=== PATIENT | male | born 1955 | race Hispanic/Latino ===

== ENCOUNTER 2017-04-11 13:24 | Inpatient (IN) | payer OTHER ==
[2017-04-11 13:24] VITALS: BMI 38.2
--- NOTE | 2017-04-11 13:55 | ED PDOC ---
Arrival/HPI - General Chief Complaint: Trauma Time Seen by Provider: 04/11/17 13:33 Historian: Patient - History of Present Illness Narrative History of Present Illness (Text): 04/11/17 13:45 Geovanny Heredia is a 61 year old male, whose past medical history includes CHF, COPD, diabetes, and chronic lower back pain, presents to the emergency department complaining of pain on the right side area of the buttocks after a mechanical fall. Patient reports yesterday night we was walking to lock his apartment door when he suddenly slipped and fell landing on his buttocks. Patient notes having a wallet in the back pocket and describes the fall feeling like a punch. Patient states he could not walk correctly and ended up falling asleep in the couch until this morning his family member saw him and decided to come to the emergency department. Patient denies any head trauma or loss of consciousness. Patient denies any shortness of breath, chest pain, headache, dysuria, nausea, vomiting, or other complaints. PMD: Dr. Stoll Time/Duration: Other (last night ) Symptom Onset: Sudden Symptom Course: Unchanged Activities at Onset: Light Context: Home, Slipped Past Medical History - Provider Review Nursing Documentation Reviewed: Yes - Infectious Disease Hx of Infectious Diseases: None - Cardiac Hx Cardiac Disorders: Yes Hx Hypertension: Yes - Pulmonary Hx Chronic Obstructive Pulmonary Disease (COPD): Yes - Neurological Hx Neurological Disorder: No - HEENT Hx HEENT Disorder: No (WEARS RX GLASSES) - Renal Hx Renal Disorder: No - Endocrine/Metabolic Hx Diabetes Mellitus Type 2: Yes - Hematological/Oncological Hx Blood Disorders: No - Integumentary Hx Dermatological Disorder: Yes (ANASARCA-GROSS EDEMA FROM FEET TO LOWER ABDOMINAL AREA.CELLULITIS BLE) - Musculoskeletal/Rheumatological Hx Musculoskeletal Disorders: Yes Hx Falls: Yes - Gastrointestinal Hx Gastrointestinal Disorders: No - Genitourinary/Gynecological Hx Genitourinary Disorders: No - Psychiatric Hx Psychophysiologic Disorder: No Hx Substance Use: No - Surgical History Hx Orthopedic Surgery: Yes (BILATERAL KNEE SURGERY) Other/Comment: 8 STENTS - Anesthesia Hx Anesthesia: Yes Hx Anesthesia Reactions: No Hx Malignant Hyperthermia: No - Suicidal Assessment Feels Threatened In Home Enviroment: No Family/Social History - Physician Review Nursing Documentation Reviewed: Yes Family/Social History: Unknown Family HX Smoking Status: Heavy Smoker > 10 Cigarettes Daily Hx Alcohol Use: Yes Frequency of alcohol use: Socially Hx Substance Use: No Hx Substance Use Treatment: No Allergies/Home Meds Allergies/Adverse Reactions: Allergies No Known Allergies Allergy (Verified 04/11/17 13:27) Home Medications: Home Meds Medication Instructions Recorded Confirmed Morphine Sulfate [Morphine Sulfate 30 mg PO BID 04/11/17 04/11/17 ER] Review of Systems - Review of Systems Constitutional: absent: Fevers Respiratory: absent: SOB Cardiovascular: absent: Chest Pain Gastrointestinal: absent: Abdominal Pain Genitourinary Male: absent: Dysuria Musculoskeletal: Back Pain (chronic lower back), Other (right sided buttock pain ) Neurological: absent: Headache Physical Exam Vital Signs Reviewed: Yes Vital Signs Temp Pulse Resp BP Pulse Ox 04/11/17 16:45 98 H 18 129/69 96 04/11/17 15:13 101 H 16 124/66 95 04/11/17 13:42 99.4 F 110 H 16 110/61 95 Temperature: Afebrile Blood Pressure: Normal Pulse: Tachycardic Respiratory Rate: Normal Appearance: Positive for: Well-Appearing, Non-Toxic, Comfortable Pain Distress: None Mental Status: Positive for: Alert and Oriented X 3 - Systems Exam Head: Present: Atraumatic, Normocephalic Pupils: Present: PERRL Extroacular Muscles: Present: EOMI Conjunctiva: Present: Normal Mouth: Present: Moist Mucous Membranes Neck: Present: Normal Range of Motion Respiratory/Chest: Present: Clear to Auscultation, Good Air Exchange. No: Respiratory Distress, Accessory Muscle Use Cardiovascular: Present: Regular Rate and Rhythm, Normal S1, S2. No: Murmurs Abdomen: Present: Normal Bowel Sounds. No: Tenderness, Distention, Peritoneal Signs Back: Present: Other (right sided lumbar tenderness L4-L5) Upper Extremity: Present: Normal Inspection. No: Cyanosis, Edema Lower Extremity: Present: Normal Inspection, NORMAL PULSES, Neurovascularly Intact, Capillary Refill < 2 s, Other (right hip tenderness and pain worsened with movement. ). No: Edema Neurological: Present: GCS=15, CN II-XII Intact, Speech Normal, Motor Func Grossly Intact, Normal Sensory Function Skin: Present: Warm, Dry, Normal Color. No: Rashes Psychiatric: Present: Alert, Oriented x 3, Normal Insight, Normal Concentration Medical Decision Making ED Course and Treatment: 04/11/17 Impression: 61 year old male with right hip tenderness and lumbar right sided tenderness (L4 -L5) after mechanical fall last night. Differential Diagnosis included but are not limited to: Lumbar Fracture vs Hip Fracture Plan: -- CT Lumbar spine -- CT pelivs without PO or IV contrast -- Chest X-ray -- Labs -- Reassess and disposition Progress Notes: 04/11/2017 15:[address] IMPRESSION: No acute findings. No evidence of compression fracture or disc herniation. Dictator : Papi Fernandes MD 04/11/2017 16:[address] W/O Contrast IMPRESSION: There is a displaced subcapital hip fracture on the right side. There are no pelvic fractures. Dictator : Papi Fernandes MD 04/11/17 16:36 EKG: NSR at 96 bpm with 1st degree AV block, RBBB, Q waves in inferior leads, no change from previous EKGs. Case discussed with Dr. Stoll who states that Dr. Valladares is still covering for him. He requests Dr. Collier for Orthopedics. Paged Dr. Valladares and pending call back. 04/11/17 16:[address] Valladares who will admit the patient. 04/11/17 17:[address] Jo who's covering for Blaine. Case discussed with Dr. Collier, Orthopedics who will come and evaluate patient within a half hour. He recommended getting cardiology clearance. Patient has been evaluated by Dr. Salcido recently so will order a consult. - Lab Interpretations Lab Results: 04/11/17 14:10 04/11/17 14:10 Lab Results 04/11/17 14:10: Sodium 138, Potassium 4.9, Chloride 92 L, Carbon Dioxide 32, Anion Gap 19, BUN 27 H, Creatinine 1.1, Est GFR ( Amer) > 60, Est GFR ( Non-Af Amer) > 60, Random Glucose 269 H, Calcium 9.3 04/11/17 14:10: PT 11.2, INR 1.04, APTT 29.3 04/11/17 14:10: WBC 10.8 D, RBC 4.52, Hgb 14.2, Hct 42.5, MCV 94.0, MCH 31.4, MCHC 33.4, RDW 13.6, Plt Count 183, MPV 11.5 H, Gran % 84.6 H, Lymph % (Auto) 8.9 L, [place] % (Auto) 5.1, Eos % (Auto) 1.1 L, Baso % (Auto) 0.3, Gran # 9.17 H, Lymph # 1.0 L, [place] # 0.6, Eos # 0.1, Baso # 0.03 I have reviewed the lab results: Yes - RAD Interpretation Radiology Orders: 04/11/17 14:00 LUMBAR SPINE W/O CONTRAST [CT] Stat PELVIS W/O PO OR IV CONTRAST [CT] Stat 04/11/17 16:24 CXR [CHEST PORTABLE] [RAD] Stat - Medication Orders Current Medication Orders: Discontinued Medications Oxycodone HCl (Oxycodone Immediate Release Tab) 30 mg PO STAT STA Stop: 04/11/17 17:04 Last Admin: 04/11/17 17:11 Dose: 30 mg - Scribe Statement The provider has reviewed the documentation as recorded by the Scribe 04/11/2017 [facility] Provider Scribe Attestation: All medical record entries made by the Scribe were at my direction and personally dictated by me. I have reviewed the chart and agree that the record accurately reflects my personal performance of the history, physical exam, medical decision making, and the department course for this patient. I have also personally directed, reviewed, and agree with the discharge instructions and disposition. Disposition/Present on Arrival - Present on Arrival Any Indicators Present on Arrival: No History of DVT/PE: No History of Uncontrolled Diabetes: No Urinary Catheter: No History of Decub. Ulcer: No History Surgical Site Infection Following: None - Disposition Have Diagnosis and Disposition been Completed?: Yes Diagnosis: Hip fracture Disposition: HOSPITALIZED Disposition Time: 16:40 Patient Plan: Admission Patient Problems: Current Active Problems Problem Status Onset Hip fracture Acute Condition: FAIR
[2017-04-11 14:21] LABS: BASO # 0.03 K/mm3 (0.0-2.0); BASO % 0.3 % (0.0-3.0); EOS # 0.1 (0.0-0.7); EOS % 1.1 % (1.5-5.0); GRAN # 9.17 (1.4-6.5); GRAN % 84.6 % (50.0-68.0); HEMATOCRIT 42.5 % (42.0-52.0); LYMPH % 8.9 % (22.0-35.0); MEAN CORPUSCULAR HEMOGLOBIN 31.4 pg (25.0-35.0); MEAN CORPUSCULAR HGB CONC 33.4 g/dl (31.0-37.0); MEAN PLATELET VOLUME 11.5 fl (7.0-11.0); MONO # 0.6 (0.1-0.6); MONO % 5.1 % (1.0-6.0); RED CELL DISTRIBUTION WIDTH 13.6 % (11.5-14.5); WHITE BLOOD COUNT 10.8 10^3/ul (4.5-11.0)
[2017-04-11 14:31] LABS: BLOOD UREA NITROGEN 27 mg/dL (7-21); CALCIUM 9.3 mg/dL (8.4-10.5); CARBON DIOXIDE 32 mmol/L (21-33); CHLORIDE 92 mmol/L (98-107); GFR AFRICAN-AMERICAN > 60; GLUCOSE,RANDOM 269 mg/dL (70-110); POTASSIUM 4.9 mmol/L (3.6-5.0); SODIUM 138 mmol/L (132-148)
[2017-04-11 14:34] LABS: INR 1.04 (0.93-1.08); PARTIAL THROMBOPLASTIN TIME 29.3 Seconds (23.7-30.8)
--- NOTE | 2017-04-11 16:00 | CT ---
PROCEDURE: CT Lumbar Spine without contrast HISTORY: fall r/o fx COMPARISON: None. TECHNIQUE: Axial computed tomography images were obtained of the lumbar spine without the use of intravenous contrast. Coronal and sagittal reformatted images were created and reviewed. Radiation dose: Total exam DLP = 1413 mGy-cm. This CT exam was performed using one or more of the following dose reduction techniques: Automated exposure control, adjustment of the mA and/or kV according to patient size, and/or use of iterative reconstruction technique. FINDINGS: VERTEBRAE: Unremarkable. No fracture. Normal alignment. DISCS/SPINAL CANAL/NEURAL FORAMINA: L1-2: Unremarkable. L2-3: Unremarkable. L3-4: Unremarkable. L4-5: Unremarkable. L5-S1: Disc degeneration at L5-S1 with a vacuum disc. No significant loss of disc height. PARASPINAL SOFT TISSUES: Unremarkable. OTHER FINDINGS: Disc degeneration is also seen in the lower thoracic spine IMPRESSION: No acute findings. No evidence of compression fracture or disc herniation
--- NOTE | 2017-04-11 16:03 | CT ---
PROCEDURE: CT Pelvis without contrast HISTORY: fall with right hip pain r/o fx COMPARISON: None. TECHNIQUE: Contiguous axial images of the pelvis . No intravenous or oral contrast given. Coronal and sagittal reformats generated. Radiation dose: Total exam DLP = 822 mGy-cm. This CT exam was performed using one or more of the following dose reduction techniques: Automated exposure control, adjustment of the mA and/or kV according to patient size, and/or use of iterative reconstruction technique. FINDINGS: BLADDER: Unremarkable. No mass. REPRODUCTIVE ORGANS: Unremarkable. VISUALIZED BOWEL: Unremarkable. PERITONEUM: Unremarkable, as visualized. No free fluid. No free air. LYMPH NODES: Unremarkable. No enlarged lymph nodes. BONES: There is a displaced subcapital hip fracture on the right side. There are no pelvic fractures The finding is best visualized on image 62 series 2 and coronal image 74 VASCULATURE: Unremarkable. OTHER FINDINGS: None. IMPRESSION: There is a displaced subcapital hip fracture on the right side. There are no pelvic fractures
[2017-04-11] MEDS ORDERED: oxyCODONE 30 mg Immediate Release Tab PO STA (17:03)
--- NOTE | 2017-04-11 17:41 | RAD ---
HISTORY: preop COMPARISON: Chest x-ray performed 12/23/15 TECHNIQUE: Chest, one view. FINDINGS: Examination limited by habitus. LUNGS: No focal consolidation. Please note that chest x-ray has limited sensitivity for the detection of pulmonary masses. PLEURA: No significant pleural effusion identified. No definite pneumothorax . CARDIOVASCULAR: Mild cardiomegaly. OSSEOUS STRUCTURES: Degenerative changes. VISUALIZED UPPER ABDOMEN: Unremarkable. OTHER FINDINGS: None. IMPRESSION: Mild cardiomegaly.
[2017-04-11] MEDS ORDERED: Albuterol 0.083% Inhal Sol (2.5 mg/3 mL) UD INH PRN (17:46)
[2017-04-11] MEDS ORDERED: HYDROmorphone 1 mg/ml ISec SC PRN (18:36)
[2017-04-11] MEDS: HYDROmorphone 2 mg/ml ISec IVP PRN (19:00)
[2017-04-11 19:28] LABS: BASO # 0.03 K/mm3 (0.0-2.0); BASO % 0.3 % (0.0-3.0); EOS # 0.2 (0.0-0.7); EOS % 2.1 % (1.5-5.0); GRAN # 7.88 (1.4-6.5); GRAN % 80.2 % (50.0-68.0); HEMATOCRIT 41.6 % (42.0-52.0); LYMPH # 1.1 (1.2-3.4); LYMPH % 11.4 % (22.0-35.0); MEAN CELL VOLUME 93.9 fl (80.0-105.0); MEAN CORPUSCULAR HEMOGLOBIN 30.7 pg (25.0-35.0); MEAN CORPUSCULAR HGB CONC 32.7 g/dl (31.0-37.0); MEAN PLATELET VOLUME 11.3 fl (7.0-11.0); MONO # 0.6 (0.1-0.6); RED CELL DISTRIBUTION WIDTH 13.6 % (11.5-14.5); WHITE BLOOD COUNT 9.8 10^3/ul (4.5-11.0)
--- NOTE | 2017-04-11 22:26 | CARD ---
APPROVED REPORT EKG Measurement Heart [id number] <Conclusion> Sinus rhythm with 1st degree AV block Right bundle branch block Lateral infarct, age undetermined Inferior infarct, age undetermined Abnormal ECG
[2017-04-12] MEDS ORDERED: Pneumococcal 23-Valent Vaccine IM ONE (00:22)
[2017-04-12] MEDS: Levalbuterol 0.63 MG/3 ML Inhal Soln UD IH SCH ×3 (07:15→20:38)
[2017-04-12 07:18] LABS: PH,URINE 5.5 (4.7-8.0); URINE BILIRUBIN NEGATIVE (NEGATIVE); URINE BLOOD TRACE-LYSED (NEGATIVE); URINE GLUCOSE (UA) 500 mg/dL (NEGATIVE); URINE KETONE NEGATIVE (NEGATIVE); URINE LEUKOCYTE ESTERASE NEGATIVE Leu/uL (NEGATIVE); URINE PROTEIN NEGATIVE mg/dL (<30 mg/dL); URINE UROBILINOGEN 0.2 E.U./dL (<1 E.U./dL)
[2017-04-12 07:23] LABS: URINE APPEARANCE CLEAR (CLEAR); URINE COLOR YELLOW (YELLOW)
[2017-04-12 07:42] LABS: URINE RBC NEGATIVE /hpf (0-2); URINE WBC NEGATIVE /hpf (0-6)
[2017-04-12] MEDS: HYDROmorphone 2 mg/ml ISec IVP PRN ×2 (07:58→12:04)
[2017-04-12 08:16] LABS: ALB/GLOB RATIO 1.4 (1.1-1.8); ALKALINE PHOSPHATASE 68 U/L (38-126); ALT/SGPT 22 U/L (7-56); AST/SGOT 45 U/L (17-59); BILIRUBIN,TOTAL 0.8 mg/dL (0.2-1.3); BLOOD UREA NITROGEN 19 mg/dL (7-21); CALCIUM 8.8 mg/dL (8.4-10.5); CARBON DIOXIDE 34 mmol/L (21-33); CHLORIDE 95 mmol/L (98-107); GFR AFRICAN-AMERICAN > 60; GLUCOSE,RANDOM 199 mg/dL (70-110); POTASSIUM 4.2 mmol/L (3.6-5.0); SODIUM 137 mmol/L (132-148); TOTAL PROTEIN 6.4 g/dL (5.8-8.3)
--- NOTE | 2017-04-12 08:26 | CON ---
DATE: 04/11/2017 The patient is being admitted to the ER. HISTORY OF PRESENT ILLNESS: The patient is a 61-year-old male who tripped and fell at home who comes in for a he fractured as seen on er ct scan . He does smoke 1 pack a day with similar packets. He has coronary artery disease, sees Dr. garcia being covered by Dr. Valladares. he will get put in for cardiac evaluation. replacementof the hip fracture is the only procedure to do to enable him to get out of bed.and for him to mobilize himself __and to get rajat walking with cane, restriction to no low chairs and squatting. He was told that there could be risks of blood lose and infection. . DIAGNOSES: displaced sub capital fracture_ right hip, right total hip replacement. Papi Dobson DO MTDHi
[2017-04-12 08:43] LABS: ARTERIAL BLOOD GAS HCO3 36.5 mmol/L (21-28); ARTERIAL BLOOD GAS O2 CAPACITY 17.6 mL/dl (16-24); ARTERIAL BLOOD GAS O2 CONTENT 17.1 ML/dl (15-23); ARTERIAL BLOOD GAS PH 7.43 (7.35-7.45); ARTERIAL BLOOD HGB O2 SAT 91.5 % (95.0-98.0); CARBOXYHEMOGLOBIN 4.8 % (0.5-1.5); HHB 2.6 % (0-5); METHEMOGLOBIN 1.2 % (0.0-3.0)
[2017-04-12] MEDS: Potassium Chloride 20 mEq ER Tab PO SCH (09:15)
--- NOTE | 2017-04-12 12:21 | CON ---
DATE: 04/12/2017 INDICATIONS: Preoperative right hip replacement. HISTORY OF PRESENT ILLNESS: This is a 61-year-old man known to me from prior [facility] admissions, admitted yesterday after a mechanical fall at home. He slipped on a wet surface and landed on his buttocks. He had pain. He came to the emergency room. Evaluation revealed a right hip fracture. Right total hip replacement is planned by Dr. Dobson for later today. There was no dizziness or syncope. He denies chest pain, shortness of breath, orthopnea, PND, palpitation, edema, fever, chills, cough, sputum production, hemoptysis, abdominal pain, nausea, vomiting, diarrhea, constipation and melena. PAST MEDICAL HISTORY: Notable for coronary artery disease, he has undergone remote coronary artery stents and has mild to moderate LV dysfunction. He has diabetes, prior syncopal episode probably due to hypoglycemia. He is an active smoker with severe COPD, chronic pain, peripheral vascular disease with peripheral vascular interventions. He has chronic obesity and peripheral neuropathy. MEDICATIONS AT THE TIME OF ADMISSION: Include aspirin, potassium chloride, Klonopin, Lasix, Lipitor, morphine sulfate, Plavix, Zoloft and metformin. ALLERGIES: THERE WERE NO KNOWN MEDICATION ALLERGIES. FAMILY HISTORY: Noncontributory. SOCIAL HISTORY: He lives at home. He continues to smoke about a pack of cigarette/cigars daily. He does not drink alcohol significantly. REVIEW OF SYSTEMS: A 10-point review of systems otherwise unremarkable except as noted above. PHYSICAL EXAMINATION: GENERAL: He is a well-developed male, sitting in bed, in no acute distress on 5R. VITAL SIGNS: Unremarkable. Pulse 91, temperature 99.4, blood pressure 139/75 and O2 sat 95% on nasal cannula and room air. HEENT: Reveals no neck vein distention, thyromegaly, or carotid bruits. Mucous membrane moist. Conjunctivae are pink. NECK: Supple. LUNGS: Lung fernandez clear throughout. HEART: Reveals normal 1st and 2nd heart sounds. ABDOMEN: Soft. Bowel sounds are present. No mass, organomegaly, tenderness, rebound, or guarding. No CVA tenderness. No palpable abdominal aortic aneurysm. EXTREMITIES: Reveals no edema. NEUROLOGICAL: Awake, alert, and oriented. PSYCHIATRIC: Normal as to mood and affect. SKIN: Warm and dry. No rashes or cellulitis. LABORATORY AND IMAGING: A lumbar spine CT reveal no evidence of compression fracture or disk herniation. A pelvis CT reveals a displaced subcapital hip fracture on the right. No pelvic fracture. A chest x-ray reveals mild cardiomegaly. EKG demonstrates sinus rhythm, first-degree heart block, right bundle branch block, inferior DE and lateral DE. No change from prior EKG. The ST-T wave changes also unchanged from prior EKG. White count normal, platelet count normal, hemoglobin 13.6 and hematocrit 41.6. PT, PTT and INR unremarkable. Electrolytes, BUN, creatinine and blood sugar unremarkable. Blood sugar is 269 and 199. LFTs unremarkable. Urinalysis is noted. IMPRESSION: Geovanny Heredia is a 61-year-old man status post mechanical fall with right hip fracture who was planning to undergo an elective right total hip replacement by Dr. Dobson later day. He has known coronary artery disease, continued smoking, chronic obstructive pulmonary disease, peripheral vascular disease, peripheral vascular intervention, prior coronary interventions, [id number] left ventricular dysfunction, diabetes. So, he is at least moderate increased risk for surgical complications and he should be considered a moderate to high cardiac risk. PLAN: I have discussed the case with Dr. Aquino. Metformin is on hold. He is being covered with insulin. Plavix is being held. He got a dose of Lovenox. We will continue Lipitor, Lasix, Potassium, aspirin. He is getting pain medication. He is n.p.o. for possible surgery later today. I will follow along with you and make additional recommendations based on his clinical course. I have reviewed his prior medical records, cardiac catheterization report and echocardiogram report from December of 2015. Randal Salcido MD JUSTINA
--- NOTE | 2017-04-12 14:36 | CON ---
ORTHOPEDIC CONSULTATION DATE: 04/11/2017 HISTORY OF PRESENT ILLNESS: A 61-year-old male who came into the hospital 04/11/2017 with a displaced fracture subcapital of his right hip. I explained to him that he will need stabilization of the right hip fracture, and since the fracture is displaced, he needs his bipolar hip prosthesis when he is medically cleared and when he can be cleared we can perform the surgery as early as today which is 04/12/2017 or we have to delay if he needs more medical testing, otherwise we can do the surgery today about 3:00 which is 04/12/2017 for bipolar hip prosthesis. I explained to him the risks and benefits and the need for blood transfusion if that is appropriate, so I will follow him and be available to do his surgery when he is medically optimized for surgery. Papi Dobson DO
--- NOTE | 2017-04-12 14:52 | CON ---
DATE: 04/12/2017 REASON FOR CONSULTATION: Chronic obstructive pulmonary disease. REFERRING PHYSICIAN: Papi Dobson DO HISTORY OF PRESENT ILLNESS: The patient is a 61-year-old male with past medical history significant for chronic obstructive pulmonary disease, positive extensive smoking history-still smokes, diabetes mellitus, chronic lower back pain, who presented to the emergency room yesterday with increasing right leg/buttock pain. Apparently, the patient slipped and fell in his apartment on Sunday. He then waited a day to see if the pain would get any better. When the pain did not get any better, he went to the emergency room for additional evaluation. In the emergency room, the patient was noted to have a right hip fracture. He was then admitted for additional evaluation. The patient denies shortness of breath at rest or dyspnea on exertion. He does state to an occasional cough with no significant sputum production. There is no history of chest pain, coughing up of blood, or chest pain-made worse with deep respirations. There is no history of temperatures, chills, or infectious exposure. There is no history of night sweats, weight loss, or appetite change prior to the above events. No history of calf pains. No history of syncope or diaphoresis. No history of recent travel. REVIEW OF SYSTEMS: The patient denies snoring or daytime somnolence. There is no history of nausea, vomiting, or diarrhea. No acute urinary symptoms. No new neurologic complaints. Rest of the review of systems is negative. ALLERGIES: NO KNOWN ALLERGIES. SOCIAL HISTORY: Positive for extensive tobacco usage-still smokes. No alcohol. FAMILY HISTORY: No inheritable diseases. HOME MEDICATIONS: Include aspirin, Lasix, Plavix, Klonopin, Lipitor, Glucophage, Zoloft, and Proventil inhaler. PHYSICAL EXAMINATION GENERAL: The patient appears comfortable at rest. He is not short of breath. VITAL SIGNS: Temperature is 99.4, pulse 91, respirations 16, blood pressure 139/75. oxygen saturation on nasal cannula is 95%. HEENT: Normocephalic, atraumatic. NECK: No JVD. CARDIOVASCULAR: Positive S1, S2. No S3 gallop. LUNGS: Clear bilaterally. EXTREMITIES: There is no clubbing, cyanosis, or edema noted. Calves are nontender to palpation. The right lower extremity is extremely painful with any movement. GASTROINTESTINAL: Abdomen is soft, nontender, nondistended. Bowel sounds are positive. SKIN: No acute rash. NEUROLOGIC: Limited at the present time. PERTINENT LABORATORY DATA: Chest x-ray was done yesterday and reviewed. There is mild cardiomegaly present. There are no acute pulmonary findings. Pelvic CAT scan was also done. The pelvic CAT scan reveals a displaced subcapital hip fracture on the right side. CBC: White count 9.8, hemoglobin 13.6, hematocrit 41.6, platelets of 166. Metabolic profile: Chloride 92, BUN 27, glucose 269. Rest of the metabolic profiles are within normal limits. IMPRESSION: 1. Right hip fracture. 2. Chronic obstructive pulmonary disease. 3. Mild anemia. 4. Diabetes mellitus. PLAN: The patient presents to [facility] after falling at home. Apparently, he slipped and fell in his apartment, landing on his right leg/buttock. As above, in the emergency room, the patient was diagnosed with a right hip fracture. He was thus admitted for additional evaluation. I did question the patient at length in regard to his pulmonary symptoms. Other than an occasional cough, he reports no other pulmonary symptoms. I did review the chest x-ray as above. It shows no acute disease. The patient does use a Proventil inhaler at home. Thus, I will start the patient on scheduled Xopenex treatments perioperatively. In addition, because of his significant smoking history, I will also obtain a preoperative arterial blood gas. Cardiology evaluation has also been called. Additional pulmonary intervention will be based on the above results, as well as the clinical status of the patient. The patient is tentatively scheduled for surgery later today (discussed with nurse). I will be happy to follow this patient closely with you. Thank you very much for this pulmonary consultation. Italo Gonzalez MD JUSTINA
[2017-04-12] MEDS ORDERED: Etomidate 20 mg/10ml Inj IV ONE (15:20)
[2017-04-12] MEDS ORDERED: Midazolam 2 MG/2 ML VIAL ONE (15:21)
[2017-04-12] MEDS ORDERED: Succinylcholine 200 mg/10 ml Inj IV ONE (15:24)
[2017-04-12] MEDS ORDERED: Rocuronium 10 mg/ml (5 ml) ONE (15:25)
[2017-04-12] MEDS ORDERED: ePHEDrine 50 mg/ml Inj ONE (15:27)
[2017-04-12] MEDS ORDERED: Phenylephrine 10 mg/ml Inj ONE (15:29)
[2017-04-12] MEDS ORDERED: Bupivacaine 0.5% Inj(30mL) ONE (15:34)
[2017-04-12] MEDS ORDERED: Desflurane Inhalation Anesthetic Liq (240 ml) ONE (15:57)
[2017-04-12] MEDS ORDERED: Glycopyrrolate 0.2 mg/ml (2ml vial) ONE (17:35)
[2017-04-12] MEDS ORDERED: Neostigmine Methylsulfate 3mg/3ml Syringe IV ONE (17:35)
--- NOTE | 2017-04-12 18:09 | HP ---
CHIEF COMPLAINT AND HISTORY OF PRESENT ILLNESS: The patient is a 61-year-old male who is coming into the hospital because of a fall. The patient states that he was walking and when he slipped and landed on his behind on the right side, he says that he had his wallet that was in place and felt that he landed on his wallet. The patient started having pain and came into the emergency room for further evaluation. He has a past medical history of COPD, diabetes type 2, chronic back pain for which he is on narcotics. He was found to have a hip fracture and was admitted to the hospital for further evaluation. REVIEW OF SYSTEMS: He has no complaints of any headaches, no nausea. He says that he remembered falling. He did not have syncopal episode. He has no fevers or chills. No abdominal pain. No dysuria or frequency, no nocturia, no weakness in the arms or the legs prior to the fall. He does say that he is not able to move his legs and he has significant pain, it was 10/10 initially when this happened. The pain medication that he received in the ER did help relieve the pain symptoms. All other review of systems are within normal limits except that was mentioned. ALLERGIES: NO KNOWN DRUG ALLERGIES. HOME MEDICATIONS: He is on metformin, potassium, morphine, Plavix, aspirin, Klonopin, Lasix, Lipitor, and sertraline. SOCIAL HISTORY: He is a smoker. He does not drink. Denies drug use. 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 FAMILY HISTORY: Noncontributory. PAST SURGICAL HISTORY: Bilateral knee surgery. PHYSICAL EXAMINATION: VITAL SIGNS: Temperature is 99.2, pulse 104, blood pressure is 133/57, respirations 20, O2 saturation 99%. Height is 5 feet 4 inches, weight is 223 pounds, and BMI is 38 is normal. GENERAL: The patient lying in bed, uncomfortable, and in no acute distress. HEENT: Atraumatic and normocephalic. Anicteric sclerae. Moist mucosa. [place] conjunctivae. No oral lesions. NECK: No JVD, anterior and posterior adenopathy, thyromegaly, or bruits. CARDIOVASCULAR: S1 and S2 regular. No murmur, rubs, or gallop. LUNGS: Clear to auscultation bilaterally. No wheezes, rales, or rhonchi. ABDOMEN: Bowel sounds are positive. Soft, nontender and nondistended. No hepatosplenomegaly. No rebound and no guarding EXTREMITIES: No cyanosis, clubbing, or edema. NEUROLOGIC: No facial asymmetry. Tongue is midline. No uvula deviation. Power is 5/5 upper extremity and lower extremity. Sensation intact in upper extremity and lower extremity. PSYCHIATRIC: She is awake, alert and oriented x3. No anxiety or depression. She has normal affect. GENITOURINARY: No CVA tenderness. VASCULAR: 2+ pulses in the carotid pulses and pedal pulses. SKIN: No erythema or nodules. SPINE: Shows normal curvature. EXTREMITIES: No cyanosis and clubbing, no edema. In the right leg he has decreased range of motion because of pain. Not able to lift his leg. LABORATORY DATA: White count of 10.8, hemoglobin 14.2, platelet count is 183. He has a chemistry that shows sodium 138, potassium is 4.9, creatinine is 1.1, and albumin is 3.7. Urine shows blood that is trace, nitrates are negative, bilirubin is negative. EKG shows sinus rhythm, first degree AV block with a heart rate of 96. No ST-T changes. His chest x-ray done shows no cardiomegaly. His lumbar CT done shows no acute findings. There is disc degeneration at L5-S1. Pelvic CAT scan done shows a displaced subcapital hip fracture on the right side. ASSESSMENT: 1. Right hip fracture. 2. Chronic back pain secondary to degenerative disk disease. 3. Chronic obstructive pulmonary disease. 4. Peripheral neuropathy. 5. Coronary artery disease. 6. Dyslipidemia. PLAN: The patient is going to be admitted to the hospital. The patient is on his Dilaudid for pain. He is going to continue with aspirin. The patient is on Lipitor for dyslipidemia. He is on Zoloft for his anxiety and depression. The patient is n.p.o. because of going for hip surgery today. He is going to be followed with Dr. Salcido for preop clearance, and also Dr. Gonzalez. The patient was already seen by Orthopedic with Dr. Dobson. We will continue to follow him closely. Agustín Valladares MD [facility] # [id number]
[2017-04-12] MEDS ORDERED: HYDROmorphone 0.5 mg/0.5 ml ISec ONE ×2 (18:10→20:44)
[2017-04-12] MEDS ORDERED: Lactated Ringer's 1,000 ML IV SCH (18:16)
[2017-04-12] MEDS ORDERED: HYDROmorphone 0.5 mg/0.5 ml ISec IVP PRN (18:16)
[2017-04-12] MEDS ORDERED: Enoxaparin 40 mg Syringe SC ONE (18:34)
[2017-04-12] MEDS ORDERED: HYDROmorphone 0.5 mg/0.5 ml ISec IVP ONE (19:31)
[2017-04-12] MEDS ORDERED: Albuterol-Ipratrop 3 mg / 0.5 (3 ml) UD IH PRN (20:45)
[2017-04-12] MEDS ORDERED: HYDROmorphone 0.5 mg/0.5 ml ISec IVP STA (20:45)
--- NOTE | 2017-04-12 20:58 | CP.PCM.CON ---
<Jojo Hinson - Last Filed: 04/13/17 06:08> History of Present Illness - History of Present Illness History of Present Illness: Critical Care Consult Note for Dr. Vo 61 year old male PMHx CAD, CHF, COPD, DM2, PVD, chronic low back pain presented to ER s/p mechanical fall on 04/11. In the ED, patient was found to have a right displaced subcapital hip fracture. Orthopedics was consulted and patient was taken to OR for bipolar hip prosthesis. Postop, patient was tachycardic with low O2 sat. ABG showed pH 7.28 with evidence of hypercapnic respiratory failure with CO2 of 87 likely secondary to COPD. Patient was placed on BiPAP and transferred to ICU. PMD: Dr. Stoll PMHx: CAD, CHF, COPD, DM2, PVD, chronic low back pain Meds: please see chart ALL: NKDA PSurgHx: b/l knee surgery FamHx: denies SocHx: current tobacco use ~1ppd Review of Systems - Constitutional Constitutional: As Per HPI. absent: Chills, Fever - EENT Eyes: As Per HPI. absent: Blurred Vision Ears: As Per HPI. absent: Dizziness Nose/Mouth/Throat: As Per HPI, Dry Mouth - Cardiovascular Cardiovascular: As Per HPI, Dyspnea. absent: Chest Pain, Edema - Respiratory Respiratory: As Per HPI, Dyspnea. absent: Cough - Gastrointestinal Gastrointestinal: As Per HPI. absent: Abdominal Pain, Nausea, Vomiting - Genitourinary Genitourinary: As Per HPI. absent: Dysuria - Musculoskeletal Musculoskeletal: As Per HPI, Other (denied postop pain) - Neurological Neurological: As Per HPI. absent: Dizziness, Headaches - Psychiatric Psychiatric: As Per HPI, Anxiety Past Patient History - Infectious Disease Hx of Infectious Diseases: None - Past Social History Smoking Status: Current Some Days Smoker - CARDIAC Hx Pacemaker: No - PULMONARY Hx Respiratory Disorders: Yes (SMOKES 1 PPD) Hx Chronic Obstructive Pulmonary Disease (COPD): Yes - NEUROLOGICAL Hx Paralysis: No - HEENT Hx HEENT Problems: No (WEARS RX GLASSES) - RENAL Hx Chronic Kidney Disease: No - ENDOCRINE/METABOLIC Hx Endocrine Disorders: Yes Hx Diabetes Mellitus Type 2: Yes - HEMATOLOGICAL/ONCOLOGICAL Hx Blood Transfusions: No Hx Blood Transfusion Reaction: No - INTEGUMENTARY Hx Dermatological Problems: Yes (ANASARCA-GROSS EDEMA FROM FEET TO LOWER ABDOMINAL AREA.CELLULITIS BLE) - MUSCULOSKELETAL/RHEUMATOLOGICAL Hx Musculoskeletal Disorders: Yes (BILATERAL KNEE SX) - GASTROINTESTINAL Hx Gastrointestinal Disorders: No - GENITOURINARY/GYNECOLOGICAL Hx Genitourinary Disorders: No - PSYCHIATRIC Hx Emotional Abuse: No Hx Physical Abuse: No Hx Substance Use: No - SURGICAL HISTORY Hx Surgeries: Yes - ANESTHESIA Hx Anesthesia Reactions: No Hx Malignant Hyperthermia: No Meds Allergies/Adverse Reactions: Allergies Allergy/AdvReac Type Severity Reaction Status Date / Time No Known Allergies Allergy Verified 04/11/17 19:47 - Medications Medications: Current Medications Albuterol/Ipratropium (Duoneb 3 Mg/0.5 Mg (3 Ml) Ud) 3 ml IH Q2H PRN PRN Reason: Shortness of Breath Aspirin (Ecotrin) 81 mg PO BID [facility] Last Admin: 04/12/17 09:23 Dose: Not Given Atorvastatin Calcium (Lipitor) 10 mg PO HS [facility] Last Admin: 04/11/17 22:35 Dose: 10 mg Clonazepam (Klonopin) 0.5 mg PO HS [facility] PRN Reason: Protocol Last Admin: 04/11/17 22:35 Dose: 0.5 mg Enoxaparin Sodium (Lovenox) 30 mg SC Q12H IDRIS PRN Reason: Protocol Furosemide (Lasix) 40 mg PO BID [facility] Last Admin: 04/12/17 09:14 Dose: 40 mg Hydromorphone HCl (Dilaudid) 2 mg IVP Q4H PRN PRN Reason: Pain, moderate (4-7) Last Admin: 04/12/17 12:04 Dose: 2 mg Cefazolin Sodium 2 gm/ Sodium (Chloride) 100 mls @ 200 mls/hr IVPB ONCE ONE Stop: 04/13/17 00:14 Insulin Human Regular (Humulin R Med) 0 units SC ACHS [facility] PRN Reason: Protocol Levalbuterol HCl (Xopenex) 0.63 mg IH TIDRESP [facility] Last Admin: 04/12/17 20:38 Dose: Not Given Nystatin/Triamcinolone Acetonide (Nystatin/Triamcinolone Cream) 1 ea TOP BID [facility] Potassium Chloride (K-Dur 20 Meq Er Tab) 20 meq PO DAILY [facility] Last Admin: 04/12/17 09:15 Dose: 20 meq Sertraline HCl (Zoloft) 50 mg PO DAILY IDRIS Physical Exam - Constitutional Appears: Non-toxic, No Acute Distress, Chronically Ill, Other (obese) - Head Exam Head Exam: ATRAUMATIC, NORMAL INSPECTION, NORMOCEPHALIC - Eye Exam Eye Exam: EOMI, Normal appearance, PERRL. absent: Conjunctival injection, Scleral icterus - ENT Exam ENT Exam: Mucous Membranes Dry Additional comments: BiPAP in place - Neck Exam Neck exam: Positive for: Lymphadenopathy - Respiratory Exam Additional comments: coarse breath sounds b/l - Cardiovascular Exam Cardiovascular Exam: Tachycardia, REGULAR RHYTHM. absent: Systolic Murmur - GI/Abdominal Exam GI & Abdominal Exam: Normal Bowel Sounds, Soft. absent: Firm, Rigid, Tenderness - Extremities Exam Extremities exam: Positive for: pedal pulses present Additional comments: LE sensation grossly intact b/l SCDs in place - Neurological Exam Neurological exam: Alert, Oriented x3 - Psychiatric Exam Psychiatric exam: Anxious - Skin Skin Exam: Dry, Intact, Normal Color, Warm Results - Vital Signs Recent Vital Signs: Last Vital Signs Temp 99.2 F 04/12/17 19:49 Pulse 122 H 04/12/17 19:49 Resp 12 04/12/17 19:49 BP 159/69 H 04/12/17 19:49 Pulse Ox 94 L 04/12/17 19:49 - Labs Result Diagrams: 04/12/17 21:43 04/12/17 21:43 Labs: Laboratory Results - last 24 hr 04/11/17 04/11/17 04/12/17 16:45 21:24 06:30 pCO2 pO2 HCO3 ABG pH ABG Total CO2 ABG O2 Saturation ABG O2 Content ABG Base Excess ABG Hemoglobin ABG Carboxyhemoglobin POC ABG HHb (Measured) ABG Methemoglobin ABG O2 Capacity Hgb O2 Saturation FiO2 Sodium Potassium Chloride Carbon Dioxide Anion Gap BUN Creatinine Est GFR ( Amer) Est GFR (Non-Af Amer) POC Glucose (mg/dL) 244 H Random Glucose Calcium Total Bilirubin AST ALT Alkaline Phosphatase Total Protein Albumin Globulin Albumin/Globulin Ratio Urine Color Yellow Urine Appearance Clear Urine pH 5.5 Ur Specific [place] 1.020 Urine Protein Negative Urine Glucose (UA) 500 H Urine Ketones Negative Urine Blood Trace-lysed H Urine Nitrate Negative Urine Bilirubin Negative Urine Urobilinogen 0.2 Ur Leukocyte Esterase Negative Urine RBC Negative Urine WBC Negative Blood Type A POSITIVE Antibody Screen Negative Crossmatch See Detail BBK History Checked Patient has bt 04/12/17 04/12/17 04/12/17 07:23 07:45 08:35 pCO2 55 H pO2 69.0 L HCO3 36.5 H ABG pH 7.43 ABG Total CO2 38.2 H ABG O2 Saturation 97.2 ABG O2 Content 17.1 ABG Base Excess 10.2 H ABG Hemoglobin 13.3 ABG Carboxyhemoglobin 4.8 H POC ABG HHb (Measured) 2.6 ABG Methemoglobin 1.2 ABG O2 Capacity 17.6 Hgb O2 Saturation 91.5 L FiO2 28.0 Sodium 137 Potassium 4.2 Chloride 95 L Carbon Dioxide 34 H Anion Gap 12 BUN 19 Creatinine 0.9 Est GFR ( Amer) > 60 Est GFR (Non-Af Amer) > 60 POC Glucose (mg/dL) 188 H Random Glucose 199 H Calcium 8.8 Total Bilirubin 0.8 AST 45 ALT 22 Alkaline Phosphatase 68 Total Protein 6.4 Albumin 3.7 Globulin 2.7 Albumin/Globulin Ratio 1.4 Urine Color Urine Appearance Urine pH Ur Specific [place] Urine Protein Urine Glucose (UA) Urine Ketones Urine Blood Urine Nitrate Urine Bilirubin Urine Urobilinogen Ur Leukocyte Esterase Urine RBC Urine WBC Blood Type Antibody Screen Crossmatch BBK History Checked 04/12/17 11:27 pCO2 pO2 HCO3 ABG pH ABG Total CO2 ABG O2 Saturation ABG O2 Content ABG Base Excess ABG Hemoglobin ABG Carboxyhemoglobin POC ABG HHb (Measured) ABG Methemoglobin ABG O2 Capacity Hgb O2 Saturation FiO2 Sodium Potassium Chloride Carbon Dioxide Anion Gap BUN Creatinine Est GFR ( Amer) Est GFR (Non-Af Amer) POC Glucose (mg/dL) 193 H Random Glucose Calcium Total Bilirubin AST ALT Alkaline Phosphatase Total Protein Albumin Globulin Albumin/Globulin Ratio Urine Color Urine Appearance Urine pH Ur Specific [place] Urine Protein Urine Glucose (UA) Urine Ketones Urine Blood Urine Nitrate Urine Bilirubin Urine Urobilinogen Ur Leukocyte Esterase Urine RBC Urine WBC Blood Type Antibody Screen Crossmatch BBK History Checked Assessment & Plan - Assessment and Plan (Free Text) Assessment: 61 year old male PMHx CAD, CHF, COPD, DM2, PVD, chronic low back pain presented to ER s/p mechanical fall on 04/11 found to have R hip fracture. ICU consulted for tachycardia and low O2 post op bipolar hip prosthesis Plan: Neuro - no acute issues Cardio - patient is tachycardic - monitor closely - ASA 81mg po - Lipitor 10mg po hs - Lasix 40mg po bid - Hydralazine 10mg ivp q4 prn - Cardio Dr. Salcido Respiratory - hypercapnic respiratory failure likely secondary to COPD - monitor closely on BiPAP - f/u ABG - CTA to ro PE: dilated main pulm artery suggesting pulm HTN, no aneurysm, dissection or pulm embolus; cardiomegaly and atherosclerotic disease minimal scarring at the lung bases - Solumedrol 40mg ivp q12 - Levalbuterol 0.63inh tid - Duoneb 3ml inh q2 prn SOB - Pulm Dr. Gonzalez GI - no acute issues Endo - RISS - Accucheck ID - Zithromax 500mg ivpb Day 1 - Ofirmev for temp prn Heme/Onc - no acute issues MSK - POD#1 bipolar hip prosthesis - Pelvis CT 04/11: displaced subcapital hip fracture on R side - Lumbar spine CT 04/11: no acute findings - Dilaudid 2mg ivp q4 prn pain mod - Ortho Dr. Dobson Skin - Triamcinolone cream 1 ea top bid Psych - no acute issues - continue home medications - Zoloft 50mg po qd - Clonazepam 0.5mg po qhs GI ppx: Pepcid 20mg po bid VTE ppx: Lovenox 30mg sc q12 Diet: HHD Fluids: NS @ 100cc/hr PT/OT ordered Discussed with Dr. Gilda Hinson PGY2 <Chiki Vo Q - Last Filed: 04/13/17 06:42> Meds - Medications Medications: Current Medications Albuterol/Ipratropium (Duoneb 3 Mg/0.5 Mg (3 Ml) Ud) 3 ml IH Q2H PRN PRN Reason: Shortness of Breath Albuterol/Ipratropium (Duoneb 3 Mg/0.5 Mg (3 Ml) Ud) 3 ml IH [id number] IDRIS Albuterol/Ipratropium (Duoneb 3 Mg/0.5 Mg (3 Ml) Ud) 3 ml IH Q2H PRN PRN Reason: Shortness of Breath Aspirin (Ecotrin) 81 mg PO BID [facility] Last Admin: 04/12/17 19:00 Dose: Not Given Atorvastatin Calcium (Lipitor) 10 mg PO HS IDRIS Last Admin: 04/12/17 22:00 Dose: Not Given Budesonide (Pulmicort Respules) 0.5 mg IH [id number] IDRIS Clonazepam (Klonopin) 0.5 mg PO HS IDRIS PRN Reason: Protocol Last Admin: 04/12/17 22:00 Dose: Not Given Enoxaparin Sodium (Lovenox) 30 mg SC Q12H IDRIS PRN Reason: Protocol Famotidine (Pepcid) 20 mg PO 1000,2200 IDRIS Furosemide (Lasix) 40 mg PO BID [facility] Last Admin: 04/12/17 21:30 Dose: Not Given Hydralazine HCl (Apresoline) 10 mg IVP Q4 PRN PRN Reason: Systolic Blood Pressure Hydromorphone HCl (Dilaudid) 2 mg IVP Q4H PRN PRN Reason: Pain, moderate (4-7) Last Admin: 04/12/17 12:04 Dose: 2 mg Acetaminophen (Ofirmev) 1,000 mg in 100 mls @ 400 mls/hr IVPB Q6H PRN PRN Reason: Temperature Stop: 04/14/17 23:51 Last Admin: 04/13/17 00:08 Dose: 400 mls/hr Sodium Chloride (Sodium Chloride 0.9%) 1,000 mls @ 100 mls/hr IV .Q10H [facility] Last Admin: 04/13/17 01:03 Dose: 100 mls/hr Azithromycin (Zithromax 500mg In Ns) 500 mg in 250 mls @ 167 mls/hr IVPB 0600 IDRIS PRN Reason: Protocol Last Admin: 04/13/17 05:21 Dose: 167 mls/hr Insulin Human Regular (Humulin R Med) 0 units SC ACHS [facility] PRN Reason: Protocol Last Admin: 04/12/17 21:30 Dose: Not Given Methylprednisolone (Solu-Medrol) 40 mg IVP Q12 [facility] Last Admin: 04/12/17 22:31 Dose: 40 mg Nystatin/Triamcinolone Acetonide (Nystatin/Triamcinolone Cream) 1 ea TOP BID [facility] Last Admin: 04/12/17 21:30 Dose: 1 applic Potassium Chloride (K-Dur 20 Meq Er Tab) 20 meq PO DAILY IDRIS Last Admin: 04/12/17 09:15 Dose: 20 meq Sertraline HCl (Zoloft) 50 mg PO DAILY [facility] Results - Vital Signs Recent Vital Signs: Last Vital Signs Temp 99.7 F H 04/13/17 05:20 Pulse 115 H 04/13/17 05:20 Resp 13 04/13/17 05:00 BP 119/59 L 04/13/17 05:16 Pulse Ox 97 04/13/17 05:20 - Labs Result Diagrams: 04/12/17 21:43 04/12/17 21:43 Labs: Laboratory Results - last 24 hr 04/11/17 04/12/17 04/12/17 16:45 06:30 07:23 WBC RBC Hgb Hct MCV MCH MCHC RDW Plt Count MPV Gran % Lymph % (Auto) [place] % (Auto) Eos % (Auto) Baso % (Auto) Gran # Lymph # Edgar # Eos # Baso # pCO2 pO2 HCO3 ABG pH ABG Total CO2 ABG O2 Saturation ABG O2 Content ABG Base Excess ABG Hemoglobin ABG Carboxyhemoglobin POC ABG HHb (Measured) ABG Methemoglobin ABG O2 Capacity Hgb O2 Saturation FiO2 Sodium Potassium Chloride Carbon Dioxide Anion Gap BUN Creatinine Est GFR ( Amer) Est GFR (Non-Af Amer) POC Glucose (mg/dL) 188 H Random Glucose Calcium Total Bilirubin AST ALT Alkaline Phosphatase Total Protein Albumin Globulin Albumin/Globulin Ratio Urine Color Yellow Urine Appearance Clear Urine pH 5.5 Ur Specific [place] 1.020 Urine Protein Negative Urine Glucose (UA) 500 H Urine Ketones Negative Urine Blood Trace-lysed H Urine Nitrate Negative Urine Bilirubin Negative Urine Urobilinogen 0.2 Ur Leukocyte Esterase Negative Urine RBC Negative Urine WBC Negative Blood Type A POSITIVE Antibody Screen Negative Crossmatch See Detail BBK History Checked Patient has bt 04/12/17 04/12/17 04/12/17 07:45 08:35 11:27 WBC RBC Hgb Hct MCV MCH MCHC RDW Plt Count MPV Gran % Lymph % (Auto) [place] % (Auto) Eos % (Auto) Baso % (Auto) Gran # Lymph # Edgar # Eos # Baso # pCO2 55 H pO2 69.0 L HCO3 36.5 H ABG pH 7.43 ABG Total CO2 38.2 H ABG O2 Saturation 97.2 ABG O2 Content 17.1 ABG Base Excess 10.2 H ABG Hemoglobin 13.3 ABG Carboxyhemoglobin 4.8 H POC ABG HHb (Measured) 2.6 ABG Methemoglobin 1.2 ABG O2 Capacity 17.6 Hgb O2 Saturation 91.5 L FiO2 28.0 Sodium 137 Potassium 4.2 Chloride 95 L Carbon Dioxide 34 H Anion Gap 12 BUN 19 Creatinine 0.9 Est GFR ( Amer) > 60 Est GFR (Non-Af Amer) > 60 POC Glucose (mg/dL) 193 H Random Glucose 199 H Calcium 8.8 Total Bilirubin 0.8 AST 45 ALT 22 Alkaline Phosphatase 68 Total Protein 6.4 Albumin 3.7 Globulin 2.7 Albumin/Globulin Ratio 1.4 Urine Color Urine Appearance Urine pH Ur Specific [place] Urine Protein Urine Glucose (UA) Urine Ketones Urine Blood Urine Nitrate Urine Bilirubin Urine Urobilinogen Ur Leukocyte Esterase Urine RBC Urine WBC Blood Type Antibody Screen Crossmatch BBK History Checked 04/12/17 04/12/17 04/12/17 21:13 21:20 21:43 WBC 15.9 H D RBC 3.43 L Hgb 10.5 L D Hct 32.3 L MCV 94.2 MCH 30.6 MCHC 32.5 RDW 13.5 Plt Count 160 MPV 10.9 Gran % 83.9 H Lymph % (Auto) 7.4 L Edgar % (Auto) 7.1 H Eos % (Auto) 1.5 Baso % (Auto) 0.1 Gran # 13.37 H Lymph # 1.2 Edgar # 1.1 H Eos # 0.2 Baso # 0.02 pCO2 87 H* pO2 78.0 L HCO3 40.9 H* ABG pH 7.28 L ABG Total CO2 43.6 H ABG O2 Saturation 96.0 ABG O2 Content 13.9 L ABG Base Excess 11.4 H ABG Hemoglobin 10.6 L ABG Carboxyhemoglobin 2.5 H POC ABG HHb (Measured) 3.9 ABG Methemoglobin 1.1 ABG O2 Capacity 14.5 L Hgb O2 Saturation 92.4 L FiO2 40.0 Sodium Potassium Chloride Carbon Dioxide Anion Gap BUN Creatinine Est GFR ( Amer) Est GFR (Non-Af Amer) POC Glucose (mg/dL) 248 H Random Glucose Calcium Total Bilirubin AST ALT Alkaline Phosphatase Total Protein Albumin Globulin Albumin/Globulin Ratio Urine Color Urine Appearance Urine pH Ur Specific [place] Urine Protein Urine Glucose (UA) Urine Ketones Urine Blood Urine Nitrate Urine Bilirubin Urine Urobilinogen Ur Leukocyte Esterase Urine RBC Urine WBC Blood Type Antibody Screen Crossmatch BBK History Checked 04/12/17 04/13/17 21:43 00:44 WBC RBC Hgb Hct MCV MCH MCHC RDW Plt Count MPV Gran % Lymph % (Auto) [place] % (Auto) Eos % (Auto) Baso % (Auto) Gran # Lymph # Edgar # Eos # Baso # pCO2 69 H pO2 108.0 H HCO3 34.7 H ABG pH 7.31 L ABG Total CO2 36.8 H ABG O2 Saturation 99.1 H ABG O2 Content 13.5 L ABG Base Excess 6.8 H ABG Hemoglobin 10.0 L ABG Carboxyhemoglobin 2.7 H POC ABG HHb (Measured) 0.9 ABG Methemoglobin 1.5 ABG O2 Capacity 13.6 L Hgb O2 Saturation 94.9 L FiO2 40.0 Sodium 135 Potassium 4.3 Chloride 94 L Carbon Dioxide 36 H Anion Gap 9 L BUN 16 Creatinine 0.8 Est GFR ( Amer) > 60 Est GFR (Non-Af Amer) > 60 POC Glucose (mg/dL) Random Glucose 224 H Calcium 7.9 L Total Bilirubin AST ALT Alkaline Phosphatase Total Protein Albumin Globulin Albumin/Globulin Ratio Urine Color Urine Appearance Urine pH Ur Specific [place] Urine Protein Urine Glucose (UA) Urine Ketones Urine Blood Urine Nitrate Urine Bilirubin Urine Urobilinogen Ur Leukocyte Esterase Urine RBC Urine WBC Blood Type Antibody Screen Crossmatch BBK History Checked Attending/Attestation - Attestation Notes (Text): 04/13/17 06:38 I agree with the note and exam above by the resident with the addition/ exception of the followin61 y/o male with a PMHx COPD, CAD, CHFw/preserved EF underwent surgery for a bipolar hip prosthesis. Post op the patient was noted to be tachycardic and became hypoxic in the PACU requiring increased oxygen requirements. Found to have hypercapnic respiratory failure likely secondary to COPD +/- atelectasis after surgery. He was placed on Bipap (16/02 with fi02 40%) with an improvement in his ventilation and monitored in the ICU overnight. IV Solumedrol Duoneb prn Azithromycin 500mg IV daily held lasix yesterday due to tachycardia CTangio negative for PE labs and images available to myself reviewed on this visit total time of care: 40 minutes
[2017-04-12 21:24] LABS: ARTERIAL BLOOD GAS O2 CAPACITY 14.5 mL/dl (16-24); ARTERIAL BLOOD GAS O2 CONTENT 13.9 ML/dl (15-23); ARTERIAL BLOOD GAS PH 7.28 (7.35-7.45); ARTERIAL BLOOD HGB O2 SAT 92.4 % (95.0-98.0); CARBOXYHEMOGLOBIN 2.5 % (0.5-1.5); HHB 3.9 % (0-5); METHEMOGLOBIN 1.1 % (0.0-3.0)
[2017-04-12 21:28] LABS: ARTERIAL BLOOD GAS HCO3 40.9 mmol/L (21-28)
[2017-04-12] MEDS: Insulin Reg-MEDIUM-Coverage SC SCH (21:30)
[2017-04-12] MEDS: Nystatin-Triamcinolone Cream(30 gm) TOP SCH (21:30)
[2017-04-12 21:49] LABS: BASO # 0.02 K/mm3 (0.0-2.0); BASO % 0.1 % (0.0-3.0); EOS # 0.2 (0.0-0.7); EOS % 1.5 % (1.5-5.0); GRAN # 13.37 (1.4-6.5); GRAN % 83.9 % (50.0-68.0); HEMATOCRIT 32.3 % (42.0-52.0); LYMPH # 1.2 (1.2-3.4); LYMPH % 7.4 % (22.0-35.0); MEAN CELL VOLUME 94.2 fl (80.0-105.0); MEAN CORPUSCULAR HEMOGLOBIN 30.6 pg (25.0-35.0); MEAN CORPUSCULAR HGB CONC 32.5 g/dl (31.0-37.0); MEAN PLATELET VOLUME 10.9 fl (7.0-11.0); MONO # 1.1 (0.1-0.6); MONO % 7.1 % (1.0-6.0); RED CELL DISTRIBUTION WIDTH 13.5 % (11.5-14.5); WHITE BLOOD COUNT 15.9 10^3/ul (4.5-11.0)
[2017-04-12 21:56] LABS: BLOOD UREA NITROGEN 16 mg/dL (7-21); CALCIUM 7.9 mg/dL (8.4-10.5); CARBON DIOXIDE 36 mmol/L (21-33); GFR AFRICAN-AMERICAN > 60; GLUCOSE,RANDOM 224 mg/dL (70-110); POTASSIUM 4.3 mmol/L (3.6-5.0); SODIUM 135 mmol/L (132-148)
[2017-04-12 22:06] LABS: CHLORIDE 94 mmol/L (98-107)
[2017-04-12] MEDS ORDERED: Iodixanol 320 MG/ML 100 ML BOTTLE IV ONE (22:20)
[2017-04-12] MEDS: MethylPREDNISolone 40 mg Vial IVP SCH (22:31)
[2017-04-12] MEDS ORDERED: ceFAZolin 2 GM in Sodium Chloride 0.9% 100 ML IVPB ONE (23:45)
[2017-04-13] MEDS ORDERED: Dextrose 5%/0.9% NS 1,000 ML IV SCH
--- NOTE | 2017-04-13 00:43 | CT ---
EXAM: CT Angiography Chest With Intravenous Contrast EXAM DATE/TIME: 04/12/2017 9:32 PM CLINICAL HISTORY: 61 years old, male; Signs and symptoms; Tachypnea; Prior surgery; Surgery type: 8 stents; Additional info: Hypoxic/tachycardic - rule out pe TECHNIQUE: Axial computed tomographic angiography images of the chest with intravenous contrast using pulmonary embolism protocol. All CT scans at this facility use one or more dose reduction techniques, viz.: automated exposure control; ma/kV adjustment per patient size (including targeted exams where dose is matched to indication; i.e. head); or iterative reconstruction technique. MIP reconstructed images were created and reviewed. Coronal and sagittal reformatted images were created and reviewed. CONTRAST: 97 mL of OMNI 350 administered intravenously. COMPARISON: DX - CHEST PORTABLE 04/12/2017 9:05:04 PM FINDINGS: Artifacts: Motion artifact degrades image quality. Heart, aorta and Pulmonary arteries: The heart is mildly enlarged. There are coronary calcifications. Aorta is normal in caliber. There is perfusion of the 3 arch vessels.There are vascular calcifications. Main pulmonary artery is dilated, 4 cm in diameter. The main left and right pulmonary arteries are dilated. There is pruning at the ayan.There are no pulmonary emboli. Lungs and pleural spaces: Trachea and main bronchi are patent. There is no lobar or segmental consolidation. There is atelectasis and scarring greatest at the left base. There are no effusions. Mediastinum: The esophagus is unremarkable. There are mildly prominent mediastinal and right hilar nodes. Thyroid: There is an incompletely imaged 4 x 2.5 cm right thyroid nodule. Visualized portion of the left lobe is unremarkable. Bones/joints: There are degenerative changes in the osseus structures. Soft tissues: There is a 3.8 x 5.4 cm cyst in the medial left chest wall. Upper abdomen: There are no acute abnormalities in the visualized portion of the abdomen. Pancreas is atrophic IMPRESSION: Dilated main pulmonary artery suggest pulmonary hypertension, no aneurysm, dissection or pulmonary embolus; cardiomegaly and atherosclerotic disease minimal scarring at the lung bases Additional findings as described above.
[2017-04-13 00:50] LABS: ARTERIAL BLOOD GAS HCO3 34.7 mmol/L (21-28); ARTERIAL BLOOD GAS O2 CAPACITY 13.6 mL/dl (16-24); ARTERIAL BLOOD GAS O2 CONTENT 13.5 ML/dl (15-23); ARTERIAL BLOOD GAS PH 7.31 (7.35-7.45); ARTERIAL BLOOD HGB O2 SAT 94.9 % (95.0-98.0); CARBOXYHEMOGLOBIN 2.7 % (0.5-1.5); HHB 0.9 % (0-5); METHEMOGLOBIN 1.5 % (0.0-3.0)
[2017-04-13] MEDS: Sodium Chloride 0.9% 1,000 ML IV SCH ×2 (01:03→14:43)
[2017-04-13] MEDS ORDERED: Azithromycin 500MG/NS 250ml 500 MG/250 ML BAG IVPB SCH (02:12)
[2017-04-13] MEDS: Azithromycin 500MG/NS 250ml 500 MG/250 ML BAG IVPB SCH (05:21)
[2017-04-13 06:34] LABS: BASO # 0.01 K/mm3 (0.0-2.0); BASO % 0.1 % (0.0-3.0); EOS % 0.2 % (1.5-5.0); GRAN # 9.54 (1.4-6.5); GRAN % 94.4 % (50.0-68.0); HEMATOCRIT 30.4 % (42.0-52.0); LYMPH # 0.3 (1.2-3.4); LYMPH % 2.9 % (22.0-35.0); MEAN CELL VOLUME 94.1 fl (80.0-105.0); MEAN CORPUSCULAR HEMOGLOBIN 29.7 pg (25.0-35.0); MEAN CORPUSCULAR HGB CONC 31.6 g/dl (31.0-37.0); MEAN PLATELET VOLUME 11.8 fl (7.0-11.0); MONO # 0.2 (0.1-0.6); MONO % 2.4 % (1.0-6.0); PLATELET COUNT 153 10^3/uL (120.0-450.0); RED CELL DISTRIBUTION WIDTH 13.5 % (11.5-14.5); WHITE BLOOD COUNT 10.1 10^3/ul (4.5-11.0)
[2017-04-13] MEDS ORDERED: Albuterol-Ipratrop 3 mg / 0.5 (3 ml) UD IH PRN (06:35)
[2017-04-13 06:55] LABS: ALB/GLOB RATIO 1.3 (1.1-1.8); ALKALINE PHOSPHATASE 60 U/L (38-126); ALT/SGPT 33 U/L (7-56); AST/SGOT 44 U/L (17-59); BILIRUBIN,TOTAL 0.9 mg/dL (0.2-1.3); BLOOD UREA NITROGEN 16 mg/dL (7-21); CALCIUM 7.9 mg/dL (8.4-10.5); CARBON DIOXIDE 33 mmol/L (21-33); CHLORIDE 97 mmol/L (98-107); GFR AFRICAN-AMERICAN > 60; GLUCOSE,RANDOM 248 mg/dL (70-110); MAGNESIUM 1.3 mg/dL (1.7-2.2); POTASSIUM 4.7 mmol/L (3.6-5.0); SODIUM 137 mmol/L (132-148); TOTAL PROTEIN 5.5 g/dL (5.8-8.3)
[2017-04-13] MEDS ORDERED: Magnesium Sulfate 2 GM in Sodium Chloride 0.9% 100 ML IVPB ONE (07:29)
--- NOTE | 2017-04-13 07:31 | OP ---
PROCEDURE DATE: 04/12/2017 PREOPERATIVE DIAGNOSIS: Displaced subcapital fracture, right hip. POSTOPERATIVE DIAGNOSIS: Displaced subcapital fracture, right hip. PROCEDURE: Right hip bipolar prosthesis from [employer], utilizing a femoral stem of 12 mm x 140 mm porous coated, a standard neck with a bipolar acetabulum of 28 mm x 47 mm outside diameter. ORE PUNCHER SURGEON: A low voltage technician and an social media intern. TYPE OF ANESTHESIA: General anesthesia, endotracheal tube. DESCRIPTION OF PROCEDURE: The patient was taken to the OR. The right hip was prepped and draped in sterile fashion on the operative table in the right lateral decubitus position, right hip up. The patient was prepped and draped in sterile fashion. Antibiotics were given. I did a posterolateral incision on the right hip going at the greater trochanter 3 inches distal and 3 inches proximal. The deepened through subcutaneous tissue down to the fascia. He was extremely obese. Now we opened up the fascia via the incision, identified the external rotators and released them from the greater trochanter, and opened up the capsule and removed the femoral head with a corkscrew device and a skid. We cleaned out the acetabulum and we debrided and then we paid attention to the proximal femur to do the reaming and rasping to allow us to fit in the trial prosthesis which was 12 mm x 140 mm. Reduction proved to be stable with a standard neck after trailing of the different sizes and we had to make sure we anteverted the femoral component. Then we thoroughly irrigated out the wound after we put in the permanent prosthesis and closed the wound in layers with #1 Vicryl for the capsule through the greater trochanter, 0 Vicryl for the fascia, interrupted for the subcutaneous with multiple layer closure with 0 and 2-0 Vicryl, and the skin with a combination of 2-0 nylon and stainless steel chelsey. All the bleeding was controlled with electrocautery and the patient taken to recovery room in good condition in an abduction pillow. Papi Dobson DO
[2017-04-13] MEDS: Albuterol-Ipratrop 3 mg / 0.5 (3 ml) UD IH SCH ×3 (07:37→19:58)
[2017-04-13] MEDS: Budesonide 0.5 mg/2 ml Inhal Susp UD IH SCH ×2 (07:37→19:58)
--- NOTE | 2017-04-13 07:43 | PN ---
DATE: 04/13/2017(620am-710am) SUBJECTIVE: The patient is currently in the ICU and on BiPAP. He is not short of breath at rest. He is awake and alert. PHYSICAL EXAMINATION: VITAL SIGNS: Temperature is 99.7, pulse on the monitor is 102, respiratory rate 16, blood pressure 119/59. Oxygen saturation on BiPAP is 97%. HEENT: Normocephalic and atraumatic. NECK: No JVD. CARDIOVASCULAR: Positive S1 and S2. No S3. LUNGS: Decreased breath sounds at the bases. Minimal rhonchi. Minimal wheezing. EXTREMITIES: The patient is status post surgery on his right hip. There is no clubbing, cyanosis, or edema noted in his legs. Calves are nontender to palpation. GASTROINTESTINAL: Abdomen is soft, nontender, and nondistended. Bowel sounds are positive. SKIN: No acute rash. NEUROLOGIC: Limited at the present time. PERTINENT LABORATORY DATA: CAT scan of the chest was done as an angiogram protocol late last night. There is no pulmonary embolism noted. There is a mildly dilated main pulmonary artery suggestive of possible pulmonary hypertension. There is minimal scarring at the left lung base. There is no acute consolidation. Arterial blood gas was also done very early this morning on BiPAP 14/7 with 40% oxygen. Results are; pH 7.31, pCO2 of 69, pO2 of 108. There was an arterial blood gas done earlier last night. Results were; pH 7.28, pCO2 of 87, pO2 of 78. CBC: White count 10.1, hemoglobin 9.6, hematocrit 30.4, platelets of 153. IMPRESSION: 1. Postoperative respiratory failure. 2. Status post repair of right hip fracture. 3. Chronic obstructive pulmonary disease-probably advanced. 4. Mild bronchospasm. 5. Anemia. 6. Diabetes mellitus. PLAN: The patient is currently in the ICU. He is currently on BiPAP. He is awake and alert and not short of breath this morning. I did discuss the case with the night nurse at length. Apparently, postoperatively, the patient was noted to be lethargic with oxygen desaturation. An arterial blood gas was then done-- which showed a severe respiratory acidosis. The patient was then placed on BiPAP. I did note both of the arterial blood gases above. The last arterial blood gas is clearly improved-- with a decrease in the respiratory acidosis, as well as a decrease in the alveolar-arterial gradient. I will check another arterial blood gas this morning. Hopefully, we can transition to nasal cannula-at least during the day. On physical exam, there is mild bronchospasm noted. The patient has been started on low-dose intravenous steroids. I will change the nebulizer treatments to DuoNeb, and also add inhaled Pulmicort this morning. I would continue with the postoperative/orthopedic evaluation. I would also continue with the cardiac evaluation. Input by Dr. Salcido is noted. Clinical status of the patient is guarded, but certainly improved from last night. I will discuss the above with the entire ICU team in the next few moments. I will also discuss the above with the attending physician. Italo Gonzalez MD MTDHi
[2017-04-13 08:07] LABS: ARTERIAL BLOOD GAS HCO3 27.7 mmol/L (21-28); ARTERIAL BLOOD GAS O2 CAPACITY 12.1 mL/dl (16-24); ARTERIAL BLOOD GAS PH 7.37 (7.35-7.45); ARTERIAL BLOOD HGB O2 SAT 96.1 % (95.0-98.0); CARBOXYHEMOGLOBIN 2.3 % (0.5-1.5); HHB 0.7 % (0-5)
[2017-04-13 08:07] LABS: ANISOCYTOSIS SLIGHT; HYPOCHROMIA SLIGHT; NEUTROPHIL 93 % (50.0-70.0); PLATELET ESTIMATE NORMAL (NORMAL)
[2017-04-13 08:08] LABS: TOXIC GRANULATION 1+
--- NOTE | 2017-04-13 08:15 | RAD ---
PROCEDURE: Radiographs of the pelvis. HISTORY: s/p total hip replacement COMPARISON: April 11, 2017. CT pelvis FINDINGS: BONES: Satisfactory postoperative status following right BRANDY. OTHER FINDINGS: None. IMPRESSION: Status post right BRANDY/satisfactory postoperative status.
[2017-04-13] MEDS: Insulin Reg-MEDIUM-Coverage SC SCH ×4 (08:23→21:36)
--- NOTE | 2017-04-13 08:23 | RAD ---
HISTORY: Hypoxia. COMPARISON: April 13, 2017. CT pulmonary angiogram. FINDINGS: LUNGS: No active pulmonary disease. PLEURA: No significant pleural effusion identified, no pneumothorax apparent. CARDIOVASCULAR: No radiographic findings to suggest acute or significant cardiovascular disease. OSSEOUS STRUCTURES: No significant abnormalities. VISUALIZED UPPER ABDOMEN: Normal. OTHER FINDINGS: None. IMPRESSION: No active disease.
--- NOTE | 2017-04-13 08:48 | PN ---
DATE: 04/13/2017 SUBJECTIVE: The patient has no complaints of any chest pain. No shortness of breath. PHYSICAL EXAMINATION: VITAL SIGNS: Temperature is 99.7, pulse of 115, blood pressure 119/59, respirations 13. GENERAL: The patient is lying in bed, flat, comfortable. HEENT: No oral lesion. Anicteric sclerae. Moist mucosa. NECK: No JVD, adenopathy, or thyromegaly. CARDIOVASCULAR: S1 and S2, regular. No murmurs, rubs, or gallops. LUNGS: Clear to auscultation bilaterally. No wheeze, rales, or rhonchi. ABDOMEN: Bowel sounds are positive, soft, nontender and nondistended. EXTREMITIES: No cyanosis, clubbing or edema. LABORATORY DATA: Creatinine is 0.8. CT of the chest done shows dilated main pulmonary suggesting pulmonary hypertension. No aneurysm dissection or embolism seen. ASSESSMENT: 1. Right hip fracture with right hip bipolar prosthesis placement on postop day #1. 2. Chronic obstructive pulmonary disease. 3. Peripheral neuropathy. 4. Coronary artery disease. 5. Dyslipidemia. PLAN: The patient is currently comfortable. His pain is controlled. He is on Dilaudid for pain. The patient is on nebulizer treatment. He is receiving aspirin daily. His Plavix is on hold. He is on Lipitor for dyslipidemia. He is on Lovenox for DVT prophylaxis. Overall, the patient is doing well. He was placed in the ICU because of oxygenation level decreasing. He was tachycardiac. He has improved. He is being followed by cardiology and pulmonary. Agustín Valladares MD
[2017-04-13] MEDS: HYDROmorphone 2 mg/ml ISec IVP PRN ×2 (08:58→12:20)
--- NOTE | 2017-04-13 09:10 | CP.PCM.PN ---
Subjective - Date & Time of Evaluation Date of Evaluation: 04/13/17 Time of Evaluation: 07:00 - Subjective Subjective: Stable in ICU on CPAP mask. Events of yesterday noted. case D/W Dr. Gonzalez. respiratory failure post rt. hip surgery. No CP. Comfortable with BiPap mask. V/S noted. Sinus Tacycardia PE: Lungs: rhonchi Cor.: S1S2 Abd.: soft Ext.: no edema Neuro.: alert Labs and ABGs noted ECG 04/12/17: S. T., RBBB, Old IMI, STTW changes CT Chest noted: No PE, etc. CXR: NAD Objective - Vital Signs/Intake and Output Vital Signs (last 24 hours): Temp Pulse Resp BP Pulse Ox 99.7 F H 115 H 13 119/59 L 97 04/13/17 05:20 04/13/17 05:20 04/13/17 05:00 04/13/17 05:16 04/13/17 05:20 Intake and Output: 04/13/17 04/13/17 06:59 18:59 Intake Total 1400 Output Total 600 Balance 800 - Medications Medications: Current Medications Albuterol/Ipratropium (Duoneb 3 Mg/0.5 Mg (3 Ml) Ud) 3 ml IH Q2H PRN PRN Reason: Shortness of Breath Albuterol/Ipratropium (Duoneb 3 Mg/0.5 Mg (3 Ml) Ud) 3 ml IH [id number] REPLACED BY [facility] Last Admin: 04/13/17 07:37 Dose: 3 ml Albuterol/Ipratropium (Duoneb 3 Mg/0.5 Mg (3 Ml) Ud) 3 ml IH Q2H PRN PRN Reason: Shortness of Breath Aspirin (Ecotrin) 81 mg PO BID REPLACED BY [facility] Last Admin: 04/12/17 19:00 Dose: Not Given Atorvastatin Calcium (Lipitor) 10 mg PO HS REPLACED BY [facility] Last Admin: 04/12/17 22:00 Dose: Not Given Budesonide (Pulmicort Respules) 0.5 mg IH [id number] REPLACED BY [facility] Last Admin: 04/13/17 07:37 Dose: 0.5 mg Clonazepam (Klonopin) 0.5 mg PO [facility] PRN Reason: Protocol Last Admin: 04/12/17 22:00 Dose: Not Given Enoxaparin Sodium (Lovenox) 30 mg SC Q12H IDRIS PRN Reason: Protocol Famotidine (Pepcid) 20 mg PO 1000,2200 IDRIS Furosemide (Lasix) 40 mg PO BID REPLACED BY [facility] Last Admin: 04/12/17 21:30 Dose: Not Given Hydralazine HCl (Apresoline) 10 mg IVP Q4 PRN PRN Reason: Systolic Blood Pressure Hydromorphone HCl (Dilaudid) 2 mg IVP Q4H PRN PRN Reason: Pain, moderate (4-7) Last Admin: 04/12/17 12:04 Dose: 2 mg Acetaminophen (Ofirmev) 1,000 mg in 100 mls @ 400 mls/hr IVPB Q6H PRN PRN Reason: Temperature Stop: 04/14/17 23:51 Last Admin: 04/13/17 00:08 Dose: 400 mls/hr Sodium Chloride (Sodium Chloride 0.9%) 1,000 mls @ 100 mls/hr IV .Q10H REPLACED BY [facility] Last Admin: 04/13/17 01:03 Dose: 100 mls/hr Azithromycin (Zithromax 500mg In Ns) 500 mg in 250 mls @ 167 mls/hr IVPB 0600 IDRIS PRN Reason: Protocol Last Admin: 04/13/17 05:21 Dose: 167 mls/hr Insulin Human Regular (Humulin R Med) 0 units SC ACHS IDRIS PRN Reason: Protocol Last Admin: 04/13/17 08:23 Dose: 3 units Methylprednisolone (Solu-Medrol) 40 mg IVP Q12 REPLACED BY [facility] Last Admin: 04/12/17 22:31 Dose: 40 mg Nystatin/Triamcinolone Acetonide (Nystatin/Triamcinolone Cream) 1 ea TOP BID REPLACED BY [facility] Last Admin: 04/12/17 21:30 Dose: 1 applic Potassium Chloride (K-Dur 20 Meq Er Tab) 20 meq PO DAILY REPLACED BY [facility] Last Admin: 04/12/17 09:15 Dose: 20 meq Sertraline HCl (Zoloft) 50 mg PO DAILY REPLACED BY [facility] - Labs Labs: 04/13/17 06:10 04/13/17 06:10 PT 11.2 Seconds (9.9-11.8) 04/11/17 14:10 INR 1.04 (0.93-1.08) 04/11/17 14:10 APTT 29.3 Seconds (23.7-30.8) 04/11/17 14:10 Assessment and Plan - Assessment and Plan (Free Text) Assessment: Mech. Fall with right fx, s/p THR Respiratory Failure post op. Severe COPD/Smoker CAD/Remote LA and PCI's Diabetes Syncope/hypoglycemia episode PAD/PVI's Chronic Pain Obesity Peripheral neuropathy Plan: ICU As per Intensivists and Pulmonary Check ECG and trop today. Resume ASA and Plavix when cleared surgically Monitor: labs, I/O, sats., etc. Will Follow
[2017-04-13] MEDS: MethylPREDNISolone 40 mg Vial IVP SCH ×2 (10:05→21:38)
[2017-04-13] MEDS: Potassium Chloride 20 mEq ER Tab PO SCH (10:06)
[2017-04-13] MEDS: Nystatin-Triamcinolone Cream(30 gm) TOP SCH ×2 (10:07→18:53)
[2017-04-13] MEDS: Enoxaparin 30 mg Syringe SC SCH ×2 (10:10→21:37)
--- NOTE | 2017-04-13 11:14 | CP.CCUPN ---
<JACQUELINE TAYLOR - Last Filed: 04/13/17 11:11> CCU Subjective - Physician Review Subjective (Free Text): 04/13/17 11:11 Patient seen and assessed at bedside. Patient reports no acute events overnight after he was transferred into the ICU and started on BiPAP. He endorses pain in his lower back that he reports as chronic and minimal pain in R hip from surgery. Patient denies headache, changes in vision, fever, dysphagia, chest pain, palpitations, shortness of breath, cough, hemoptysis, abdominal pain, N/V , diarrhea, or constipation. CCU Objective - Vital Signs / Intake & Output Vital Signs (Last 4 hours): Vital Signs BP 04/13/17 10:06 114/52 L Intake and Output (Last 8hrs): Intake & Output 04/12/17 04/13/17 04/13/17 22:59 06:59 14:59 Intake Total 640 1400 Output Total 1120 600 Balance -480 800 Intake: IV 1050 Right Forearm 1050 Oral 640 350 Output: Urine 220 600 2-way Urethral 600 Stool 900 - Physical Exam Head: Positive for: Atraumatic, Normocephalic Pupils: Positive for: PERRL Extroacular Muscles: Positive for: EOMI Conjunctiva: Positive for: Normal Mouth: Positive for: Moist Mucous Membranes Pharnyx: Positive for: Normal Nose (External): Positive for: Atraumatic Neck: Positive for: Normal Range of Motion Respiratory/Chest: Positive for: Good Air Exchange, Wheezes (Bilateral upper lobes). Negative for: Clear to Auscultation, Respiratory Distress, Accessory Muscle Use Cardiovascular: Positive for: Normal S1, S2, Peripheal Pulses Present, Tachycardic. Negative for: Regular Rate and Rhythm, Murmurs Abdomen: Positive for: Normal Bowel Sounds. Negative for: Tenderness, Distention, Peritoneal Signs Back: Positive for: Other (right sided lumbar tenderness L4-L5) Upper Extremity: Positive for: Normal Inspection. Negative for: Cyanosis, Edema Lower Extremity: Positive for: Normal Inspection, NORMAL PULSES, Neurovascularly Intact, Capillary Refill < 2 s, Other (right hip tenderness and pain worsened with movement, post op wound dressing clean dry and intact). Negative for: Edema Neurological: Positive for: GCS=15, CN II-XII Intact, Speech Normal, Motor Func Grossly Intact, Normal Sensory Function Skin: Positive for: Warm, Dry, Normal Color. Negative for: Rashes Psychiatric: Positive for: Alert, Oriented x 3, Normal Insight, Normal Concentration - Medications Active Medications: Active Medications Generic Name Dose Route Start Last Admin Trade Name Freq PRN Reason Stop Dose Admin Albuterol/Ipratropium 3 ml 04/12/17 20:45 Duoneb 3 Mg/0.5 Mg (3 Ml) Ud IH Q2H PRN Shortness of Breath Albuterol/Ipratropium 3 ml 04/13/17 08:00 04/13/17 07:37 Duoneb 3 Mg/0.5 Mg (3 Ml) Ud IH 3 ml [id number] IDRIS Administration Albuterol/Ipratropium 3 ml 04/13/17 06:35 Duoneb 3 Mg/0.5 Mg (3 Ml) Ud IH Q2H PRN Shortness of Breath Aspirin 81 mg 04/12/17 10:00 04/13/17 10:06 Ecotrin PO 81 mg BID IDRIS Administration Atorvastatin Calcium 10 mg 04/11/17 22:00 04/12/17 22:00 Lipitor PO Not Given HS IDRIS Budesonide 0.5 mg 04/13/17 08:00 04/13/17 07:37 Pulmicort Respules IH 0.5 mg [id number] IDRIS Administration Clonazepam 0.5 mg 04/11/17 22:00 04/12/17 22:00 Klonopin PO Not Given HS IDRIS Protocol Enoxaparin Sodium 30 mg 04/13/17 10:00 04/13/17 10:10 Lovenox SC 30 mg Q12H IDRIS Administration Protocol Famotidine 20 mg 04/13/17 10:00 04/13/17 10:06 Pepcid PO 20 mg 1000,2200 IDRIS Administration Furosemide 40 mg 04/12/17 10:00 04/13/17 10:06 Lasix PO 40 mg BID IDRIS Administration Hydralazine HCl 10 mg 04/12/17 20:58 Apresoline IVP Q4 PRN Systolic Blood Pressure Hydromorphone HCl 2 mg 04/11/17 18:38 04/13/17 08:58 Dilaudid IVP 2 mg Q4H PRN Administration Pain, moderate (4-7) Acetaminophen 1,000 mg in 100 mls @ 400 mls/hr 04/12/17 23:50 04/13/17 00:08 Ofirmev IVPB 04/14/17 23:51 400 mls/hr Q6H PRN Administration Temperature Sodium Chloride 1,000 mls @ 100 mls/hr 04/13/17 00:45 04/13/17 01:03 Sodium Chloride 0.9% IV 100 mls/hr .Q10H IDRIS Administration Azithromycin 500 mg in 250 mls @ 167 mls/hr 04/13/17 05:16 04/13/17 05:21 Zithromax 500mg In Ns IVPB 167 mls/hr 0600 IDRIS Administration Protocol Insulin Human Regular 0 units 04/12/17 11:30 04/13/17 08:23 Humulin R Med SC 3 units ACHS IDRIS Administration Protocol Methylprednisolone 40 mg 04/12/17 22:00 04/13/17 10:05 Solu-Medrol IVP 40 mg Q12 IDRIS Administration Nystatin/Triamcinolone Acetonide 1 ea 04/12/17 18:00 04/13/17 10:07 Nystatin/Triamcinolone Cream TOP 1 applic BID IDRIS Administration Potassium Chloride 20 meq 04/12/17 10:00 04/13/17 10:06 K-Dur 20 Meq Er Tab PO 20 meq DAILY IDRIS Administration Sertraline HCl 50 mg 04/12/17 10:00 04/13/17 10:06 Zoloft PO 50 mg DAILY IDRIS Administration - Patient Studies Lab Studies: Lab Studies 04/13/17 04/13/17 04/13/17 Range/Units 08:00 06:10 06:10 WBC (4.5-11.0) 10^3/ul RBC (3.5-6.1) 10^6/uL Hgb (14.0-18.0) g/dL Hct (42.0-52.0) % MCV (80.0-105.0) fl MCH (25.0-35.0) pg MCHC (31.0-37.0) g/dl RDW (11.5-14.5) % Plt Count (120.0-450.0) 10^3/uL MPV (7.0-11.0) fl Gran % (50.0-68.0) % Lymph % (Auto) (22.0-35.0) % [place] % (Auto) (1.0-6.0) % Eos % (Auto) (1.5-5.0) % Baso % (Auto) (0.0-3.0) % Gran # (1.4-6.5) Lymph # (1.2-3.4) [place] # (0.1-0.6) Eos # (0.0-0.7) Baso # (0.0-2.0) K/mm3 Neutrophils % (Manual) (50.0-70.0) % Lymphocytes % (Manual) (22.0-35.0) % Monocytes % (Manual) (1.0-6.0) % Toxic Granulation Platelet Evaluation (NORMAL) Hypochromasia Anisocytosis (manual) pCO2 48 H (35-45) mm/Hg pO2 121.0 H (80-100) mm/Hg HCO3 27.7 (21-28) mmol/L ABG pH 7.37 (7.35-7.45) ABG Total CO2 29.2 H (22-28) mmol.L ABG O2 Saturation 99.3 H (95-98) % ABG O2 Content 12.0 L (15-23) ML/dl ABG Base Excess 2.0 (-2.0-3.0) mmol/L ABG Hemoglobin 8.7 L (11.7-17.4) g/dL ABG Carboxyhemoglobin 2.3 H (0.5-1.5) % POC ABG HHb (Measured) 0.7 (0-5) % ABG Methemoglobin 1.0 (0.0-3.0) % ABG O2 Capacity 12.1 L (16-24) mL/dl Hgb O2 Saturation 96.1 (95.0-98.0) % FiO2 40.0 % Sodium 137 (132-148) mmol/L Potassium 4.7 (3.6-5.0) mmol/L Chloride 97 L (98-107) mmol/L Carbon Dioxide 33 (21-33) mmol/L Anion Gap 12 (10-20) BUN 16 (7-21) mg/dL Creatinine 0.8 (0.5-1.4) mg/dL Est GFR ( Amer) > 60 Est GFR (Non-Af Amer) > 60 POC Glucose (mg/dL) (65-110) mg/dL Random Glucose 248 H (70-110) mg/dL Calcium 7.9 L (8.4-10.5) mg/dL Phosphorus 3.0 (2.5-4.5) mg/dL Magnesium 1.3 L (1.7-2.2) mg/dL Total Bilirubin 0.9 (0.2-1.3) mg/dL AST 44 (17-59) U/L ALT 33 (7-56) U/L Alkaline Phosphatase 60 (38-126) U/L Troponin I 0.58 H* D ng/mL Total Protein 5.5 L (5.8-8.3) g/dL Albumin 3.1 (3.0-4.8) g/dL Globulin 2.4 gm/dL Albumin/Globulin Ratio 1.3 (1.1-1.8) Blood Type Antibody Screen Crossmatch BBK History Checked 04/13/17 04/13/17 04/12/17 Range/Units 06:10 00:44 21:43 WBC 10.1 D (4.5-11.0) 10^3/ul RBC 3.23 L (3.5-6.1) 10^6/uL Hgb 9.6 L (14.0-18.0) g/dL Hct 30.4 L (42.0-52.0) % MCV 94.1 (80.0-105.0) fl MCH 29.7 (25.0-35.0) pg MCHC 31.6 (31.0-37.0) g/dl RDW 13.5 (11.5-14.5) % Plt Count 153 (120.0-450.0) 10^3/uL MPV 11.8 H (7.0-11.0) fl Gran % 94.4 H (50.0-68.0) % Lymph % (Auto) 2.9 L (22.0-35.0) % [place] % (Auto) 2.4 (1.0-6.0) % Eos % (Auto) 0.2 L (1.5-5.0) % Baso % (Auto) 0.1 (0.0-3.0) % Gran # 9.54 H (1.4-6.5) Lymph # 0.3 L (1.2-3.4) [place] # 0.2 (0.1-0.6) Eos # 0.0 (0.0-0.7) Baso # 0.01 (0.0-2.0) K/mm3 Neutrophils % (Manual) 93 H (50.0-70.0) % Lymphocytes % (Manual) 4 L (22.0-35.0) % Monocytes % (Manual) 3 (1.0-6.0) % Toxic Granulation 1+ Platelet Evaluation Normal (NORMAL) Hypochromasia Slight Anisocytosis (manual) Slight pCO2 69 H (35-45) mm/Hg pO2 108.0 H (80-100) mm/Hg HCO3 34.7 H (21-28) mmol/L ABG pH 7.31 L (7.35-7.45) ABG Total CO2 36.8 H (22-28) mmol.L ABG O2 Saturation 99.1 H (95-98) % ABG O2 Content 13.5 L (15-23) ML/dl ABG Base Excess 6.8 H (-2.0-3.0) mmol/L ABG Hemoglobin 10.0 L (11.7-17.4) g/dL ABG Carboxyhemoglobin 2.7 H (0.5-1.5) % POC ABG HHb (Measured) 0.9 (0-5) % ABG Methemoglobin 1.5 (0.0-3.0) % ABG O2 Capacity 13.6 L (16-24) mL/dl Hgb O2 Saturation 94.9 L (95.0-98.0) % FiO2 40.0 % Sodium 135 (132-148) mmol/L Potassium 4.3 (3.6-5.0) mmol/L Chloride 94 L (98-107) mmol/L Carbon Dioxide 36 H (21-33) mmol/L Anion Gap 9 L (10-20) BUN 16 (7-21) mg/dL Creatinine 0.8 (0.5-1.4) mg/dL Est GFR ( Amer) > 60 Est GFR (Non-Af Amer) > 60 POC Glucose (mg/dL) (65-110) mg/dL Random Glucose 224 H (70-110) mg/dL Calcium 7.9 L (8.4-10.5) mg/dL Phosphorus (2.5-4.5) mg/dL Magnesium (1.7-2.2) mg/dL Total Bilirubin (0.2-1.3) mg/dL AST (17-59) U/L ALT (7-56) U/L Alkaline Phosphatase (38-126) U/L Troponin I ng/mL Total Protein (5.8-8.3) g/dL Albumin (3.0-4.8) g/dL Globulin gm/dL Albumin/Globulin Ratio (1.1-1.8) Blood Type Antibody Screen Crossmatch BBK History Checked 04/12/17 04/12/17 04/12/17 Range/Units 21:43 21:20 21:13 WBC 15.9 H D (4.5-11.0) 10^3/ul RBC 3.43 L (3.5-6.1) 10^6/uL Hgb 10.5 L D (14.0-18.0) g/dL Hct 32.3 L (42.0-52.0) % MCV 94.2 (80.0-105.0) fl MCH 30.6 (25.0-35.0) pg MCHC 32.5 (31.0-37.0) g/dl RDW 13.5 (11.5-14.5) % Plt Count 160 (120.0-450.0) 10^3/uL MPV 10.9 (7.0-11.0) fl Gran % 83.9 H (50.0-68.0) % Lymph % (Auto) 7.4 L (22.0-35.0) % [place] % (Auto) 7.1 H (1.0-6.0) % Eos % (Auto) 1.5 (1.5-5.0) % Baso % (Auto) 0.1 (0.0-3.0) % Gran # 13.37 H (1.4-6.5) Lymph # 1.2 (1.2-3.4) [place] # 1.1 H (0.1-0.6) Eos # 0.2 (0.0-0.7) Baso # 0.02 (0.0-2.0) K/mm3 Neutrophils % (Manual) (50.0-70.0) % Lymphocytes % (Manual) (22.0-35.0) % Monocytes % (Manual) (1.0-6.0) % Toxic Granulation Platelet Evaluation (NORMAL) Hypochromasia Anisocytosis (manual) pCO2 87 H* (35-45) mm/Hg pO2 78.0 L (80-100) mm/Hg HCO3 40.9 H* (21-28) mmol/L ABG pH 7.28 L (7.35-7.45) ABG Total CO2 43.6 H (22-28) mmol.L ABG O2 Saturation 96.0 (95-98) % ABG O2 Content 13.9 L (15-23) ML/dl ABG Base Excess 11.4 H (-2.0-3.0) mmol/L ABG Hemoglobin 10.6 L (11.7-17.4) g/dL ABG Carboxyhemoglobin 2.5 H (0.5-1.5) % POC ABG HHb (Measured) 3.9 (0-5) % ABG Methemoglobin 1.1 (0.0-3.0) % ABG O2 Capacity 14.5 L (16-24) mL/dl Hgb O2 Saturation 92.4 L (95.0-98.0) % FiO2 40.0 % Sodium (132-148) mmol/L Potassium (3.6-5.0) mmol/L Chloride (98-107) mmol/L Carbon Dioxide (21-33) mmol/L Anion Gap (10-20) BUN (7-21) mg/dL Creatinine (0.5-1.4) mg/dL Est GFR ( Amer) Est GFR (Non-Af Amer) POC Glucose (mg/dL) 248 H (65-110) mg/dL Random Glucose (70-110) mg/dL Calcium (8.4-10.5) mg/dL Phosphorus (2.5-4.5) mg/dL Magnesium (1.7-2.2) mg/dL Total Bilirubin (0.2-1.3) mg/dL AST (17-59) U/L ALT (7-56) U/L Alkaline Phosphatase (38-126) U/L Troponin I ng/mL Total Protein (5.8-8.3) g/dL Albumin (3.0-4.8) g/dL Globulin gm/dL Albumin/Globulin Ratio (1.1-1.8) Blood Type Antibody Screen Crossmatch BBK History Checked 04/12/17 04/12/17 04/11/17 Range/Units 11:27 07:23 16:45 WBC (4.5-11.0) 10^3/ul RBC (3.5-6.1) 10^6/uL Hgb (14.0-18.0) g/dL Hct (42.0-52.0) % MCV (80.0-105.0) fl MCH (25.0-35.0) pg MCHC (31.0-37.0) g/dl RDW (11.5-14.5) % Plt Count (120.0-450.0) 10^3/uL MPV (7.0-11.0) fl Gran % (50.0-68.0) % Lymph % (Auto) (22.0-35.0) % [place] % (Auto) (1.0-6.0) % Eos % (Auto) (1.5-5.0) % Baso % (Auto) (0.0-3.0) % Gran # (1.4-6.5) Lymph # (1.2-3.4) [place] # (0.1-0.6) Eos # (0.0-0.7) Baso # (0.0-2.0) K/mm3 Neutrophils % (Manual) (50.0-70.0) % Lymphocytes % (Manual) (22.0-35.0) % Monocytes % (Manual) (1.0-6.0) % Toxic Granulation Platelet Evaluation (NORMAL) Hypochromasia Anisocytosis (manual) pCO2 (35-45) mm/Hg pO2 (80-100) mm/Hg HCO3 (21-28) mmol/L ABG pH (7.35-7.45) ABG Total CO2 (22-28) mmol.L ABG O2 Saturation (95-98) % ABG O2 Content (15-23) ML/dl ABG Base Excess (-2.0-3.0) mmol/L ABG Hemoglobin (11.7-17.4) g/dL ABG Carboxyhemoglobin (0.5-1.5) % POC ABG HHb (Measured) (0-5) % ABG Methemoglobin (0.0-3.0) % ABG O2 Capacity (16-24) mL/dl Hgb O2 Saturation (95.0-98.0) % FiO2 % Sodium (132-148) mmol/L Potassium (3.6-5.0) mmol/L Chloride (98-107) mmol/L Carbon Dioxide (21-33) mmol/L Anion Gap (10-20) BUN (7-21) mg/dL Creatinine (0.5-1.4) mg/dL Est GFR ( Amer) Est GFR (Non-Af Amer) POC Glucose (mg/dL) 193 H 188 H (65-110) mg/dL Random Glucose (70-110) mg/dL Calcium (8.4-10.5) mg/dL Phosphorus (2.5-4.5) mg/dL Magnesium (1.7-2.2) mg/dL Total Bilirubin (0.2-1.3) mg/dL AST (17-59) U/L ALT (7-56) U/L Alkaline Phosphatase (38-126) U/L Troponin I ng/mL Total Protein (5.8-8.3) g/dL Albumin (3.0-4.8) g/dL Globulin gm/dL Albumin/Globulin Ratio (1.1-1.8) Blood Type A POSITIVE Antibody Screen Negative Crossmatch See Detail BBK History Checked Patient has bt Laboratory Results - last 24 hr 04/11/17 04/12/17 04/12/17 16:45 07:23 11:27 WBC RBC Hgb Hct MCV MCH MCHC RDW Plt Count MPV Gran % Lymph % (Auto) [place] % (Auto) Eos % (Auto) Baso % (Auto) Gran # Lymph # [place] # Eos # Baso # Neutrophils % (Manual) Lymphocytes % (Manual) Monocytes % (Manual) Toxic Granulation Platelet Evaluation Hypochromasia Anisocytosis (manual) pCO2 pO2 HCO3 ABG pH ABG Total CO2 ABG O2 Saturation ABG O2 Content ABG Base Excess ABG Hemoglobin ABG Carboxyhemoglobin POC ABG HHb (Measured) ABG Methemoglobin ABG O2 Capacity Hgb O2 Saturation FiO2 Sodium Potassium Chloride Carbon Dioxide Anion Gap BUN Creatinine Est GFR ( Amer) Est GFR (Non-Af Amer) POC Glucose (mg/dL) 188 H 193 H Random Glucose Calcium Phosphorus Magnesium Total Bilirubin AST ALT Alkaline Phosphatase Troponin I Total Protein Albumin Globulin Albumin/Globulin Ratio Blood Type A POSITIVE Antibody Screen Negative Crossmatch See Detail BBK History Checked Patient has bt 04/12/17 04/12/17 04/12/17 21:13 21:20 21:43 WBC 15.9 H D RBC 3.43 L Hgb 10.5 L D Hct 32.3 L MCV 94.2 MCH 30.6 MCHC 32.5 RDW 13.5 Plt Count 160 MPV 10.9 Gran % 83.9 H Lymph % (Auto) 7.4 L [place] % (Auto) 7.1 H Eos % (Auto) 1.5 Baso % (Auto) 0.1 Gran # 13.37 H Lymph # 1.2 [place] # 1.1 H Eos # 0.2 Baso # 0.02 Neutrophils % (Manual) Lymphocytes % (Manual) Monocytes % (Manual) Toxic Granulation Platelet Evaluation Hypochromasia Anisocytosis (manual) pCO2 87 H* pO2 78.0 L HCO3 40.9 H* ABG pH 7.28 L ABG Total CO2 43.6 H ABG O2 Saturation 96.0 ABG O2 Content 13.9 L ABG Base Excess 11.4 H ABG Hemoglobin 10.6 L ABG Carboxyhemoglobin 2.5 H POC ABG HHb (Measured) 3.9 ABG Methemoglobin 1.1 ABG O2 Capacity 14.5 L Hgb O2 Saturation 92.4 L FiO2 40.0 Sodium Potassium Chloride Carbon Dioxide Anion Gap BUN Creatinine Est GFR ( Amer) Est GFR (Non-Af Amer) POC Glucose (mg/dL) 248 H Random Glucose Calcium Phosphorus Magnesium Total Bilirubin AST ALT Alkaline Phosphatase Troponin I Total Protein Albumin Globulin Albumin/Globulin Ratio Blood Type Antibody Screen Crossmatch BBK History Checked 04/12/17 04/13/17 04/13/17 21:43 00:44 06:10 WBC 10.1 D RBC 3.23 L Hgb 9.6 L Hct 30.4 L MCV 94.1 MCH 29.7 MCHC 31.6 RDW 13.5 Plt Count 153 MPV 11.8 H Gran % 94.4 H Lymph % (Auto) 2.9 L [place] % (Auto) 2.4 Eos % (Auto) 0.2 L Baso % (Auto) 0.1 Gran # 9.54 H Lymph # 0.3 L [place] # 0.2 Eos # 0.0 Baso # 0.01 Neutrophils % (Manual) 93 H Lymphocytes % (Manual) 4 L Monocytes % (Manual) 3 Toxic Granulation 1+ Platelet Evaluation Normal Hypochromasia Slight Anisocytosis (manual) Slight pCO2 69 H pO2 108.0 H HCO3 34.7 H ABG pH 7.31 L ABG Total CO2 36.8 H ABG O2 Saturation 99.1 H ABG O2 Content 13.5 L ABG Base Excess 6.8 H ABG Hemoglobin 10.0 L ABG Carboxyhemoglobin 2.7 H POC ABG HHb (Measured) 0.9 ABG Methemoglobin 1.5 ABG O2 Capacity 13.6 L Hgb O2 Saturation 94.9 L FiO2 40.0 Sodium 135 Potassium 4.3 Chloride 94 L Carbon Dioxide 36 H Anion Gap 9 L BUN 16 Creatinine 0.8 Est GFR ( Amer) > 60 Est GFR (Non-Af Amer) > 60 POC Glucose (mg/dL) Random Glucose 224 H Calcium 7.9 L Phosphorus Magnesium Total Bilirubin AST ALT Alkaline Phosphatase Troponin I Total Protein Albumin Globulin Albumin/Globulin Ratio Blood Type Antibody Screen Crossmatch BBK History Checked 04/13/17 04/13/17 04/13/17 06:10 06:10 08:00 WBC RBC Hgb Hct MCV MCH MCHC RDW Plt Count MPV Gran % Lymph % (Auto) [place] % (Auto) Eos % (Auto) Baso % (Auto) Gran # Lymph # [place] # Eos # Baso # Neutrophils % (Manual) Lymphocytes % (Manual) Monocytes % (Manual) Toxic Granulation Platelet Evaluation Hypochromasia Anisocytosis (manual) pCO2 48 H pO2 121.0 H HCO3 27.7 ABG pH 7.37 ABG Total CO2 29.2 H ABG O2 Saturation 99.3 H ABG O2 Content 12.0 L ABG Base Excess 2.0 ABG Hemoglobin 8.7 L ABG Carboxyhemoglobin 2.3 H POC ABG HHb (Measured) 0.7 ABG Methemoglobin 1.0 ABG O2 Capacity 12.1 L Hgb O2 Saturation 96.1 FiO2 40.0 Sodium 137 Potassium 4.7 Chloride 97 L Carbon Dioxide 33 Anion Gap 12 BUN 16 Creatinine 0.8 Est GFR ( Amer) > 60 Est GFR (Non-Af Amer) > 60 POC Glucose (mg/dL) Random Glucose 248 H Calcium 7.9 L Phosphorus 3.0 Magnesium 1.3 L Total Bilirubin 0.9 AST 44 ALT 33 Alkaline Phosphatase 60 Troponin I 0.58 H* D Total Protein 5.5 L Albumin 3.1 Globulin 2.4 Albumin/Globulin Ratio 1.3 Blood Type Antibody Screen Crossmatch BBK History Checked EKG/Cardiology Studies: Cardiology / EKG Studies 04/12/17 20:47 EKG [ELECTROCARDIOGRAM] Stat Comment: Reason For Exam: tachycardia 04/13/17 09:10 ELECTROCARDIOGRAM Routine Comment: Reason For Exam: Resp failure post op Fingerstick Blood Sugar Results: 248 Review of Systems - Review of Systems Review of Systems: Please refer to [facility] Critical Care Progress Note - Ventilator Checklist Head of Bed 30 Degrees: Yes PUD Prophalyxis: Yes DVT Prophylaxis: Yes - Nutrition Nutrition: Nutrition Category Date Time Status Heart Healthy Diet [DIET] Diets 04/12/17 Dinner Ordered Assessment/Plan - Assessment and Plan (Free Text) Assessment: 61 year old male with a past medical history of CAD, CHF, COPD, DM2, PVD, chronic low back pain who presented to ER s/p mechanical fall on 04/11, found to have R hip subcapital fracture and then underwent total arthroplasty of R hip. ICU consulted for hypercapneic respiratory failure likely secondary to COPD. Plan: Neuro: -RLE neurovascularly intact Cardio: -EKG on 04/13 showed sinus tachycardia with PAC's, RBBB, inferior infarct of undetermined age and a nonspecific T-wave abnormality that could represent lateral ischemia -Troponin mildly elevated at 0.58 -Continue ASA 81mg po, Lipitor 10mg po hs, Lasix 40mg po bid and Hydralazine 10mg ivp q4 prn -Cardio consulted, all recommendations appreciated Pulm: BiPAP settings: IPAP-14 EPAP-7 FiO2-50 Rate-16 -Chest X-ray done on 04/13 showed no active disease -CTA done on 04/12 showed dilated main pulm artery suggesting pulm HTN, no aneurysm, dissection or pulm embolus; cardiomegaly and atherosclerotic disease minimal scarring at the lung bases -Most recent ABG showing resolution of hypercapneic respiratory failure with a CO2 of 48, O2 of 121 and pH of 7.37 -Continue Solumedrol 40mg ivp q12, Levalbuterol 0.63inh tid, Budesonide 0.5mg IH [id number] and Duoneb 3ml inh q2 prn for SOB -Continue Zithromax 250 IVPB daily -Continue to use BiPAP except when eating or during activity -Pulm consulted, all recommendations appreciated GI -Continue Pepcid 20mg Q12 -Heart Healthy Carbohydrate Consistent diet Renal: -BUN/Creatinine stable at 16/0.8 Endo: -Regular ISS-Medium -Fingerstick BS checks ACHS ID: -Continue Ofirmev 1000mg IVPB Q6H PRN for temperature >100.4 Heme/Onc: -CBC stable with no anemia, leukocytosis or thrombocytopenia -Continue to monitor with serial CBC's MSK: -POD #2 bipolar R hip prosthesis -Pelvis CT 04/11: displaced subcapital hip fracture on R side -Lumbar spine CT 04/11: no acute findings -Dilaudid 2mg ivp q4 prn for moderate pain -Ortho consulted, all recommendations appreciated -PT/OT evaluation and treatment pending Psych: -continue home Zoloft 50mg po qd and Clonazepam 0.5mg po qhs GI Prophylaxis: Pepcid DVT Prophylaxis: Lovenox 30mg SC Q12H IVF: NS at 100cc/hr Disposition: Patient to be transferred to telemetry for further monitoring. Patient seen and case discussed with attending, Dr. Steele. - Date & Time Date: 04/13/17 Time: 11:14 <Huber Steele - Last Filed: 04/13/17 14:36> CCU Objective - Vital Signs / Intake & Output Vital Signs (Last 4 hours): Vital Signs Temp Pulse Resp BP Pulse Ox 04/13/17 12:14 78.8 F L 04/13/17 12:12 95.5 F L 107 H 83 L 04/13/17 12:10 95.7 F L 110 H 13 70 L 04/13/17 12:08 95.0 F L 105 H 95 04/13/17 12:07 93.7 F L 106 H 15 04/13/17 12:06 94.1 F L 104 H 15 04/13/17 12:05 93.7 F L 98 H 24 107/73 67 L 04/13/17 12:04 93.4 F L 99 H 14 04/13/17 12:03 93.4 F L 106 H 74 L 04/13/17 12:02 94.5 F L 105 H 14 04/13/17 12:00 95.0 F L 106 H 24 95 04/13/17 11:59 95.9 F L 106 H 17 04/13/17 11:58 97.2 F L 106 H 25 H 04/13/17 11:57 97.0 F L 105 H 13 04/13/17 11:56 96.8 F L 103 H 17 04/13/17 11:55 96.6 F L 106 H 13 04/13/17 11:54 95.9 F L 106 H 21 04/13/17 11:50 95.9 F L 106 H 12 62 L 04/13/17 11:40 95.0 F L 104 H 19 88 L 04/13/17 11:30 94.1 F L 108 H 15 100 04/13/17 11:23 96.3 F L 110 H 24 04/13/17 11:22 97.3 F L 112 H 16 04/13/17 11:21 97.9 F 113 H 15 04/13/17 11:20 97.3 F L 116 H 17 04/13/17 11:10 99.1 F 111 H 16 100 04/13/17 11:05 99.1 F 111 H 16 133/59 L 100 04/13/17 11:00 98.8 F 112 H 15 100 04/13/17 10:54 98.6 F 112 H 16 04/13/17 10:53 98.6 F 110 H 15 04/13/17 10:52 98.6 F 111 H 10 L 04/13/17 10:51 98.6 F 110 H 18 04/13/17 10:50 98.4 F 111 H 13 04/13/17 10:49 98.4 F 114 H 16 Intake and Output (Last 8hrs): Intake & Output 04/12/17 04/13/17 04/13/17 22:59 06:59 14:59 Intake Total 640 1400 Output Total 1120 600 400 Balance -480 800 -400 Intake: IV 1050 Right Forearm 1050 Oral 640 350 Output: Urine 220 600 400 2-way Urethral 600 Urine, Voided 400 Stool 900 - Medications Active Medications: Active Medications Generic Name Dose Route Start Last Admin Trade Name Freq PRN Reason Stop Dose Admin Albuterol/Ipratropium 3 ml 04/12/17 20:45 Duoneb 3 Mg/0.5 Mg (3 Ml) Ud IH Q2H PRN Shortness of Breath Albuterol/Ipratropium 3 ml 04/13/17 08:00 04/13/17 13:21 Duoneb 3 Mg/0.5 Mg (3 Ml) Ud IH 3 ml [id number] IDRIS Administration Albuterol/Ipratropium 3 ml 04/13/17 06:35 Duoneb 3 Mg/0.5 Mg (3 Ml) Ud IH Q2H PRN Shortness of Breath Aspirin 81 mg 04/12/17 10:00 04/13/17 10:06 Ecotrin PO 81 mg BID IDRIS Administration Atorvastatin Calcium 10 mg 04/11/17 22:00 04/12/17 22:00 Lipitor PO Not Given HS IDRIS Budesonide 0.5 mg 04/13/17 08:00 04/13/17 07:37 Pulmicort Respules IH 0.5 mg [id number] IDRIS Administration Clonazepam 0.5 mg 04/11/17 22:00 04/12/17 22:00 Klonopin PO Not Given HS IDRIS Protocol Enoxaparin Sodium 30 mg 04/13/17 10:00 04/13/17 10:10 Lovenox SC 30 mg Q12H IDRIS Administration Protocol Famotidine 20 mg 04/13/17 10:00 04/13/17 10:06 Pepcid PO 20 mg 1000,2200 IDRIS Administration Furosemide 40 mg 04/12/17 10:00 04/13/17 10:06 Lasix PO 40 mg BID IDRIS Administration Hydralazine HCl 10 mg 04/12/17 20:58 Apresoline IVP Q4 PRN Systolic Blood Pressure Hydromorphone HCl 2 mg 04/11/17 18:38 04/13/17 12:20 Dilaudid IVP 2 mg Q4H PRN Administration Pain, moderate (4-7) Acetaminophen 1,000 mg in 100 mls @ 400 mls/hr 04/12/17 23:50 04/13/17 00:08 Ofirmev IVPB 04/14/17 23:51 400 mls/hr Q6H PRN Administration Temperature Sodium Chloride 1,000 mls @ 100 mls/hr 04/13/17 00:45 04/13/17 01:03 Sodium Chloride 0.9% IV 100 mls/hr .Q10H IDRIS Administration Azithromycin 500 mg in 250 mls @ 167 mls/hr 04/13/17 05:16 04/13/17 05:21 Zithromax 500mg In Ns IVPB 167 mls/hr 0600 IDRIS Administration Protocol Insulin Human Regular 0 units 04/12/17 11:30 04/13/17 12:19 Humulin R Med SC 7 units ACHS IDRIS Administration Protocol Methylprednisolone 40 mg 04/12/17 22:00 04/13/17 10:05 Solu-Medrol IVP 40 mg Q12 IDRIS Administration Nystatin/Triamcinolone Acetonide 1 ea 04/12/17 18:00 04/13/17 10:07 Nystatin/Triamcinolone Cream TOP 1 applic BID IDRIS Administration Oxycodone HCl 30 mg 04/13/17 14:14 Oxycodone Immediate Release Tab PO Q6H PRN Pain, severe (8-10) Potassium Chloride 20 meq 04/12/17 10:00 04/13/17 10:06 K-Dur 20 Meq Er Tab PO 20 meq DAILY IDRIS Administration Sertraline HCl 50 mg 04/12/17 10:00 04/13/17 10:06 Zoloft PO 50 mg DAILY IDRIS Administration - Patient Studies Lab Studies: Lab Studies 04/13/17 04/13/17 04/13/17 Range/Units 08:00 06:10 06:10 WBC (4.5-11.0) 10^3/ul RBC (3.5-6.1) 10^6/uL Hgb (14.0-18.0) g/dL Hct (42.0-52.0) % MCV (80.0-105.0) fl MCH (25.0-35.0) pg MCHC (31.0-37.0) g/dl RDW (11.5-14.5) % Plt Count (120.0-450.0) 10^3/uL MPV (7.0-11.0) fl Gran % (50.0-68.0) % Lymph % (Auto) (22.0-35.0) % [place] % (Auto) (1.0-6.0) % Eos % (Auto) (1.5-5.0) % Baso % (Auto) (0.0-3.0) % Gran # (1.4-6.5) Lymph # (1.2-3.4) [place] # (0.1-0.6) Eos # (0.0-0.7) Baso # (0.0-2.0) K/mm3 Neutrophils % (Manual) (50.0-70.0) % Lymphocytes % (Manual) (22.0-35.0) % Monocytes % (Manual) (1.0-6.0) % Toxic Granulation Platelet Evaluation (NORMAL) Hypochromasia Anisocytosis (manual) pCO2 48 H (35-45) mm/Hg pO2 121.0 H (80-100) mm/Hg HCO3 27.7 (21-28) mmol/L ABG pH 7.37 (7.35-7.45) ABG Total CO2 29.2 H (22-28) mmol.L ABG O2 Saturation 99.3 H (95-98) % ABG O2 Content 12.0 L (15-23) ML/dl ABG Base Excess 2.0 (-2.0-3.0) mmol/L ABG Hemoglobin 8.7 L (11.7-17.4) g/dL ABG Carboxyhemoglobin 2.3 H (0.5-1.5) % POC ABG HHb (Measured) 0.7 (0-5) % ABG Methemoglobin 1.0 (0.0-3.0) % ABG O2 Capacity 12.1 L (16-24) mL/dl Hgb O2 Saturation 96.1 (95.0-98.0) % FiO2 40.0 % Sodium 137 (132-148) mmol/L Potassium 4.7 (3.6-5.0) mmol/L Chloride 97 L (98-107) mmol/L Carbon Dioxide 33 (21-33) mmol/L Anion Gap 12 (10-20) BUN 16 (7-21) mg/dL Creatinine 0.8 (0.5-1.4) mg/dL Est GFR ( Amer) > 60 Est GFR (Non-Af Amer) > 60 POC Glucose (mg/dL) (65-110) mg/dL Random Glucose 248 H (70-110) mg/dL Calcium 7.9 L (8.4-10.5) mg/dL Phosphorus 3.0 (2.5-4.5) mg/dL Magnesium 1.3 L (1.7-2.2) mg/dL Total Bilirubin 0.9 (0.2-1.3) mg/dL AST 44 (17-59) U/L ALT 33 (7-56) U/L Alkaline Phosphatase 60 (38-126) U/L Troponin I 0.58 H* D ng/mL Total Protein 5.5 L (5.8-8.3) g/dL Albumin 3.1 (3.0-4.8) g/dL Globulin 2.4 gm/dL Albumin/Globulin Ratio 1.3 (1.1-1.8) Blood Type Antibody Screen Crossmatch BBK History Checked 04/13/17 04/13/17 04/12/17 Range/Units 06:10 00:44 21:43 WBC 10.1 D (4.5-11.0) 10^3/ul RBC 3.23 L (3.5-6.1) 10^6/uL Hgb 9.6 L (14.0-18.0) g/dL Hct 30.4 L (42.0-52.0) % MCV 94.1 (80.0-105.0) fl MCH 29.7 (25.0-35.0) pg MCHC 31.6 (31.0-37.0) g/dl RDW 13.5 (11.5-14.5) % Plt Count 153 (120.0-450.0) 10^3/uL MPV 11.8 H (7.0-11.0) fl Gran % 94.4 H (50.0-68.0) % Lymph % (Auto) 2.9 L (22.0-35.0) % [place] % (Auto) 2.4 (1.0-6.0) % Eos % (Auto) 0.2 L (1.5-5.0) % Baso % (Auto) 0.1 (0.0-3.0) % Gran # 9.54 H (1.4-6.5) Lymph # 0.3 L (1.2-3.4) [place] # 0.2 (0.1-0.6) Eos # 0.0 (0.0-0.7) Baso # 0.01 (0.0-2.0) K/mm3 Neutrophils % (Manual) 93 H (50.0-70.0) % Lymphocytes % (Manual) 4 L (22.0-35.0) % Monocytes % (Manual) 3 (1.0-6.0) % Toxic Granulation 1+ Platelet Evaluation Normal (NORMAL) Hypochromasia Slight Anisocytosis (manual) Slight pCO2 69 H (35-45) mm/Hg pO2 108.0 H (80-100) mm/Hg HCO3 34.7 H (21-28) mmol/L ABG pH 7.31 L (7.35-7.45) ABG Total CO2 36.8 H (22-28) mmol.L ABG O2 Saturation 99.1 H (95-98) % ABG O2 Content 13.5 L (15-23) ML/dl ABG Base Excess 6.8 H (-2.0-3.0) mmol/L ABG Hemoglobin 10.0 L (11.7-17.4) g/dL ABG Carboxyhemoglobin 2.7 H (0.5-1.5) % POC ABG HHb (Measured) 0.9 (0-5) % ABG Methemoglobin 1.5 (0.0-3.0) % ABG O2 Capacity 13.6 L (16-24) mL/dl Hgb O2 Saturation 94.9 L (95.0-98.0) % FiO2 40.0 % Sodium 135 (132-148) mmol/L Potassium 4.3 (3.6-5.0) mmol/L Chloride 94 L (98-107) mmol/L Carbon Dioxide 36 H (21-33) mmol/L Anion Gap 9 L (10-20) BUN 16 (7-21) mg/dL Creatinine 0.8 (0.5-1.4) mg/dL Est GFR ( Amer) > 60 Est GFR (Non-Af Amer) > 60 POC Glucose (mg/dL) (65-110) mg/dL Random Glucose 224 H (70-110) mg/dL Calcium 7.9 L (8.4-10.5) mg/dL Phosphorus (2.5-4.5) mg/dL Magnesium (1.7-2.2) mg/dL Total Bilirubin (0.2-1.3) mg/dL AST (17-59) U/L ALT (7-56) U/L Alkaline Phosphatase (38-126) U/L Troponin I ng/mL Total Protein (5.8-8.3) g/dL Albumin (3.0-4.8) g/dL Globulin gm/dL Albumin/Globulin Ratio (1.1-1.8) Blood Type Antibody Screen Crossmatch BBK History Checked 04/12/17 04/12/17 04/12/17 Range/Units 21:43 21:20 21:13 WBC 15.9 H D (4.5-11.0) 10^3/ul RBC 3.43 L (3.5-6.1) 10^6/uL Hgb 10.5 L D (14.0-18.0) g/dL Hct 32.3 L (42.0-52.0) % MCV 94.2 (80.0-105.0) fl MCH 30.6 (25.0-35.0) pg MCHC 32.5 (31.0-37.0) g/dl RDW 13.5 (11.5-14.5) % Plt Count 160 (120.0-450.0) 10^3/uL MPV 10.9 (7.0-11.0) fl Gran % 83.9 H (50.0-68.0) % Lymph % (Auto) 7.4 L (22.0-35.0) % [place] % (Auto) 7.1 H (1.0-6.0) % Eos % (Auto) 1.5 (1.5-5.0) % Baso % (Auto) 0.1 (0.0-3.0) % Gran # 13.37 H (1.4-6.5) Lymph # 1.2 (1.2-3.4) [place] # 1.1 H (0.1-0.6) Eos # 0.2 (0.0-0.7) Baso # 0.02 (0.0-2.0) K/mm3 Neutrophils % (Manual) (50.0-70.0) % Lymphocytes % (Manual) (22.0-35.0) % Monocytes % (Manual) (1.0-6.0) % Toxic Granulation Platelet Evaluation (NORMAL) Hypochromasia Anisocytosis (manual) pCO2 87 H* (35-45) mm/Hg pO2 78.0 L (80-100) mm/Hg HCO3 40.9 H* (21-28) mmol/L ABG pH 7.28 L (7.35-7.45) ABG Total CO2 43.6 H (22-28) mmol.L ABG O2 Saturation 96.0 (95-98) % ABG O2 Content 13.9 L (15-23) ML/dl ABG Base Excess 11.4 H (-2.0-3.0) mmol/L ABG Hemoglobin 10.6 L (11.7-17.4) g/dL ABG Carboxyhemoglobin 2.5 H (0.5-1.5) % POC ABG HHb (Measured) 3.9 (0-5) % ABG Methemoglobin 1.1 (0.0-3.0) % ABG O2 Capacity 14.5 L (16-24) mL/dl Hgb O2 Saturation 92.4 L (95.0-98.0) % FiO2 40.0 % Sodium (132-148) mmol/L Potassium (3.6-5.0) mmol/L Chloride (98-107) mmol/L Carbon Dioxide (21-33) mmol/L Anion Gap (10-20) BUN (7-21) mg/dL Creatinine (0.5-1.4) mg/dL Est GFR ( Amer) Est GFR (Non-Af Amer) POC Glucose (mg/dL) 248 H (65-110) mg/dL Random Glucose (70-110) mg/dL Calcium (8.4-10.5) mg/dL Phosphorus (2.5-4.5) mg/dL Magnesium (1.7-2.2) mg/dL Total Bilirubin (0.2-1.3) mg/dL AST (17-59) U/L ALT (7-56) U/L Alkaline Phosphatase (38-126) U/L Troponin I ng/mL Total Protein (5.8-8.3) g/dL Albumin (3.0-4.8) g/dL Globulin gm/dL Albumin/Globulin Ratio (1.1-1.8) Blood Type Antibody Screen Crossmatch BBK History Checked 04/11/17 Range/Units 16:45 WBC (4.5-11.0) 10^3/ul RBC (3.5-6.1) 10^6/uL Hgb (14.0-18.0) g/dL Hct (42.0-52.0) % MCV (80.0-105.0) fl MCH (25.0-35.0) pg MCHC (31.0-37.0) g/dl RDW (11.5-14.5) % Plt Count (120.0-450.0) 10^3/uL MPV (7.0-11.0) fl Gran % (50.0-68.0) % Lymph % (Auto) (22.0-35.0) % [place] % (Auto) (1.0-6.0) % Eos % (Auto) (1.5-5.0) % Baso % (Auto) (0.0-3.0) % Gran # (1.4-6.5) Lymph # (1.2-3.4) [place] # (0.1-0.6) Eos # (0.0-0.7) Baso # (0.0-2.0) K/mm3 Neutrophils % (Manual) (50.0-70.0) % Lymphocytes % (Manual) (22.0-35.0) % Monocytes % (Manual) (1.0-6.0) % Toxic Granulation Platelet Evaluation (NORMAL) Hypochromasia Anisocytosis (manual) pCO2 (35-45) mm/Hg pO2 (80-100) mm/Hg HCO3 (21-28) mmol/L ABG pH (7.35-7.45) ABG Total CO2 (22-28) mmol.L ABG O2 Saturation (95-98) % ABG O2 Content (15-23) ML/dl ABG Base Excess (-2.0-3.0) mmol/L ABG Hemoglobin (11.7-17.4) g/dL ABG Carboxyhemoglobin (0.5-1.5) % POC ABG HHb (Measured) (0-5) % ABG Methemoglobin (0.0-3.0) % ABG O2 Capacity (16-24) mL/dl Hgb O2 Saturation (95.0-98.0) % FiO2 % Sodium (132-148) mmol/L Potassium (3.6-5.0) mmol/L Chloride (98-107) mmol/L Carbon Dioxide (21-33) mmol/L Anion Gap (10-20) BUN (7-21) mg/dL Creatinine (0.5-1.4) mg/dL Est GFR ( Amer) Est GFR (Non-Af Amer) POC Glucose (mg/dL) (65-110) mg/dL Random Glucose (70-110) mg/dL Calcium (8.4-10.5) mg/dL Phosphorus (2.5-4.5) mg/dL Magnesium (1.7-2.2) mg/dL Total Bilirubin (0.2-1.3) mg/dL AST (17-59) U/L ALT (7-56) U/L Alkaline Phosphatase (38-126) U/L Troponin I ng/mL Total Protein (5.8-8.3) g/dL Albumin (3.0-4.8) g/dL Globulin gm/dL Albumin/Globulin Ratio (1.1-1.8) Blood Type A POSITIVE Antibody Screen Negative Crossmatch See Detail BBK History Checked Patient has bt Laboratory Results - last 24 hr 04/11/17 04/12/17 04/12/17 16:45 21:13 21:20 WBC RBC Hgb Hct MCV MCH MCHC RDW Plt Count MPV Gran % Lymph % (Auto) [place] % (Auto) Eos % (Auto) Baso % (Auto) Gran # Lymph # [place] # Eos # Baso # Neutrophils % (Manual) Lymphocytes % (Manual) Monocytes % (Manual) Toxic Granulation Platelet Evaluation Hypochromasia Anisocytosis (manual) pCO2 87 H* pO2 78.0 L HCO3 40.9 H* ABG pH 7.28 L ABG Total CO2 43.6 H ABG O2 Saturation 96.0 ABG O2 Content 13.9 L ABG Base Excess 11.4 H ABG Hemoglobin 10.6 L ABG Carboxyhemoglobin 2.5 H POC ABG HHb (Measured) 3.9 ABG Methemoglobin 1.1 ABG O2 Capacity 14.5 L Hgb O2 Saturation 92.4 L FiO2 40.0 Sodium Potassium Chloride Carbon Dioxide Anion Gap BUN Creatinine Est GFR ( Amer) Est GFR (Non-Af Amer) POC Glucose (mg/dL) 248 H Random Glucose Calcium Phosphorus Magnesium Total Bilirubin AST ALT Alkaline Phosphatase Troponin I Total Protein Albumin Globulin Albumin/Globulin Ratio Blood Type A POSITIVE Antibody Screen Negative Crossmatch See Detail BBK History Checked Patient has bt 04/12/17 04/12/17 04/13/17 21:43 21:43 00:44 WBC 15.9 H D RBC 3.43 L Hgb 10.5 L D Hct 32.3 L MCV 94.2 MCH 30.6 MCHC 32.5 RDW 13.5 Plt Count 160 MPV 10.9 Gran % 83.9 H Lymph % (Auto) 7.4 L [place] % (Auto) 7.1 H Eos % (Auto) 1.5 Baso % (Auto) 0.1 Gran # 13.37 H Lymph # 1.2 [place] # 1.1 H Eos # 0.2 Baso # 0.02 Neutrophils % (Manual) Lymphocytes % (Manual) Monocytes % (Manual) Toxic Granulation Platelet Evaluation Hypochromasia Anisocytosis (manual) pCO2 69 H pO2 108.0 H HCO3 34.7 H ABG pH 7.31 L ABG Total CO2 36.8 H ABG O2 Saturation 99.1 H ABG O2 Content 13.5 L ABG Base Excess 6.8 H ABG Hemoglobin 10.0 L ABG Carboxyhemoglobin 2.7 H POC ABG HHb (Measured) 0.9 ABG Methemoglobin 1.5 ABG O2 Capacity 13.6 L Hgb O2 Saturation 94.9 L FiO2 40.0 Sodium 135 Potassium 4.3 Chloride 94 L Carbon Dioxide 36 H Anion Gap 9 L BUN 16 Creatinine 0.8 Est GFR ( Amer) > 60 Est GFR (Non-Af Amer) > 60 POC Glucose (mg/dL) Random Glucose 224 H Calcium 7.9 L Phosphorus Magnesium Total Bilirubin AST ALT Alkaline Phosphatase Troponin I Total Protein Albumin Globulin Albumin/Globulin Ratio Blood Type Antibody Screen Crossmatch BBK History Checked 04/13/17 04/13/17 04/13/17 06:10 06:10 06:10 WBC 10.1 D RBC 3.23 L Hgb 9.6 L Hct 30.4 L MCV 94.1 MCH 29.7 MCHC 31.6 RDW 13.5 Plt Count 153 MPV 11.8 H Gran % 94.4 H Lymph % (Auto) 2.9 L [place] % (Auto) 2.4 Eos % (Auto) 0.2 L Baso % (Auto) 0.1 Gran # 9.54 H Lymph # 0.3 L [place] # 0.2 Eos # 0.0 Baso # 0.01 Neutrophils % (Manual) 93 H Lymphocytes % (Manual) 4 L Monocytes % (Manual) 3 Toxic Granulation 1+ Platelet Evaluation Normal Hypochromasia Slight Anisocytosis (manual) Slight pCO2 pO2 HCO3 ABG pH ABG Total CO2 ABG O2 Saturation ABG O2 Content ABG Base Excess ABG Hemoglobin ABG Carboxyhemoglobin POC ABG HHb (Measured) ABG Methemoglobin ABG O2 Capacity Hgb O2 Saturation FiO2 Sodium 137 Potassium 4.7 Chloride 97 L Carbon Dioxide 33 Anion Gap 12 BUN 16 Creatinine 0.8 Est GFR ( Amer) > 60 Est GFR (Non-Af Amer) > 60 POC Glucose (mg/dL) Random Glucose 248 H Calcium 7.9 L Phosphorus 3.0 Magnesium 1.3 L Total Bilirubin 0.9 AST 44 ALT 33 Alkaline Phosphatase 60 Troponin I 0.58 H* D Total Protein 5.5 L Albumin 3.1 Globulin 2.4 Albumin/Globulin Ratio 1.3 Blood Type Antibody Screen Crossmatch BBK History Checked 04/13/17 08:00 WBC RBC Hgb Hct MCV MCH MCHC RDW Plt Count MPV Gran % Lymph % (Auto) [place] % (Auto) Eos % (Auto) Baso % (Auto) Gran # Lymph # [place] # Eos # Baso # Neutrophils % (Manual) Lymphocytes % (Manual) Monocytes % (Manual) Toxic Granulation Platelet Evaluation Hypochromasia Anisocytosis (manual) pCO2 48 H pO2 121.0 H HCO3 27.7 ABG pH 7.37 ABG Total CO2 29.2 H ABG O2 Saturation 99.3 H ABG O2 Content 12.0 L ABG Base Excess 2.0 ABG Hemoglobin 8.7 L ABG Carboxyhemoglobin 2.3 H POC ABG HHb (Measured) 0.7 ABG Methemoglobin 1.0 ABG O2 Capacity 12.1 L Hgb O2 Saturation 96.1 FiO2 40.0 Sodium Potassium Chloride Carbon Dioxide Anion Gap BUN Creatinine Est GFR ( Amer) Est GFR (Non-Af Amer) POC Glucose (mg/dL) Random Glucose Calcium Phosphorus Magnesium Total Bilirubin AST ALT Alkaline Phosphatase Troponin I Total Protein Albumin Globulin Albumin/Globulin Ratio Blood Type Antibody Screen Crossmatch BBK History Checked EKG/Cardiology Studies: Cardiology / EKG Studies 04/12/17 20:47 EKG [ELECTROCARDIOGRAM] Stat Comment: Reason For Exam: tachycardia 04/13/17 09:10 ELECTROCARDIOGRAM Routine Comment: Reason For Exam: Resp failure post op Critical Care Progress Note - Nutrition Nutrition: Nutrition Category Date Time Status Heart Healthy Diet [DIET] Diets 04/12/17 Dinner Ordered Attending/Attestation - Attestation I have personally seen and examined this patient.: Yes I have fully participated in the care of the patient.: Yes I have reviewed all pertinent clinical information: Yes Notes (Text): 04/13/17 14:34 61 yo male with COPD, s/p ORIF, complicated by hypercapnic respiratory failure/ COPd exacerbation. Dramatically and quickly improved on BPAP, bornchodilators and systemic steroids. D/w PMD Dr. Kerr-->agree with transfer to [facility] time 40 min
[2017-04-13] MEDS: oxyCODONE 30 mg Immediate Release Tab PO PRN ×2 (14:44→20:35)
[2017-04-13 20:17] LABS: HEMATOCRIT 25.7 % (42.0-52.0); MEAN CELL VOLUME 93.1 fl (80.0-105.0); MEAN CORPUSCULAR HEMOGLOBIN 30.8 pg (25.0-35.0); MEAN CORPUSCULAR HGB CONC 33.1 g/dl (31.0-37.0); MEAN PLATELET VOLUME 12.2 fl (7.0-11.0); RED CELL DISTRIBUTION WIDTH 13.5 % (11.5-14.5); WHITE BLOOD COUNT 8.9 10^3/ul (4.5-11.0)
[2017-04-13 20:19] LABS: ALB/GLOB RATIO 1.3 (1.1-1.8); ALKALINE PHOSPHATASE 52 U/L (38-126); ALT/SGPT 36 U/L (7-56); AST/SGOT 43 U/L (17-59); BILIRUBIN,TOTAL 0.7 mg/dL (0.2-1.3); BLOOD UREA NITROGEN 17 mg/dL (7-21); CALCIUM 7.7 mg/dL (8.4-10.5); CARBON DIOXIDE 30 mmol/L (21-33); CHLORIDE 95 mmol/L (98-107); GFR AFRICAN-AMERICAN > 60; POTASSIUM 4.8 mmol/L (3.6-5.0); SODIUM 133 mmol/L (132-148); TOTAL PROTEIN 5.6 g/dL (5.8-8.3)
[2017-04-13 20:33] LABS: GLUCOSE,RANDOM 324 mg/dL (70-110)
--- NOTE | 2017-04-13 20:51 | CARD ---
APPROVED REPORT EKG Measurement Heart [id number] [id number] <Conclusion> Sinus tachycardia with premature atrial complexes Right bundle branch block Inferior infarct, age undetermined T wave abnormality, consider lateral ischemia Abnormal ECG
--- NOTE | 2017-04-13 20:59 | CARD ---
APPROVED REPORT EKG Measurement Heart [id number] <Conclusion> Wide QRS tachycardia with occasional premature ventricular complexes and fusion complexes Right bundle branch block Lateral infarct, age undetermined Inferior infarct, age undetermined Abnormal ECG
[2017-04-14] MEDS: Albuterol-Ipratrop 3 mg / 0.5 (3 ml) UD IH SCH ×4 (01:45→19:38)
[2017-04-14] MEDS: Azithromycin 500MG/NS 250ml 500 MG/250 ML BAG IVPB SCH (05:10)
[2017-04-14] MEDS: Sodium Chloride 0.9% 1,000 ML IV SCH (05:15)
[2017-04-14] MEDS: Budesonide 0.5 mg/2 ml Inhal Susp UD IH SCH ×2 (07:24→19:38)
[2017-04-14] MEDS: oxyCODONE 30 mg Immediate Release Tab PO PRN ×2 (08:20→17:28)
[2017-04-14] MEDS: Insulin Reg-MEDIUM-Coverage SC SCH ×6 (08:44→21:42)
[2017-04-14] MEDS: HYDROmorphone 2 mg/ml ISec IVP PRN ×2 (09:25→12:39)
[2017-04-14 09:30] LABS: GRAN # 8.93 (1.4-6.5); GRAN % 90.9 % (50.0-68.0); HEMATOCRIT 24.1 % (42.0-52.0); LYMPH # 0.3 (1.2-3.4); LYMPH % 3.2 % (22.0-35.0); MEAN CELL VOLUME 92.7 fl (80.0-105.0); MEAN CORPUSCULAR HGB CONC 32.4 g/dl (31.0-37.0); MONO # 0.6 (0.1-0.6); MONO % 5.9 % (1.0-6.0); RED CELL DISTRIBUTION WIDTH 13.5 % (11.5-14.5); WHITE BLOOD COUNT 9.8 10^3/ul (4.5-11.0)
[2017-04-14] MEDS: MethylPREDNISolone 40 mg Vial IVP SCH ×2 (09:32→21:40)
[2017-04-14] MEDS: Potassium Chloride 20 mEq ER Tab PO SCH (09:36)
[2017-04-14] MEDS: Enoxaparin 30 mg Syringe SC SCH ×2 (10:25→21:41)
--- NOTE | 2017-04-14 10:30 | PN ---
PULMONARY PROGRESS NOTE DATE: 04/14/2017 SUBJECTIVE: The patient was seen and examined at bedside. He is out of intensive care unit. He states his breathing has improved a lot. He does not complaint of shortness of breath nor does he have cough. He is currently receiving inhalation treatment with budesonide and DuoNeb. He is also on Solu-Medrol 40 mg every 12 hours. He is receiving antibiotics with azithromycin. PHYSICAL EXAMINATION: VITAL SIGNS: His temperature is 98.6, pulse 102, respirations 20, pulse oximetry is 97% on room air, and blood pressure is 160/65. HEAD, EARS, NOSE, AND THROAT: This was in normal limits. NECK: Supple with no jugular vein distention. CHEST: Symmetrical. CARDIOVASCULAR: S1 and S2. No S3 regular. GASTROINTESTINAL: Soft and nontender. No organomegaly. PULMONARY: Diminished breath sounds at both bases. Few rhonchi and no wheezing. EXTREMITIES: No pedal edema. SKIN: Clear with no cyanosis and no skin rashes. NEUROLOGIC: No focal deficits. LABORATORY DATA: Today laboratory data was reviewed. Blood sugar is 288. There is no other laboratory data. ASSESSMENT: 1. Postoperative respiratory failure. 2. Status post repair of right hip fracture. 3. Chronic obstructive pulmonary disease exacerbated. 4. Bronchospasm resolved. PLAN: The patient is out of intensive care unit. His respiratory status has greatly improved. Part of reason for respiratory failure was effects of anesthesia sedation as well as pain medications. The patient states she is still in pain and asking for pain medications, which should be greatly limited. From a pulmonary standpoint, the steroids intravenously can be tapered. Inhalant steroids and bronchodilators. We will continue if status have markedly improved. Cristino Zimmerman MD
[2017-04-14] MEDS: Nystatin-Triamcinolone Cream(30 gm) TOP SCH ×2 (11:47→18:04)
--- NOTE | 2017-04-14 12:24 | RAD ---
HISTORY: follow up COMPARISON: 04/12/2017 FINDINGS: LUNGS: No active pulmonary disease. PLEURA: No significant pleural effusion identified, no pneumothorax apparent. CARDIOVASCULAR: Mild cardiomegaly OSSEOUS STRUCTURES: No significant abnormalities. VISUALIZED UPPER ABDOMEN: Normal. OTHER FINDINGS: None. IMPRESSION: No active disease.
--- NOTE | 2017-04-14 13:11 | PN ---
DATE: 04/14/2017 SUBJECTIVE: The patient is seen lying in bed on 5R. He is uncomfortable secondary to postoperative hip pain. He feels that his current analgesic regimen is not adequate. He denies any chest pains. CURRENT MEDICATIONS: Include Dilaudid 2 mg q. 2 hours p.r.n., Duoneb inhaler, Ecotrin 81 mg b.i.d., insulin coverage, potassium 20 mEq daily, Lasix 40 mg b.i.d., Lipitor 10 mg daily, subcutaneous Lovenox, oxycodone p.r.n., Pepcid, Pulmicort inhaler, Solu-Medrol 40 mg q. 12 hours, Zithromax, and Zoloft. OBJECTIVE: GENERAL: He is a middle-aged male, who appears somewhat uncomfortable secondary to pain. VITAL SIGNS: His blood pressure is 160/65 with a pulse of 100, respirations are 14. He is currently afebrile. HEENT: No JVD. CHEST: A few scattered rhonchi. HEART: PMI in normal position. No pathologic murmur or gallops are noted. ABDOMEN: Soft and nontender. Normoactive bowel sounds. EXTREMITIES: Pneumatic compression devices are in place. No edema noted. DIAGNOSTIC DATA: White count is 9.8, hemoglobin and hematocrit 7.8 and 24.1 with a platelet count of 148,000. Troponin was 0.2. IMPRESSION: 1. Status post hip fracture with surgical repair, now with postoperative pain. 2. Recent respiratory insufficiency requiring a BiPAP support, clinically improved. 3. Known coronary artery disease, status post rule out myocardial infarction, multivessel percutaneous coronary intervention, currently with borderline troponin with no chest pain. 4. History of hypertension and diabetes. 5. Severe chronic obstructive pulmonary disease and tobacco abuse. 6. Severe postoperative anemia. RECOMMENDATIONS: His current medications should continue. Aspirin can be changed to once daily dosing. A followup troponin will be ordered, but this may simply be elevated due to stress with recent illness. Stool guaiacs should be checked. Repeat electrocardiogram will be planned for the morning. Standard DVT and GI prophylaxis should continue. Consideration may need to be given to transfusion of packed cells. We will continue to follow and make further recommendations as appropriate. Marcus Cadet MD [facility] # [id number]
[2017-04-14] MEDS: HYDROmorphone 2 mg/ml ISec IVP SCH ×3 (14:54→21:39)
--- NOTE | 2017-04-14 15:27 | PN ---
DATE: 04/14/2017 HISTORY OF PRESENT ILLNESS: The patient is a 61-year-old male admitted with right hip fracture. He underwent placement of right hip prosthesis 2 days ago. He is complaining of lower abdominal pain. He has history of morbid obesity, COPD and coronary artery disease. No shortness or breath. No chest pain. REVIEW OF SYSTEMS: As per HPI. Rest of the 12-point review of systems reviewed and negative. ALLERGIES: NO KNOWN DRUG ALLERGIES. MEDICATIONS: DuoNeb p.r.n., aspirin 81 mg daily, Lipitor 10 mg daily, Zithromax q. 6 hours, Pulmicort q. 12 hours, Klonopin 0.5 mg at bedtime, Lovenox 30 mg subcutaneous q. 12, Pepcid 20 mg b.i.d., Lasix 40 mg b.i.d., hydralazine 10 mg q. 4 hours p.r.n., Dilaudid 2 mg IV q. 4 hour p.r.n., Solu-Medrol 40 mg IV q. 12, oxycodone 30 mg q. 6 hours p.r.n., K-Dur 20 mEq p.o. daily, Zoloft 50 mg daily, IV fluids 600 mL an hour. PERSONAL HISTORY: He is a smoker. Does not drink. No history of drug abuse. PAST MEDICAL HISTORY: Coronary artery disease, peripheral neuropathy, CHF, COPD and morbid obesity. PAST SURGICAL HISTORY: Bilateral knee surgery. FAMILY HISTORY: Noncontributory. PHYSICAL EXAMINATION: GENERAL: Lying comfortably in bed, in no acute distress. VITAL SIGNS: Temperature 98.7, heart rate 100 per minute, blood pressure 130/70 and oxygen saturation 98% on room air. HEENT: Normal. CHEST: Air entry present equal bilateral. No added sounds. CARDIOVASCULAR: S1 and S2 normal. No murmur, rub or gallop. ABDOMEN: Soft and nontender. No hepatosplenomegaly. EXTREMITIES: No edema. NEUROLOGIC: Alert and oriented x3. No focal sensory or motor deficits. SKIN: No erythema. No petechia. EXTREMITIES: No cyanosis. No clubbing. LABORATORY DATA: White count 9.8, hemoglobin 7.8, hematocrit 24.1 and platelet count 148. Sodium 133, potassium 4.8, creatinine 0.7, glucose 324, AST 43 and ALT 36. ASSESSMENT: 1. Status post right hip surgery. 2. Pain in lower abdomen and pelvic. 3. Chronic obstructive pulmonary disease. 4. Coronary artery disease. 5. Severe anemia. 6. Thrombocytopenia. PLAN: He is currently on Dilaudid q. 4, I will increase the frequency 2 mg q. 3 hour p.r.n. We will continue senna, Colace. Continue Zoloft 50 mg daily, IV fluid 800 mL an hour. He is also on steroid 40 mg q. 12 hour, we will continue that. Continue hydralazine p.r.n., Lasix 40 mg p.o. b.i.d., Klonopin 0.5 mg p.o. at bedtime. He is currently on Zithromax, we will continue that. Aspirin 81 mg daily. Continue bronchodilators. DVT prophylaxis with Lovenox 30 mg subcutaneous q. 12. Anabel Jo MD MTDD
[2017-04-15] MEDS: HYDROmorphone 2 mg/ml ISec IVP SCH ×8 (00:19→23:26)
[2017-04-15] MEDS: Albuterol-Ipratrop 3 mg / 0.5 (3 ml) UD IH SCH ×4 (02:04→19:28)
[2017-04-15] MEDS: Budesonide 0.5 mg/2 ml Inhal Susp UD IH SCH ×2 (07:14→19:30)
[2017-04-15 07:21] LABS: HEMATOCRIT 24.1 % (42.0-52.0); MEAN CELL VOLUME 92.7 fl (80.0-105.0); MEAN CORPUSCULAR HEMOGLOBIN 30.8 pg (25.0-35.0); MEAN CORPUSCULAR HGB CONC 33.2 g/dl (31.0-37.0); MEAN PLATELET VOLUME 11.1 fl (7.0-11.0); RED CELL DISTRIBUTION WIDTH 13.6 % (11.5-14.5); WHITE BLOOD COUNT 9.9 10^3/ul (4.5-11.0)
[2017-04-15] MEDS: Azithromycin 500MG/NS 250ml 500 MG/250 ML BAG IVPB SCH (07:38)
[2017-04-15] MEDS: Insulin Reg-MEDIUM-Coverage SC SCH ×4 (08:35→21:38)
--- NOTE | 2017-04-15 08:41 | PN ---
DATE: 04/15/2017 SUBJECTIVE: The patient is seen sitting in a chair on telemetry. He feels more comfortable. His hip pain is better controlled. He continues to have some back and leg pain, however. He reported he was transferred to telemetry for complaints of chest pain; however, he denies having had any chest pain. He is puzzled as to why this occurred. Again, he denies any chest pain. CURRENT MEDICATIONS: Include hydralazine p.r.n., Dilaudid, DuoNeb inhaler, Ecotrin, insulin coverage, Lasix 40 mg b.i.d, potassium 20 mEq daily, Klonopin at bedtime, Lipitor 10 mg daily, Lovenox, Pepcid, Pulmicort inhaler, Solu-Medrol 40 mg q. 12 hours, Zoloft, and Zithromax. PHYSICAL EXAMINATION GENERAL: He is an overweight middle-aged man. VITAL SIGNS: His blood pressure is 156/80 with a pulse of 90 to 100 in sinus rhythm, respirations are 16. He is afebrile. HEENT: No JVD. CHEST: Few scattered rhonchi. HEART: PMI in normal position. Heart sounds are somewhat distant. No pathologic murmur or gallops are noted. ABDOMEN: Soft, obese, and nontender. Normoactive bowel sounds. EXTREMITIES: No edema. DIAGNOSTIC DATA: Morning blood work pending. Troponins withdrawn yesterday measured 0.2, 0.18, and 0.17 respectively. Electrocardiogram reveals sinus tachycardia with right bundle-branch block and secondary ST-T changes. Last hemoglobin was 7.8. IMPRESSION: 1. Status post hip fracture with successful surgical repair, currently improving. 2. Borderline troponin elevation, findings not consistent with myocardial infarction, likely due to stress with illness and demand ischemia. 3. Recent respiratory insufficiency requiring temporary BiPAP support, now improved. 4. Known coronary artery disease, status post remote myocardial infarction and multivessel percutaneous coronary intervention, stable. 4. History of hypertension and diabetes. 5. Severe chronic obstructive pulmonary disease. 6. History of tobacco abuse. 7. Severe anemia. RECOMMENDATIONS: His current medications should continue. He is not currently on a beta-osmani and is unclear why this should be resumed unless a contraindication exists. Repeat CBC is pending. Consideration may need to be given to a transfusion if his hemoglobin falls further. Standard postoperative care should continue. We will continue to follow along as needed. Marcus Cadet MD
[2017-04-15] MEDS: MethylPREDNISolone 40 mg Vial IVP SCH ×2 (10:58→21:26)
[2017-04-15] MEDS: Potassium Chloride 20 mEq ER Tab PO SCH (10:59)
[2017-04-15] MEDS: oxyCODONE 30 mg Immediate Release Tab PO PRN ×2 (10:59→20:29)
--- NOTE | 2017-04-15 11:02 | PN ---
PULMONARY PROGRESS NOTE DATE: 04/15/2017 SUBJECTIVE: The patient was seen and examined at bedside. He states his breathing is markedly improved. He is not complaining of shortness of breath. The only complaint is that he is in pain. PHYSICAL EXAMINATION: GENERAL: He is awake, alert in no acute distress. VITAL SIGNS: Temperature is 98.3, pulse 98, respirations 18, and pulse oximetry is 96% on room air. HEAD, EARS, NOSE, AND THROAT: Within normal limits. LUNGS: Diminished breath sounds at both lungs bases. GASTROINTESTINAL: Soft and nontender. No organomegaly. EXTREMITIES: No edema status post surgery hip. SKIN: Clear with no cyanosis and no skin rashes. NEUROLOGIC: No focal deficits. LABORATORY DATA: His currently troponin mildly positive. WBC is 9.9 and hemoglobin of 8.0. ASSESSMENT: 1. Postoperative respiratory failure. 2. Status post repair of right hip fracture. 3. Chronic obstructive pulmonary disease. PLAN: The patient continues to improve. His pulmonary status is back to normal. When feasible, he showed undergo pulmonary functions testing since underlying at least moderate chronic obstructive pulmonary disease exist and then bronchodilator therapy should be designed for him. We will follow closely. Cristino Zimmerman MD
--- NOTE | 2017-04-15 11:11 | PN ---
DATE: 04/15/2017 SUBJECTIVE: He is sitting in a chair, no acute distress. Pain is better controlled with the current medications. He is still complaining of leg pain, back pain. Troponins declined today. He was evaluated by Dr. Berg. No fever, no cough with expectoration. REVIEW OF SYSTEMS: As per HPI. Rest of the 12-point review of systems reviewed and negative. PHYSICAL EXAMINATION: GENERAL: Comfortable in bed, no acute distress. VITAL SIGNS: Temperature 98.3, heart rate is 99 per minute, respiratory rate 18 per minutes, blood pressure 150/70. HEENT: Pallor positive. NECK: No lymphadenopathy. CHEST: Occasional rhonchi. Air entry present bilateral equal. HEART: S1 and S2 normal. No murmur and no gallop. ABDOMEN: Soft, nontender, obese. EXTREMITIES: No edema. SPINE: Nontender. [employer]: Alert, oriented x3. No focal sensory or motor deficits. LABORATORY DATA: White count 9, hemoglobin 8, hematocrit 24, platelet count 170, glucose 264, troponin 0.17. MEDICATIONS: Tylenol 650 q. 6 hours p.r.n., DuoNeb p.r.n., aspirin 81 mg daily, Lipitor 10 mg daily, Zithromax 500 mg daily, Pulmicort inhalation, Klonopin 0.5 mg p.o. at bedtime, Lovenox 30 mg subcutaneous q. 12, famotidine 20 mg p.o. b.i.d., Lasix 40 mg p.o. b.i.d., hydralazine 10 mg IV q.4 hours p.r.n., Dilaudid 2 mg IV q.3 hours, insulin sliding scale, Solu-Medrol 40 mg q. 12 hours, Lopressor 20 mg daily, Oxycodone 30 mg q.6 hours p.r.n., K-Dur 20 mEq daily, Zoloft 50 mg daily, and IV fluids 800 mL an hour. ASSESSMENT AND PLAN: 1. Right hip fracture status post surgical repair. 2. Non-ST elevation myocardial infarction. Troponins are declining. Evaluated by Cardiology. We will continue cardiac meds, beta blockers. 3. Blood pressure controlled with hydralazine. He is on metoprolol 25 mg daily. Continue that. 4. Pain control with Percocet and Dilaudid. Dose of Dilaudid was increased to every 3 hours yesterday. Pain is better controlled with that. We will continue that. 5. Oral intake is good. I will discontinue the IV fluids. 6. Continue bronchodilators. He is on Zithromax. We will continue that. Continue Zoloft 50 mg daily. 7. Continue DVT prophylaxis. 8. Cultures negative. No MRSA detected from nasal roxanne. 9. Encourage ambulation. Anabel Jo MD
[2017-04-15] MEDS: Enoxaparin 30 mg Syringe SC SCH ×2 (11:56→21:23)
[2017-04-15] MEDS: Nystatin-Triamcinolone Cream(30 gm) TOP SCH ×2 (11:56→20:03)
[2017-04-15] MEDS ORDERED: Morphine 4 mg/ml ISec IVP ONE (12:20)
--- NOTE | 2017-04-15 16:20 | CP.PCM.PN ---
Subjective - Date & Time of Evaluation Date of Evaluation: 04/15/17 Time of Evaluation: 16:16 - Subjective Subjective: PGY-2 on behalf of house doc for Dr. Jo S: At around 3:30pm, Fred Billings reported pt has a brief moment of AMS. Pt asked RN how to get to [facility] and was not able to tell where he is. I interviewed pt with daughter, Kamille. Pt is AAOx3, able to operate cell phone and stand on walker. Pt SaO2 90 on RA, refused O2. Daughter states that pt smokes 1-2ppd. Last pain med oxycodone IR was admininstered at 11am. Tele monitor showed NSR 80s, unchanged in AM. He has a chronic RBBB on EKG. Pt is POD #2 s/p R ORIF with bipolar prosthesis due to hip fracture. He has demand ischemia induced NSTEMI which is stable according to web content producer. ROS: Denies CA, CP, SOB, N/V/D/C, dysuria (+) pain on incision site. PMH: CAD, CHF, COPD, DM2, PVD, chronic low back pain. Objective - Vital Signs/Intake and Output Vital Signs (last 24 hours): Temp Pulse Resp BP Pulse Ox 98.3 F 90 20 149/84 96 04/15/17 12:00 04/15/17 14:00 04/15/17 12:00 04/15/17 12:00 04/15/17 06:00 Intake and Output: 04/15/17 04/15/17 06:59 18:59 Intake Total 480 Output Total 675 Balance -195 - Medications Medications: Current Medications Acetaminophen (Tylenol 325mg Tab) 975 mg PO Q6H PRN PRN Reason: Temperature Albuterol/Ipratropium (Duoneb 3 Mg/0.5 Mg (3 Ml) Ud) 3 ml IH Q2H PRN PRN Reason: Shortness of Breath Albuterol/Ipratropium (Duoneb 3 Mg/0.5 Mg (3 Ml) Ud) 3 ml IH [id number] [facility] Last Admin: 04/15/17 13:18 Dose: 3 ml Albuterol/Ipratropium (Duoneb 3 Mg/0.5 Mg (3 Ml) Ud) 3 ml IH Q2H PRN PRN Reason: Shortness of Breath Aspirin (Ecotrin) 81 mg PO DAILY [facility] Last Admin: 04/15/17 10:59 Dose: 81 mg Atorvastatin Calcium (Lipitor) 10 mg PO HS [facility] Last Admin: 04/14/17 21:41 Dose: 10 mg Budesonide (Pulmicort Respules) 0.5 mg IH [id number] [facility] Last Admin: 04/15/17 07:14 Dose: 0.5 mg Clonazepam (Klonopin) 0.5 mg PO HS [facility] PRN Reason: Protocol Last Admin: 04/14/17 21:41 Dose: 0.5 mg Enoxaparin Sodium (Lovenox) 30 mg SC Q12H [facility] PRN Reason: Protocol Last Admin: 04/15/17 11:56 Dose: 30 mg Famotidine (Pepcid) 20 mg PO 1000,2200 [facility] Last Admin: 04/15/17 10:59 Dose: 20 mg Furosemide (Lasix) 40 mg PO BID [facility] Last Admin: 04/15/17 10:59 Dose: 40 mg Hydralazine HCl (Apresoline) 10 mg IVP Q4 PRN PRN Reason: Systolic Blood Pressure Hydromorphone HCl (Dilaudid) 2 mg IVP Q3 [facility] Last Admin: 04/15/17 15:17 Dose: Not Given Azithromycin (Zithromax 500mg In Ns) 500 mg in 250 mls @ 167 mls/hr IVPB 0600 [facility] PRN Reason: Protocol Last Admin: 04/15/17 07:38 Dose: 167 mls/hr Insulin Human Regular (Humulin R Med) 0 units SC ACHS [facility] PRN Reason: Protocol Last Admin: 04/15/17 12:01 Dose: 5 units Methylprednisolone (Solu-Medrol) 40 mg IVP Q12 [facility] Last Admin: 04/15/17 10:58 Dose: 40 mg Metoprolol Tartrate (Lopressor) 25 mg PO BRKDIN [facility] Last Admin: 04/15/17 08:34 Dose: 25 mg Nystatin/Triamcinolone Acetonide (Nystatin/Triamcinolone Cream) 1 ea TOP BID [facility] Last Admin: 04/15/17 11:56 Dose: 2 applic Oxycodone HCl (Oxycodone Immediate Release Tab) 30 mg PO Q6H PRN PRN Reason: Pain, severe (8-10) Last Admin: 04/15/17 10:59 Dose: 30 mg Potassium Chloride (K-Dur 20 Meq Er Tab) 20 meq PO DAILY [facility] Last Admin: 04/15/17 10:59 Dose: 20 meq Sertraline HCl (Zoloft) 50 mg PO DAILY [facility] Last Admin: 04/15/17 11:00 Dose: 50 mg - Labs Labs: 04/15/17 07:10 04/13/17 19:55 PT 11.2 Seconds (9.9-11.8) 04/11/17 14:10 INR 1.04 (0.93-1.08) 04/11/17 14:10 APTT 29.3 Seconds (23.7-30.8) 04/11/17 14:10 - Constitutional Appears: Well, No Acute Distress, Other (pale) - Head Exam Head Exam: ATRAUMATIC, NORMAL INSPECTION, NORMOCEPHALIC - Eye Exam Eye Exam: EOMI, Normal appearance, PERRL. absent: Scleral icterus Pupil Exam: NORMAL ACCOMODATION - ENT Exam ENT Exam: Mucous Membranes Moist - Neck Exam Additional comments: supple - Respiratory Exam Respiratory Exam: Decreased Breath Sounds (bibasilar), Clear to Ausculation Bilateral. absent: Rales, Rhonchi, Wheezes - Cardiovascular Exam Cardiovascular Exam: REGULAR RHYTHM, +S1, +S2 - GI/Abdominal Exam GI & Abdominal Exam: Soft. absent: Distended, Guarding, Rigid, Tenderness Additional comments: No suprapubic tenderness - Extremities Exam Extremities Exam: Normal Capillary Refill, Pedal Edema. absent: Calf Tenderness - Back Exam Back Exam: absent: CVA tenderness (L), CVA tenderness (R), paraspinal tenderness - Neurological Exam Neurological Exam: Alert, Awake, CN II-XII Intact, Oriented x3. absent: Motor Sensory Deficit Neuro motor strength exam: Left Upper Extremity: 5, Right Upper Extremity: 5, Left Lower Extremity: 5, Right Lower Extremity: 5 - Psychiatric Exam Psychiatric exam: Normal Affect, Normal Mood - Skin Skin Exam: Dry, Warm Assessment and Plan - Assessment and Plan (Free Text) Plan: A: Delirium Possible nicotine withdrawal Possible hypoxia, in the setting of COPD and anemia s/p surgery (Hb stable for the past 2 days) r/o infectious cause Doubt stroke, TIA, new CA - no focal neural deficit, no CA symptpms, tele unchanged Not likely from narcotics P: Neuro check q4h CBC, BMP, U/A, Urine culture, blood culture to r/o infectious cause Cardiac enzyme to r/o cardiac etiology Hold CT head pending clinical course Pt refuses O2 with POx 90 on RA. Goal is 92 given chronic smoker with COPD. Pt knows and understand the purpose of maintaining POx > 92 and refused O2 Add nicotine patch placed call to Dr. Jo at 4:42pm. Left contact with answering service Will s/r/d/w Dr. Jo
--- NOTE | 2017-04-15 18:06 | CARD ---
APPROVED REPORT EKG Measurement Heart [id number] <Conclusion> Sinus tachycardia Right bundle branch block Inferior infarct, age undetermined Anterolateral infarct, age undetermined Abnormal ECG
[2017-04-15 18:11] LABS: GRAN # 11.22 (1.4-6.5); GRAN % 91.4 % (50.0-68.0); HEMATOCRIT 26.7 % (42.0-52.0); LYMPH # 0.5 (1.2-3.4); LYMPH % 4.1 % (22.0-35.0); MEAN CELL VOLUME 93.4 fl (80.0-105.0); MEAN CORPUSCULAR HEMOGLOBIN 30.4 pg (25.0-35.0); MEAN CORPUSCULAR HGB CONC 32.6 g/dl (31.0-37.0); MEAN PLATELET VOLUME 11.1 fl (7.0-11.0); MONO # 0.6 (0.1-0.6); MONO % 4.5 % (1.0-6.0); RED CELL DISTRIBUTION WIDTH 13.9 % (11.5-14.5); WHITE BLOOD COUNT 12.3 10^3/ul (4.5-11.0)
[2017-04-15 18:19] LABS: BLOOD UREA NITROGEN 23 mg/dL (7-21); CALCIUM 8.3 mg/dL (8.4-10.5); CARBON DIOXIDE 30 mmol/L (21-33); CHLORIDE 94 mmol/L (98-107); GFR AFRICAN-AMERICAN > 60; GLUCOSE,RANDOM 281 mg/dL (70-110); POTASSIUM 5.3 mmol/L (3.6-5.0); SODIUM 132 mmol/L (132-148)
[2017-04-16] MEDS: Albuterol-Ipratrop 3 mg / 0.5 (3 ml) UD IH SCH ×4 (01:24→19:50)
[2017-04-16] MEDS: HYDROmorphone 2 mg/ml ISec IVP SCH ×2 (03:03→06:03)
[2017-04-16] MEDS: Azithromycin 500MG/NS 250ml 500 MG/250 ML BAG IVPB SCH (05:00)
[2017-04-16] MEDS: oxyCODONE 30 mg Immediate Release Tab PO PRN (06:07)
[2017-04-16 06:58] LABS: HEMATOCRIT 26.1 % (42.0-52.0); MEAN CELL VOLUME 92.2 fl (80.0-105.0); MEAN CORPUSCULAR HEMOGLOBIN 29.7 pg (25.0-35.0); MEAN CORPUSCULAR HGB CONC 32.2 g/dl (31.0-37.0); MEAN PLATELET VOLUME 11.5 fl (7.0-11.0); RED CELL DISTRIBUTION WIDTH 13.8 % (11.5-14.5); WHITE BLOOD COUNT 10.1 10^3/ul (4.5-11.0)
--- NOTE | 2017-04-16 07:57 | PN ---
DATE: 04/16/2017 SUBJECTIVE: The patient appears comfortable this morning. He is not short of breath at rest. PHYSICAL EXAMINATION VITAL SIGNS: Temperature 98.6, pulse on the monitor is 88, respiratory rate 18, blood pressure 162/70. Oxygen saturation on room air is 95%. HEENT: Normocephalic, atraumatic. NECK: No JVD. CARDIOVASCULAR: Positive S1 and S2. No S3. LUNGS: Improved breath sounds at the bases. Minimal rhonchi. No wheezing. EXTREMITIES: The patient is status post surgery on his right hip. There is no clubbing, cyanosis, or edema in his legs. The calves are nontender to palpation. GASTROINTESTINAL: Abdomen is soft, nontender, nondistended. Bowel sounds are positive. SKIN: No acute rash. NEUROLOGIC: Limited at the present time. IMPRESSION: 1. Status post respiratory failure. 2. Status post repair of right hip fracture. 3. Chronic obstructive pulmonary disease-probably advanced. 4. Mild bronchospasm-improved. 5. Anemia. PLAN: The patient appears comfortable this morning. He is now on the telemetry unit. He is not short of breath at rest. He states he is feeing much better overall. On physical exam, his bronchospasm is certainly less. I will continue with the current nebulizer treatments, and decrease the intravenous steroids this morning. The patient remains on antibiotic therapy. There are no temperatures noted, The leukocytosis has resolved. I would also continue with the postoperative/orthopedic evaluation. Input by cardiology is also noted. Clinical status of the patient is significantly improved overall. I will discuss the above with the attending physician. Italo Gonzalez MD MTDD
[2017-04-16] MEDS: Budesonide 0.5 mg/2 ml Inhal Susp UD IH SCH ×2 (08:00→19:50)
--- NOTE | 2017-04-16 08:27 | CP.PCM.PN ---
Subjective - Date & Time of Evaluation Date of Evaluation: 04/16/17 Time of Evaluation: 07:00 - Subjective Subjective: Stable on 2R. No CP or SOB. Diffuse pains. Rt. arm pain, possible related to IV site. V/S noted. RSR PE: Lungs: rhonchi Cor.: S1S2 Abd.: soft Ext.: no edema Neuro.: alert I/O 550/200 recorded Labs 06/15 noted: K+= 5.3. H/H today= 8.4/26.1 ECG 04/15/17: S. T., RBBB, Old IMI, STTW changes. No change CT Chest noted: No PE, etc. CXR 04/15/17 : NAD Objective - Vital Signs/Intake and Output Vital Signs (last 24 hours): Temp Pulse Resp BP Pulse Ox 98.6 F 92 H 25 H 162/70 H 95 04/16/17 05:51 04/16/17 06:00 04/16/17 05:51 04/16/17 05:51 04/16/17 05:51 Intake and Output: 04/16/17 04/16/17 06:59 18:59 Intake Total 550 Output Total 200 Balance 350 - Medications Medications: Current Medications Acetaminophen (Tylenol 325mg Tab) 975 mg PO Q6H PRN PRN Reason: Temperature Albuterol/Ipratropium (Duoneb 3 Mg/0.5 Mg (3 Ml) Ud) 3 ml IH Q2H PRN PRN Reason: Shortness of Breath Albuterol/Ipratropium (Duoneb 3 Mg/0.5 Mg (3 Ml) Ud) 3 ml IH [id number] [facility] Last Admin: 04/16/17 01:24 Dose: 3 ml Albuterol/Ipratropium (Duoneb 3 Mg/0.5 Mg (3 Ml) Ud) 3 ml IH Q2H PRN PRN Reason: Shortness of Breath Aspirin (Ecotrin) 81 mg PO DAILY [facility] Last Admin: 04/15/17 10:59 Dose: 81 mg Atorvastatin Calcium (Lipitor) 10 mg PO HS [facility] Last Admin: 04/15/17 21:25 Dose: 10 mg Budesonide (Pulmicort Respules) 0.5 mg IH [id number] [facility] Last Admin: 04/15/17 19:30 Dose: Not Given Clonazepam (Klonopin) 0.5 mg PO HS [facility] PRN Reason: Protocol Last Admin: 04/15/17 21:25 Dose: 0.5 mg Clopidogrel Bisulfate (Plavix) 75 mg PO DAILY [facility] Enoxaparin Sodium (Lovenox) 30 mg SC Q12H [facility] PRN Reason: Protocol Last Admin: 04/15/17 21:23 Dose: 30 mg Famotidine (Pepcid) 20 mg PO 1000,2200 [facility] Last Admin: 04/15/17 23:03 Dose: 20 mg Furosemide (Lasix) 40 mg PO BID [facility] Last Admin: 04/15/17 17:51 Dose: Not Given Hydralazine HCl (Apresoline) 10 mg IVP Q4 PRN PRN Reason: Systolic Blood Pressure Azithromycin (Zithromax 500mg In Ns) 500 mg in 250 mls @ 167 mls/hr IVPB 0600 [facility] PRN Reason: Protocol Last Admin: 04/16/17 05:00 Dose: 167 mls/hr Insulin Human Regular (Humulin R Med) 0 units SC ACHS [facility] PRN Reason: Protocol Last Admin: 04/15/17 21:38 Dose: Not Given Methylprednisolone (Solu-Medrol) 30 mg IVP Q12 [facility] Metoprolol Tartrate (Lopressor) 25 mg PO BRKDIN [facility] Last Admin: 04/15/17 17:29 Dose: 25 mg Morphine Sulfate (Morphine Extended Release Tab) 30 mg PO Q12 [facility] Nicotine (Nicoderm Cq) 1 patch TD DAILY [facility] Last Admin: 04/15/17 17:30 Dose: 1 patch Nystatin/Triamcinolone Acetonide (Nystatin/Triamcinolone Cream) 1 ea TOP BID [facility] Last Admin: 04/15/17 20:03 Dose: 2 applic Oxycodone HCl (Oxycodone Immediate Release Tab) 30 mg PO QID [facility] Potassium Chloride (K-Dur 20 Meq Er Tab) 20 meq PO DAILY [facility] Last Admin: 04/15/17 10:59 Dose: 20 meq Sertraline HCl (Zoloft) 50 mg PO DAILY [facility] Last Admin: 04/15/17 11:00 Dose: 50 mg - Labs Labs: 04/16/17 06:30 04/15/17 17:55 PT 11.2 Seconds (9.9-11.8) 04/11/17 14:10 INR 1.04 (0.93-1.08) 04/11/17 14:10 APTT 29.3 Seconds (23.7-30.8) 04/11/17 14:10 Assessment and Plan - Assessment and Plan (Free Text) Assessment: Mech. Fall with right fx, s/p THR Respiratory Failure post op. Severe COPD/Smoker CAD/Remote IA and PCI's Diabetes Syncope/hypoglycemia episode PAD/PVI's Chronic Pain Obesity Peripheral neuropathy Plan: Continue: metoprolol, Lipitor, ASA and Plavix OOB/Rehab as inocente. Rehab eval Hold KCL PO Pulmonary tx, as per Dr. Gonzalez I spoke with Dr. Valladares this AM.
--- NOTE | 2017-04-16 08:51 | PN ---
Room: 568; Bed 1. SUBJECTIVE: He is a 61-year-old male. He underwent left hip bipolar prosthesis on 04/12/2017 for displaced subcapital fracture. He looks well today. His hemoglobin is 9.6 . He was up out of bed. Wound is dry. Abduction pillows on. He was explained protocol for a hip prosthesis of sitting in a higher chair, not a low chair, and no lifting and bending and not to cross his legs. I will follow him in [facility] when he goes to a rehab facility in [facility]. We will change the dressings at the rehab facility. Papi Dobson DO
[2017-04-16] MEDS: Insulin Reg-MEDIUM-Coverage SC SCH ×4 (09:35→22:11)
[2017-04-16] MEDS: Enoxaparin 30 mg Syringe SC SCH ×2 (09:35→22:12)
[2017-04-16] MEDS: oxyCODONE 30 mg Immediate Release Tab PO SCH ×4 (09:37→22:13)
[2017-04-16] MEDS: Morphine 30 mg SR Tab PO SCH ×2 (09:38→22:12)
[2017-04-16] MEDS: MethylPREDNISolone 40 mg Vial IVP SCH ×2 (09:40→22:13)
[2017-04-16] MEDS: Nystatin-Triamcinolone Cream(30 gm) TOP SCH ×2 (09:51→18:08)
[2017-04-17] MEDS: Albuterol-Ipratrop 3 mg / 0.5 (3 ml) UD IH SCH ×4 (01:34→20:54)
[2017-04-17] MEDS ORDERED: Morphine 2 mg/ml ISec IVP STA (02:59)
--- NOTE | 2017-04-17 05:00 | DS ---
SUBJECTIVE: The patient is a 61-year-old male who is coming into the hospital, who was found to have right hip fracture. He went to the OR and had surgery. The patient did fairly well. His pain controlled with IV Dilaudid. The patient developed elevated troponin, was seen by cardiology. He currently feels well. He was able to work with the physical therapy few days ago, but has not been out of bed, since then he states he was able to get good night sleep. His pain is not well controlled with IV medications, he prefers the his p.o. medications for his pain. He has no headaches. No dizziness. No nausea. No vomiting. PHYSICAL EXAMINATION: VITAL SIGNS: Temperature 98.6, pulse of 92, blood pressure 162/70 and respirations 25. GENERAL: The patient is lying in bed, flat, comfortable. HEENT: No oral lesion. Anicteric sclerae. Moist mucosa. NECK: No JVD, adenopathy, or thyromegaly. CARDIOVASCULAR: S1 and S2, regular. No murmurs, rubs, or gallops. LUNGS: Clear to auscultation bilaterally. No wheeze, rales, or rhonchi. ABDOMEN: Bowel sounds are positive, soft, nontender and nondistended. EXTREMITIES: No cyanosis, clubbing or edema. LABORATORY DATA: Hemoglobin is 8.4 and white count is 10.1. ASSESSMENT: 1. Right hip fracture with prosthetic placement in right hip. 2. Chronic obstructive pulmonary disease. 3. Peripheral neuropathy. 4. Coronary artery disease. 5. Dyslipidemia. 6. Chronic pain. 7. Delirium, improved. 8. Anemia secondary to blood loss. PLAN: The patient is currently on Dilaudid for pain, I think this is causing some of his confusion along with pain postop. The patient is on nebulizer treatments. He is on Lasix twice a day, Lipitor for dyslipidemia and Lovenox for DVT prophylaxis. He is on nicotine patch. The patient is on Pepcid. The patient is on Zoloft. We will place him back on his oxycodone 30 mg four times a day and morphine 30 mg twice a day. He is on beta-blockers, this will be continued. He is on aspirin, this will be continued as well. The patient had been on Plavix, will continue his Plavix. He does have a history of coronary artery disease, had been on Plavix as an outpatient, this will be continued. Condition stable. Activities increased as tolerated. The patient awaiting discharged to rehab facility. Agustín Valladares MD
[2017-04-17] MEDS: Azithromycin 500MG/NS 250ml 500 MG/250 ML BAG IVPB SCH (05:47)
[2017-04-17 06:50] LABS: HEMATOCRIT 27.2 % (42.0-52.0); MEAN CELL VOLUME 91.9 fl (80.0-105.0); MEAN CORPUSCULAR HEMOGLOBIN 29.7 pg (25.0-35.0); MEAN CORPUSCULAR HGB CONC 32.4 g/dl (31.0-37.0); MEAN PLATELET VOLUME 10.9 fl (7.0-11.0); RED CELL DISTRIBUTION WIDTH 14.1 % (11.5-14.5); WHITE BLOOD COUNT 9.1 10^3/ul (4.5-11.0)
[2017-04-17 07:14] LABS: BLOOD UREA NITROGEN 19 mg/dL (7-21); CALCIUM 7.9 mg/dL (8.4-10.5); CARBON DIOXIDE 33 mmol/L (21-33); CHLORIDE 95 mmol/L (98-107); GFR AFRICAN-AMERICAN > 60; GLUCOSE,RANDOM 211 mg/dL (70-110); POTASSIUM 4.9 mmol/L (3.6-5.0); SODIUM 134 mmol/L (132-148)
[2017-04-17] MEDS: Budesonide 0.5 mg/2 ml Inhal Susp UD IH SCH ×2 (07:32→20:54)
--- NOTE | 2017-04-17 07:51 | CP.PCM.PN ---
Subjective - Date & Time of Evaluation Date of Evaluation: 04/17/17 Time of Evaluation: 07:00 - Subjective Subjective: Stable on 5R. No CP or SOB. He feels OK. V/S noted. RSR PE: Lungs: rhonchi Cor.: S1S2 Abd.: soft Ext.: no edema Neuro.: alert I/O 840/1200 recorded Labs noted: H/H today= 8.8/27.2 ECG 04/15/17: S. T., RBBB, Old IMI, STTW changes. No change CT Chest noted: No PE, etc. CXR 04/15/17 : NAD BC x2 NG at 24 hrs. Objective - Vital Signs/Intake and Output Vital Signs (last 24 hours): Temp Pulse Resp BP Pulse Ox 98.1 F 81 22 144/78 95 04/17/17 07:30 04/17/17 07:30 04/17/17 07:30 04/17/17 07:30 04/17/17 07:30 Intake and Output: 04/17/17 04/17/17 06:59 18:59 Intake Total 840 Output Total 1400 Balance -560 - Medications Medications: Current Medications Acetaminophen (Tylenol 325mg Tab) 975 mg PO Q6H PRN PRN Reason: Temperature Albuterol/Ipratropium (Duoneb 3 Mg/0.5 Mg (3 Ml) Ud) 3 ml IH Q2H PRN PRN Reason: Shortness of Breath Albuterol/Ipratropium (Duoneb 3 Mg/0.5 Mg (3 Ml) Ud) 3 ml IH [id number] [facility] Last Admin: 04/17/17 07:32 Dose: Not Given Albuterol/Ipratropium (Duoneb 3 Mg/0.5 Mg (3 Ml) Ud) 3 ml IH Q2H PRN PRN Reason: Shortness of Breath Aspirin (Ecotrin) 81 mg PO DAILY [facility] Last Admin: 04/16/17 09:39 Dose: 81 mg Atorvastatin Calcium (Lipitor) 10 mg PO [facility] Last Admin: 04/16/17 22:12 Dose: 10 mg Budesonide (Pulmicort Respules) 0.5 mg IH [id number] [facility] Last Admin: 04/17/17 07:32 Dose: Not Given Clonazepam (Klonopin) 0.5 mg PO [facility] PRN Reason: Protocol Last Admin: 04/16/17 22:12 Dose: 0.5 mg Clopidogrel Bisulfate (Plavix) 75 mg PO DAILY [facility] Last Admin: 04/16/17 09:38 Dose: 75 mg Enoxaparin Sodium (Lovenox) 30 mg SC Q12H [facility] PRN Reason: Protocol Last Admin: 04/16/17 22:12 Dose: 30 mg Famotidine (Pepcid) 20 mg PO 1000,2200 [facility] Last Admin: 04/16/17 22:13 Dose: 20 mg Furosemide (Lasix) 40 mg PO BID [facility] Last Admin: 04/16/17 18:05 Dose: 40 mg Hydralazine HCl (Apresoline) 10 mg IVP Q4 PRN PRN Reason: Systolic Blood Pressure Azithromycin (Zithromax 500mg In Ns) 500 mg in 250 mls @ 167 mls/hr IVPB 0600 [facility] PRN Reason: Protocol Last Admin: 04/17/17 05:47 Dose: 167 mls/hr Insulin Human Regular (Humulin R Med) 0 units SC ACHS [facility] PRN Reason: Protocol Last Admin: 04/16/17 22:11 Dose: Not Given Methylprednisolone (Solu-Medrol) 20 mg IVP Q12 [facility] Metoprolol Tartrate (Lopressor) 25 mg PO BRKDIN [facility] Last Admin: 04/16/17 18:06 Dose: 25 mg Morphine Sulfate (Morphine Extended Release Tab) 30 mg PO Q12 [facility] Last Admin: 04/16/17 22:12 Dose: 30 mg Nicotine (Nicoderm Cq) 1 patch TD DAILY [facility] Last Admin: 04/16/17 09:35 Dose: 1 patch Nystatin/Triamcinolone Acetonide (Nystatin/Triamcinolone Cream) 1 ea TOP BID [facility] Last Admin: 04/16/17 18:08 Dose: 1 applic Oxycodone HCl (Oxycodone Immediate Release Tab) 30 mg PO QID [facility] Last Admin: 04/16/17 22:13 Dose: 30 mg Potassium Chloride (K-Dur 20 Meq Er Tab) 20 meq PO DAILY [facility] Last Admin: 04/15/17 10:59 Dose: 20 meq Sertraline HCl (Zoloft) 50 mg PO DAILY [facility] Last Admin: 04/16/17 09:38 Dose: 50 mg - Labs Labs: 04/17/17 06:00 04/17/17 06:43 PT 11.2 Seconds (9.9-11.8) 04/11/17 14:10 INR 1.04 (0.93-1.08) 04/11/17 14:10 APTT 29.3 Seconds (23.7-30.8) 04/11/17 14:10 Assessment and Plan - Assessment and Plan (Free Text) Assessment: Mech. Fall with right fx, s/p THR Respiratory Failure post op. Severe COPD/Smoker CAD/Remote IN and PCI's Diabetes Syncope/hypoglycemia episode PAD/PVI's Chronic Pain Obesity Peripheral neuropathy Anemia Plan: Continue: metoprolol, Lipitor, ASA and Plavix OOB/Rehab as inocente. Rehab eval Hold KCL PO for now. Resume upon D/C. Monitor K+ at rehab. Pulmonary tx, as per Dr. Gonzalez As per Dr. Valladares
[2017-04-17] MEDS: Insulin Reg-MEDIUM-Coverage SC SCH ×4 (08:30→21:29)
--- NOTE | 2017-04-17 08:44 | PN ---
DATE: 04/17/2017 SUBJECTIVE: The patient appears comfortable this morning. He is not short of breath at rest. PHYSICAL EXAMINATION VITAL SIGNS: Temperature is 97.9, pulse 80, respirations 18/20, blood pressure 153/73. oxygen saturation on room air is 95%. HEENT: Normocephalic, atraumatic. NECK: No JVD. CARDIOVASCULAR: Positive S1 and S2. No S3. LUNGS: Minimal/less rhonchi. No wheezing. EXTREMITIES: The patient is status post right hip surgery. No clubbing, cyanosis, or edema in the legs. The calves are nontender to palpation. GASTROINTESTINAL: Abdomen is soft, nontender, nondistended. Bowel sounds are positive. SKIN: No acute rash. NEUROLOGIC: Limited at the present time. IMPRESSION: 1. Status post respiratory failure. 2. Status post repair of right hip fracture. 3. Chronic obstructive pulmonary disease-probably advanced. 4. Mild bronchospasm-resolving. 5. Anemia. PLAN: The patient appears comfortable this morning. He is not short of breath at rest. He does state that he is feeling much better overall. On physical exam, his bronchospasm continues to resolve. In addition, the oxygen saturation on room air is now 95% to 96%. I will continue with the current nebulizer treatments and decrease the intravenous steroids this morning. Input by Dr. Salcido (Cardiology) is also noted. Clinical status of the patient is significantly improved overall. I would continue the physical therapy and orthopedic input. I will discuss the above with Dr. Valladares. Italo Gonzalez MD JUSTINA
[2017-04-17] MEDS: MethylPREDNISolone 40 mg Vial IVP SCH ×2 (10:28→21:32)
[2017-04-17] MEDS: Morphine 30 mg SR Tab PO SCH ×2 (10:29→21:31)
[2017-04-17] MEDS: oxyCODONE 30 mg Immediate Release Tab PO SCH ×4 (10:30→21:32)
[2017-04-17] MEDS: Enoxaparin 30 mg Syringe SC SCH ×2 (10:31→21:31)
[2017-04-17] MEDS: Nystatin-Triamcinolone Cream(30 gm) TOP SCH ×2 (10:31→17:07)
--- NOTE | 2017-04-17 17:13 | PN ---
DATE: A 61-year-old male with right hip fracture who underwent open reduction and internal fixation on 04/13/2017 having a bipolar hip prosthesis on the right side. He is doing well. His hemoglobin is 8.8, 20 hematocrit and he is stable cardiac dickson and medically stable. He has no need for blood transfusion as he is improving the count, it used to be 8.4, now is 8.8. He is going to subacute rehabilitation soon, maybe even today to [facility] [place] and he will get therapy there and they could take the sutures out next week to remove the sutures from his right hip proximally on 04/27/2017 and if there is any reason that he does not do well, they could give me a call at [phone] to see how he is progressing with therapy and to take the sutures out by next week, end of the week. Otherwise, he is doing well and has much less pain. Papi Dobson DO [facility]
--- NOTE | 2017-04-17 21:41 | PN ---
DATE: 04/17/2017 SUBJECTIVE: The patient has no complaints of any chest pain or shortness of breath. He says that he is not getting his medications as he was taking them as an outpatient. I spoke to the nursing staff and confirmed to get the patient list of medications as an outpatient. I presented the patient's medication myself, went over with the pharmacist as well as the nurse. PHYSICAL EXAMINATION: VITAL SIGNS: Temperature is 98.1, pulse is 76, blood pressure is 134/59 and respirations 26. GENERAL: The patient is lying in bed, flat, comfortable. HEENT: No oral lesion. Anicteric sclerae. Moist mucosa. NECK: No JVD, adenopathy, or thyromegaly. CARDIOVASCULAR: S1 and S2, regular. No murmurs, rubs, or gallops. LUNGS: Clear to auscultation bilaterally. No wheeze, rales, or rhonchi. ABDOMEN: Bowel sounds are positive, soft, nontender and nondistended. EXTREMITIES: No cyanosis, clubbing or edema. LABORATORY DATA: Creatinine is 0.8. Hemoglobin is 8.8. ASSESSMENT: 1. Right hip fracture, status post prosthetic placement of right hip. 2. Chronic obstructive pulmonary disease. 3. Peripheral neuropathy. 4. Coronary artery disease. 5. Dyslipidemia.. 6. Chronic pain. 7. Delirium, improved. 8. Anemia secondary to blood loss. PLAN: The patient is currently comfortable. He is receiving nebulizer treatments and albuterol. He is on potassium replacement. The patient is on Lasix twice a day. He is on Lovenox for DVT prophylaxis. He is on oxycodone and morphine. He is on BiPAP machine at home. He is waiting for discharge to facility for his subacute rehab. Agustín Valladares MD
[2017-04-17 23:03] VITALS: RESP 20
[2017-04-18] MEDS: Azithromycin 500MG/NS 250ml 500 MG/250 ML BAG IVPB SCH (05:35)
[2017-04-18] MEDS: Budesonide 0.5 mg/2 ml Inhal Susp UD IH SCH (07:13)
[2017-04-18] MEDS: Albuterol-Ipratrop 3 mg / 0.5 (3 ml) UD IH SCH ×2 (07:13→13:20)
[2017-04-18] MEDS: Insulin Reg-MEDIUM-Coverage SC SCH ×3 (08:09→17:31)
--- NOTE | 2017-04-18 09:29 | PN ---
DATE: PULMONARY NOTE SUBJECTIVE: The patient appears comfortable at rest. He is not short of breath. PHYSICAL EXAMINATION: VITAL SIGNS: Temperature is 97.9, pulse is 76, respirations 18, and blood pressure 134/59. Oxygen saturation on room air is 96%. HEENT: Normocephalic and atraumatic. No JVD. CARDIOVASCULAR: Positive S1 and S2. No S3. LUNGS: Clear bilaterally this morning. EXTREMITIES: The patient is status post right hip surgery. There is no clubbing, cyanosis, or edema noted in the legs. The calves are nontender to palpation. GASTROINTESTINAL: Abdomen is soft, nontender, and nondistended. Bowel sounds are positive. SKIN: No acute rash. NEUROLOGIC: Limited at the present time. IMPRESSION: 1. Status post respiratory failure. 2. Status post repair of right hip fracture. 3. Chronic obstructive pulmonary disease -- probably advanced. 4. Mild bronchospasm -- resolving. 5. Anemia. PLAN: The patient appears very comfortable this morning. He is not short of breath at rest. He does state to feeling much better overall. On physical exam, his lungs are now clear. Oxygen saturation on room air is 96%. I will continue with the current nebulizer treatments and inhaled steroids for now. I will also change to oral steroids this morning. The patient is currently on intravenous Solu-Medrol. I would continue with the Cardiology and Orthopedic evaluations. Inputs are noted. Clinical status of the patient is significantly improved. I will discuss the above with the attending physician. Italo Gonzalez MD MTDD
[2017-04-18] MEDS: Morphine 30 mg SR Tab PO SCH (10:07)
[2017-04-18] MEDS: oxyCODONE 30 mg Immediate Release Tab PO SCH ×3 (10:07→17:31)
[2017-04-18] MEDS: Nystatin-Triamcinolone Cream(30 gm) TOP SCH ×2 (10:08→17:32)
[2017-04-18] MEDS: Enoxaparin 30 mg Syringe SC SCH (10:11)
--- NOTE | 2017-04-18 10:12 | PN ---
DATE: 04/18/2017 SUBJECTIVE: The patient has no complaints of any chest pain or shortness of breath. No headache. No dizziness. He initially stated that he has not received any of his pain medication yesterday after I brought in the patient's nurse. She confirm that he did receive his medication yesterday and she even gave him medications herself in the evening. He is able to stand and ambulate on his own to some degree according to the patient's nurse. PHYSICAL EXAMINATION: VITAL SIGNS: Temperature is 97.6, pulse is 76, blood pressure is 150/70, and respirations 20. GENERAL: The patient is lying in bed, flat, and comfortable. HEENT: No oral lesion. Anicteric sclerae. Moist mucosa. NECK: No JVD, adenopathy, or thyromegaly. CARDIOVASCULAR: S1 and S2, regular. No murmurs, rubs, or gallops. LUNGS: Clear to auscultation bilaterally. No wheeze, rales, or rhonchi. ABDOMEN: Bowel sounds are positive, soft, nontender and nondistended. EXTREMITIES: No cyanosis, clubbing or edema. ASSESSMENT: 1. Right hip fracture, status post prosthetic placement of right hip. 2. Chronic obstructive pulmonary disease. 3. Peripheral neuropathy. 4. Coronary artery disease. 5. Dyslipidemia. 6. Chronic pain. 7. Delirium, improved. 8. Anemia secondary to blood loss. PLAN: The patient is currently comfortable. Please see the discharge summary that was initially done on 04/16/2017. The patient was seen by Dr. Dobson and I did speak to him, he is currently stable enough to be discharge. The patient is on aspirin. He is continuing his Lipitor for dyslipidemia and he is on pressors for his coronary artery disease. He is on Lovenox for his DVT prophylaxis. The patient is on nicotine for smoking. The patient is on oxycodone and morphine. The patient is going to continue his Lasix. We will discontinue his antibiotics. Diet; 2 g sodium-cholesterol and condition is stable. Agustín Valladares MD
[2017-04-18 17:32] VITALS: BP 136/70; PULSE 68
[2017-04-18 18:34] VITALS: TEMP 98.7; O2SAT 92
--- NOTE | 2017-04-18 20:02 | PN ---
DATE: 04/18/2017 SUBJECTIVE: The patient was seen sitting in chair on 5R. He is currently comfortable. He states he has had no chest pain. Denies any exertional dyspnea. He is awaiting transfer to rehabilitation facility. CURRENT MEDICATIONS: Include DuoNeb inhaler, aspirin, insulin coverage, Lasix 40 mg b.i.d., Lipitor 10 mg daily, metoprolol 25 mg b.i.d., Lovenox, morphine p.r.n., Nicoderm patch, Pepcid, Plavix 75 mg daily, prednisone 30 mg daily, Pulmicort inhaler and Zithromax as well as Zoloft. OBJECTIVE: GENERAL: He is a obese middle aged man. VITAL SIGNS: His blood pressure is 132/50 with a pulse of 74, respirations are 14. He is afebrile. HEENT: No JVD. CHEST: Few scattered rhonchi. HEART: PMI in normal position. Systolic murmur is heard in the left sternal border. ABDOMEN: Soft, obese, and nontender. Normoactive bowel sounds. EXTREMITIES: Chronic cellulitic changes with trace edema. DIAGNOSTIC DATA: Blood work is pending from this morning. IMPRESSION: 1. Status post recent right hip fracture and surgical repair. 2. Postoperative respiratory failure. 3. Chronic obstructive pulmonary disease. 4. Coronary artery disease, status post prior percutaneous coronary intervention and infarcts. 5. History of diabetes, obesity. RECOMMENDATIONS: Current cardiac medications should continue for now. Increased exercise efforts are advised. Continue smoking abstinence was advised as well. From a cardiac standpoint, he is stable for discharge to the rehabilitation center. Outpatient followup will be arranged. Marcus Cadet MD
== END 2017-04-18 18:52 | DRG 558 ==
LOC: ED 13:24 → ERH 16:42 → 5RSO 17:59 → CCU 04-12 21:38 → 5RNO 04-13 12:28 → 2RNO 04-14 11:24 → 5RNO 04-16 16:23
PROVIDERS: ADMIT Internal Medicine; ATTEND Internal Medicine Nephrology
PROC: 5A09457 Assistance with Respiratory Ventilation, 24-96 Consecutive Hours, Continuous Positive Airway Pressure (ICD-10-PCS; 2017-04-12)
PROC: 3E0F7GC Introduction of Other Therapeutic Substance into Respiratory Tract, Via Natural or Artificial Opening (ICD-10-PCS; 2017-04-12)
PROC: 0SRR0JZ Replacement of Right Hip Joint, Femoral Surface with Synthetic Substitute, Open Approach (ICD-10-PCS; principal; 2017-04-12 14:00)
DX: S72.011A Unspecified intracapsular fracture of right femur, initial encounter for closed fracture (principal); J95.821 Acute postprocedural respiratory failure; I50.22 Chronic systolic (congestive) heart failure; I11.0 Hypertensive heart disease with heart failure; E11.42 Type 2 diabetes mellitus with diabetic polyneuropathy; E11.51 Type 2 diabetes mellitus with diabetic peripheral angiopathy without gangrene; J44.1 Chronic obstructive pulmonary disease with (acute) exacerbation; D69.6 Thrombocytopenia, unspecified; D50.0 Iron deficiency anemia secondary to blood loss (chronic); I25.10 Atherosclerotic heart disease of native coronary artery without angina pectoris; E78.5 Hyperlipidemia, unspecified; I45.10 Unspecified right bundle-branch block; J98.01 Acute bronchospasm; E66.9 Obesity, unspecified; Z68.38 Body mass index [BMI] 38.0-38.9, adult; G89.29 Other chronic pain; M54.5 Low back pain; F17.210 Nicotine dependence, cigarettes, uncomplicated; W01.0XXA Fall on same level from slipping, tripping and stumbling without subsequent striking against object, initial encounter; Y92.039 Unspecified place in apartment as the place of occurrence of the external cause; Y93.01 Activity, walking, marching and hiking; I25.2 Old myocardial infarction; Z95.5 Presence of coronary angioplasty implant and graft

== ENCOUNTER 2017-12-17 13:41 | Inpatient (IN) | payer OTHER ==
[2017-12-17 14:00] VITALS: BMI 25.8
[2017-12-17] MEDS ORDERED: Sodium Chloride 0.9% 1,000 ML IV SCH ×2 (14:15→21:00)
[2017-12-17] MEDS ORDERED: Iohexol 350 MG/100 ML VIAL ONE (14:20)
--- NOTE | 2017-12-17 14:21 | ED PDOC ---
Arrival/HPI - General Chief Complaint: Syncope Time Seen by Provider: 12/17/17 14:06 Historian: Patient - History of Present Illness Time/Duration: Prior to Arrival Symptom Onset: Sudden Symptom Course: Unchanged Severity Level: Mild Associated Symptoms (Text): 12/17/17 14:[address] Stoll's office at approximately 1330. The staff got him up onto a scale for his weight when he collapsed and was noticed to have new right upper and right lower extremity weakness. No difficulty with speech. No trauma. 911 was called and he was brought to the emergency department. Upon my evaluation a code stroke was called immediately. I spoke with , the neurologist and she is currently unavailable. The telaneurology is currently down. She will face time with the patient. Past Medical History - Infectious Disease Hx of Infectious Diseases: None - Cardiac Hx Cardiac Disorders: Yes Hx Congestive Heart Failure: Yes - Pulmonary Hx Chronic Obstructive Pulmonary Disease (COPD): Yes - Neurological Hx Paralysis: No - HEENT Hx HEENT Disorder: No (WEARS RX GLASSES) - Renal Hx Renal Disorder: No - Endocrine/Metabolic Hx Diabetes Mellitus Type 2: Yes - Hematological/Oncological Hx Blood Transfusions: No Hx Blood Transfusion Reaction: No - Integumentary Hx Dermatological Disorder: Yes (ANASARCA-GROSS EDEMA FROM FEET TO LOWER ABDOMINAL AREA.CELLULITIS BLE) - Musculoskeletal/Rheumatological Hx Musculoskeletal Disorders: Yes (BILATERAL KNEE SX) - Gastrointestinal Hx Gastrointestinal Disorders: No - Genitourinary/Gynecological Hx Genitourinary Disorders: No - Psychiatric Hx Emotional Abuse: No Hx Physical Abuse: No Hx Substance Use: No - Surgical History Hx Orthopedic Surgery: Yes (BILATERAL KNEE SURGERY) Other/Comment: 8 STENTS-DENIES - Anesthesia Hx Anesthesia Reactions: No Hx Malignant Hyperthermia: No - Suicidal Assessment Feels Threatened In Home Enviroment: No Family/Social History - Physician Review Nursing Documentation Reviewed: Yes Family/Social History: Unknown Family HX Smoking Status: Current Some Days Smoker Hx Alcohol Use: Yes (OCCASIONALLY) Hx Substance Use: No Hx Substance Use Treatment: No Allergies/Home Meds Allergies/Adverse Reactions: Allergies No Known Allergies Allergy (Verified 12/17/17 14:42) Home Medications: Home Meds Medication Instructions Recorded Confirmed Morphine Sulfate [Morphine Sulfate 30 mg PO BID 04/11/17 12/17/17 ER] Review of Systems - Physician Review All systems were reviewed & negative as marked: Yes - Review of Systems Constitutional: absent: Fatigue Respiratory: absent: SOB Cardiovascular: absent: Chest Pain Gastrointestinal: absent: Abdominal Pain, Nausea, Vomiting Neurological: Focal Weakness, Gait Changes. absent: Headache, Dizziness, Speech Changes, Facial Droop, Disequilibrium, Seizure Physical Exam Vital Signs Temp Pulse Resp BP Pulse Ox 12/17/17 18:45 78 18 151/88 H 99 12/17/17 18:15 98.4 F 82 98 H 158/75 H 98 12/17/17 17:20 98.2 F 72 17 151/69 H 98 12/17/17 14:59 77 18 151/86 H 100 12/17/17 13:59 98.4 F 67 18 143/84 97 Temperature: Afebrile Blood Pressure: Normal Pulse: Regular Respiratory Rate: Normal Appearance: Positive for: Well-Appearing, Non-Toxic, Comfortable Pain Distress: None Mental Status: Positive for: Alert and Oriented X 3 Finger Stick Blood Glucose: 193 - Systems Exam Head: Present: Atraumatic, Normocephalic Pupils: Present: PERRL Extroacular Muscles: Present: EOMI Conjunctiva: Present: Normal Mouth: Present: Moist Mucous Membranes Pharnyx: No: ERYTHEMA, EXUDATE, TONSILS ENLARGED Neck: Present: Normal Range of Motion Respiratory/Chest: Present: Clear to Auscultation, Good Air Exchange. No: Respiratory Distress, Accessory Muscle Use Cardiovascular: Present: Regular Rate and Rhythm, Normal S1, S2. No: Murmurs Abdomen: No: Tenderness, Distention, Peritoneal Signs Upper Extremity: Present: Normal Inspection, Normal ROM, NORMAL PULSES. No: Cyanosis, Edema, Deformity Lower Extremity: Present: Normal Inspection. No: Edema Neurological: Present: GCS=15, CN II-XII Intact, Speech Normal, Normal Sensory Function, Normal Cerebellar Funct, Gait Normal (Gait not examined). No: Motor Func Grossly Intact (Right upper extremity pronator drift, right lower extremity movement against gravity) Skin: Present: Warm, Dry, Normal Color. No: Rashes Psychiatric: Present: Alert, Oriented x 3, Normal Insight, Normal Concentration Medical Decision Making ED Course and Treatment: 12/17/17 14:24 EKG shows normal sinus rhythm rate approximately 70 with a primary AV block and a right bundle branch block with Q waves inferiorly and no old available for comparison. 12/17/17 14:39 Radiologist called and reports the CT scan of the head is normal. 12/17/17 14:41 Patient's symptoms have actually improved since he returned from CAT scan. His right upper extremity pronator drift is unchanged, but his right lower extremity weakness has improved. 12/17/17 14:46 has facetimed with the patient and agrees that the patient is not a TPA candidate at this time. 12/17/17 15:01 Dr. Stoll is here and would like the patient admitted to the ICU. I spoke with the ceramic products sales engineer who will evaluate the patient in the emergency department and make final disposition. Report Date : 12/17/2017 15:02:27 Dictator : aPpi Fernandes MD PROCEDURE: CT Angiography of the neck with contrast IMPRESSION: Severe tortuosity of the internal carotids 4 cm from the bifurcation. There is a moderate degree of stenosis on the right side with an associated calcified plaque. There is only mild stenosis on the left side. PROCEDURE: CT Angiography of the Brain. 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 12/17/17 15:22 Chest 1 view shows no infiltrate effusion or cardiomegaly. 12/17/17 15:25 Dr. Ro evaluated the patient in the emergency Department and declines ICU admission. 12/17/17 15:43 reviewed the CTA and believes that the patient would be better served by interventional neurology. I called Dr. Melara, who will speak with the interventional last and have him review the CTA to make final disposition. I am waiting for her call back. Report Date: 12/17/17 19:13 EXAM: MR Head Without Intravenous Contrast Dictated and Authenticated by: Roger Jefferson MD IMPRESSION: 1. Left frontal parafalcine restricted diffusion suggestive of acute ischemia. 2. Involutional changes. Periventricular abnormal T2 signal suggestive of chronic ischemic changes. 12/17/17 19:52 MRI as read by the radiologist shows acute CVA. MRA head motion artifact and was unable to be accurately read. Discussed with who reports patient will be admitted to the ICU here and not transferred. Report Date: 12/17/17 21:00 EXAM: MR Angiography Head Without Intravenous Contrast Dictated and Authenticated by: Roger Jefferson MD IMPRESSION: No acute findings. 12/17/17 21:19 MRI shows acute stroke. MRA shows no acute findings. Patient will not be transferred and will be admitted to ICU here. - Lab Interpretations Lab Results: 12/17/17 14:45 12/17/17 14:45 Lab Results 12/17/17 16:30: Blood Type A POSITIVE, Antibody Screen Negative, BBK History Checked Patient has bt 12/17/17 14:45: Hemoglobin A1c 8.3 H 12/17/17 14:45: Sodium 140, Potassium 4.3, Chloride 101, Carbon Dioxide 30, Anion Gap 13, BUN 13, Creatinine 0.8, Est GFR ( Amer) > 60, Est GFR (Non- Af Amer) > 60, Random Glucose 158 H, Calcium 8.9, Total Bilirubin 0.3, AST 14 L D, ALT 22, Alkaline Phosphatase 68, Troponin I 0.04 D, Total Protein 6.2, Albumin 3.7, Globulin 2.6, Albumin/Globulin Ratio 1.4, Triglycerides 118, Cholesterol 163, LDL Cholesterol Direct 96, HDL Cholesterol 45 12/17/17 14:45: PT 10.9, INR 0.96, APTT 29.9 12/17/17 14:45: WBC 5.8 D, RBC 4.83, Hgb 14.6 D, Hct 43.2, MCV 89.4, MCH 30.2 , MCHC 33.8, RDW 13.1, Plt Count 226, MPV 10.9, Gran % 70.8 H, Lymph % (Auto) 19.2 L, [place] % (Auto) 7.5 H, Eos % (Auto) 2.2, Baso % (Auto) 0.3, Gran # 4.13, Lymph # (Auto) 1.1 L, [place] # (Auto) 0.4, Eos # (Auto) 0.1, Baso # (Auto) 0.02 12/17/17 13:51: POC Glucose (mg/dL) 193 H - RAD Interpretation Radiology Orders: 12/17/17 14:11 CTA HEAD/NECK CODE STROKE [CT] Stat HEAD W/O (CODE STROKE) [CT] Stat CHEST PORTABLE [RAD] Stat 12/17/17 15:47 MRI CODE STROKE/CODE BAT SONYA [MRI] Urgent - Medication Orders Current Medication Orders: Albuterol/Ipratropium (Duoneb 3 Mg/0.5 Mg (3 Ml) Ud) 3 ml IH Q6H PRN PRN Reason: Shortness of Breath Aspirin (Ecotrin) 325 mg PO DAILY [facility] Atorvastatin Calcium (Lipitor) 10 mg PO DAILY [facility] Clonazepam (Klonopin) 0.5 mg PO HS [facility] PRN Reason: Protocol Clopidogrel Bisulfate (Plavix) 75 mg PO DAILY [facility] Furosemide (Lasix) 40 mg PO BID [facility] Sodium Chloride (Sodium Chloride 0.9%) 1,000 mls @ 100 mls/hr IV .Q10H [facility] Last Admin: 12/17/17 14:58 Dose: 100 mls/hr eMAR Start Stop Document 12/17/17 14:58 IT (Rec: 12/17/17 14:58 IT [id number]) Intravenous Solution Start Date 12/17/17 Start Time 14:58 End Date 18 Sodium Chloride (Sodium Chloride 0.9%) 1,000 mls @ 60 mls/hr IV .[id number] [facility] Insulin Human Lispro (Humalog Low) 0 units SC Q6H [facility] PRN Reason: Protocol Pantoprazole Sodium (Protonix Inj) 40 mg IVP DAILY [facility] Sertraline HCl (Zoloft) 50 mg PO DAILY [facility] Discontinued Medications Aspirin (Aspirin Chewable) 324 mg PO ONCE ONE Stop: 12/17/17 14:42 Last Admin: 12/17/17 14:58 Dose: 324 mg Aspirin (Aspirin Chewable) 81 mg PO DAILY [facility] NIHSS Scale ([place]) Time Performed: 14:22 - How Severe is the Stoke Baseline Level of Consciousness: 0=Alert LOC to Questions: 0=Both comments correct LOC to commands: 0=Obeys both correctly Best Gaze: 0=Normal Visual: 0=No visual loss Facial: 0=Normal Motor Arm - Left: 0=No drift Motor Arm - Right: 1=Drift noted before 10 sec Motor Leg - Left: 0=No drift Motor Leg - Right: 3=No effort against gravity (falls immediately) Limb Ataxia: 0=Absent Sensory: 0=Normal Best Language: 0=No aphasia Dysarthia: 0=Normal articulation Extinction & Inattention (Neglect): 0=Normal, no object Score: 4 Risk Level: Minor Stroke Risk Disposition/Present on Arrival - Present on Arrival Any Indicators Present on Arrival: No History of DVT/PE: No History of Uncontrolled Diabetes: No Urinary Catheter: No History of Decub. Ulcer: No History Surgical Site Infection Following: None - Disposition Have Diagnosis and Disposition been Completed?: Yes Diagnosis: Cerebrovascular accident Disposition: HOSPITALIZED Disposition Time: 15:26 Patient Plan: Admission, ICU Patient Problems: Current Active Problems Problem Status Onset Cerebrovascular accident Acute Condition: SERIOUS
--- NOTE | 2017-12-17 14:38 | CT ---
PROCEDURE: CT HEAD WITHOUT CONTRAST. HISTORY: Code Stroke COMPARISON: 12/17/2015 TECHNIQUE: Axial computed tomography images were obtained through the head/brain without intravenous contrast. Radiation dose: Total exam DLP = 965 mGy-cm. This CT exam was performed using one or more of the following dose reduction techniques: Automated exposure control, adjustment of the mA and/or kV according to patient size, and/or use of iterative reconstruction technique. FINDINGS: HEMORRHAGE: No intracranial hemorrhage. BRAIN: No mass effect or edema. There is a chronic lacunar infarct in the left basal ganglia. There are no acute intracranial findings VENTRICLES: Unremarkable. No hydrocephalus. CALVARIUM: Unremarkable. PARANASAL SINUSES: Unremarkable as visualized. No significant inflammatory changes. MASTOID AIR CELLS: Unremarkable as visualized. No inflammatory changes. OTHER FINDINGS: Dr. Landers was called with results at 2:30 p.m. IMPRESSION: No acute intracranial findings
--- NOTE | 2017-12-17 14:47 | CP.PCM.CON ---
History of Present Illness - History of Present Illness History of Present Illness: 62 yr old male, who came in as a code stroke to [facility], time of onset is 1:30 with acute right leg and arm weakness. I was called by and am in agreement with him, and as a result of video stroke evaluation, that he was not a TPA candidate at 2:44 pm. At this time, the patient has 4-/5 weakness of his right leg, and 4+/5 weakness of his left leg, with mild sensory loss. Mr Heredia was in Dr. Stoll's office at approximately 1330, when the staff got him up onto a scale for his weight when he collapsed and was noticed to have new right upper and right lower extremity weakness. There was also some dysarthria, which seems to have resolved at this point, and there are no word finding difficulties. He denies headache, diplopia, nausea, vomiting, or palpitations. CT head: No strokes, no hemorrhages. CTA: shows right carotid stenosis, and basilar artery stenosis. on exam: aaox3. CN 2-12 normal. VFF. Speech fluent. Can name and repeat. No facial asymmetry. motor: right upper and lower limb: 4-/5 upper and 4+/5 lower. Gait not tested. no sensory findings. +2 dtr ul and ll bl. Toes downgoing. No clonus. Past Patient History - Infectious Disease Hx of Infectious Diseases: None - Past Social History Smoking Status: Current Some Days Smoker - CARDIAC Hx Cardiac Disorders: Yes Hx Congestive Heart Failure: Yes - PULMONARY Hx Chronic Obstructive Pulmonary Disease (COPD): Yes - NEUROLOGICAL Hx Paralysis: No - HEENT Hx HEENT Problems: No (WEARS RX GLASSES) - RENAL Hx Chronic Kidney Disease: No - ENDOCRINE/METABOLIC Hx Diabetes Mellitus Type 2: Yes - HEMATOLOGICAL/ONCOLOGICAL Hx Blood Transfusions: No Hx Blood Transfusion Reaction: No - INTEGUMENTARY Hx Dermatological Problems: Yes (ANASARCA-GROSS EDEMA FROM FEET TO LOWER ABDOMINAL AREA.CELLULITIS BLE) - MUSCULOSKELETAL/RHEUMATOLOGICAL Hx Musculoskeletal Disorders: Yes (BILATERAL KNEE SX) - GASTROINTESTINAL Hx Gastrointestinal Disorders: No - GENITOURINARY/GYNECOLOGICAL Hx Genitourinary Disorders: No - PSYCHIATRIC Hx Emotional Abuse: No Hx Physical Abuse: No Hx Substance Use: No - SURGICAL HISTORY Hx Orthopedic Surgery: Yes (BILATERAL KNEE SURGERY) Other/Comment: 8 STENTS-DENIES - ANESTHESIA Hx Anesthesia Reactions: No Hx Malignant Hyperthermia: No Meds Allergies/Adverse Reactions: Allergies Allergy/AdvReac Type Severity Reaction Status Date / Time No Known Allergies Allergy Verified 12/17/17 14:42 - Medications Medications: Current Medications Aspirin (Aspirin Chewable) 324 mg PO ONCE ONE Stop: 12/17/17 14:42 Sodium Chloride (Sodium Chloride 0.9%) 1,000 mls @ 100 mls/hr IV .Q10H [facility] Results - Vital Signs Recent Vital Signs: Last Vital Signs Temp 98.4 F 12/17/17 13:59 Pulse 67 12/17/17 13:59 Resp 18 12/17/17 13:59 BP 143/84 12/17/17 13:59 Pulse Ox 97 12/17/17 13:59 - Labs Result Diagrams: 12/17/17 14:45 12/17/17 14:45 Assessment & Plan - Assessment and Plan (Free Text) Assessment: 62 yr old male with what appears to be ischemic, left internal capsule stroke , with basilar and carotid artery stenosis. He is not a tpa candidate but we will pursue stroke workup and start aspirin, as well as obtain neurointerventional consult. PLan: 1. Admit to telemetry 2. IV fluids normal saline 100ccs per hour 3. aspirin 325 mg po daily. 4. pt/ot 5. Echo bubble study 6. DVT prophylaxis with venodynes. 7. antiphospholipid ab, factor v leiden, prothrombin gene mutation, protein c and s, homocysteine Joyce xie
[2017-12-17 14:52] LABS: BASO # 0.02 K/mm3 (0.0-2.0); BASO % 0.3 % (0.0-3.0); EOS # 0.1 (0.0-0.7); EOS % 2.2 % (1.5-5.0); GRAN # 4.13 (1.4-6.5); GRAN % 70.8 % (50.0-68.0); HEMOGLOBIN 14.6 g/dL (14.0-18.0); LYMPH # 1.1 (1.2-3.4); LYMPH % 19.2 % (22.0-35.0); MEAN CELL VOLUME 89.4 fl (80.0-105.0); MEAN CORPUSCULAR HEMOGLOBIN 30.2 pg (25.0-35.0); MEAN CORPUSCULAR HGB CONC 33.8 g/dl (31.0-37.0); MEAN PLATELET VOLUME 10.9 fl (7.0-11.0); MONO # 0.4 (0.1-0.6); MONO % 7.5 % (1.0-6.0); RBC 4.83 10^6/uL (3.5-6.1); RED CELL DISTRIBUTION WIDTH 13.1 % (11.5-14.5); WHITE BLOOD COUNT 5.8 10^3/ul (4.5-11.0)
[2017-12-17 15:02] LABS: INR 0.96 (0.93-1.08); PARTIAL THROMBOPLASTIN TIME 29.9 Seconds (25.1-36.5); PROTHROMBIN TIME 10.9 SECONDS (9.4-12.5)
[2017-12-17 15:03] LABS: ALB/GLOB RATIO 1.4 (1.1-1.8); ALBUMIN 3.7 g/dL (3.0-4.8); ALT/SGPT 22 U/L (7-56); AST/SGOT 14 U/L (17-59); BLOOD UREA NITROGEN 13 mg/dL (7-21); CALCIUM 8.9 mg/dL (8.4-10.5); GFR AFRICAN-AMERICAN > 60; GFR NON-AFRICAN AMERICAN > 60; HDL CHOLESTEROL 45 mg/dL (29-60)
--- NOTE | 2017-12-17 15:04 | CT ---
PROCEDURE: CT Angiography of the neck with contrast HISTORY: code COMPARISON: None available. TECHNIQUE: Contiguous axial images of the neck were obtained from the level of the skull-base to the superior mediastinum in the arteriographic phase of enhancement. Coronal and sagittal reformats or also generated. IV contrast dose: 100 cc of Omni 350 Radiation Dose - DLP: 619 mGy-cm This CT exam was performed using one or more of the following dose reduction techniques: Automated exposure control, adjustment of the mA and/or kV according to patient size, and/or use of iterative reconstruction technique. FINDINGS: RIGHT CAROTID ARTERIES: There is calcified plaque at the bifurcation. There is no significant stenosis. There is also a calcified plaque associated with an area of severe tortuosity in the internal carotid 4 cm from the origin. This is associated with a moderate stenosis probably greater than 70 percent. LEFT CAROTID ARTERIES: Calcified plaque at the bifurcation with no significant stenosis. There is severe tortuosity in the distal ICA with a small calcified plaque. There is only mild stenosis VERTEBRAL ARTERIES: Right Vertebral Artery: Normal. Left Vertebral Artery: Normal. OTHER FINDINGS: Enlargement of the right lobe of the thyroid consistent goiter. This measures 33 x 47 mm IMPRESSION: Severe tortuosity of the internal carotids 4 cm from the bifurcation. There is a moderate degree of stenosis on the right side with an associated calcified plaque. There is only mild stenosis on the left side. CT Angiography of the Brain. HISTORY: code COMPARISON: None available. TECHNIQUE: CT angiography of the intracranial arteries was performed. Coronal and sagittal maximum intensity projection reformated images were generated. This CT exam was performed using one or more of the following dose reduction techniques: Automated exposure control, adjustment of the mA and/or kV according to patient size, and/or use of iterative reconstruction technique. FINDINGS: INTERNAL CEREBRAL ARTERIES: Unremarkable. The skull base, petrous, cavernous and supraclinoid segments are bilaterally widely patent. ANTERIOR CEREBRAL ARTERIES: Unremarkable. A1 and A2 segments are widely patent. Smaller distal branches unremarkable, as visualized. MIDDLE CEREBRAL ARTERIES: Unremarkable. M1 and M2 segments are widely patent. Perisylvian branches grossly symmetric. POSTERIOR CIRCULATION: Basilar Artery: There is a focal high-grade stenosis in the proximal basilar artery finding best seen on image 71 series 606 Distal Vertebral Arteries: Unremarkable. Posterior Cerebral Arteries: Unremarkable. Posterior Inferior Cerebellar Arteries: Unremarkable. ANEURYSM/ VASCULAR MALFORMATIONS: None. OTHER FINDINGS: None. 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
[2017-12-17 15:14] LABS: LDL CHOLESTEROL 96 mg/dL (0-129)
--- NOTE | 2017-12-17 15:21 | RAD ---
HISTORY: Code Stroke COMPARISON: No prior. FINDINGS: LUNGS: No active pulmonary disease. PLEURA: No significant pleural effusion identified, no pneumothorax apparent. CARDIOVASCULAR: Mild cardiomegaly OSSEOUS STRUCTURES: No significant abnormalities. VISUALIZED UPPER ABDOMEN: Normal. OTHER FINDINGS: None. IMPRESSION: No active disease.
[2017-12-17 15:23] LABS: TROPONIN I 0.04 ng/mL
--- NOTE | 2017-12-17 15:39 | CP.PCM.CON ---
<Huseyin Wright - Last Filed: 12/17/17 15:43> History of Present Illness - History of Present Illness History of Present Illness: Huseyin Wright D.O. PGY-2, Internal Medicine Resident, Critical Care Consultation Note CC: right sided weakness/fall 2 hours ago 62 year old male with a PMH of sCHF, DM, HTN, COPD, chronic pain syndrome, and peripheral neuropathy who presents directly from his PMD's office Dr. Stoll after having a witnessed fall with right sided neurological deficits at about 130pm. ICU consultation was requested. Dr. Stoll present and corroborates story. Patient came in to the office and after he stepped off the scale to obtain a weight walked down the hallway a couple of steps and collapsed. Patient states that he was awake for the whole thing and that his legs felt "weak." Patient denies any LOC, head trauma, bladder or bowel incontinence or any other associated symptoms or any other associated aura. Patient at this time feels much better but states he doesn't want to try standing yet. Otherwise no other symptoms. Since his return from having the CTA of head and neck, patient's symptoms are reported as having resolved. PMD: Dr. Stoll PMH: as above PSH: denies, review of chart shows BL knee surgery SH: smoker, no alcohol or illicits Meds: reviewed Review of Systems - Review of Systems All systems: reviewed and no additional remarkable complaints except (as per HPI ) Past Patient History - Infectious Disease Hx of Infectious Diseases: None - Past Social History Smoking Status: Current Some Days Smoker - CARDIAC Hx Cardiac Disorders: Yes Hx Congestive Heart Failure: Yes - PULMONARY Hx Chronic Obstructive Pulmonary Disease (COPD): Yes - NEUROLOGICAL Hx Paralysis: No - HEENT Hx HEENT Problems: No (WEARS RX GLASSES) - RENAL Hx Chronic Kidney Disease: No - ENDOCRINE/METABOLIC Hx Diabetes Mellitus Type 2: Yes - HEMATOLOGICAL/ONCOLOGICAL Hx Blood Transfusions: No Hx Blood Transfusion Reaction: No - INTEGUMENTARY Hx Dermatological Problems: Yes (ANASARCA-GROSS EDEMA FROM FEET TO LOWER ABDOMINAL AREA.CELLULITIS BLE) - MUSCULOSKELETAL/RHEUMATOLOGICAL Hx Musculoskeletal Disorders: Yes (BILATERAL KNEE SX) - GASTROINTESTINAL Hx Gastrointestinal Disorders: No - GENITOURINARY/GYNECOLOGICAL Hx Genitourinary Disorders: No - PSYCHIATRIC Hx Emotional Abuse: No Hx Physical Abuse: No Hx Substance Use: No - SURGICAL HISTORY Hx Orthopedic Surgery: Yes (BILATERAL KNEE SURGERY) Other/Comment: 8 STENTS-DENIES - ANESTHESIA Hx Anesthesia Reactions: No Hx Malignant Hyperthermia: No Meds Allergies/Adverse Reactions: Allergies Allergy/AdvReac Type Severity Reaction Status Date / Time No Known Allergies Allergy Verified 12/17/17 14:42 - Medications Medications: Current Medications Sodium Chloride (Sodium Chloride 0.9%) 1,000 mls @ 100 mls/hr IV .Q10H IDRIS Last Admin: 12/17/17 14:58 Dose: 100 mls/hr Physical Exam - Constitutional Appears: Well, Non-toxic, No Acute Distress - Head Exam Head Exam: ATRAUMATIC, NORMOCEPHALIC - Eye Exam Eye Exam: EOMI, PERRL. absent: Scleral icterus - ENT Exam ENT Exam: Mucous Membranes Moist, Normal Oropharynx - Neck Exam Neck exam: Positive for: Normal Inspection. Negative for: Lymphadenopathy - Respiratory Exam Respiratory Exam: Clear to Auscultation Bilateral. absent: Rales, Rhonchi, Wheezes - Cardiovascular Exam Cardiovascular Exam: RRR, +S1, +S2. absent: Gallop, Rubs - GI/Abdominal Exam GI & Abdominal Exam: Normal Bowel Sounds, Soft. absent: Distended, Tenderness - Extremities Exam Extremities exam: Negative for: pedal edema, tenderness - Neurological Exam Neurological exam: Alert, CN II-XII Intact, Oriented x3 Additional comments: AAOx4, GCS 15, muscle strength 5/5 BL Net Software Developer/BI/TRI/DELT/HF/KF/PF/DF, sensory levels intact throughout, no pronator drift, no dysarthria, no dysmetria, no Cee's, no clonus, no nystagmus, no gaze palsy, follows simple and complex commands - Psychiatric Exam Psychiatric exam: Normal Affect, Normal Mood - Skin Skin Exam: Dry, Intact, Warm Results - Vital Signs Recent Vital Signs: Last Vital Signs Temp 98.4 F 12/17/17 13:59 Pulse 77 12/17/17 14:59 Resp 18 12/17/17 14:59 BP 151/86 H 12/17/17 14:59 Pulse Ox 100 12/17/17 14:59 - Labs Result Diagrams: 12/17/17 14:45 12/17/17 14:45 Labs: Laboratory Results - last 24 hr 12/17/17 12/17/17 12/17/17 14:45 14:45 14:45 WBC 5.8 D RBC 4.83 Hgb 14.6 D Hct 43.2 MCV 89.4 MCH 30.2 MCHC 33.8 RDW 13.1 Plt Count 226 MPV 10.9 Gran % 70.8 H Lymph % (Auto) 19.2 L [place] % (Auto) 7.5 H Eos % (Auto) 2.2 Baso % (Auto) 0.3 Gran # 4.13 Lymph # (Auto) 1.1 L [place] # (Auto) 0.4 Eos # (Auto) 0.1 Baso # (Auto) 0.02 PT 10.9 INR 0.96 APTT 29.9 Sodium 140 Potassium 4.3 Chloride 101 Carbon Dioxide 30 Anion Gap 13 BUN 13 Creatinine 0.8 Est GFR ( Amer) > 60 Est GFR (Non-Af Amer) > 60 Random Glucose 158 H Calcium 8.9 Total Bilirubin 0.3 AST 14 L D ALT 22 Alkaline Phosphatase 68 Troponin I 0.04 D Total Protein 6.2 Albumin 3.7 Globulin 2.6 Albumin/Globulin Ratio 1.4 Triglycerides 118 Cholesterol 163 LDL Cholesterol Direct 96 HDL Cholesterol 45 Assessment & Plan - Assessment and Plan (Free Text) Assessment: 62 year old male presenting after witnessed fall with right sided neurological deficits at about 130pm. ICU consultation was requested. Plan: S/p witnessed fall Transient right upper and lower extremity weakness Moderate R carotid stenosis per CTA neck Mild L carotid stenosis per CTA neck Focal high grade stenosis of proximal bisalar artery per CTA head Hx COPD Hx sCHF, last EF 40-45% Hx chronic pain syndrome Hx DM Hx HTN All imaging and laboratory findings and imaging and radiology reads reviewed by me At this time, given that patient is completely asymptomatic with negative CT of the head, patient is not candidate for ICU Suggest that patient be evaluated by neurology for possible TIA Patient may benefit from repeat echocardiogram as last on record is 12/07/15 Would recommend that patient do be monitored in telemetry floor Management per PMD Thank you for the pleasure of participating in the care of this patient. Please re-consult as necessary. Patient was seen and examined and case was discussed at length with attending physician, ER physician, and PMD. - Date & Time Date: 12/17/17 Time: 15:10 <Dominick Cobian - Last Filed: 12/17/17 16:28> Meds - Medications Medications: Current Medications Sodium Chloride (Sodium Chloride 0.9%) 1,000 mls @ 100 mls/hr IV .Q10H IDRIS Last Admin: 12/17/17 14:58 Dose: 100 mls/hr Results - Vital Signs Recent Vital Signs: Last Vital Signs Temp 98.4 F 12/17/17 13:59 Pulse 77 12/17/17 14:59 Resp 18 12/17/17 14:59 BP 151/86 H 12/17/17 14:59 Pulse Ox 100 12/17/17 14:59 - Labs Result Diagrams: 12/17/17 14:45 12/17/17 14:45 Attending/Attestation - Attestation I have personally seen and examined this patient.: Yes I have fully participated in the care of the patient.: Yes I have reviewed all pertinent clinical information: Yes Notes (Text): 12/17/17 16:06 The patient was seen and examined at the bedside. Patient care was discussed with resident Medical records, lab studies and imaging were reviewed and management issues were discussed and formulated. Agree with above treatment plan as outlined in 's note. No neurological deficits noted at the time of exam. Continue treatment as per neurology team recommendations At this time patient will not benefit from ICU level of care. Please reconsult if necessary or if condition changes
--- NOTE | 2017-12-17 16:48 | CARD ---
APPROVED REPORT EKG Measurement Heart [id number] <Conclusion> Sinus rhythm with 1st degree AV block Right bundle branch block Lateral infarct, age undetermined Inferior infarct, age undetermined Abnormal ECG
[2017-12-17] MEDS ORDERED: Insulin Lispro (humaLOG) LOW Coverage SC SCH (20:00)
--- NOTE | 2017-12-17 20:43 | CP.PCM.CON ---
<Jojo Hinson - Last Filed: 12/17/17 20:50> History of Present Illness - History of Present Illness History of Present Illness: ICU Consult note for Dr. Post 62yo male PMHx sCHF, DM, HTN, COPD, chronic pain syndrome, and peripheral neuropathy presented this AM from PMD Dr. Dior's office s/p witnessed fall. Patient reports he went to his PMD's office and as he stepped off the scale to obtain a weight and walked down the hallway a couple of steps he felt his right left give out and collapsed. Patient denied any LOC, syncope, dizziness, bowel/ bladder incontinence, biting of the tongue, or hitting his head at the time of the event. His only complaint was that his right leg felt weak. Upon coming to the ED, code stroke was called and patient was rushed for head CT which was negative for stroke or hemorrhage and CTA showed right carotid stenosis and basilar artery stenosis. Neurology Dr. Melara was on board and deemed that the patient was not a candidate for tPA at the time. When I saw the patient he was sitting up in bed comfortably in the ED in [facility]. He reported his weakness had improved and he felt better than when he came in. He complained of some abdominal pain 7/10 non radiating in the middle of his abdomen that he associated with not having eaten all day. Otherwise patient denied acute complaints of fever, chills, headache, dizziness, chest pain, palpitations, SOB, cough, nausea, vomiting, bowel/bladder complaints, pain/ swelling in his legs b/l. PMD: Dr. Stoll PMHx: sCHF, DM, HTN, COPD, chronic pain syndrome, and peripheral neuropathy PSurgHx: denies, review of chart shows BL knee surgery SocHx: smokes 1ppd for 20 years- denies Etoh/drug FamHx: denies CVA, [place], cancer in family Meds: reviewed ALL: NKDA Review of Systems - Review of Systems All systems: reviewed and no additional remarkable complaints except Review of Systems: as per HPI - Constitutional Constitutional: As Per HPI. absent: Chills, Fever - EENT Eyes: As Per HPI. absent: Blurred Vision Ears: As Per HPI. absent: Dizziness Nose/Mouth/Throat: As Per HPI. absent: Sore Throat - Cardiovascular Cardiovascular: As Per HPI. absent: Chest Pain, Dyspnea - Respiratory Respiratory: As Per HPI. absent: Cough, Dyspnea, Chest Congestion - Gastrointestinal Gastrointestinal: As Per HPI, Abdominal Pain. absent: Constipation, Diarrhea, Nausea, Vomiting - Genitourinary Genitourinary: As Per HPI. absent: Dysuria, Hematuria - Musculoskeletal Musculoskeletal: As Per HPI. absent: Numbness, Tingling - Integumentary Integumentary: As Per HPI. absent: Dry Skin - Neurological Neurological: As Per HPI, Abnormal Gait, Disequilibrium, Focal Weakness (RLE - resolved), Weakness. absent: Dizziness, Headaches, Tingling - Endocrine Endocrine: As Per HPI. absent: Polydipsia, Polyphagia, Polyuria - Hematologic/Lymphatic Hematologic: As Per HPI. absent: Easy Bleeding, Easy Bruising, Lymphadenopathy Past Patient History - Infectious Disease Hx of Infectious Diseases: None - Past Social History Smoking Status: Current Some Days Smoker - CARDIAC Hx Cardiac Disorders: Yes Hx Congestive Heart Failure: Yes - PULMONARY Hx Chronic Obstructive Pulmonary Disease (COPD): Yes - NEUROLOGICAL Hx Paralysis: No - HEENT Hx HEENT Problems: No (WEARS RX GLASSES) - RENAL Hx Chronic Kidney Disease: No - ENDOCRINE/METABOLIC Hx Diabetes Mellitus Type 2: Yes - HEMATOLOGICAL/ONCOLOGICAL Hx Blood Transfusions: No Hx Blood Transfusion Reaction: No - INTEGUMENTARY Hx Dermatological Problems: Yes (ANASARCA-GROSS EDEMA FROM FEET TO LOWER ABDOMINAL AREA.CELLULITIS BLE) - MUSCULOSKELETAL/RHEUMATOLOGICAL Hx Musculoskeletal Disorders: Yes (BILATERAL KNEE SX) - GASTROINTESTINAL Hx Gastrointestinal Disorders: No - GENITOURINARY/GYNECOLOGICAL Hx Genitourinary Disorders: No - PSYCHIATRIC Hx Emotional Abuse: No Hx Physical Abuse: No Hx Substance Use: No - SURGICAL HISTORY Hx Orthopedic Surgery: Yes (BILATERAL KNEE SURGERY) Other/Comment: 8 STENTS-DENIES - ANESTHESIA Hx Anesthesia Reactions: No Hx Malignant Hyperthermia: No Meds Allergies/Adverse Reactions: Allergies Allergy/AdvReac Type Severity Reaction Status Date / Time No Known Allergies Allergy Verified 12/17/17 14:42 - Medications Medications: Current Medications Aspirin (Ecotrin) 325 mg PO DAILY IDRIS Sodium Chloride (Sodium Chloride 0.9%) 1,000 mls @ 100 mls/hr IV .Q10H IDRIS Last Admin: 12/17/17 14:58 Dose: 100 mls/hr Physical Exam - Constitutional Appears: Non-toxic, No Acute Distress - Head Exam Head Exam: ATRAUMATIC, NORMAL INSPECTION, NORMOCEPHALIC - Eye Exam Eye Exam: EOMI, Normal appearance, PERRL. absent: Conjunctival injection, Scleral icterus Pupil Exam: NORMAL ACCOMODATION - ENT Exam ENT Exam: Mucous Membranes Moist - Neck Exam Neck exam: Positive for: Full Rom. Negative for: Lymphadenopathy - Respiratory Exam Respiratory Exam: Clear to Auscultation Bilateral, NORMAL BREATHING PATTERN. absent: Accessory Muscle Use, Rales, Rhonchi, Wheezes, Respiratory Distress - Cardiovascular Exam Cardiovascular Exam: REGULAR RHYTHM, RRR, +S1, +S2. absent: Systolic Murmur - GI/Abdominal Exam GI & Abdominal Exam: Normal Bowel Sounds, Soft. absent: Firm, Guarding, Rigid, Tenderness - Rectal Exam Rectal Exam: Deferred - Extremities Exam Extremities exam: Positive for: normal capillary refill, normal inspection, pedal pulses present Additional comments: discoloration b/l LE - Back Exam Back exam: NORMAL INSPECTION. absent: rash noted - Neurological Exam Neurological exam: Alert, CN II-XII Intact, Oriented x3 - Expanded Neurological Exam Expanded Neurological exam: Protecting the Airway Patient oriented to: person, place, time Speech: Fluid Speech Cranial nerves: EOM's Intact: Normal, Facial Palsey w/Forehead Movement: Normal , Facial Palsey w/o Forehead Movement: Normal, Facial Sensation: Normal, Gag Reflex: Normal, Nystagmus: Normal, Tongue Deviation: Normal Cerebellar Function: Finger to Nose: Abnormal Left Upper motor neuron: Paul Neglect: Normal, Pronator Drift: Normal, Sensory Extinction: Normal Neuro motor strength exam: Left Upper Extremity: 5, Right Upper Extremity: 5, Left Lower Extremity: 5, Right Lower Extremity: 5 Coma Scale Eye Opening: SPONTANEOUS Coma Scale Motor Response: OBEYS COMMANDS Coma Scale Verbal: Oriented Coma Scale Total: 15 - Psychiatric Exam Psychiatric exam: Normal Affect, Normal Mood - Skin Skin Exam: Dry, Intact, Normal Color, Warm Results - Vital Signs Recent Vital Signs: Last Vital Signs Temp 98.4 F 12/17/17 18:15 Pulse 78 12/17/17 18:45 Resp 18 12/17/17 18:45 BP 151/88 H 12/17/17 18:45 Pulse Ox 99 12/17/17 18:45 - Labs Result Diagrams: 12/17/17 14:45 12/17/17 14:45 Assessment & Plan - Assessment and Plan (Free Text) Assessment: 62yo male PMHx sCHF, DM, HTN, COPD, chronic pain syndrome, and peripheral neuropathy presented this AM from PMD Dr. Dior's office s/p witnessed fall. Patient admitted to MICU for further management Plan: Neuro -CT head: unremarkable -CTA head/neck: severe tortuosity of the internal carotids 4cm from bifurcation. There is a moderate degree of stenosis on the R with an associated calcified plaque. There is only mild stenosis on the L side. Focal high-grade stenosis in the proximal basilar artery -f/u MRI -f/u Echo -f/u hypercoag work up -f/u AM labs -ASA 325mg po qd -Neurocheck q1 -PT/OT/Speech/Swallow -Fall risk -Maintain normothermia -HoB above 30 -Neuro consult: Dr. Melara and Dr. Hernandez Cardio -f/u Echo -continue home meds Resp -hx of COPD -Duoneb 3ml inh q6 prn -Maintain spO2 90-92% -Smoking cessation GI -NPO -GI ppx Renal -strict Is and Os -monitor UO and electrolytes -NS @ 60 Endo -HgbA1c 8.3 -Accucheck q6 -RISS low -maintain euglycemia ID -no acute issues Discussed with Dr. Sejal Hinson PGY2 <Sejal MAYNARD,Eb - Last Filed: 12/19/17 06:33> Meds - Medications Medications: Current Medications Albuterol/Ipratropium (Duoneb 3 Mg/0.5 Mg (3 Ml) Ud) 3 ml IH Q6H PRN PRN Reason: Shortness of Breath Last Admin: 12/18/17 01:11 Dose: 3 ml Aspirin (Aspirin Chewable) 81 mg PO DAILY [facility] Last Admin: 12/18/17 09:31 Dose: 81 mg Atorvastatin Calcium (Lipitor) 10 mg PO DAILY [facility] Last Admin: 12/18/17 12:08 Dose: 10 mg Clonazepam (Klonopin) 0.5 mg PO HS [facility] PRN Reason: Protocol Last Admin: 12/18/17 22:55 Dose: 0.5 mg Clopidogrel Bisulfate (Plavix) 75 mg PO DAILY [facility] Last Admin: 12/18/17 09:33 Dose: 75 mg Furosemide (Lasix) 40 mg PO BID [facility] Last Admin: 12/18/17 17:04 Dose: 40 mg Insulin Human Lispro (Humalog Low) 0 units SC Q6H [facility] PRN Reason: Protocol Last Admin: 12/19/17 06:09 Dose: Not Given Nystatin (Mycostatin Cream) 1 ea TOP TID [facility] Last Admin: 12/18/17 23:02 Dose: 1 applic Oxycodone HCl (Oxycodone Immediate Release Tab) 30 mg PO QID PRN PRN Reason: Pain, severe (8-10) Last Admin: 12/18/17 17:07 Dose: 30 mg Pantoprazole Sodium (Protonix Ec Tab) 40 mg PO ACB [facility] Sertraline HCl (Zoloft) 50 mg PO DAILY [facility] Last Admin: 12/18/17 09:32 Dose: 50 mg Results - Vital Signs Recent Vital Signs: Last Vital Signs Temp 97.8 F 12/19/17 04:00 Pulse 44 L 12/19/17 02:00 Resp 12 12/18/17 23:50 BP 163/64 H 12/18/17 23:00 Pulse Ox 94 L 12/18/17 23:50 - Labs Result Diagrams: 12/18/17 05:15 12/18/17 05:15 Labs: Laboratory Results - last 24 hr 12/18/17 12/18/17 12/18/17 11:48 19:55 21:14 POC Glucose (mg/dL) 187 H 201 H 222 H 12/19/17 06:04 POC Glucose (mg/dL) 106 Attending/Attestation - Attestation I have personally seen and examined this patient.: Yes I have fully participated in the care of the patient.: Yes I have reviewed all pertinent clinical information: Yes Notes (Text): -I agree with the above ICU consult note completed by the resident physician. -Critical Care Time Spent: 30-45 minutes
[2017-12-17] MEDS ORDERED: Albuterol-Ipratrop 3 mg / 0.5 (3 ml) UD IH PRN (21:01)
[2017-12-17] MEDS: oxyCODONE 30 mg Immediate Release Tab PO PRN (23:52)
[2017-12-18] MEDS ORDERED: Sodium Chloride 0.9% 1,000 ML IV SCH (02:45)
[2017-12-18] MEDS ORDERED: Dextrose 5%/0.45% NS 1,000 ML IV SCH (02:45)
[2017-12-18 05:35] LABS: BASO # 0.03 K/mm3 (0.0-2.0); BASO % 0.5 % (0.0-3.0); EOS # 0.1 (0.0-0.7); EOS % 1.6 % (1.5-5.0); GRAN # 3.74 (1.4-6.5); GRAN % 65.1 % (50.0-68.0); HEMOGLOBIN 14.4 g/dL (14.0-18.0); LYMPH # 1.4 (1.2-3.4); LYMPH % 24.4 % (22.0-35.0); MEAN CELL VOLUME 88.8 fl (80.0-105.0); MEAN CORPUSCULAR HEMOGLOBIN 30.3 pg (25.0-35.0); MEAN CORPUSCULAR HGB CONC 34.1 g/dl (31.0-37.0); MEAN PLATELET VOLUME 10.8 fl (7.0-11.0); MONO # 0.5 (0.1-0.6); MONO % 8.4 % (1.0-6.0); RBC 4.75 10^6/uL (3.5-6.1); RED CELL DISTRIBUTION WIDTH 13.1 % (11.5-14.5); WHITE BLOOD COUNT 5.7 10^3/ul (4.5-11.0)
[2017-12-18] MEDS: Insulin Lispro (humaLOG) LOW Coverage SC SCH ×3 (05:36→19:00)
[2017-12-18 05:53] LABS: LDL CHOLESTEROL 102 mg/dL (0-129)
[2017-12-18 05:55] LABS: ALB/GLOB RATIO 1.3 (1.1-1.8); ALBUMIN 3.7 g/dL (3.0-4.8); ALT/SGPT 21 U/L (7-56); AST/SGOT 25 U/L (17-59); BLOOD UREA NITROGEN 14 mg/dL (7-21); CALCIUM 8.4 mg/dL (8.4-10.5); GFR AFRICAN-AMERICAN > 60; GFR NON-AFRICAN AMERICAN > 60; HDL CHOLESTEROL 41 mg/dL (29-60)
[2017-12-18] MEDS: oxyCODONE 30 mg Immediate Release Tab PO PRN ×2 (08:14→17:07)
[2017-12-18] MEDS ORDERED: Aspirin 325 mg EC Tablets PO SCH (10:00)
--- NOTE | 2017-12-18 10:01 | CP.CCUPN ---
<Catracho Luong - Last Filed: 12/18/17 09:54> CCU Subjective - Physician Review Subjective (Free Text): ICU Progress Note Pt seen and examined at bedside. No acute overnight events. Pt states that symptoms have resolved and no longer has any right sided deficits. Pt denies CP , SOB, n/v/d, abdominal pain, fever, chills, CA, or dizziness. CCU Objective - Vital Signs / Intake & Output Vital Signs (Last 4 hours): Vital Signs BP 12/18/17 09:31 150/87 Intake and Output (Last 8hrs): Intake & Output 12/17/17 12/18/17 12/18/17 22:59 06:59 14:59 Intake Total 780 Output Total 800 Balance -20 Weight 85.23 kg Intake: IV 480 Right Hand 480 Oral 300 Output: Urine 800 Urine, Voided 800 Other: # Voids Urine, Voided 4 - Physical Exam Head: Positive for: Atraumatic, Normocephalic Pupils: Positive for: PERRL Extroacular Muscles: Positive for: EOMI Conjunctiva: Positive for: Normal Mouth: Positive for: Moist Mucous Membranes Pharnyx: Negative for: ERYTHEMA, EXUDATE, TONSILS ENLARGED Neck: Positive for: Normal Range of Motion Respiratory/Chest: Positive for: Clear to Auscultation, Good Air Exchange. Negative for: Respiratory Distress, Accessory Muscle Use, Wheezes, Rales, Rhonchi Cardiovascular: Positive for: Regular Rate and Rhythm, Normal S1, S2. Negative for: Murmurs Abdomen: Negative for: Tenderness, Distention, Peritoneal Signs Upper Extremity: Positive for: Normal Inspection, Normal ROM, NORMAL PULSES. Negative for: Cyanosis, Edema, Deformity Lower Extremity: Positive for: Normal Inspection. Negative for: Edema Neurological: Positive for: GCS=15, CN II-XII Intact, Speech Normal, Motor Func Grossly Intact, Normal Sensory Function, Normal Cerebellar Funct Skin: Positive for: Warm, Dry, Normal Color. Negative for: Rashes Psychiatric: Positive for: Alert, Oriented x 3, Normal Insight, Normal Concentration - Medications Active Medications: Active Medications Generic Name Dose Route Start Last Admin Trade Name Freq PRN Reason Stop Dose Admin Albuterol/Ipratropium 3 ml 12/17/17 21:01 12/18/17 01:11 Duoneb 3 Mg/0.5 Mg (3 Ml) Ud IH 3 ml Q6H PRN Administration Shortness of Breath Aspirin 81 mg 12/18/17 10:00 12/18/17 09:31 Aspirin Chewable PO 81 mg DAILY IDRIS Administration Atorvastatin Calcium 10 mg 12/18/17 10:00 Lipitor PO DAILY IDRIS Clonazepam 0.5 mg 12/17/17 22:00 12/17/17 23:08 Klonopin PO 0.5 mg HS IDRIS Administration Protocol Clopidogrel Bisulfate 75 mg 12/18/17 10:00 12/18/17 09:33 Plavix PO 75 mg DAILY IDRIS Administration Furosemide 40 mg 12/18/17 10:00 12/18/17 09:31 Lasix PO 40 mg BID IDRIS Administration Sodium Chloride 1,000 mls @ 60 mls/hr 12/18/17 02:45 12/18/17 02:45 Sodium Chloride 0.9% IV 60 mls/hr .[id number] IDRIS Administration Insulin Human Lispro 0 units 12/18/17 06:00 12/18/17 05:36 Humalog Low SC Not Given Q6H [facility] Protocol Oxycodone HCl 30 mg 12/17/17 23:43 12/18/17 08:14 Oxycodone Immediate Release Tab PO 30 mg QID PRN Administration Pain, severe (8-10) Pantoprazole Sodium 40 mg 12/18/17 10:00 Protonix Inj IVP DAILY [facility] Sertraline HCl 50 mg 12/18/17 10:00 12/18/17 09:32 Zoloft PO 50 mg DAILY I[facility]IS Administration - Patient Studies Lab Studies: Lab Studies 12/18/17 12/18/17 12/18/17 Range/Units 05:33 05:15 05:15 WBC 5.7 (4.5-11.0) 10^3/ul RBC 4.75 (3.5-6.1) 10^6/uL Hgb 14.4 (14.0-18.0) g/dL Hct 42.2 (42.0-52.0) % MCV 88.8 (80.0-105.0) fl MCH 30.3 (25.0-35.0) pg MCHC 34.1 (31.0-37.0) g/dl RDW 13.1 (11.5-14.5) % Plt Count 243 (120.0-450.0) 10^3/uL MPV 10.8 (7.0-11.0) fl Gran % 65.1 (50.0-68.0) % Lymph % (Auto) 24.4 (22.0-35.0) % Eddy % (Auto) 8.4 H (1.0-6.0) % Eos % (Auto) 1.6 (1.5-5.0) % Baso % (Auto) 0.5 (0.0-3.0) % Gran # 3.74 (1.4-6.5) Lymph # (Auto) 1.4 (1.2-3.4) Eddy # (Auto) 0.5 (0.1-0.6) Eos # (Auto) 0.1 (0.0-0.7) Baso # (Auto) 0.03 (0.0-2.0) K/mm3 Sodium 141 (132-148) mmol/L Potassium 4.4 (3.6-5.0) mmol/L Chloride 103 (98-107) mmol/L Carbon Dioxide 28 (21-33) mmol/L Anion Gap 14 (10-20) BUN 14 (7-21) mg/dL Creatinine 0.7 L (0.8-1.5) mg/dl Est GFR ( Amer) > 60 Est GFR (Non-Af Amer) > 60 POC Glucose (mg/dL) 132 H (65-110) mg/dL Random Glucose 152 H (70-110) mg/dL Calcium 8.4 (8.4-10.5) mg/dL Phosphorus 3.9 (2.5-4.5) mg/dL Magnesium 1.9 (1.7-2.2) mg/dL Total Bilirubin 0.6 (0.2-1.3) mg/dL AST 25 (17-59) U/L ALT 21 (7-56) U/L Alkaline Phosphatase 58 (38-126) U/L Total Protein 6.6 (5.8-8.3) g/dL Albumin 3.7 (3.0-4.8) g/dL Globulin 2.9 gm/dL Albumin/Globulin Ratio 1.3 (1.1-1.8) Triglycerides 113 (35-160) mg/dL Cholesterol 158 (130-200) mg/dL LDL Cholesterol Direct 102 (0-129) mg/dL HDL Cholesterol 41 (29-60) mg/dL 12/17/17 Range/Units 22:24 WBC (4.5-11.0) 10^3/ul RBC (3.5-6.1) 10^6/uL Hgb (14.0-18.0) g/dL Hct (42.0-52.0) % MCV (80.0-105.0) fl MCH (25.0-35.0) pg MCHC (31.0-37.0) g/dl RDW (11.5-14.5) % Plt Count (120.0-450.0) 10^3/uL MPV (7.0-11.0) fl Gran % (50.0-68.0) % Lymph % (Auto) (22.0-35.0) % Eddy % (Auto) (1.0-6.0) % Eos % (Auto) (1.5-5.0) % Baso % (Auto) (0.0-3.0) % Gran # (1.4-6.5) Lymph # (Auto) (1.2-3.4) Eddy # (Auto) (0.1-0.6) Eos # (Auto) (0.0-0.7) Baso # (Auto) (0.0-2.0) K/mm3 Sodium (132-148) mmol/L Potassium (3.6-5.0) mmol/L Chloride (98-107) mmol/L Carbon Dioxide (21-33) mmol/L Anion Gap (10-20) BUN (7-21) mg/dL Creatinine (0.8-1.5) mg/dl Est GFR ( Amer) Est GFR (Non-Af Amer) POC Glucose (mg/dL) 178 H (65-110) mg/dL Random Glucose (70-110) mg/dL Calcium (8.4-10.5) mg/dL Phosphorus (2.5-4.5) mg/dL Magnesium (1.7-2.2) mg/dL Total Bilirubin (0.2-1.3) mg/dL AST (17-59) U/L ALT (7-56) U/L Alkaline Phosphatase (38-126) U/L Total Protein (5.8-8.3) g/dL Albumin (3.0-4.8) g/dL Globulin gm/dL Albumin/Globulin Ratio (1.1-1.8) Triglycerides (35-160) mg/dL Cholesterol (130-200) mg/dL LDL Cholesterol Direct (0-129) mg/dL HDL Cholesterol (29-60) mg/dL Laboratory Results - last 24 hr 12/17/17 12/18/17 12/18/17 22:24 05:15 05:15 WBC 5.7 RBC 4.75 Hgb 14.4 Hct 42.2 MCV 88.8 MCH 30.3 MCHC 34.1 RDW 13.1 Plt Count 243 MPV 10.8 Gran % 65.1 Lymph % (Auto) 24.4 Eddy % (Auto) 8.4 H Eos % (Auto) 1.6 Baso % (Auto) 0.5 Gran # 3.74 Lymph # (Auto) 1.4 Eddy # (Auto) 0.5 Eos # (Auto) 0.1 Baso # (Auto) 0.03 Sodium 141 Potassium 4.4 Chloride 103 Carbon Dioxide 28 Anion Gap 14 BUN 14 Creatinine 0.7 L Est GFR ( Amer) > 60 Est GFR (Non-Af Amer) > 60 POC Glucose (mg/dL) 178 H Random Glucose 152 H Calcium 8.4 Phosphorus 3.9 Magnesium 1.9 Total Bilirubin 0.6 AST 25 ALT 21 Alkaline Phosphatase 58 Total Protein 6.6 Albumin 3.7 Globulin 2.9 Albumin/Globulin Ratio 1.3 Triglycerides 113 Cholesterol 158 LDL Cholesterol Direct 102 HDL Cholesterol 41 12/18/17 05:33 WBC RBC Hgb Hct MCV MCH MCHC RDW Plt Count MPV Gran % Lymph % (Auto) Eddy % (Auto) Eos % (Auto) Baso % (Auto) Gran # Lymph # (Auto) Eddy # (Auto) Eos # (Auto) Baso # (Auto) Sodium Potassium Chloride Carbon Dioxide Anion Gap BUN Creatinine Est GFR ( Amer) Est GFR (Non-Af Amer) POC Glucose (mg/dL) 132 H Random Glucose Calcium Phosphorus Magnesium Total Bilirubin AST ALT Alkaline Phosphatase Total Protein Albumin Globulin Albumin/Globulin Ratio Triglycerides Cholesterol LDL Cholesterol Direct HDL Cholesterol Fingerstick Blood Sugar Results: 130 Critical Care Progress Note - Nutrition Nutrition: Nutrition Category Date Time Status Heart Healthy Diet [DIET] Diets 12/18/17 Breakfast Ordered Assessment/Plan - Assessment and Plan (Free Text) Assessment: 62 yo male PMHx sCHF, DM, HTN, COPD, chronic pain syndrome, and peripheral neuropathy presented to [facility] due to right sided deficits. Code stroke was called and patient was assessed by neurology, which deemed patient was not a candidate for tPA. Patient was admitted to ICU for close monitoring for TIA vs. CVA. Patient medically stable overnight and had resolution of symptoms. Patient will be transferred to telemetry. Plan: Neuro: - CT head: unremarkable - CTA head/neck: severe tortuosity of the internal carotids 4cm from bifurcation. There is a moderate degree of stenosis on the R with an associated calcified plaque. There is only mild stenosis on the L side. Focal high-grade stenosis in the proximal basilar artery - Cont ASA, Lipitor, Plavix - Neurocheck - PT/OT/Speech/Swallow - Fall risk - Maintain normothermia - HoB above 30 - Neuro consult: Dr. Melara and Dr. Hernandez Cardio: - f/u Echo - continue home meds - Maintain MAP > 65 Resp: - hx of COPD - Duoneb 3ml inh q6 prn - Maintain spO2 90-92% - Smoking cessation GI: - NPO - GI ppx Renal: - strict Is and Os - monitor UO and electrolytes - NS @ 60 Endo: - HgbA1c 8.3 - Accucheck q6 - RISS low - maintain euglycemia ID: - no acute issues Pt seen and discussed in detail with Dr. Sanders. Solomon Luong, PGY1 <Shaq Sanders - Last Filed: 12/18/17 11:57> CCU Objective - Vital Signs / Intake & Output Vital Signs (Last 4 hours): Vital Signs BP 12/18/17 09:31 150/87 Intake and Output (Last 8hrs): Intake & Output 12/17/17 12/18/17 12/18/17 22:59 06:59 14:59 Intake Total 780 Output Total 800 Balance -20 Weight 187 lb 14.4 oz Intake: IV 480 Right Hand 480 Oral 300 Output: Urine 800 Urine, Voided 800 Other: # Voids Urine, Voided 4 - Medications Active Medications: Active Medications Generic Name Dose Route Start Last Admin Trade Name Freq PRN Reason Stop Dose Admin Albuterol/Ipratropium 3 ml 12/17/17 21:01 12/18/17 01:11 Duoneb 3 Mg/0.5 Mg (3 Ml) Ud IH 3 ml Q6H PRN Administration Shortness of Breath Aspirin 81 mg 12/18/17 10:00 12/18/17 09:31 Aspirin Chewable PO 81 mg DAILY IDRIS Administration Atorvastatin Calcium 10 mg 12/18/17 10:00 Lipitor PO DAILY IDRIS Clonazepam 0.5 mg 12/17/17 22:00 12/17/17 23:08 Klonopin PO 0.5 mg HS IDRIS Administration Protocol Clopidogrel Bisulfate 75 mg 12/18/17 10:00 12/18/17 09:33 Plavix PO 75 mg DAILY IDRIS Administration Furosemide 40 mg 12/18/17 10:00 12/18/17 09:31 Lasix PO 40 mg BID IDRIS Administration Sodium Chloride 1,000 mls @ 60 mls/hr 12/18/17 02:45 12/18/17 02:45 Sodium Chloride 0.9% IV 60 mls/hr .[id number] [facility] Administration Insulin Human Lispro 0 units 12/18/17 06:00 12/18/17 05:36 Humalog Low SC Not Given Q6H [facility] Protocol Oxycodone HCl 30 mg 12/17/17 23:43 12/18/17 08:14 Oxycodone Immediate Release Tab PO 30 mg QID PRN Administration Pain, severe (8-10) Pantoprazole Sodium 40 mg 12/19/17 07:30 Protonix Ec Tab PO ACB IDRIS Sertraline HCl 50 mg 12/18/17 10:00 12/18/17 09:32 Zoloft PO 50 mg DAILY IDRIS Administration - Patient Studies Lab Studies: Lab Studies 12/18/17 12/18/17 12/18/17 Range/Units 05:33 05:15 05:15 WBC 5.7 (4.5-11.0) 10^3/ul RBC 4.75 (3.5-6.1) 10^6/uL Hgb 14.4 (14.0-18.0) g/dL Hct 42.2 (42.0-52.0) % MCV 88.8 (80.0-105.0) fl MCH 30.3 (25.0-35.0) pg MCHC 34.1 (31.0-37.0) g/dl RDW 13.1 (11.5-14.5) % Plt Count 243 (120.0-450.0) 10^3/uL MPV 10.8 (7.0-11.0) fl Gran % 65.1 (50.0-68.0) % Lymph % (Auto) 24.4 (22.0-35.0) % Eddy % (Auto) 8.4 H (1.0-6.0) % Eos % (Auto) 1.6 (1.5-5.0) % Baso % (Auto) 0.5 (0.0-3.0) % Gran # 3.74 (1.4-6.5) Lymph # (Auto) 1.4 (1.2-3.4) Eddy # (Auto) 0.5 (0.1-0.6) Eos # (Auto) 0.1 (0.0-0.7) Baso # (Auto) 0.03 (0.0-2.0) K/mm3 Sodium 141 (132-148) mmol/L Potassium 4.4 (3.6-5.0) mmol/L Chloride 103 (98-107) mmol/L Carbon Dioxide 28 (21-33) mmol/L Anion Gap 14 (10-20) BUN 14 (7-21) mg/dL Creatinine 0.7 L (0.8-1.5) mg/dl Est GFR ( Amer) > 60 Est GFR (Non-Af Amer) > 60 POC Glucose (mg/dL) 132 H (65-110) mg/dL Random Glucose 152 H (70-110) mg/dL Calcium 8.4 (8.4-10.5) mg/dL Phosphorus 3.9 (2.5-4.5) mg/dL Magnesium 1.9 (1.7-2.2) mg/dL Total Bilirubin 0.6 (0.2-1.3) mg/dL AST 25 (17-59) U/L ALT 21 (7-56) U/L Alkaline Phosphatase 58 (38-126) U/L Total Protein 6.6 (5.8-8.3) g/dL Albumin 3.7 (3.0-4.8) g/dL Globulin 2.9 gm/dL Albumin/Globulin Ratio 1.3 (1.1-1.8) Triglycerides 113 (35-160) mg/dL Cholesterol 158 (130-200) mg/dL LDL Cholesterol Direct 102 (0-129) mg/dL HDL Cholesterol 41 (29-60) mg/dL 12/17/17 Range/Units 22:24 WBC (4.5-11.0) 10^3/ul RBC (3.5-6.1) 10^6/uL Hgb (14.0-18.0) g/dL Hct (42.0-52.0) % MCV (80.0-105.0) fl MCH (25.0-35.0) pg MCHC (31.0-37.0) g/dl RDW (11.5-14.5) % Plt Count (120.0-450.0) 10^3/uL MPV (7.0-11.0) fl Gran % (50.0-68.0) % Lymph % (Auto) (22.0-35.0) % Eddy % (Auto) (1.0-6.0) % Eos % (Auto) (1.5-5.0) % Baso % (Auto) (0.0-3.0) % Gran # (1.4-6.5) Lymph # (Auto) (1.2-3.4) Eddy # (Auto) (0.1-0.6) Eos # (Auto) (0.0-0.7) Baso # (Auto) (0.0-2.0) K/mm3 Sodium (132-148) mmol/L Potassium (3.6-5.0) mmol/L Chloride (98-107) mmol/L Carbon Dioxide (21-33) mmol/L Anion Gap (10-20) BUN (7-21) mg/dL Creatinine (0.8-1.5) mg/dl Est GFR ( Amer) Est GFR (Non-Af Amer) POC Glucose (mg/dL) 178 H (65-110) mg/dL Random Glucose (70-110) mg/dL Calcium (8.4-10.5) mg/dL Phosphorus (2.5-4.5) mg/dL Magnesium (1.7-2.2) mg/dL Total Bilirubin (0.2-1.3) mg/dL AST (17-59) U/L ALT (7-56) U/L Alkaline Phosphatase (38-126) U/L Total Protein (5.8-8.3) g/dL Albumin (3.0-4.8) g/dL Globulin gm/dL Albumin/Globulin Ratio (1.1-1.8) Triglycerides (35-160) mg/dL Cholesterol (130-200) mg/dL LDL Cholesterol Direct (0-129) mg/dL HDL Cholesterol (29-60) mg/dL Laboratory Results - last 24 hr 12/17/17 12/18/17 12/18/17 22:24 05:15 05:15 WBC 5.7 RBC 4.75 Hgb 14.4 Hct 42.2 MCV 88.8 MCH 30.3 MCHC 34.1 RDW 13.1 Plt Count 243 MPV 10.8 Gran % 65.1 Lymph % (Auto) 24.4 Eddy % (Auto) 8.4 H Eos % (Auto) 1.6 Baso % (Auto) 0.5 Gran # 3.74 Lymph # (Auto) 1.4 Eddy # (Auto) 0.5 Eos # (Auto) 0.1 Baso # (Auto) 0.03 Sodium 141 Potassium 4.4 Chloride 103 Carbon Dioxide 28 Anion Gap 14 BUN 14 Creatinine 0.7 L Est GFR ( Amer) > 60 Est GFR (Non-Af Amer) > 60 POC Glucose (mg/dL) 178 H Random Glucose 152 H Calcium 8.4 Phosphorus 3.9 Magnesium 1.9 Total Bilirubin 0.6 AST 25 ALT 21 Alkaline Phosphatase 58 Total Protein 6.6 Albumin 3.7 Globulin 2.9 Albumin/Globulin Ratio 1.3 Triglycerides 113 Cholesterol 158 LDL Cholesterol Direct 102 HDL Cholesterol 41 12/18/17 05:33 WBC RBC Hgb Hct MCV MCH MCHC RDW Plt Count MPV Gran % Lymph % (Auto) Eddy % (Auto) Eos % (Auto) Baso % (Auto) Gran # Lymph # (Auto) Eddy # (Auto) Eos # (Auto) Baso # (Auto) Sodium Potassium Chloride Carbon Dioxide Anion Gap BUN Creatinine Est GFR ( Amer) Est GFR (Non-Af Amer) POC Glucose (mg/dL) 132 H Random Glucose Calcium Phosphorus Magnesium Total Bilirubin AST ALT Alkaline Phosphatase Total Protein Albumin Globulin Albumin/Globulin Ratio Triglycerides Cholesterol LDL Cholesterol Direct HDL Cholesterol Critical Care Progress Note - Nutrition Nutrition: Nutrition Category Date Time Status Heart Healthy Diet [DIET] Diets 12/18/17 Breakfast Ordered Assessment/Plan - Assessment and Plan (Free Text) Plan: Patient seen and examined on rounds with resident, agree with note with following additions/exceptions: Patient is 62 yo male PMHx sCHF, DM, HTN, COPD, chronic pain syndrome, and peripheral neuropathy presented to [facility] due to right sided deficits, initial CT head negative, MRI brain with L DAFNE distribution acute infarct. Currently afebrile, HD stable, comfortable in NAD, non focal motor neurological exam Acute CVA COPD HTN DM neuropathy Recommend: - supp o2 as needed - duonebs PRN - permissive HTN - ASA, Plavix - follow up neurology - ECHO with bubble - I/Os - sliding scale - check lipipd panel, HgbA1C, TSH - DVT ppx - monitor in CCU
--- NOTE | 2017-12-18 10:53 | MRI ---
PROCEDURE: MRI BRAIN WITHOUT CONTRAST HISTORY: stroke COMPARISON: None. TECHNIQUE: Multiplanar, multisequence MR images of the brain were obtained without intravenous contrast enhancement. FINDINGS: HEMORRHAGE: None DWI: Abnormal signal in the left frontal lobe along the midline compatible with an acute left anterior cerebral artery distribution infarct. BRAIN PARENCHYMA: No mass effect or edema. Mild periventricular white matter signal abnormality. VENTRICLES: Unremarkable. No hydrocephalus. CRANIUM: Unremarkable. ORBITS: Grossly unremarkable. PARANASAL SINUSES/MASTOIDS: Clear VASCULAR SYSTEM: Skull base flow voids intact. OTHER FINDINGS: Corresponding MR angiographic images demonstrate occlusion of the left anterior cerebral artery. IMPRESSION: Abnormal restricted diffusion signal in the left frontal lobe along the midline compatible with an acute left anterior cerebral artery distribution infarct.
--- NOTE | 2017-12-18 14:55 | CARD ---
APPROVED REPORT EXAM: Two-dimensional and M-mode echocardiogram with Doppler and color Doppler. INDICATION STROKE..BUBBLE STUDY 2D DIMENSIONS Left Atrium (2D)5.2 (1.6-4.0cm)IVSd1.7 (0.7-1.1cm) LVDd4.5 (3.9-5.9cm)PWd1.7 (0.7-1.1cm) LVDs3.6 (2.5-4.0cm)FS (%) 19.6 % LVEF (%)40.4 (>50%) M-Mode DIMENSIONS Aortic Root3.00 (2.2-3.7cm)Aortic Cusp Exc.1.30 (1.5-2.0cm) Aortic Valve AoV Peak Syhriqod800.0cm/sAoV VTI27.8cmAO Peak GR.9mmHg LVOT Peak Npnsijis57.7cm/sLVOT VTI12.60cmAO Mean GR.4mmHg Mitral Valve MV E Agdekmxq460.0cm/sMV A Fhtsbefl593.0cm/sMV [id number] E/A ratio0.8MVA (PHT)2.14cm2 TDI E/Lateral E'0.0E/Medial E'0.0 Pulmonary Valve PV Peak Qxrcijqf96.6cm/sPV Peak Grad.2mmHg Tricuspid Valve TR Peak Ivwclfmd445qb/sRAP [id number] Peak Gr.10mmHg [id number] LEFT VENTRICLE The left ventricle is normal size. There is mild concentric left ventricular hypertrophy. The systolic function is moderately impaired. Apical hypokinesis Transmitral Doppler flow pattern is Grade I-abnormal relaxation pattern. The left ventricular apex is not well visualized. RIGHT VENTRICLE The right ventricle is normal size. There is normal right ventricular wall thickness. The right ventricular systolic function is normal. ATRIA The left atrium is mildly dilated. The right atrium size is normal. The interatrial septum is intact with no evidence for an atrial septal defect. AORTIC VALVE The aortic valve is moderately thickened. There is mild aortic regurgitation. MITRAL VALVE The mitral valve is moderately thickened. Mitral regurgitation is mild. TRICUSPID VALVE There is mild tricuspid regurgitation. PULMONIC VALVE There is mild pulmonic valvular regurgitation. GREAT VESSELS The aortic root is normal in size. <Conclusion> The left ventricle is normal size. There is mild concentric left ventricular hypertrophy. The systolic function is moderately impaired. Apical hypokinesis Transmitral Doppler flow pattern is Grade I-abnormal relaxation pattern. There is mild aortic regurgitation. The interatrial septum is intact with no evidence for an atrial septal defect. Mitral regurgitation is mild.
--- NOTE | 2017-12-18 15:35 | CP.PCM.PN ---
Subjective - Date & Time of Evaluation Date of Evaluation: 12/18/17 Time of Evaluation: 15:30 - Subjective Subjective: Patient has completely resolved symptoms today. no aphasia, no weakness, no dysarthria. MRI Brain shows new left das radiata stroke, streak like in formation. stroke workup: Echo completed and shows LVH, but otherwise normal CTA: basilar artery stenosis, and neurointerventional called but no intervention at this time MRA: not completed due to motion Lipid profile: normal. On exam: Normal neurological examination. Objective - Vital Signs/Intake and Output Vital Signs (last 24 hours): Temp Pulse Resp BP Pulse Ox 98.7 F 81 17 171/62 H 94 L 12/18/17 04:00 12/18/17 12:30 12/18/17 12:30 12/18/17 12:00 12/18/17 12:30 Intake and Output: 12/18/17 12/18/17 06:59 18:59 Intake Total 780 Output Total 800 Balance -20 - Medications Medications: Current Medications Albuterol/Ipratropium (Duoneb 3 Mg/0.5 Mg (3 Ml) Ud) 3 ml IH Q6H PRN PRN Reason: Shortness of Breath Last Admin: 12/18/17 01:11 Dose: 3 ml Aspirin (Aspirin Chewable) 81 mg PO DAILY [facility] Last Admin: 12/18/17 09:31 Dose: 81 mg Atorvastatin Calcium (Lipitor) 10 mg PO DAILY [facility] Last Admin: 12/18/17 12:08 Dose: 10 mg Clonazepam (Klonopin) 0.5 mg PO HS [facility] PRN Reason: Protocol Last Admin: 12/17/17 23:08 Dose: 0.5 mg Clopidogrel Bisulfate (Plavix) 75 mg PO DAILY [facility] Last Admin: 12/18/17 09:33 Dose: 75 mg Furosemide (Lasix) 40 mg PO BID [facility] Last Admin: 12/18/17 09:31 Dose: 40 mg Insulin Human Lispro (Humalog Low) 0 units SC Q6H [facility] PRN Reason: Protocol Last Admin: 12/18/17 12:08 Dose: 1 units Oxycodone HCl (Oxycodone Immediate Release Tab) 30 mg PO QID PRN PRN Reason: Pain, severe (8-10) Last Admin: 12/18/17 08:14 Dose: 30 mg Pantoprazole Sodium (Protonix Ec Tab) 40 mg PO ACB IDRIS Sertraline HCl (Zoloft) 50 mg PO DAILY I[facility]IS Last Admin: 12/18/17 09:32 Dose: 50 mg - Labs Labs: 12/18/17 05:15 12/18/17 05:15 PT 10.9 SECONDS (9.4-12.5) 12/17/17 14:45 INR 0.96 (0.93-1.08) 12/17/17 14:45 APTT 29.9 Seconds (25.1-36.5) 12/17/17 14:45 Assessment and Plan - Assessment and Plan (Free Text) Assessment: Patient with new ischemic left das radiata stroke with thus far normal stroke workup. However, CTA was suspicious for dissection as per so we will reorder MRA brain and continue aspirin. COntinue pemissive htn until tomorrow. Plan for outpatient rehab. THank you DR. Melara
[2017-12-18] MEDS ORDERED: Gadodiamide 287 MG/ML VIAL (15ML) IV ONE (18:01)
--- NOTE | 2017-12-18 19:18 | HP ---
HISTORY OF PRESENT ILLNESS: This is a 62-year-old male, who presented to the office for routine visit upon stepping of the scale, he developed weakness in the right leg and fell to the floor. There was no loss of consciousness, no loss of bowel or bladder function, there was no chest pain, shortness of breath or palpitations. The patient was alert and oriented x3. He was brought to [facility] through EMS with [facility] for further evaluation. In [facility], he was seen by the emergency room physician, who noted that there was weakness on the right side. A Neurological evaluation was requested with neuro intervention obtained from [facility]. The patient has a social history of a smoker. He is a social drinker and he is on chronic pain medication. He reported he has having blood pressure of 137/60, his temperature was 98.4, his pulse was 67, his oxygen saturation was reported 97% on room air with a respiratory rate of 18. HIS ALLERGY HISTORY IS NONE. His home medications consist of immediate-release oxycodone, morphine extended release, metformin, Lasix, Plavix, Klonopin, Lipitor, Ecotrin, Zoloft and potassium chloride. He states that for breakfast he had, an ice cream and sandwich. He also states that he has been sleeping well in the past few nights. PAST MEDICAL HISTORY: Peripheral neuropathy, neurovascular disease, coronary artery disease with stent removal, noninsulin-dependent diabetes, chronic pain syndrome, depression. PHYSICAL EXAMINATION: GENERAL: He is alert and oriented x3. NECK: Supple. LUNGS: Showed diminished breath sounds at the bases. HEART: Within S1 and S2. ABDOMEN: Soft with positive bowel sounds. NEUROLOGICAL: He stated that he was feeling much better. He was moving his right upper arm and right lower extremities. He had a 4+/5 strength in the upper and lower extremities. His toes were downgoing. Discussion was held with the Emergency Room staff and Emergency Room physician and initiation of discussion with the neuro interventional team, Dr. Melara. A CAT scan of the head was reported as showing an old lacunar infarct. His chest x-ray was reported showing no active disease. 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 Consultations were requested with the ethylbenzene converter operator from the ICU. LABORATORY DATA: Showed WBC of 5.8, RBC of 4.83, hemoglobin 14.6, hematocrit 43.2, platelet count 226. His PT was 10.9 with INR 0.96, PTT was 29.9. Chemistry showed a sodium of 140, potassium 4.3, chloride 101, BUN of 13, creatinine of 0.8, his random blood sugar was 158, his calcium is 8.9, his albumin is 2.6, cholesterol 163, triglycerides 118, HDL is 45. Troponin was 0.04. The further management through the Emergency Room was through the emergency room staff and attending as well as with the neuro interventional team. Subsequently, the patient had an MRI. Verbal communication was that there was a left infarct evidence on the MRI. The patient was subsequently admitted to the Intensive Care Unit for further medical management. Consults will be requested with Neurology along with the stroke team. Followup labs have been requested. Further management, treatment plan, pending document of the result of undergoing studies and input from the individual consultants. Sandy Stoll MD
--- NOTE | 2017-12-18 21:09 | MRI ---
EXAM: MR Angiography Head With Intravenous Contrast EXAM DATE/TIME: 12/18/2017 3:35 PM CLINICAL HISTORY: The patient age is 62 years old and is male; Signs and symptoms; Other: Stroke Facility exam id and description: Mri mra headc mra head with contrast TECHNIQUE: Magnetic resonance angiography images of the head with intravenous contrast. CONTRAST: 15 mL of Omniscan administered intravenously. COMPARISON: CTA HEAD/NECK CODE STROKE 2017-12-17 14:27 FINDINGS: Right internal carotid artery: See below. Right anterior cerebral artery: No occlusion or significant stenosis. No aneurysm. Right middle cerebral artery: There is stenosis of M2 branch of the right middle cerebral artery. No aneurysm. Right posterior cerebral artery: No occlusion or significant stenosis. No aneurysm. Right vertebral artery: A dominant right vertebral artery is identified. No occlusion or significant stenosis. Left internal carotid artery: Stenoses are identified of the bilateral internal carotid arteries. There is approximately 50% stenosis of the clinoid segment of the left internal carotid artery. Less than 50% stenoses are identified of the right internal carotid artery. No aneurysm. Left anterior cerebral artery: Mild stenoses are visualized of the A1 segment of the left anterior cerebral artery. No aneurysm. Left middle cerebral artery: No occlusion or significant stenosis. No aneurysm. Left posterior cerebral artery: There is persistence of a origin of the left posterior cerebral artery. No occlusion or significant stenosis. No aneurysm. Left vertebral artery: There is a mild decrease in signal intensity in the distal left vertebral artery, suggestive of decreased flow. Basilar artery: There is approximately 50% stenosis of the proximal basilar artery. No aneurysm. There is increased tortuosity of the vertebrobasilar system. IMPRESSION: 1. There is approximately 50% stenosis of the proximal basilar artery. 2. Stenoses are identified of the bilateral internal carotid arteries. There is approximately 50% stenosis of the clinoid segment of the left internal carotid artery. Less than 50% stenoses are identified of the right internal carotid artery. 3. There is stenosis of M2 branch of the right middle cerebral artery. 4. Mild stenoses are visualized of the A1 segment of the left anterior cerebral artery. 5. There is a mild decrease in signal intensity in the distal left vertebral artery, suggestive of decreased flow. 6. Incidental/non-acute findings are described above.
[2017-12-18] MEDS: Nystatin 100,000 Units/gm Cream(15 gm) TOP SCH (23:02)
[2017-12-19] MEDS: Insulin Lispro (humaLOG) LOW Coverage SC SCH ×6 (03:50→21:24)
[2017-12-19 06:31] LABS: BASO # 0.02 K/mm3 (0.0-2.0); BASO % 0.3 % (0.0-3.0); EOS # 0.3 (0.0-0.7); EOS % 3.5 % (1.5-5.0); GRAN # 5.06 (1.4-6.5); GRAN % 70.8 % (50.0-68.0); LYMPH # 1.2 (1.2-3.4); LYMPH % 17.4 % (22.0-35.0); MEAN CELL VOLUME 88.7 fl (80.0-105.0); MEAN CORPUSCULAR HEMOGLOBIN 29.8 pg (25.0-35.0); MEAN CORPUSCULAR HGB CONC 33.6 g/dl (31.0-37.0); MEAN PLATELET VOLUME 10.9 fl (7.0-11.0); MONO # 0.6 (0.1-0.6); RBC 4.7 10^6/uL (3.5-6.1)
[2017-12-19 06:57] LABS: WHITE BLOOD COUNT 7.1 10^3/ul (4.5-11.0)
[2017-12-19 07:19] LABS: ALB/GLOB RATIO 1.4 (1.1-1.8); ALBUMIN 3.7 g/dL (3.0-4.8); ALT/SGPT 21 U/L (7-56); AST/SGOT 25 U/L (17-59); BLOOD UREA NITROGEN 12 mg/dL (7-21); CALCIUM 8.7 mg/dL (8.4-10.5); GFR AFRICAN-AMERICAN > 60; GFR NON-AFRICAN AMERICAN > 60
--- NOTE | 2017-12-19 08:01 | CP.PCM.PN ---
Subjective - Date & Time of Evaluation Date of Evaluation: 12/19/17 Time of Evaluation: 08:15 - Subjective Subjective: PGY2 Neuro Progress note for Dr. Melara Patient seen and examined sitting up in his chair. Nursing reported no acute events overnight. Patient denied any right sided weakness and any acute complaints of fever, chills, headache, lightheadedness, dizziness, chest pain, palpitations, SOB, cough, abd pain, nausea, vomiting, bowel/bladder complaints, pain/swelling in his legs b/l. Objective - Vital Signs/Intake and Output Vital Signs (last 24 hours): Temp Pulse Resp BP Pulse Ox 97.8 F 44 L 12 163/64 H 94 L 12/19/17 04:00 12/19/17 02:00 12/18/17 23:50 12/18/17 23:00 12/18/17 23:50 Intake and Output: 12/19/17 12/19/17 06:59 18:59 Intake Total 1100 Output Total 1650 Balance -550 - Medications Medications: Current Medications Albuterol/Ipratropium (Duoneb 3 Mg/0.5 Mg (3 Ml) Ud) 3 ml IH Q6H PRN PRN Reason: Shortness of Breath Last Admin: 12/18/17 01:11 Dose: 3 ml Aspirin (Aspirin Chewable) 81 mg PO DAILY [facility] Last Admin: 12/18/17 09:31 Dose: 81 mg Atorvastatin Calcium (Lipitor) 10 mg PO DAILY [facility] Last Admin: 12/18/17 12:08 Dose: 10 mg Clonazepam (Klonopin) 0.5 mg PO HS [facility] PRN Reason: Protocol Last Admin: 12/18/17 22:55 Dose: 0.5 mg Clopidogrel Bisulfate (Plavix) 75 mg PO DAILY [facility] Last Admin: 12/18/17 09:33 Dose: 75 mg Furosemide (Lasix) 40 mg PO BID [facility] Last Admin: 12/18/17 17:04 Dose: 40 mg Insulin Human Lispro (Humalog Low) 0 units SC Q6H [facility] PRN Reason: Protocol Last Admin: 12/19/17 06:09 Dose: Not Given Nystatin (Mycostatin Cream) 1 ea TOP TID [facility] Last Admin: 12/18/17 23:02 Dose: 1 applic Oxycodone HCl (Oxycodone Immediate Release Tab) 30 mg PO QID PRN PRN Reason: Pain, severe (8-10) Last Admin: 12/18/17 17:07 Dose: 30 mg Pantoprazole Sodium (Protonix Ec Tab) 40 mg PO ACB [facility] Sertraline HCl (Zoloft) 50 mg PO DAILY [facility] Last Admin: 12/18/17 09:32 Dose: 50 mg - Labs Labs: 12/19/17 05:45 12/19/17 05:45 PT 10.9 SECONDS (9.4-12.5) 12/17/17 14:45 INR 0.96 (0.93-1.08) 12/17/17 14:45 APTT 29.9 Seconds (25.1-36.5) 12/17/17 14:45 - Constitutional Appears: Non-toxic, No Acute Distress - Head Exam Head Exam: ATRAUMATIC, NORMAL INSPECTION, NORMOCEPHALIC - Eye Exam Eye Exam: EOMI, Normal appearance, PERRL. absent: Conjunctival injection, Scleral icterus Pupil Exam: NORMAL ACCOMODATION - ENT Exam ENT Exam: Mucous Membranes Moist - Neck Exam Neck Exam: Full ROM - Respiratory Exam Respiratory Exam: NORMAL BREATHING PATTERN. absent: Accessory Muscle Use, Respiratory Distress - Cardiovascular Exam Cardiovascular Exam: +S1, +S2 - GI/Abdominal Exam GI & Abdominal Exam: Soft. absent: Tenderness - Rectal Exam Rectal Exam: Deferred - Extremities Exam Extremities Exam: Normal Inspection. absent: Pedal Edema, Tenderness - Neurological Exam Neurological Exam: Alert, Awake, CN II-XII Intact, Oriented x3 Neuro motor strength exam: Left Upper Extremity: 5, Right Upper Extremity: 4, Left Lower Extremity: 5, Right Lower Extremity: 4 - Psychiatric Exam Psychiatric exam: Normal Affect, Normal Mood - Skin Skin Exam: Dry, Intact, Normal Color, Warm Assessment and Plan - Assessment and Plan (Free Text) Assessment: 62yo male PMHx sCHF, DM, HTN, COPD, chronic pain syndrome, and peripheral neuropathy presented this AM from PMD Dr. Dior's office s/p witnessed fall. Patient admitted to MICU for further management and now transferred to [facility] Plan: -MRA brain: approx 50% stenosis of the prox basilar A. Stenoses are identified of the b/l ICA. There is approx 50% stenosis of the clinoid segment of the L ICA. Less than 50% stenoses are identifed on R ICA. Stenosis of M2 branch of the R MCA. Mild stenoses are visualized of the A1 segment of the left anterior cerebral A. Mild decrease in signal intensity in the distal left vertebral A suggestive of decreased flow. -CT head on admission: unremarkable -CTA head/neck: severe tortuosity of the internal carotids 4cm from bifurcation. There is a moderate degree of stenosis on the R with an associated calcified plaque. There is only mild stenosis on the L side. 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 mitral regurg is mild. -lipid profile wnl -f/u hypercoag workup -PT/OT -HHD -Fall risk -ASA and Plavix and Lipitor -Maintain normothermia and normotensive -HoB above 30 -Continue management as per primary Discussed with Dr. Kelton Hinson PGY2
--- NOTE | 2017-12-19 08:49 | CP.CCUPN ---
<Catracho Luong - Last Filed: 12/19/17 09:13> CCU Subjective - Physician Review Subjective (Free Text): ICU Progress Note Pt seen and examined at bedside. No acute overnight events. Pt denies any deficits that were present on admission. Pt denies CP, SOB, n/v/d, abdominal pain, fever, chills, CA, or dizziness. CCU Objective - Vital Signs / Intake & Output Intake and Output (Last 8hrs): Intake & Output 12/18/17 12/19/17 12/19/17 22:59 06:59 14:59 Intake Total 600 500 Output Total 750 900 Balance -150 -400 Intake: Oral 600 500 Output: Urine 750 900 Urine, Voided 750 900 Stool 0 - Physical Exam Head: Positive for: Atraumatic, Normocephalic Pupils: Positive for: PERRL Extroacular Muscles: Positive for: EOMI Conjunctiva: Positive for: Normal Mouth: Positive for: Moist Mucous Membranes Pharnyx: Negative for: ERYTHEMA, EXUDATE, TONSILS ENLARGED Neck: Positive for: Normal Range of Motion Respiratory/Chest: Positive for: Clear to Auscultation, Good Air Exchange. Negative for: Respiratory Distress, Accessory Muscle Use, Wheezes, Rales, Rhonchi Cardiovascular: Positive for: Regular Rate and Rhythm, Normal S1, S2. Negative for: Murmurs Abdomen: Negative for: Tenderness, Distention, Peritoneal Signs Upper Extremity: Positive for: Normal Inspection, Normal ROM, NORMAL PULSES. Negative for: Cyanosis, Edema, Deformity Lower Extremity: Positive for: Normal Inspection. Negative for: Edema Neurological: Positive for: GCS=15, CN II-XII Intact, Speech Normal, Motor Func Grossly Intact, Normal Sensory Function, Normal Cerebellar Funct Skin: Positive for: Warm, Dry, Normal Color. Negative for: Rashes Psychiatric: Positive for: Alert, Oriented x 3, Normal Insight, Normal Concentration - Medications Active Medications: Active Medications Generic Name Dose Route Start Last Admin Trade Name Freq PRN Reason Stop Dose Admin Albuterol/Ipratropium 3 ml 12/17/17 21:01 12/18/17 01:11 Duoneb 3 Mg/0.5 Mg (3 Ml) Ud IH 3 ml Q6H PRN Administration Shortness of Breath Aspirin 81 mg 12/18/17 10:00 12/18/17 09:31 Aspirin Chewable PO 81 mg DAILY IDRIS Administration Atorvastatin Calcium 10 mg 12/18/17 10:00 12/18/17 12:08 Lipitor PO 10 mg DAILY IDRIS Administration Clonazepam 0.5 mg 12/17/17 22:00 12/18/17 22:55 Klonopin PO 0.5 mg HS IDRIS Administration Protocol Clopidogrel Bisulfate 75 mg 12/18/17 10:00 12/18/17 09:33 Plavix PO 75 mg DAILY IDRIS Administration Furosemide 40 mg 12/18/17 10:00 12/18/17 17:04 Lasix PO 40 mg BID IDRIS Administration Insulin Human Lispro 0 units 12/19/17 11:30 Humalog Low SC ACHS IDRIS Protocol Nystatin 1 ea 12/18/17 23:00 12/18/17 23:02 Mycostatin Cream TOP 1 applic TID IDRIS Administration Oxycodone HCl 30 mg 12/17/17 23:43 12/18/17 17:07 Oxycodone Immediate Release Tab PO 30 mg QID PRN Administration Pain, severe (8-10) Pantoprazole Sodium 40 mg 12/19/17 07:30 Protonix Ec Tab PO ACB IDRIS Sertraline HCl 50 mg 12/18/17 10:00 12/18/17 09:32 Zoloft PO 50 mg DAILY IDRIS Administration - Patient Studies Lab Studies: Lab Studies 12/19/17 12/19/17 12/19/17 Range/Units 07:28 06:04 05:45 WBC (4.5-11.0) 10^3/ul RBC (3.5-6.1) 10^6/uL Hgb (14.0-18.0) g/dL Hct (42.0-52.0) % MCV (80.0-105.0) fl MCH (25.0-35.0) pg MCHC (31.0-37.0) g/dl RDW (11.5-14.5) % Plt Count (120.0-450.0) 10^3/uL MPV (7.0-11.0) fl Gran % (50.0-68.0) % Lymph % (Auto) (22.0-35.0) % [place] % (Auto) (1.0-6.0) % Eos % (Auto) (1.5-5.0) % Baso % (Auto) (0.0-3.0) % Gran # (1.4-6.5) Lymph # (Auto) (1.2-3.4) [place] # (Auto) (0.1-0.6) Eos # (Auto) (0.0-0.7) Baso # (Auto) (0.0-2.0) K/mm3 Sodium 141 (132-148) mmol/L Potassium 3.9 (3.6-5.0) mmol/L Chloride 100 (98-107) mmol/L Carbon Dioxide 30 (21-33) mmol/L Anion Gap 15 (10-20) BUN 12 (7-21) mg/dL Creatinine 0.8 (0.8-1.5) mg/dl Est GFR ( Amer) > 60 Est GFR (Non-Af Amer) > 60 POC Glucose (mg/dL) 129 H 106 (65-110) mg/dL Random Glucose 119 H (70-110) mg/dL Calcium 8.7 (8.4-10.5) mg/dL Phosphorus 4.1 (2.5-4.5) mg/dL Magnesium 1.8 (1.7-2.2) mg/dL Total Bilirubin 0.7 (0.2-1.3) mg/dL AST 25 (17-59) U/L ALT 21 (7-56) U/L Alkaline Phosphatase 71 (38-126) U/L Total Protein 6.4 (5.8-8.3) g/dL Albumin 3.7 (3.0-4.8) g/dL Globulin 2.7 gm/dL Albumin/Globulin Ratio 1.4 (1.1-1.8) 12/19/17 12/18/17 12/18/17 Range/Units 05:45 21:14 19:55 WBC 7.1 D (4.5-11.0) 10^3/ul RBC 4.70 (3.5-6.1) 10^6/uL Hgb 14.0 (14.0-18.0) g/dL Hct 41.7 L (42.0-52.0) % MCV 88.7 (80.0-105.0) fl MCH 29.8 (25.0-35.0) pg MCHC 33.6 (31.0-37.0) g/dl RDW 13.0 (11.5-14.5) % Plt Count 239 (120.0-450.0) 10^3/uL MPV 10.9 (7.0-11.0) fl Gran % 70.8 H (50.0-68.0) % Lymph % (Auto) 17.4 L (22.0-35.0) % [place] % (Auto) 8.0 H (1.0-6.0) % Eos % (Auto) 3.5 (1.5-5.0) % Baso % (Auto) 0.3 (0.0-3.0) % Gran # 5.06 (1.4-6.5) Lymph # (Auto) 1.2 (1.2-3.4) [place] # (Auto) 0.6 (0.1-0.6) Eos # (Auto) 0.3 (0.0-0.7) Baso # (Auto) 0.02 (0.0-2.0) K/mm3 Sodium (132-148) mmol/L Potassium (3.6-5.0) mmol/L Chloride (98-107) mmol/L Carbon Dioxide (21-33) mmol/L Anion Gap (10-20) BUN (7-21) mg/dL Creatinine (0.8-1.5) mg/dl Est GFR ( Amer) Est GFR (Non-Af Amer) POC Glucose (mg/dL) 222 H 201 H (65-110) mg/dL Random Glucose (70-110) mg/dL Calcium (8.4-10.5) mg/dL Phosphorus (2.5-4.5) mg/dL Magnesium (1.7-2.2) mg/dL Total Bilirubin (0.2-1.3) mg/dL AST (17-59) U/L ALT (7-56) U/L Alkaline Phosphatase (38-126) U/L Total Protein (5.8-8.3) g/dL Albumin (3.0-4.8) g/dL Globulin gm/dL Albumin/Globulin Ratio (1.1-1.8) 05/15/18 Range/Units 11:48 WBC (4.5-11.0) 10^3/ul RBC (3.5-6.1) 10^6/uL Hgb (14.0-18.0) g/dL Hct (42.0-52.0) % MCV (80.0-105.0) fl MCH (25.0-35.0) pg MCHC (31.0-37.0) g/dl RDW (11.5-14.5) % Plt Count (120.0-450.0) 10^3/uL MPV (7.0-11.0) fl Gran % (50.0-68.0) % Lymph % (Auto) (22.0-35.0) % [place] % (Auto) (1.0-6.0) % Eos % (Auto) (1.5-5.0) % Baso % (Auto) (0.0-3.0) % Gran # (1.4-6.5) Lymph # (Auto) (1.2-3.4) [place] # (Auto) (0.1-0.6) Eos # (Auto) (0.0-0.7) Baso # (Auto) (0.0-2.0) K/mm3 Sodium (132-148) mmol/L Potassium (3.6-5.0) mmol/L Chloride (98-107) mmol/L Carbon Dioxide (21-33) mmol/L Anion Gap (10-20) BUN (7-21) mg/dL Creatinine (0.8-1.5) mg/dl Est GFR ( Amer) Est GFR (Non-Af Amer) POC Glucose (mg/dL) 187 H (65-110) mg/dL Random Glucose (70-110) mg/dL Calcium (8.4-10.5) mg/dL Phosphorus (2.5-4.5) mg/dL Magnesium (1.7-2.2) mg/dL Total Bilirubin (0.2-1.3) mg/dL AST (17-59) U/L ALT (7-56) U/L Alkaline Phosphatase (38-126) U/L Total Protein (5.8-8.3) g/dL Albumin (3.0-4.8) g/dL Globulin gm/dL Albumin/Globulin Ratio (1.1-1.8) Laboratory Results - last 24 hr 12/18/17 12/18/17 12/18/17 11:48 19:55 21:14 WBC RBC Hgb Hct MCV MCH MCHC RDW Plt Count MPV Gran % Lymph % (Auto) [place] % (Auto) Eos % (Auto) Baso % (Auto) Gran # Lymph # (Auto) [place] # (Auto) Eos # (Auto) Baso # (Auto) Sodium Potassium Chloride Carbon Dioxide Anion Gap BUN Creatinine Est GFR ( Amer) Est GFR (Non-Af Amer) POC Glucose (mg/dL) 187 H 201 H 222 H Random Glucose Calcium Phosphorus Magnesium Total Bilirubin AST ALT Alkaline Phosphatase Total Protein Albumin Globulin Albumin/Globulin Ratio 12/19/17 12/19/17 12/19/17 05:45 05:45 06:04 WBC 7.1 D RBC 4.70 Hgb 14.0 Hct 41.7 L MCV 88.7 MCH 29.8 MCHC 33.6 RDW 13.0 Plt Count 239 MPV 10.9 Gran % 70.8 H Lymph % (Auto) 17.4 L [place] % (Auto) 8.0 H Eos % (Auto) 3.5 Baso % (Auto) 0.3 Gran # 5.06 Lymph # (Auto) 1.2 [place] # (Auto) 0.6 Eos # (Auto) 0.3 Baso # (Auto) 0.02 Sodium 141 Potassium 3.9 Chloride 100 Carbon Dioxide 30 Anion Gap 15 BUN 12 Creatinine 0.8 Est GFR ( Amer) > 60 Est GFR (Non-Af Amer) > 60 POC Glucose (mg/dL) 106 Random Glucose 119 H Calcium 8.7 Phosphorus 4.1 Magnesium 1.8 Total Bilirubin 0.7 AST 25 ALT 21 Alkaline Phosphatase 71 Total Protein 6.4 Albumin 3.7 Globulin 2.7 Albumin/Globulin Ratio 1.4 12/19/17 07:28 WBC RBC Hgb Hct MCV MCH MCHC RDW Plt Count MPV Gran % Lymph % (Auto) [place] % (Auto) Eos % (Auto) Baso % (Auto) Gran # Lymph # (Auto) [place] # (Auto) Eos # (Auto) Baso # (Auto) Sodium Potassium Chloride Carbon Dioxide Anion Gap BUN Creatinine Est GFR ( Amer) Est GFR (Non-Af Amer) POC Glucose (mg/dL) 129 H Random Glucose Calcium Phosphorus Magnesium Total Bilirubin AST ALT Alkaline Phosphatase Total Protein Albumin Globulin Albumin/Globulin Ratio Fingerstick Blood Sugar Results: 187 Critical Care Progress Note - Nutrition Nutrition: Nutrition Category Date Time Status Heart Healthy Diet [DIET] Diets 12/18/17 Breakfast Ordered Assessment/Plan - Assessment and Plan (Free Text) Assessment: 62 yo male PMHx sCHF, DM, HTN, COPD, chronic pain syndrome, and peripheral neuropathy presented [place] [facility] to right sided deficits. Code stroke was called and patient was assessed by neurology, which deemed patient was not a candidate for tPA. Patient was admitted to ICU for close monitoring for TIA vs. CVA. Patient stable and continues to be asymptomatic. Plan: Neuro: - CT head: unremarkable - CTA head/neck: severe tortuosity of the internal carotids 4cm from bifurcation. There is a moderate degree of stenosis on the R with an associated calcified plaque. There is only mild stenosis on the L side. Focal high-grade stenosis in the proximal basilar artery - MRA head: 50% stenosis of the proximal basilar artery, 50% stenosis of the left ICA, < 50% stenosis of the right ICA, stenosis of M2 branch of the right ICA - Cont ASA, Lipitor, Plavix - Neurochecks - PT/OT/Speech/Swallow - Fall risk - Maintain normothermia - HoB above 30 - Neuro consult: Dr. Melara and Dr. Hernandez Cardio: - Echo: LVEF 40%, no PFO - continue home meds - Maintain MAP > 65 Resp: - hx of COPD - Duoneb 3ml inh q6 prn - Maintain spO2 90-92% - Smoking cessation GI: - Heart healthy diet - GI ppx Renal: - strict Is and Os - monitor UO and electrolytes - Maintain euvolemia Endo: - HgbA1c 8.3 - Accucheck q6 - RISS low - F/u TSH - maintain euglycemia ID: - Nystatin topical Pt seen and discussed in detail with Dr. Sanders. Solomon Luong, PGY1 <hSaq Sanders - Last Filed: 12/19/17 10:21> CCU Objective - Vital Signs / Intake & Output Intake and Output (Last 8hrs): Intake & Output 12/18/17 12/19/17 12/19/17 22:59 06:59 14:59 Intake Total 600 500 Output Total 750 900 Balance -150 -400 Intake: Oral 600 500 Output: Urine 750 900 Urine, Voided 750 900 Stool 0 - Medications Active Medications: Active Medications Generic Name Dose Route Start Last Admin Trade Name Paula PRN Reason Stop Dose Admin Albuterol/Ipratropium 3 ml 12/17/17 21:01 12/18/17 01:11 Duoneb 3 Mg/0.5 Mg (3 Ml) Ud IH 3 ml Q6H PRN Administration Shortness of Breath Aspirin 81 mg 12/18/17 10:00 12/18/17 09:31 Aspirin Chewable PO 81 mg DAILY IDRIS Administration Atorvastatin Calcium 10 mg 12/18/17 10:00 12/18/17 12:08 Lipitor PO 10 mg DAILY IDRIS Administration Clonazepam 0.5 mg 12/17/17 22:00 12/18/17 22:55 Klonopin PO 0.5 mg HS IDRIS Administration Protocol Clopidogrel Bisulfate 75 mg 12/18/17 10:00 12/18/17 09:33 Plavix PO 75 mg DAILY IDRIS Administration Furosemide 40 mg 12/18/17 10:00 12/18/17 17:04 Lasix PO 40 mg BID IDRIS Administration Insulin Human Lispro 0 units 12/19/17 11:30 Humalog Low SC ACHS [facility] Protocol Metoprolol Tartrate 25 mg 12/19/17 17:00 Lopressor PO BRKDIN IDRIS Nystatin 1 ea 12/18/17 23:00 12/18/17 23:02 Mycostatin Cream TOP 1 applic TID IDRIS Administration Oxycodone HCl 30 mg 12/17/17 23:43 12/18/17 17:07 Oxycodone Immediate Release Tab PO 30 mg QID PRN Administration Pain, severe (8-10) Pantoprazole Sodium 40 mg 12/19/17 07:30 Protonix Ec Tab PO ACB IDRIS Sertraline HCl 50 mg 12/18/17 10:00 12/18/17 09:32 Zoloft PO 50 mg DAILY IDRIS Administration - Patient Studies Lab Studies: Lab Studies 12/19/17 12/19/17 12/19/17 Range/Units 07:28 06:40 06:04 WBC (4.5-11.0) 10^3/ul RBC (3.5-6.1) 10^6/uL Hgb (14.0-18.0) g/dL Hct (42.0-52.0) % MCV (80.0-105.0) fl MCH (25.0-35.0) pg MCHC (31.0-37.0) g/dl RDW (11.5-14.5) % Plt Count (120.0-450.0) 10^3/uL MPV (7.0-11.0) fl Gran % (50.0-68.0) % Lymph % (Auto) (22.0-35.0) % [place] % (Auto) (1.0-6.0) % Eos % (Auto) (1.5-5.0) % Baso % (Auto) (0.0-3.0) % Gran # (1.4-6.5) Lymph # (Auto) (1.2-3.4) [place] # (Auto) (0.1-0.6) Eos # (Auto) (0.0-0.7) Baso # (Auto) (0.0-2.0) K/mm3 Sodium (132-148) mmol/L Potassium (3.6-5.0) mmol/L Chloride (98-107) mmol/L Carbon Dioxide (21-33) mmol/L Anion Gap (10-20) BUN (7-21) mg/dL Creatinine (0.8-1.5) mg/dl Est GFR ( Amer) Est GFR (Non-Af Amer) POC Glucose (mg/dL) 129 H 106 (65-110) mg/dL Random Glucose (70-110) mg/dL Calcium (8.4-10.5) mg/dL Phosphorus (2.5-4.5) mg/dL Magnesium (1.7-2.2) mg/dL Total Bilirubin (0.2-1.3) mg/dL AST (17-59) U/L ALT (7-56) U/L Alkaline Phosphatase (38-126) U/L Total Protein (5.8-8.3) g/dL Albumin (3.0-4.8) g/dL Globulin gm/dL Albumin/Globulin Ratio (1.1-1.8) Homocysteine ( <11.4) umol/L TSH 3rd Generation 2.36 (0.46-4.68) mIU/mL 12/19/17 12/19/17 12/18/17 Range/Units 05:45 05:45 21:14 WBC 7.1 D (4.5-11.0) 10^3/ul RBC 4.70 (3.5-6.1) 10^6/uL Hgb 14.0 (14.0-18.0) g/dL Hct 41.7 L (42.0-52.0) % MCV 88.7 (80.0-105.0) fl MCH 29.8 (25.0-35.0) pg MCHC 33.6 (31.0-37.0) g/dl RDW 13.0 (11.5-14.5) % Plt Count 239 (120.0-450.0) 10^3/uL MPV 10.9 (7.0-11.0) fl Gran % 70.8 H (50.0-68.0) % Lymph % (Auto) 17.4 L (22.0-35.0) % [place] % (Auto) 8.0 H (1.0-6.0) % Eos % (Auto) 3.5 (1.5-5.0) % Baso % (Auto) 0.3 (0.0-3.0) % Gran # 5.06 (1.4-6.5) Lymph # (Auto) 1.2 (1.2-3.4) [place] # (Auto) 0.6 (0.1-0.6) Eos # (Auto) 0.3 (0.0-0.7) Baso # (Auto) 0.02 (0.0-2.0) K/mm3 Sodium 141 (132-148) mmol/L Potassium 3.9 (3.6-5.0) mmol/L Chloride 100 (98-107) mmol/L Carbon Dioxide 30 (21-33) mmol/L Anion Gap 15 (10-20) BUN 12 (7-21) mg/dL Creatinine 0.8 (0.8-1.5) mg/dl Est GFR ( Amer) > 60 Est GFR (Non-Af Amer) > 60 POC Glucose (mg/dL) 222 H (65-110) mg/dL Random Glucose 119 H (70-110) mg/dL Calcium 8.7 (8.4-10.5) mg/dL Phosphorus 4.1 (2.5-4.5) mg/dL Magnesium 1.8 (1.7-2.2) mg/dL Total Bilirubin 0.7 (0.2-1.3) mg/dL AST 25 (17-59) U/L ALT 21 (7-56) U/L Alkaline Phosphatase 71 (38-126) U/L Total Protein 6.4 (5.8-8.3) g/dL Albumin 3.7 (3.0-4.8) g/dL Globulin 2.7 gm/dL Albumin/Globulin Ratio 1.4 (1.1-1.8) Homocysteine ( <11.4) umol/L TSH 3rd Generation (0.46-4.68) mIU/mL 12/18/17 12/18/17 12/18/17 Range/Units 20:05 19:55 11:48 WBC (4.5-11.0) 10^3/ul RBC (3.5-6.1) 10^6/uL Hgb (14.0-18.0) g/dL Hct (42.0-52.0) % MCV (80.0-105.0) fl MCH (25.0-35.0) pg MCHC (31.0-37.0) g/dl RDW (11.5-14.5) % Plt Count (120.0-450.0) 10^3/uL MPV (7.0-11.0) fl Gran % (50.0-68.0) % Lymph % (Auto) (22.0-35.0) % [place] % (Auto) (1.0-6.0) % Eos % (Auto) (1.5-5.0) % Baso % (Auto) (0.0-3.0) % Gran # (1.4-6.5) Lymph # (Auto) (1.2-3.4) [place] # (Auto) (0.1-0.6) Eos # (Auto) (0.0-0.7) Baso # (Auto) (0.0-2.0) K/mm3 Sodium (132-148) mmol/L Potassium (3.6-5.0) mmol/L Chloride (98-107) mmol/L Carbon Dioxide (21-33) mmol/L Anion Gap (10-20) BUN (7-21) mg/dL Creatinine (0.8-1.5) mg/dl Est GFR ( Amer) Est GFR (Non-Af Amer) POC Glucose (mg/dL) 201 H 187 H (65-110) mg/dL Random Glucose (70-110) mg/dL Calcium (8.4-10.5) mg/dL Phosphorus (2.5-4.5) mg/dL Magnesium (1.7-2.2) mg/dL Total Bilirubin (0.2-1.3) mg/dL AST (17-59) U/L ALT (7-56) U/L Alkaline Phosphatase (38-126) U/L Total Protein (5.8-8.3) g/dL Albumin (3.0-4.8) g/dL Globulin gm/dL Albumin/Globulin Ratio (1.1-1.8) Homocysteine 18.3 H ( <11.4) umol/L TSH 3rd Generation (0.46-4.68) mIU/mL Laboratory Results - last 24 hr 12/18/17 12/18/17 12/18/17 11:48 19:55 20:05 WBC RBC Hgb Hct MCV MCH MCHC RDW Plt Count MPV Gran % Lymph % (Auto) [place] % (Auto) Eos % (Auto) Baso % (Auto) Gran # Lymph # (Auto) [place] # (Auto) Eos # (Auto) Baso # (Auto) Sodium Potassium Chloride Carbon Dioxide Anion Gap BUN Creatinine Est GFR ( Amer) Est GFR (Non-Af Amer) POC Glucose (mg/dL) 187 H 201 H Random Glucose Calcium Phosphorus Magnesium Total Bilirubin AST ALT Alkaline Phosphatase Total Protein Albumin Globulin Albumin/Globulin Ratio Homocysteine 18.3 H TSH 3rd Generation 12/18/17 12/19/17 12/19/17 21:14 05:45 05:45 WBC 7.1 D RBC 4.70 Hgb 14.0 Hct 41.7 L MCV 88.7 MCH 29.8 MCHC 33.6 RDW 13.0 Plt Count 239 MPV 10.9 Gran % 70.8 H Lymph % (Auto) 17.4 L [place] % (Auto) 8.0 H Eos % (Auto) 3.5 Baso % (Auto) 0.3 Gran # 5.06 Lymph # (Auto) 1.2 [place] # (Auto) 0.6 Eos # (Auto) 0.3 Baso # (Auto) 0.02 Sodium 141 Potassium 3.9 Chloride 100 Carbon Dioxide 30 Anion Gap 15 BUN 12 Creatinine 0.8 Est GFR ( Amer) > 60 Est GFR (Non-Af Amer) > 60 POC Glucose (mg/dL) 222 H Random Glucose 119 H Calcium 8.7 Phosphorus 4.1 Magnesium 1.8 Total Bilirubin 0.7 AST 25 ALT 21 Alkaline Phosphatase 71 Total Protein 6.4 Albumin 3.7 Globulin 2.7 Albumin/Globulin Ratio 1.4 Homocysteine TSH 3rd Generation 12/19/17 12/19/17 12/19/17 06:04 06:40 07:28 WBC RBC Hgb Hct MCV MCH MCHC RDW Plt Count MPV Gran % Lymph % (Auto) [place] % (Auto) Eos % (Auto) Baso % (Auto) Gran # Lymph # (Auto) [place] # (Auto) Eos # (Auto) Baso # (Auto) Sodium Potassium Chloride Carbon Dioxide Anion Gap BUN Creatinine Est GFR ( Amer) Est GFR (Non-Af Amer) POC Glucose (mg/dL) 106 129 H Random Glucose Calcium Phosphorus Magnesium Total Bilirubin AST ALT Alkaline Phosphatase Total Protein Albumin Globulin Albumin/Globulin Ratio Homocysteine TSH 3rd Generation 2.36 Critical Care Progress Note - Nutrition Nutrition: Nutrition Category Date Time Status Heart Healthy Diet [DIET] Diets 12/18/17 Breakfast Ordered Assessment/Plan - Assessment and Plan (Free Text) Plan: Patient seen and examined on rounds with resident, agree with note with following additions/exceptions: Patient is 62 yo male PMHx sCHF, DM, HTN, COPD, chronic pain syndrome, and peripheral neuropathy presented to [facility] due to right sided deficits, initial CT head negative, MRI brain with L DAFNE distribution acute infarct. Currently afebrile, HD stable, comfortable in NAD Non focal motor neurological exam Doing well, no complaints. Acute CVA COPD HTN DM neuropathy Recommend: - supp o2 as needed - duonebs PRN - permissive HTN - ASA, Plavix - follow up neurology - ECHO with bubble - sliding scale - check lipipd panel, HgbA1C, TSH - DVT ppx - stable, transfer to telemetry
[2017-12-19] MEDS: Pantoprazole 40 mg EC Tab PO SCH (10:17)
[2017-12-19] MEDS: oxyCODONE 30 mg Immediate Release Tab PO PRN ×2 (10:24→15:02)
[2017-12-19] MEDS: Levalbuterol 1.25 MG/3 ML Inhal Soln UD IH SCH ×3 (10:52→20:33)
--- NOTE | 2017-12-19 14:57 | PN ---
DATE: 12/19/2017 SUBJECTIVE: The patient is sitting comfortably in the chair. He is in the coronary care unit. PHYSICAL EXAMINATION: GENERAL: The patient is alert and oriented x3. LUNGS: Clear. HEART: An S1, S2 rhythm. ABDOMEN: Soft with positive bowel sounds. EXTREMITIES: No evidence of edema. VITAL SIGNS: His pulse is 88, respirations are 18, his blood pressure is 138/70, his temp is 97.8. LABORATORY DATA: Shows normal electrolytes. His BUN is 12 with creatinine is 0.8. His blood sugar is 106. LFTs are normal. CBC shows a WBC of 7.1, hemoglobin 14, hematocrit of 41.7, platelet count is 239. ASSESSMENT AND PLAN: The patient is status post acute stroke. He has got a history of [id number] diabetes, peripheral neuropathy, coronary artery disease with remote stent placement and chronic obstructive pulmonary disease and hyperlipidemia. He continues at this time on aspirin, Klonopin, Lasix, Lipitor, Lopressor, Mycostatin and he is on Protonix for gastrointestinal prophylaxis, Xopenex for respiratory treatment, Zoloft for depression and he is on oxycodone for pain. Methicillin-resistant Staphylococcus aureus screen is negative. The patient is being followed by the veterinary virologist in the unit by Neurology. A consult has been requested with Cardiology and Pulmonary. He has underlying chronic obstructive pulmonary disease and coronary artery disease. We will request occupational and physical therapy. Hypercoagulable state profile has been requested. All clinical findings to date have been discussed with the patient and the staff. Sandy Stoll MD
--- NOTE | 2017-12-19 15:25 | CON ---
DATE: 12/19/2017 REASON FOR CONSULTATION: Chronic obstructive pulmonary disease. REFERRING PHYSICIAN: Sandy Stoll MD HISTORY OF PRESENT ILLNESS: The patient is a 62-year-old male, with past medical history significant for chronic obstructive pulmonary disease, positive extensive smoking history - still smokes, hypertension, diabetes mellitus, who presented to [facility] - originally on 12/17/2017 - with acute right-sided weakness. Apparently, the patient was at Dr. Stoll' office earlier. When the staff went to weigh the patient on the scale, he slumped to the floor. EMS was then called emergently and transferred the patient to the emergency room. In the emergency room, the patient was noted to have an acute cerebrovascular accident. He was thus admitted for additional evaluation. The patient is not short of breath at rest. He denies dyspnea on exertion. He does have an occasional cough with no sputum production. There is no history of chest pain, coughing up of blood, or chest pain - made worse with deep respirations. There is no history of temperatures, chills or infectious exposure. There is no history of night sweats, weight loss or appetite change prior to the above events. No history of calf pains. No history of syncope or diaphoresis. No history of recent travel. REVIEW OF SYSTEMS: No history of nausea, vomiting or diarrhea. No acute urinary symptoms. Rest of the review of systems is noncontributory. ALLERGIES: NO KNOWN ALLERGIES. SOCIAL HISTORY: Positive for extensive tobacco usage - still smokes. No alcohol. FAMILY HISTORY: No inheritable diseases. HOME MEDICATIONS: Include oxycodone, Zoloft, morphine, Glucophage, Lasix, Plavix, Klonopin, Lipitor, aspirin and Ventolin HFA. PHYSICAL EXAMINATION: GENERAL: The patient appears comfortable this morning. He is out of bed, sitting in the chair. He is not short of breath at rest. VITAL SIGNS: Temperature is 97.8, pulse is 72, respirations 18, blood pressure 163/64. Oxygen saturation on nasal cannula is 96%. HEENT: Normocephalic, atraumatic. No JVD. CARDIOVASCULAR: Positive S1, S2. No S3 gallop. LUNGS: Decreased breath sounds at the bases. Few rhonchi are appreciated. No wheezing. EXTREMITIES: No clubbing, cyanosis or edema. Calves are nontender to palpation. GI: Abdomen is soft, nontender and nondistended. Bowel sounds are positive. SKIN: No acute rash. NEUROLOGIC: As per Neurology team. PERTINENT LABORATORY DATA: Chest x-ray was done and reviewed. There is no active disease noted. Brain MRI was also done. The MRI is consistent with an acute left anterior cerebral artery infarction. CBC: White count 7.1, hemoglobin 14, hematocrit 41.7, platelets of 239,000. Complete metabolic profile: Glucose 119. Rest of the metabolic profiles within normal limits. IMPRESSION: 1. Acute cerebrovascular accident. 2. Chronic obstructive pulmonary disease. 3. Hypertension. 4. Diabetes mellitus. PLAN: I did discuss the case with the ICU residents at length. I have also discussed the case with the patient at length, and reviewed the chart at length. I have also discussed the case with Dr. Stoll at length. The patient presented to [facility] - originally on 12/17/2017 - with acute right-sided weakness. As above, the patient was at Dr. Stoll' office, when he collapsed to the floor. Emergency medical services were then called, and transported the patient emergently to [facility]. In the emergency room, the patient was found to have an acute cerebrovascular accident. He was thus admitted for additional evaluation. I did question the patient at length this morning. Other than an occasional cough, the patient offers no new or significant pulmonary symptoms. I have also reviewed the chest x-ray. It shows no acute disease. In addition, there is no significant alveolar-arterial gradient. On physical exam, there is only minimal rhonchi noted. I will change the patient to scheduled Xopenex treatments at this point in time. I would also like to obtain a pulmonary function test in the next few days, and decide on possible additional therapy. The patient does have an extensive smoking history. I will also continue with the aspiration precautions. The clinical status of the patient is significantly improved - compared to the initial presentation. Inputs by Neurology and Cardiology are noted. Again, I will try to obtain a pulmonary function tests in the next few days. I did discuss the above with Dr. Stoll. Thank you very much for this pulmonary consultation. Italo Gonzalez MD [facility] # [id number] JUSTINA
--- NOTE | 2017-12-19 20:53 | CON ---
DATE: 12/19/2017 REQUESTING PHYSICIAN: Dr. Stoll. REASON FOR CONSULTATION: Recent stroke and known coronary artery disease. HISTORY OF PRESENT ILLNESS: This is a 62-year-old man with known coronary artery disease, status post prior myocardial infarction and PCI, admitted with right-sided weakness. He apparently was seen in the office by Dr. Stoll yesterday and developed sudden weakness of his right leg and fell to the floor. He had no loss of consciousness at the time. He was brought to the emergency room for further evaluation. A CT of the head showed no acute findings. An MRI revealed a left frontal lobe defect suggestive of a left anterior cerebral artery infarct. MRA also suggested occlusion of the left anterior cerebral artery. He is seen now in the ICU. He feels significantly better. He has no residual weakness at this time. PAST MEDICAL HISTORY: Notable for diabetes and severe COPD. He also has peripheral vascular disease. He also has undergone prior interventions. He does have [id number] LV dysfunction with prior inferior infarct. He has had prior stents placed and also has undergone right hip replacement surgery. He also has peripheral neuropathy. MEDICATIONS: His current medications include aspirin, DuoNeb inhaler, insulin coverage, Klonopin, Lasix 40 mg b.i.d., Lipitor 10 mg daily, oxycodone, Plavix 75 mg daily, Protonix 40 mg daily, and Zoloft 50 mg daily. ALLERGIES: NONE. SOCIAL HISTORY: He lives at home. He continues to smoke. He denies alcohol abuse. FAMILY HISTORY: Both parents from age-related illness. REVIEW OF SYSTEMS: A 10-point review of systems is otherwise unremarkable. PHYSICAL EXAMINATION: GENERAL: He is an obese middle-aged man. VITAL SIGNS: His blood pressure was 162/64 with a pulse of 46 and sinus, respirations are 16. He is afebrile. HEENT: Normocephalic, atraumatic. NECK: No JVD noted. CHEST: Bilateral scattered rhonchi heard. HEART: PMI displaced laterally. No pathological murmur or gallops noted. ABDOMEN: Soft, obese, nontender, normoactive bowel sounds. EXTREMITIES: No clubbing, cyanosis, or edema. SKIN: Warm and dry. PSYCHIATRIC: Normal mood and affect. NEUROLOGIC: Alert and oriented x3. No gross motor or sensory deficit is appreciable at this time. DIAGNOSTIC DATA: Potassium is 3.9, BUN and creatinine are 12 and 0.8, white count 7.1, hemoglobin and hematocrit 14 and 41.7 with a platelet count of 239,000, glucose is 106, cholesterol 158 with triglycerides of 113, HDL of 41, LDL of 102, TSH 2.36. An echocardiogram was performed which was somewhat limited but reveals mild concentric LVH, inferoapical hypokinesis was noted, mild mitral and aortic insufficiency were present. An electrocardiogram reveals sinus rhythm with left anterior hemiblock and nonspecific ST-T abnormalities. Monitoring reveals evidence of intermittent blocked APCs with sinus rhythm and first-degree AV block. In addition, 12 beats of nonsustained ventricular tachycardia were noted yesterday. IMPRESSION: 1. Apparent cerebrovascular accident with recovery of motor function. 2. Coronary artery disease, status post prior infarct and percutaneous coronary intervention with moderate left ventricular systolic dysfunction, appears clinically stable. 3. Persistent tobacco abuse. 4. Hypertension, diabetes. 5. Obesity. RECOMMENDATIONS: His current cardiac medications should continue for now. Intensification of antihypertensive therapy as needed is advised. His echocardiogram will be reviewed. Beta-osmani therapy will be added to his regimen. We will be happy to follow along through his hospital course and make further recommendations as appropriate. Thank you for this consultation. Marcus Cadet MD
[2017-12-20 06:59] LABS: BASO # 0.03 K/mm3 (0.0-2.0); BASO % 0.4 % (0.0-3.0); EOS # 0.2 (0.0-0.7); EOS % 2.5 % (1.5-5.0); GRAN # 4.85 (1.4-6.5); GRAN % 70.7 % (50.0-68.0); HEMOGLOBIN 14.9 g/dL (14.0-18.0); LYMPH # 1.4 (1.2-3.4); LYMPH % 19.7 % (22.0-35.0); MEAN CELL VOLUME 88.8 fl (80.0-105.0); MEAN CORPUSCULAR HEMOGLOBIN 30.3 pg (25.0-35.0); MEAN CORPUSCULAR HGB CONC 34.1 g/dl (31.0-37.0); MEAN PLATELET VOLUME 11.1 fl (7.0-11.0); MONO # 0.5 (0.1-0.6); MONO % 6.7 % (1.0-6.0); RBC 4.92 10^6/uL (3.5-6.1); WHITE BLOOD COUNT 6.9 10^3/ul (4.5-11.0)
[2017-12-20 07:12] LABS: ALB/GLOB RATIO 1.3 (1.1-1.8); ALT/SGPT 22 U/L (7-56); AST/SGOT 20 U/L (17-59); BLOOD UREA NITROGEN 14 mg/dL (7-21); GFR AFRICAN-AMERICAN > 60; GFR NON-AFRICAN AMERICAN > 60
[2017-12-20] MEDS: Insulin Lispro (humaLOG) LOW Coverage SC SCH ×4 (07:30→22:02)
[2017-12-20] MEDS: Levalbuterol 1.25 MG/3 ML Inhal Soln UD IH SCH ×3 (07:33→19:39)
[2017-12-20] MEDS: Pantoprazole 40 mg EC Tab PO SCH (07:49)
[2017-12-20] MEDS: oxyCODONE 30 mg Immediate Release Tab PO PRN ×3 (07:49→18:02)
--- NOTE | 2017-12-20 08:13 | CP.PCM.PN ---
Subjective - Date & Time of Evaluation Date of Evaluation: 12/20/17 Time of Evaluation: 07:00 - Subjective Subjective: Stable in CCU. He feels better. No CP or SOB. No leg weakness. V/S noted. RSR PE: Lungs: clear Cor.: S1S2 Abd.: soft Ext.: no edema Neuro.: alert I/O= 1040/2780 Labs noted. Echo: Mod LVD, Mild AI and MR. See full report Objective - Vital Signs/Intake and Output Vital Signs (last 24 hours): Temp Pulse Resp BP Pulse Ox 98 F 62 14 138/54 L 92 L 12/20/17 06:10 12/20/17 07:49 12/20/17 06:00 12/20/17 07:49 12/20/17 06:00 Intake and Output: 12/20/17 12/20/17 06:59 18:59 Intake Total 200 Output Total 900 Balance -700 - Medications Medications: Current Medications Aspirin (Aspirin Chewable) 81 mg PO DAILY [facility] Last Admin: 12/19/17 10:15 Dose: 81 mg Atorvastatin Calcium (Lipitor) 10 mg PO DAILY [facility] Last Admin: 12/19/17 10:24 Dose: 10 mg Clonazepam (Klonopin) 0.5 mg PO HS [facility] PRN Reason: Protocol Last Admin: 12/19/17 21:24 Dose: 0.5 mg Clopidogrel Bisulfate (Plavix) 75 mg PO DAILY [facility] Last Admin: 12/19/17 10:16 Dose: 75 mg Furosemide (Lasix) 40 mg PO BID [facility] Last Admin: 12/19/17 18:41 Dose: 40 mg Insulin Human Lispro (Humalog Low) 0 units SC ACHS [facility] PRN Reason: Protocol Last Admin: 12/19/17 21:24 Dose: Not Given Levalbuterol HCl (Xopenex) 1.25 mg IH TIDRESP [facility] Last Admin: 12/20/17 07:33 Dose: 1.25 mg Metoprolol Tartrate (Lopressor) 25 mg PO BRKDIN [facility] Last Admin: 12/20/17 07:49 Dose: 25 mg Nystatin (Mycostatin Cream) 1 ea TOP TID [facility] Last Admin: 12/18/17 23:02 Dose: 1 applic Oxycodone HCl (Oxycodone Immediate Release Tab) 30 mg PO QID PRN PRN Reason: Pain, severe (8-10) Last Admin: 12/20/17 07:49 Dose: 30 mg Pantoprazole Sodium (Protonix Ec Tab) 40 mg PO ACB [facility] Last Admin: 12/20/17 07:49 Dose: 40 mg Sertraline HCl (Zoloft) 50 mg PO DAILY [facility] Last Admin: 12/19/17 10:17 Dose: 50 mg - Labs Labs: 12/20/17 06:00 12/20/17 06:00 PT 10.9 SECONDS (9.4-12.5) 12/17/17 14:45 INR 0.96 (0.93-1.08) 12/17/17 14:45 APTT 29.9 Seconds (25.1-36.5) 12/17/17 14:45 Assessment and Plan - Assessment and Plan (Free Text) Assessment: Fall with right LE weakness, resolved CVA CVD CD/LVD/remote PCI Diabetes COPD/Smoker. PAD/PVI PN Plan: Transfer from CCU OOB ad sarah Continue cardiac meds As per Neuro. D/C smoking!
--- NOTE | 2017-12-20 08:22 | PN ---
DATE: 12/20/2017 PULMONARY NOTE SUBJECTIVE The patient appears comfortable this morning. He is not short of breath at rest. PHYSICAL EXAMINATION VITAL SIGNS: Last temperature recorded in the chart is 97.8. pulse is 67, respirations 16/18, blood pressure 138/54. Oxygen saturation on nasal cannula is 95%. HEENT: Normocephalic, atraumatic. No JVD. CARDIOVASCULAR: Positive S1, S2. No S3, gallop. LUNGS: Clear bilaterally this morning. EXTREMITIES: No clubbing, cyanosis or edema. Calves are nontender to palpation. GASTROINTESTINAL: Abdomen is soft, nontender and nondistended. Bowel sounds are positive. SKIN: No acute rash. NEUROLOGIC: Exam limited at the present time/as per the neuro team. IMPRESSION 1. Acute cerebrovascular accident. 2. Chronic obstructive pulmonary disease. 3. Status post ventricular tachycardia. 4. Hypertension. 5. Diabetes mellitus. PLAN The patient appears comfortable this morning. He is not short of breath at rest. He does state to feeling much better overall. I did discuss the case with the night nurse at length. The night nurse stated that the patient had a good night. The night nurse also informed me that the patient did have a run of ventricular tachycardia yesterday (prior to the institution of nebulizer treatments). Input by Cardiology (Dr. Cadet) is noted. On physical exam, the patient's lungs are now clear. In addition, there is no significant alveolar-arterial gradient. I will continue the current nebulizer treatments for now. The patient should be transferred out of the medical ICU in the near future. I would like to obtain a pulmonary function test. Clinical status of the patient is significantly improved - compared to the initial presentation. I will discuss the above with the entire ICU team the next few moments. I will discuss the above with Dr. Stoll later this morning. Italo Gonzalez MD MTDHi
--- NOTE | 2017-12-20 08:38 | CP.PCM.PN ---
Subjective - Date & Time of Evaluation Date of Evaluation: 12/20/17 Time of Evaluation: 09:00 - Subjective Subjective: Pgy2 Neuro Progress note for Dr. Melara Patient seen and examined OOB to chair. Nursing reported no acute events overnight. Patient denied acute complaints of headache, dizziness, chest pain, palpitations, SOB, cough, abd pain, nausea, vomiting, bowel/bladder complaints, pain/swelling/weakness in all 4 extremities. Patient has been eating well and ambulating with physical therapy. He has bene transferred to [facility]. Objective - Vital Signs/Intake and Output Vital Signs (last 24 hours): Temp Pulse Resp BP Pulse Ox 98 F 62 14 138/54 L 92 L 12/20/17 06:10 12/20/17 07:49 12/20/17 06:00 12/20/17 07:49 12/20/17 06:00 Intake and Output: 12/20/17 12/20/17 06:59 18:59 Intake Total 200 Output Total 900 Balance -700 - Medications Medications: Current Medications Aspirin (Aspirin Chewable) 81 mg PO DAILY [facility] Last Admin: 12/19/17 10:15 Dose: 81 mg Atorvastatin Calcium (Lipitor) 10 mg PO DAILY [facility] Last Admin: 12/19/17 10:24 Dose: 10 mg Clonazepam (Klonopin) 0.5 mg PO HS [facility] PRN Reason: Protocol Last Admin: 12/19/17 21:24 Dose: 0.5 mg Clopidogrel Bisulfate (Plavix) 75 mg PO DAILY [facility] Last Admin: 12/19/17 10:16 Dose: 75 mg Furosemide (Lasix) 40 mg PO BID [facility] Last Admin: 12/19/17 18:41 Dose: 40 mg Insulin Human Lispro (Humalog Low) 0 units SC ACHS [facility] PRN Reason: Protocol Last Admin: 12/19/17 21:24 Dose: Not Given Levalbuterol HCl (Xopenex) 1.25 mg IH TIDRESP [facility] Last Admin: 12/20/17 07:33 Dose: 1.25 mg Metoprolol Tartrate (Lopressor) 25 mg PO BRKDIN [facility] Last Admin: 12/20/17 07:49 Dose: 25 mg Nystatin (Mycostatin Cream) 1 ea TOP TID [facility] Last Admin: 12/18/17 23:02 Dose: 1 applic Oxycodone HCl (Oxycodone Immediate Release Tab) 30 mg PO QID PRN PRN Reason: Pain, severe (8-10) Last Admin: 12/20/17 07:49 Dose: 30 mg Pantoprazole Sodium (Protonix Ec Tab) 40 mg PO ACB [facility] Last Admin: 12/20/17 07:49 Dose: 40 mg Sertraline HCl (Zoloft) 50 mg PO DAILY [facility] Last Admin: 12/19/17 10:17 Dose: 50 mg - Labs Labs: 12/20/17 06:00 12/20/17 06:00 PT 10.9 SECONDS (9.4-12.5) 12/17/17 14:45 INR 0.96 (0.93-1.08) 12/17/17 14:45 APTT 29.9 Seconds (25.1-36.5) 12/17/17 14:45 - Constitutional Appears: Non-toxic, No Acute Distress - Head Exam Head Exam: ATRAUMATIC, NORMAL INSPECTION, NORMOCEPHALIC - Eye Exam Eye Exam: EOMI, Normal appearance, PERRL. absent: Conjunctival injection, Scleral icterus Pupil Exam: NORMAL ACCOMODATION - ENT Exam ENT Exam: Mucous Membranes Moist - Neck Exam Neck Exam: Full ROM - Respiratory Exam Respiratory Exam: NORMAL BREATHING PATTERN. absent: Accessory Muscle Use, Respiratory Distress - Cardiovascular Exam Cardiovascular Exam: +S1, +S2 - GI/Abdominal Exam GI & Abdominal Exam: Soft. absent: Tenderness - Rectal Exam Rectal Exam: Deferred - Extremities Exam Extremities Exam: Normal Capillary Refill, Normal Inspection. absent: Pedal Edema - Neurological Exam Neurological Exam: Alert, Awake, CN II-XII Intact, Oriented x3 Neuro motor strength exam: Left Upper Extremity: 5, Right Upper Extremity: 5, Left Lower Extremity: 5, Right Lower Extremity: 4 - Psychiatric Exam Psychiatric exam: Normal Affect, Normal Mood - Skin Skin Exam: Dry, Intact, Normal Color, Warm Assessment and Plan - Assessment and Plan (Free Text) Assessment: 62yo male PMHx sCHF, DM, HTN, COPD, chronic pain syndrome, and peripheral neuropathy presented this AM from PMD Dr. Dior's office s/p witnessed fall. Patient admitted to MICU for further management and now transferred to [facility] Plan: -Stroke workup completed -MRA brain: approx 50% stenosis of the prox basilar A. Stenoses are identified of the b/l ICA. There is approx 50% stenosis of the clinoid segment of the L ICA. Less than 50% stenoses are identifed on R ICA. Stenosis of M2 branch of the R MCA. Mild stenoses are visualized of the A1 segment of the left anterior cerebral A. Mild decrease in signal intensity in the distal left vertebral A suggestive of decreased flow. -CT head on admission: unremarkable -CTA head/neck: severe tortuosity of the internal carotids 4cm from bifurcation. There is a moderate degree of stenosis on the R with an associated calcified plaque. There is only mild stenosis on the L side. 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 mitral regurg is mild. -lipid profile wnl -f/u hypercoag workup -HHD -Fall risk -ASA and Plavix and Lipitor -Maintain normothermia and normotension -HoB above 30 -recommend physical therapy upon discharge -Continue management as per primary Discussed with Dr. Kelton Hinson PGY2
--- NOTE | 2017-12-20 13:58 | PN ---
DATE: 12/20/2017 SUBJECTIVE: The patient has no complaints of any chest pain. No shortness of breath. No headache. He says that his right leg is better since he came into the hospital and he is able to ambulate. PHYSICAL EXAMINATION: VITAL SIGNS: Temperature is 98, pulse is 62, blood pressure 149/74, respiration 14. GENERAL: The patient is lying in bed, flat, comfortable. HEENT: No oral lesion. Anicteric sclerae. Moist mucosa. NECK: No JVD, adenopathy, or thyromegaly. CARDIOVASCULAR: S1 and S2, regular. No murmurs, rubs, or gallops. LUNGS: Clear to auscultation bilaterally. No wheeze, rales, or rhonchi. ABDOMEN: Bowel sounds are positive, soft, nontender and nondistended. EXTREMITIES: No cyanosis, clubbing or edema. LABORATORY DATA: Have been reviewed. ASSESSMENT: 1. Acute cerebrovascular accident of left frontal lobe with left anterior cerebral artery involvement. 2. Coronary artery disease. 3. Diabetes type 2. 4. Peripheral neuropathy. 5. Dyslipidemia. 6. Chronic obstructive pulmonary disease. PLAN: The patient is currently comfortable. He says he is improving. He is getting physical therapy. He has a workup that is pending for secondary causes for hypercoagulable state. The patient is on Lasix daily. He is going to continue Lipitor for dyslipidemia. He is on metoprolol for his coronary artery disease. He is on oxycodone for pain. This will be continued. He is on Protonix daily. He is going to continue with Zoloft. He is on a heart-healthy diet. Discharge planning is ongoing for possible rehab, acute versus subacute. Agustín Valladares MD
[2017-12-20] MEDS: Nystatin 100,000 Units/gm Cream(15 gm) TOP SCH (17:57)
[2017-12-21 06:51] LABS: BASO # 0.03 K/mm3 (0.0-2.0); BASO % 0.6 % (0.0-3.0); EOS # 0.2 (0.0-0.7); EOS % 4.5 % (1.5-5.0); GRAN # 2.55 (1.4-6.5); GRAN % 54.1 % (50.0-68.0); HEMOGLOBIN 14.7 g/dL (14.0-18.0); LYMPH # 1.3 (1.2-3.4); LYMPH % 27.8 % (22.0-35.0); MEAN CELL VOLUME 88.6 fl (80.0-105.0); MEAN CORPUSCULAR HEMOGLOBIN 29.9 pg (25.0-35.0); MEAN CORPUSCULAR HGB CONC 33.8 g/dl (31.0-37.0); MEAN PLATELET VOLUME 10.9 fl (7.0-11.0); MONO # 0.6 (0.1-0.6); RBC 4.91 10^6/uL (3.5-6.1); WHITE BLOOD COUNT 4.7 10^3/ul (4.5-11.0)
[2017-12-21 07:01] LABS: ALB/GLOB RATIO 1.5 (1.1-1.8); ALT/SGPT 20 U/L (7-56); AST/SGOT 21 U/L (17-59); BLOOD UREA NITROGEN 17 mg/dL (7-21); CALCIUM 8.8 mg/dL (8.4-10.5); GFR AFRICAN-AMERICAN > 60; GFR NON-AFRICAN AMERICAN > 60
[2017-12-21] MEDS: Levalbuterol 1.25 MG/3 ML Inhal Soln UD IH SCH ×3 (07:21→20:40)
--- NOTE | 2017-12-21 07:40 | PN ---
DATE: 12/21/2017 PULMONARY NOTE SUBJECTIVE: The patient appears comfortable this morning. He is not short of breath at rest. OBJECTIVE: VITAL SIGNS: Temperature is 97.5, pulse 56, respirations 16/18, blood pressure 141/50. Oxygen saturation on room air is 97%. HEENT: Normocephalic, atraumatic. No JVD. CARDIOVASCULAR: Positive S1, S2. No S3 gallop. LUNGS: Clear bilaterally this morning. EXTREMITIES: No clubbing, cyanosis or edema. Calves are nontender to palpation. GASTROINTESTINAL: Abdomen is soft, nontender and nondistended. Bowel sounds are positive. SKIN: No acute rash. NEUROLOGIC: Exam limited at the present time./as per the Neuro team. IMPRESSION: 1. Acute cerebrovascular accident. 2. Chronic obstructive pulmonary disease. 3. Status post ventricular tachycardia. 4. Coronary artery disease. 5. Hypertension. 6. Diabetes mellitus. PLAN The patient appears comfortable this morning. He is not short of breath at rest. He does state to feeling much, much better overall. I did discuss the case with the night nurse at length. The night nurse stated that the patient had a very good night. They have been no additional runs of ventricular tachycardia. On physical exam, the patient's lungs are now clear. In addition, there is no significant alveolar-arterial gradient. Oxygen saturation on room air is now 97%. I will continue with the current nebulizer treatments for now. Again, I would like to obtain a pulmonary function test - when the patient is out of ICU. Inputs by Neurology and Cardiology are also noted. The clinical status of this patient is significantly improved overall. I will discuss the above with the entire ICU team in the next few moments. I will also discuss the above with the attending physician. Italo Gonzalez MD JUSTINA
[2017-12-21] MEDS: Insulin Lispro (humaLOG) LOW Coverage SC SCH ×3 (08:00→17:43)
[2017-12-21] MEDS: oxyCODONE 30 mg Immediate Release Tab PO PRN ×3 (08:16→21:15)
--- NOTE | 2017-12-21 08:16 | CP.PCM.PN ---
Subjective - Date & Time of Evaluation Date of Evaluation: 12/21/17 Time of Evaluation: 09:30 - Subjective Subjective: PGY2 Neuro Progress note for Dr. Melara Patient seen and examined OOB to chair. No acute events overnight. Patient denied acute complaints of headache, dizziness, focal weakness, blurry vision, chest pain, palpitations, SOB, cough, abd pain, nausea, vomiting, bowel/bladder complaints, pain/swelling in his legs b/l. Objective - Vital Signs/Intake and Output Vital Signs (last 24 hours): Temp Pulse Resp BP Pulse Ox 97.5 F L 56 L 26 H 141/50 L 97 12/21/17 04:00 12/21/17 06:00 12/21/17 06:00 12/21/17 06:01 12/20/17 16:00 Intake and Output: 12/21/17 12/21/17 06:59 18:59 Intake Total 300 Output Total 1750 Balance -1450 - Medications Medications: Current Medications Aspirin (Aspirin Chewable) 81 mg PO DAILY [facility] Last Admin: 12/20/17 09:32 Dose: 81 mg Atorvastatin Calcium (Lipitor) 10 mg PO DAILY [facility] Last Admin: 12/20/17 09:32 Dose: 10 mg Clonazepam (Klonopin) 0.5 mg PO HS [facility] PRN Reason: Protocol Last Admin: 12/20/17 22:03 Dose: 0.5 mg Clopidogrel Bisulfate (Plavix) 75 mg PO DAILY [facility] Last Admin: 12/20/17 09:32 Dose: 75 mg Furosemide (Lasix) 40 mg PO BID [facility] Last Admin: 12/20/17 17:56 Dose: 40 mg Insulin Human Lispro (Humalog Low) 0 units SC ACHS [facility] PRN Reason: Protocol Last Admin: 12/20/17 22:02 Dose: Not Given Levalbuterol HCl (Xopenex) 1.25 mg IH TIDRESP [facility] Last Admin: 12/21/17 07:21 Dose: 1.25 mg Metoprolol Tartrate (Lopressor) 25 mg PO BRKDIN [facility] Last Admin: 12/20/17 17:57 Dose: 25 mg Nystatin (Mycostatin Cream) 1 ea TOP TID [facility] Last Admin: 12/20/17 17:57 Dose: Not Given Oxycodone HCl (Oxycodone Immediate Release Tab) 30 mg PO QID PRN PRN Reason: Pain, severe (8-10) Last Admin: 12/20/17 18:02 Dose: 30 mg Pantoprazole Sodium (Protonix Ec Tab) 40 mg PO ACB [facility] Last Admin: 12/20/17 07:49 Dose: 40 mg Sertraline HCl (Zoloft) 50 mg PO DAILY [facility] Last Admin: 12/20/17 09:32 Dose: 50 mg - Labs Labs: 12/21/17 05:55 12/21/17 05:55 PT 10.9 SECONDS (9.4-12.5) 12/17/17 14:45 INR 0.96 (0.93-1.08) 12/17/17 14:45 APTT 29.9 Seconds (25.1-36.5) 12/17/17 14:45 - Constitutional Appears: Non-toxic, No Acute Distress - Head Exam Head Exam: ATRAUMATIC, NORMAL INSPECTION, NORMOCEPHALIC - Eye Exam Eye Exam: EOMI, Normal appearance, PERRL. absent: Conjunctival injection, Scleral icterus - ENT Exam ENT Exam: Mucous Membranes Moist - Neck Exam Neck Exam: Full ROM - Respiratory Exam Respiratory Exam: NORMAL BREATHING PATTERN. absent: Accessory Muscle Use, Respiratory Distress - Cardiovascular Exam Cardiovascular Exam: +S1, +S2 - GI/Abdominal Exam GI & Abdominal Exam: Soft. absent: Tenderness - Rectal Exam Rectal Exam: Deferred - Neurological Exam Neurological Exam: Alert, Awake, CN II-XII Intact, Normal Gait, Oriented x3 Neuro motor strength exam: Left Upper Extremity: 5, Right Upper Extremity: 5, Left Lower Extremity: 5, Right Lower Extremity: 5 - Psychiatric Exam Psychiatric exam: Normal Affect, Normal Mood - Skin Skin Exam: Dry, Intact, Normal Color, Warm Assessment and Plan - Assessment and Plan (Free Text) Assessment: 62yo male PMHx sCHF, DM, HTN, COPD, chronic pain syndrome, and peripheral neuropathy presented this AM from PMD Dr. Dior's office s/p witnessed fall. Patient admitted to MICU for further management and now transferred to [facility] Plan: -Stroke workup completed -MRA brain: approx 50% stenosis of the prox basilar A. Stenoses are identified of the b/l ICA. There is approx 50% stenosis of the clinoid segment of the L ICA. Less than 50% stenoses are identifed on R ICA. Stenosis of M2 branch of the R MCA. Mild stenoses are visualized of the A1 segment of the left anterior cerebral A. Mild decrease in signal intensity in the distal left vertebral A suggestive of decreased flow. -CT head on admission: unremarkable -CTA head/neck: severe tortuosity of the internal carotids 4cm from bifurcation. There is a moderate degree of stenosis on the R with an associated calcified plaque. There is only mild stenosis on the L side. 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 mitral regurg is mild. -lipid profile wnl -f/u hypercoag workup -HHD -Fall risk -ASA and Plavix and Lipitor -Maintain normothermia and normotension -HoB above 30 -recommend physical therapy upon discharge -Continue management as per primary Discussed with Dr. Kelton Hinson PGY2
[2017-12-21] MEDS: Pantoprazole 40 mg EC Tab PO SCH (08:24)
--- NOTE | 2017-12-21 09:05 | CP.PCM.PN ---
Subjective - Date & Time of Evaluation Date of Evaluation: 12/21/17 Time of Evaluation: 07:00 - Subjective Subjective: Stable in CCU. He feels better. No CP or SOB. No leg weakness. + amb. in unit yesterday. V/S noted. RSR/S. Mohan PE: Lungs: clear Cor.: S1S2 Abd.: soft Ext.: no edema Neuro.: alert I/O= 1020/2600 Labs noted. Echo: Mod LVD, Mild AI and MR. See full report Objective - Vital Signs/Intake and Output Vital Signs (last 24 hours): Temp Pulse Resp BP Pulse Ox 97.5 F L 56 L 26 H 141/50 L 97 12/21/17 04:00 12/21/17 06:00 12/21/17 06:00 12/21/17 06:01 12/20/17 16:00 Intake and Output: 12/21/17 12/21/17 06:59 18:59 Intake Total 300 Output Total 1750 Balance -1450 - Medications Medications: Current Medications Aspirin (Aspirin Chewable) 81 mg PO DAILY [facility] Last Admin: 12/20/17 09:32 Dose: 81 mg Atorvastatin Calcium (Lipitor) 10 mg PO DAILY [facility] Last Admin: 12/20/17 09:32 Dose: 10 mg Clonazepam (Klonopin) 0.5 mg PO HS [facility] PRN Reason: Protocol Last Admin: 12/20/17 22:03 Dose: 0.5 mg Clopidogrel Bisulfate (Plavix) 75 mg PO DAILY [facility] Last Admin: 12/20/17 09:32 Dose: 75 mg Furosemide (Lasix) 40 mg PO BID [facility] Last Admin: 12/20/17 17:56 Dose: 40 mg Insulin Human Lispro (Humalog Low) 0 units SC ACHS [facility] PRN Reason: Protocol Last Admin: 12/20/17 22:02 Dose: Not Given Levalbuterol HCl (Xopenex) 1.25 mg IH TIDRESP [facility] Last Admin: 12/21/17 07:21 Dose: 1.25 mg Metoprolol Tartrate (Lopressor) 25 mg PO BRKDIN [facility] Last Admin: 12/20/17 17:57 Dose: 25 mg Nystatin (Mycostatin Cream) 1 ea TOP TID [facility] Last Admin: 12/20/17 17:57 Dose: Not Given Oxycodone HCl (Oxycodone Immediate Release Tab) 30 mg PO QID PRN PRN Reason: Pain, severe (8-10) Last Admin: 12/21/17 08:16 Dose: 30 mg Pantoprazole Sodium (Protonix Ec Tab) 40 mg PO ACB [facility] Last Admin: 12/21/17 08:24 Dose: 40 mg Sertraline HCl (Zoloft) 50 mg PO DAILY [facility] Last Admin: 12/20/17 09:32 Dose: 50 mg - Labs Labs: 12/21/17 05:55 12/21/17 05:55 PT 10.9 SECONDS (9.4-12.5) 12/17/17 14:45 INR 0.96 (0.93-1.08) 12/17/17 14:45 APTT 29.9 Seconds (25.1-36.5) 12/17/17 14:45 Assessment and Plan - Assessment and Plan (Free Text) Assessment: Fall with right LE weakness, resolved CVA CVD CAD/LVD/remote PCI Diabetes COPD/Smoker. PAD/PVI PN Plan: Transfer from CCU. Med/Surg bed would be OK. OOB ad sarah Continue cardiac meds As per Neuro. D/C smoking! Home soon. Out-pt cardiology F/U suggested.
[2017-12-21] MEDS: Nystatin 100,000 Units/gm Cream(15 gm) TOP SCH ×5 (10:30→17:40)
[2017-12-21 21:08] LABS: PHOSPHATIDYLSERINE AB IGG <10 U/mL (<10); PHOSPHATIDYLSERINE AB IGM <25 U/mL (<25)
[2017-12-21 21:54] LABS: CARDIOLIPIN AB (IGA) <11 APL (<=11); CARDIOLIPIN AB (IGG) <14 GPL (<=14); CARDIOLIPIN AB (IGM) <12 MPL (<=12)
--- NOTE | 2017-12-21 23:48 | PN ---
DATE: 12/21/2017 SUBJECTIVE: A 62-year-old male, status post stroke. The patient is currently on the coronary care unit awaiting a bed on the medical floor. PHYSICAL EXAMINATION VITAL SIGNS: His temperature is 98.7, his pulse is 55. LUNGS: Clear. HEART: Is in S1 and S2 rhythm. ABDOMEN: Soft with positive bowel sounds. EXTREMITIES: Show no evidence of edema. NEUROLOGIC: He is alert and oriented x3. There are no focal deficits at this time. LABORATORY DATA: WBC is 4.7, RBC 4.91, hemoglobin 14.7, 243. Chemistry: His random blood sugar is 128. His electrolytes are normal. MEDICATIONS: His current medications consist of Ecotrin, Klonopin, Lasix, Lipitor, Lopressor, nystatin, oxycodone immediate release, Plavix, Protonix, Xopenex and Zoloft. ASSESSMENT AND PLAN: The patient is status post stroke, initially he had weakness on the right side, which has resolved. Input from the individual consultants consisting of Cardiology, Pulmonary and Neurology have been appreciated and noted. The patient has been advised that he might benefit from going to rehab, but at this time, he is declining. We will continue current level of care at this time. We will follow the patient closely. Physical and occupational therapy have been requested. Sandy Stoll MD
[2017-12-22 03:28] LABS: B2 GLYCOPROTEIN I AB(IGA) <9 SAU (<=20); B2 GLYCOPROTEIN I AB(IGG) <9 SGU (<=20); B2 GLYCOPROTEIN I AB(IGM) <9 SMU (<=20); PHOSPHATIDYLSERINE AB IGA <20 U/mL (<20)
[2017-12-22] MEDS: oxyCODONE 30 mg Immediate Release Tab PO PRN ×3 (07:37→20:12)
[2017-12-22] MEDS: Insulin Lispro (humaLOG) LOW Coverage SC SCH ×5 (07:38→21:53)
[2017-12-22] MEDS: Levalbuterol 1.25 MG/3 ML Inhal Soln UD IH SCH (08:28)
[2017-12-22] MEDS: Pantoprazole 40 mg EC Tab PO SCH (09:04)
[2017-12-22] MEDS: Nystatin 100,000 Units/gm Cream(15 gm) TOP SCH ×3 (10:52→17:37)
--- NOTE | 2017-12-22 12:03 | PN ---
DATE: 12/22/2017 SUBJECTIVE: The patient has no complaints of any chest pain. No shortness of breath. No headaches. PHYSICAL EXAMINATION: VITAL SIGNS: Temperature is 97.8, pulse of 63, blood pressure 150/84, respirations 19. GENERAL: The patient is lying in bed, flat, comfortable. HEENT: No oral lesion. Anicteric sclerae. Moist mucosa. NECK: No JVD, adenopathy, or thyromegaly. CARDIOVASCULAR: S1 and S2, regular. No murmurs, rubs, or gallops. LUNGS: Clear to auscultation bilaterally. No wheeze, rales, or rhonchi. ABDOMEN: Bowel sounds are positive, soft, nontender and nondistended. EXTREMITIES: No cyanosis, clubbing or edema. LABORATORY DATA: Creatinine 0.9. ASSESSMENT: 1. Acute cerebrovascular accident of the left frontal lobe with left anterior cerebral artery involvement. 2. Coronary artery disease. 3. Diabetes type 2. 4. Peripheral neuropathy. 5. Dyslipidemia. 6. Chronic obstructive pulmonary disease. 7. Chronic back pain. PLAN: The patient is currently comfortable. He says he is able to ambulate. He is on aspirin for his stroke. He is on losartan for his hypertension. He is on Lasix daily. He is on Lipitor for dyslipidemia. The patient is going to continue with oxycodone for his pain. I will renew his pain medications. He is on Zoloft, this will be continued. He is getting physical therapy. Agustín Valladares MD
--- NOTE | 2017-12-22 13:23 | PN ---
DATE: 12/22/2017 SUBJECTIVE: The patient is seen sitting in a chair on remote telemetry. He is comfortable at the present time. He denies any chest pain or recurrent neurologic symptoms. MEDICATIONS: His current medications include aspirin, insulin coverage, Klonopin, Lasix 40 mg b.i.d., Lipitor 10 mg daily, metoprolol 25 mg b.i.d., oxycodone p.r.n., Plavix 75 mg daily, Protonix, Xopenex and Zoloft. PHYSICAL EXAMINATION GENERAL: He is an overweight middle-aged man. VITAL SIGNS: His blood pressure is 150/84, the pulse of 62 and sinus, respirations are 16. He is afebrile. HEENT: No JVD. CHEST: A few scattered rhonchi heard. HEART: PMI displaced laterally with soft systolic murmur noted at the apex. ABDOMEN: Soft, nontender, normoactive bowel sounds. EXTREMITIES: No edema. DIAGNOSTIC DATA: No blood work pending from this morning. IMPRESSION: 1. Status post recent transient ischemic attack, clinically improved. 2. Known coronary artery disease status post remote percutaneous coronary intervention. 3. Moderate left ventricular dysfunction. 4. History of diabetes and hypertension with suboptimal control of hypertension at present. 5. Active tobacco abuse. RECOMMENDATIONS: His current medications will be continued for now. Given his hypertension and LV dysfunction, angiotensin receptor osmani should be added to his regimen. Smoking abstinence was strongly encouraged. Continue risk factor control is advised as well and outpatient followup will be arranged. Marcus Cadet MD
--- NOTE | 2017-12-22 16:15 | PN ---
DATE: 12/22/2017 PULMONARY PROGRESS NOTE SUBJECTIVE: The patient is markedly improved. He denies respiratory complaints. There is no cough or expectoration. OBJECTIVE: VITAL SIGNS: Stable. Afebrile, pulse 60, respiratory rate 16, blood pressure 140/60, O2 sat 97% on room air. HEENT: Normocephalic and atraumatic. CARDIOVASCULAR: Regular rhythm. S1 and S2 without murmur, gallop, or rub. LUNGS: Clear to percussion and auscultation. Prolonged expiratory phase. ABDOMEN: Soft. Bowel sounds are normoactive without mass, guarding, rebound or organomegaly. EXTREMITIES: Reveal no clubbing, cyanosis, or edema. There is no Alexandro sign. SKIN: No rash or excoriations. NEUROLOGIC: No focal findings. IMPRESSION: 1. Status post cerebrovascular event. 2. Chronic obstructive pulmonary disease. 3. Status post ventricular tachycardia. PLAN: The patient will be discharged shortly. He will require followup neurologic evaluations and treatment. There is impression that the patient will require home inhalation therapy including bronchodilators and inhaled corticosteroids. A new pulmonary function test should be done once the patient is stabilized. The degree of airflow limitations and volume abnormalities needs to be addressed to obtain a correct inhaled bronchodilators. Strongly suggest that the patient see Dr. Gonzalez as an outpatient to make sure that further pulmonary symptoms are addressed. We will be happy to see the patient again as necessary and discuss discharge medications, please feel free to contact. We will be happy to evaluate further as necessary. Perfecto Soriano MD MTDD
[2017-12-22] MEDS: Budesonide 0.5 mg/2 ml Inhal Susp UD IH SCH (20:20)
[2017-12-22] MEDS: Arformoterol 15 mcg/2 ml Inh Sol IH SCH (20:20)
[2017-12-22] MEDS ORDERED: Fluticasone-Salmeterol 250-50mcg Diskus IH SCH (22:00)
--- NOTE | 2017-12-23 06:27 | CP.PCM.PN ---
Subjective - Date & Time of Evaluation Date of Evaluation: 12/23/17 Time of Evaluation: 06:24 - Subjective Subjective: Mr. Heredia was seen and examined at the bedside. He remains alert, oriented in all spheres. He denies any headache, lightheadedness, nausea, or vomiting. He further claims of ambulating within his room in steady gait. He is able to follow all simple commands. There was no untoward events overnight. Objective - Vital Signs/Intake and Output Vital Signs (last 24 hours): Temp Pulse Resp BP Pulse Ox 98.1 F 54 L 20 105/50 L 98 12/22/17 16:00 12/22/17 17:36 12/22/17 16:00 12/22/17 17:36 12/22/17 16:00 Intake and Output: 12/22/17 12/23/17 18:59 06:59 Intake Total 1380 Output Total 425 850 Balance 955 -850 - Medications Medications: Current Medications Arformoterol Tartrate (Brovana) 15 mcg IH [id number] [facility] Last Admin: 12/22/17 20:20 Dose: 15 mcg Aspirin (Aspirin Chewable) 81 mg PO DAILY [facility] Last Admin: 12/22/17 10:45 Dose: 81 mg Atorvastatin Calcium (Lipitor) 10 mg PO DAILY [facility] Last Admin: 12/22/17 10:45 Dose: 10 mg Budesonide (Pulmicort Respules) 0.5 mg IH [id number] [facility] Last Admin: 12/22/17 20:20 Dose: 0.5 mg Clonazepam (Klonopin) 0.5 mg PO HS [facility] PRN Reason: Protocol Last Admin: 12/22/17 21:57 Dose: 0.5 mg Clopidogrel Bisulfate (Plavix) 75 mg PO DAILY [facility] Last Admin: 12/22/17 10:44 Dose: 75 mg Furosemide (Lasix) 40 mg PO BID [facility] Last Admin: 12/22/17 17:35 Dose: Not Given Insulin Human Lispro (Humalog Low) 0 units SC [facility] PRN Reason: Protocol Last Admin: 12/22/17 21:53 Dose: Not Given Losartan Potassium (Cozaar) 50 mg PO DAILY [facility] Last Admin: 12/22/17 10:44 Dose: 50 mg Metoprolol Tartrate (Lopressor) 25 mg PO BRKDIN [facility] Last Admin: 12/22/17 17:36 Dose: Not Given Nystatin (Mycostatin Cream) 1 ea TOP TID [facility] Last Admin: 12/22/17 17:37 Dose: 1 applic Oxycodone HCl (Oxycodone Immediate Release Tab) 30 mg PO QID PRN PRN Reason: Pain, severe (8-10) Last Admin: 12/22/17 20:12 Dose: 30 mg Pantoprazole Sodium (Protonix Ec Tab) 40 mg PO ACB [facility] Last Admin: 12/22/17 09:04 Dose: 40 mg Sertraline HCl (Zoloft) 50 mg PO DAILY [facility] Last Admin: 12/22/17 10:45 Dose: 50 mg - Labs Labs: 12/21/17 05:55 12/21/17 05:55 PT 10.9 SECONDS (9.4-12.5) 12/17/17 14:45 INR 0.96 (0.93-1.08) 12/17/17 14:45 APTT 29.9 Seconds (25.1-36.5) 12/17/17 14:45 - Constitutional Appears: No Acute Distress - Head Exam Head Exam: NORMAL INSPECTION - Neurological Exam Neurological Exam: Alert, Awake, CN II-XII Intact, Oriented x3 Neuro motor strength exam: Left Upper Extremity: 5, Right Upper Extremity: 5, Left Lower Extremity: 5, Right Lower Extremity: 5 Additional comments: AOx3, follows allcommands, and sensation is intact. Assessment and Plan (1) Cerebrovascular accident Assessment & Plan: Case discussed with Dr. Melara, continue all current medical, physical, and occupational therapies. Recommend head of bed elevated at least 30 degrees, blood pressure,and glycemic control. Recommend treating the HGBA1C 0of 8.3 and a follow up with either Dr. Quinn/ Kelton at [address] [facility] [address] [facility] [id number] Status: Acute
[2017-12-23 07:46] LABS: BASO # 0.03 K/mm3 (0.0-2.0); BASO % 0.7 % (0.0-3.0); EOS # 0.2 (0.0-0.7); EOS % 4.2 % (1.5-5.0); GRAN # 2.28 (1.4-6.5); GRAN % 53.7 % (50.0-68.0); HEMOGLOBIN 13.5 g/dL (14.0-18.0); LYMPH # 1.3 (1.2-3.4); LYMPH % 30.1 % (22.0-35.0); MEAN CELL VOLUME 88.2 fl (80.0-105.0); MEAN CORPUSCULAR HEMOGLOBIN 29.9 pg (25.0-35.0); MEAN CORPUSCULAR HGB CONC 33.9 g/dl (31.0-37.0); MEAN PLATELET VOLUME 11.1 fl (7.0-11.0); MONO # 0.5 (0.1-0.6); MONO % 11.3 % (1.0-6.0); RBC 4.51 10^6/uL (3.5-6.1); RED CELL DISTRIBUTION WIDTH 12.9 % (11.5-14.5); WHITE BLOOD COUNT 4.3 10^3/ul (4.5-11.0)
[2017-12-23 08:03] LABS: ALB/GLOB RATIO 1.4 (1.1-1.8); ALBUMIN 3.7 g/dL (3.0-4.8); ALT/SGPT 24 U/L (7-56); AST/SGOT 23 U/L (17-59); BLOOD UREA NITROGEN 21 mg/dL (7-21); CALCIUM 8.8 mg/dL (8.4-10.5); GFR AFRICAN-AMERICAN > 60; GFR NON-AFRICAN AMERICAN > 60
[2017-12-23] MEDS: Arformoterol 15 mcg/2 ml Inh Sol IH SCH ×2 (08:06→19:51)
[2017-12-23] MEDS: Budesonide 0.5 mg/2 ml Inhal Susp UD IH SCH ×2 (08:06→19:35)
[2017-12-23] MEDS: Nystatin 100,000 Units/gm Cream(15 gm) TOP SCH (09:03)
[2017-12-23] MEDS: Pantoprazole 40 mg EC Tab PO SCH (09:04)
[2017-12-23] MEDS: oxyCODONE 30 mg Immediate Release Tab PO PRN ×3 (09:04→20:29)
[2017-12-23] MEDS: Insulin Lispro (humaLOG) LOW Coverage SC SCH ×4 (09:21→21:59)
--- NOTE | 2017-12-23 14:01 | PN ---
DATE: 12/23/2017 SUBJECTIVE: The patient is resting comfortably this morning, offers no specific complaints at this time. Nursing staff relates that there were no particular problems during the day or night. PHYSICAL EXAMINATION: VITAL SIGNS: His temperature is 97.5, his pulse is 50, his blood pressure is 134/70. GENERAL: He is alert and oriented x3. LUNGS: Clear. HEART: S1 and S2 rhythm. ABDOMEN: Soft with positive bowel sounds. EXTREMITIES: There is no evidence of edema. LABORATORY DATA: Shows a WBC of 4.3, RBC of 4.51, hemoglobin 13.5, hematocrit 39.8, platelet count 219. Chemistry shows normal electrolytes. The BUN is 21, the creatinine is 1. His random blood sugar is 161. His calcium is 8.8. His LFTs are normal. His albumin is 3.7. CURRENT MEDICATIONS: Consist of Ecotrin 81 mg daily, Brovana 15 mcg every 12 hours, Cozaar 50 mg daily, sliding insulin scale, Klonopin 0.5 mg at bedtime, Lasix 40 mg b.i.d., Lipitor 10 mg daily, Lopressor 25 mg twice a day, Mycostatin topically t.i.d. He is on oxycodone IR MS 30 mg four times a day p.r.n. for severe pain, Plavix 75 mg daily, Protonix 40 mg daily, budesonide 0.5 mg every 12 hours, and Zoloft 50 mg daily. ASSESSMENT: 1. Status post acute stroke. 2. Uoj-frfikjt-iuvojizkt diabetes, hemoglobin A1c is 8.3. 3. Coronary artery disease with remote stent placement. 4. Peripheral vascular disease. 5. Chronic pain syndrome. 6. Chronic obstructive pulmonary disease. 7. Depression. PLAN: 1. We will order pulmonary function tests as requested by pulmonary and review pulmonary medications. 2. Neurology note noted and appreciated. 3. The patient has been placed on an angiotensin receptor osmani by police superintendent because of hypertension and LV dysfunction. 4. He has been encouraged to discontinue his smoking. 5. He has been strongly encouraged to comply with outpatient followup. We will continue current medical care pending pulmonary function tests and adjustment of his breathing and pulmonary medications. The patient has been advised that he would best benefit from physical therapy as per the recommendations of the individual consultants. Sandy Stoll MD
[2017-12-23 18:35] VITALS: O2SAT 95
--- NOTE | 2017-12-23 19:22 | CON ---
DATE: ENDOCRINOLOGY CONSULTATION LOCATION: Room 368. HISTORY OF PRESENT ILLNESS: This is a 62-year-old male with known history of type 2 diabetes and hypertension, presenting here with sudden fall in the doctor's office and supervening right-sided weakness and has been evaluated to have a possible transient ischemic event and is currently undergoing neurological workup at this time and is being referred for diabetic evaluation and management. PAST MEDICAL HISTORY: As mentioned above, history of type 2 diabetes, currently on metformin, given as 850 mg b.i.d., history of hypertensive cardiovascular disease and dyslipidemia, history of coronary artery disease with previous coronary stent placements and also previous admissions for congestive heart failure, history of chronic obstructive lung disease unrelated to nicotine dependence, history of lumbar disc disease and diffuse osteoarthritis with chronic pain syndrome. He had also the previous knee replacement as noted. FAMILY HISTORY: Positive for hypertension and heart disease. SOCIAL HISTORY: The patient admits to smoking a pack a day for many years now, has a very supportive family otherwise. REVIEW OF SYSTEMS: Admits to generalized body weakness with easy fatigability and tiredness and suboptimal energy level. On the day of admission while he was at the doctor's office, he suddenly felt weakness in the lower extremity and had a subsequent fall, but did not lose any consciousness at that time. No chest pains or palpitations, but admits to exertional fatigue and tiredness. His oral intake has been variable with occasional dyspepsia and admits to habitual constipation. PHYSICAL EXAMINATION: VITAL SIGNS: Average built male, in no apparent distress with a blood pressure of 140/80, pulse of 70 beats per minute and regular, temperature 98, respirations 20. Height is 5 feet 6 inches, weight is 189 pounds. HEENT: Head: Normocephalic. Eyes: Anicteric with pink conjunctivae. Funduscopy is not possible at this time. Ears, nose and throat otherwise normal. NECK: Supple. Thyroid gland is normal in size. No carotid bruits or cervical adenopathy. CARDIOPULMONARY: Some adynamic precordium. S1, S2 is rapid and regular. LUNGS: Clear to auscultation. ABDOMEN: Flat, soft with positive bowel sounds. EXTREMITIES: There is +2 bipedal edema. Pulses are +2 bilaterally. LABORATORY DATA: The chemistry showed a BUN of 21, sodium 137, potassium 4.4, chloride 99, CO2 30, glucose 161 and creatinine 1. ASSESSMENT: This is a 62-year-old male with known history of type 2 diabetes and hypertension, presenting with a sudden fall with associated right-sided weakness that has resolved and improved at this time and the possibility of a transient ischemic event is being worked up at this point. He also has diabetic polyneuropathy and lower extremity edema as noted with significant coronary artery disease and peripheral arterial disease and vasculopathy. PLAN OF MANAGEMENT: We will continue the low-dose correction scale using Humalog insulin coverage as ordered and start him on a low-dose of Amaryl given as 2 mg p.o. b.i.d. before meals. With the CAT scan procedure done, we have to hold metformin therapy at this time as noted for at least 48 hours post CAT scan procedure as given. We will obtain a hemoglobin A1c to confirm his prior glycemic control and baseline thyroid function studies will be ordered. A lipid panel will also be undertaken. We will reinforce diabetic education and dietary instructions at the time of this admission. We will follow. Lara Alves MD
[2017-12-24 07:36] LABS: ALB/GLOB RATIO 1.5 (1.1-1.8); ALT/SGPT 18 U/L (7-56); AST/SGOT 20 U/L (17-59); BLOOD UREA NITROGEN 21 mg/dL (7-21); GFR AFRICAN-AMERICAN > 60; GFR NON-AFRICAN AMERICAN > 60; HDL CHOLESTEROL 51 mg/dL (29-60)
[2017-12-24 07:50] LABS: LDL CHOLESTEROL 96 mg/dL (0-129)
[2017-12-24 08:04] VITALS: PULSE 95; RESP 18; TEMP 98.2
[2017-12-24] MEDS: Budesonide 0.5 mg/2 ml Inhal Susp UD IH SCH (08:04)
[2017-12-24] MEDS: Arformoterol 15 mcg/2 ml Inh Sol IH SCH (08:04)
[2017-12-24] MEDS: Insulin Lispro (humaLOG) LOW Coverage SC SCH (08:05)
--- NOTE | 2017-12-24 08:09 | CP.PCM.PN ---
Subjective - Date & Time of Evaluation Date of Evaluation: 12/24/17 Time of Evaluation: 07:00 - Subjective Subjective: Stable on 3R. He feels better. No CP or SOB. No leg weakness. V/S noted. P = 52 PE: Lungs: clear Cor.: S1S2 Abd.: soft Ext.: no edema Neuro.: alert Labs 12/23, 12/24 noted. BSs noted Echo: Mod LVD, Mild AI and MR. See full report Objective - Vital Signs/Intake and Output Vital Signs (last 24 hours): Temp Pulse Resp BP Pulse Ox 97.9 F 52 L 20 140/58 L 95 12/23/17 16:00 12/23/17 17:36 12/23/17 16:00 12/23/17 17:48 12/23/17 16:00 Intake and Output: 12/24/17 12/24/17 06:59 18:59 Intake Total 820 Output Total 1000 Balance -180 - Medications Medications: Current Medications Arformoterol Tartrate (Brovana) 15 mcg IH [id number] [facility] Last Admin: 12/23/17 19:51 Dose: 15 mcg Aspirin (Aspirin Chewable) 81 mg PO DAILY [facility] Last Admin: 12/23/17 09:02 Dose: 81 mg Atorvastatin Calcium (Lipitor) 10 mg PO DAILY [facility] Last Admin: 12/23/17 09:03 Dose: 10 mg Budesonide (Pulmicort Respules) 0.5 mg IH [id number] [facility] Last Admin: 12/23/17 19:35 Dose: 0.5 mg Clonazepam (Klonopin) 0.5 mg PO HS [facility] PRN Reason: Protocol Last Admin: 12/23/17 21:59 Dose: 0.5 mg Clopidogrel Bisulfate (Plavix) 75 mg PO DAILY [facility] Last Admin: 12/23/17 09:03 Dose: 75 mg Furosemide (Lasix) 40 mg PO BID [facility] Last Admin: 12/23/17 17:48 Dose: 40 mg Glimepiride (Amaryl) 2 mg PO ACBD [facility] Last Admin: 12/23/17 17:48 Dose: 2 mg Insulin Human Lispro (Humalog Low) 0 units SC ACHS [facility] PRN Reason: Protocol Last Admin: 12/23/17 21:59 Dose: Not Given Losartan Potassium (Cozaar) 50 mg PO DAILY [facility] Last Admin: 12/23/17 09:02 Dose: 50 mg Metoprolol Tartrate (Lopressor) 25 mg PO BRKDIN [facility] Last Admin: 12/23/17 17:36 Dose: Not Given Nystatin (Mycostatin Cream) 1 ea TOP TID [facility] Last Admin: 12/23/17 09:03 Dose: 1 applic Oxycodone HCl (Oxycodone Immediate Release Tab) 30 mg PO QID PRN PRN Reason: Pain, severe (8-10) Last Admin: 12/23/17 20:29 Dose: 30 mg Pantoprazole Sodium (Protonix Ec Tab) 40 mg PO ACB [facility] Last Admin: 12/23/17 09:04 Dose: 40 mg Potassium Chloride (K-Dur 20 Meq Er Tab) 20 meq PO BID [facility] Sertraline HCl (Zoloft) 50 mg PO DAILY [facility] Last Admin: 12/23/17 09:04 Dose: 50 mg - Labs Labs: 12/23/17 07:30 12/24/17 06:00 PT 10.9 SECONDS (9.4-12.5) 12/17/17 14:45 INR 0.96 (0.93-1.08) 12/17/17 14:45 APTT 29.9 Seconds (25.1-36.5) 12/17/17 14:45 Assessment and Plan - Assessment and Plan (Free Text) Assessment: Fall with right LE weakness, resolved CVA CVD CD/LVD/remote PCI Diabetes COPD/Smoker. PAD/PVI PN Plan: OOB ad sarah Continue cardiac meds. Resume PO KCL. As per Neuro., Endo., Pulmonary, and Books D/C smoking! D/C home today planned. Cardiology F/U offered to patient.
[2017-12-24] MEDS: oxyCODONE 30 mg Immediate Release Tab PO PRN (08:13)
[2017-12-24] MEDS: Pantoprazole 40 mg EC Tab PO SCH (08:22)
[2017-12-24 08:23] VITALS: BP 142/75
--- NOTE | 2017-12-24 08:48 | PN ---
DATE: 12/24/2017 PULMONARY NOTE SUBJECTIVE: The patient appears comfortable this morning. He is not short of breath at rest. OBJECTIVE: VITAL SIGNS (last noted in the computer): Temperature is 97.9, pulse 52, respirations 18/20, blood pressure 140/58. Oxygen saturation on room air is 95%. HEENT: Normocephalic, atraumatic. No JVD. CARDIOVASCULAR: Positive S1, S2. No S3 gallop. LUNGS: Clear bilaterally. EXTREMITIES: No clubbing, cyanosis or edema. Calves are nontender to palpation. GI: Abdomen is soft, nontender and nondistended. Bowel sounds are positive. SKIN: No acute rash. NEUROLOGIC: Exam limited at the present time./as per the Neurology team. IMPRESSION: 1. Acute cerebrovascular accident. 2. Chronic obstructive pulmonary disease. 3. Status post ventricular tachycardia. 4. Coronary artery disease. 5. Hypertension. 6. Diabetes mellitus. PLAN: The patient appears comfortable this morning. He is not short of breath at rest. He does state to feeling much better overall. On physical exam, his lungs are clear. In addition, the oxygen saturation on room air is 95%. I will continue with the current pulmonary medications (changed over the weekend) for now. Pulmonary function testing is ordered. I will check that when feasible. I would continue with the cardiology and neurologic evaluations. Inputs are noted. Clinical status of the patient is significantly improved overall. I will discuss the above with Dr. Stoll. Italo Gonzalez MD MTDD
--- NOTE | 2017-12-24 09:06 | CP.PCM.PN ---
Subjective - Date & Time of Evaluation Date of Evaluation: 12/24/17 Time of Evaluation: 07:45 - Subjective Subjective: PGY2 Neuro Progress note for Dr. Melara Patient seen and examined OOB to chair eating his breakfast. Nursing reports no acute events overnight. Patient denied acute complaints of fever, chills, headache, dizziness, chest pain, palpitations, SOB, cough, abd pain, nausea, vomiting, bowel/bladder complaints, pain/swelling in his legs b/l, focal weakness, and numbness/tingling. He is tolerating diet, ambulating around the room, and working with PT. Patient is eager to be discharged. Objective - Vital Signs/Intake and Output Vital Signs (last 24 hours): Temp Pulse Resp BP Pulse Ox 98.2 F 95 H 18 142/75 95 12/24/17 08:04 12/24/17 08:22 12/24/17 08:04 12/24/17 08:22 12/24/17 08:04 Intake and Output: 12/24/17 12/24/17 06:59 18:59 Intake Total 820 Output Total 1000 Balance -180 - Medications Medications: Current Medications Arformoterol Tartrate (Brovana) 15 mcg IH [id number] [facility] Last Admin: 12/24/17 08:04 Dose: 15 mcg Aspirin (Aspirin Chewable) 81 mg PO DAILY [facility] Last Admin: 12/23/17 09:02 Dose: 81 mg Atorvastatin Calcium (Lipitor) 10 mg PO DAILY [facility] Last Admin: 12/23/17 09:03 Dose: 10 mg Budesonide (Pulmicort Respules) 0.5 mg IH [id number] [facility] Last Admin: 12/24/17 08:04 Dose: 0.5 mg Clonazepam (Klonopin) 0.5 mg PO HS [facility] PRN Reason: Protocol Last Admin: 12/23/17 21:59 Dose: 0.5 mg Clopidogrel Bisulfate (Plavix) 75 mg PO DAILY [facility] Last Admin: 12/23/17 09:03 Dose: 75 mg Furosemide (Lasix) 40 mg PO BID [facility] Last Admin: 12/23/17 17:48 Dose: 40 mg Glimepiride (Amaryl) 2 mg PO ACBD [facility] Last Admin: 12/23/17 17:48 Dose: 2 mg Insulin Human Lispro (Humalog Low) 0 units SC ACHS [facility] PRN Reason: Protocol Last Admin: 12/24/17 08:05 Dose: Not Given Losartan Potassium (Cozaar) 50 mg PO DAILY [facility] Last Admin: 12/23/17 09:02 Dose: 50 mg Metoprolol Tartrate (Lopressor) 25 mg PO BRKDIN [facility] Last Admin: 12/24/17 08:22 Dose: 25 mg Nystatin (Mycostatin Cream) 1 ea TOP TID [facility] Last Admin: 12/23/17 09:03 Dose: 1 applic Oxycodone HCl (Oxycodone Immediate Release Tab) 30 mg PO QID PRN PRN Reason: Pain, severe (8-10) Last Admin: 12/24/17 08:13 Dose: 30 mg Pantoprazole Sodium (Protonix Ec Tab) 40 mg PO ACB [facility] Last Admin: 12/24/17 08:22 Dose: 40 mg Potassium Chloride (K-Dur 20 Meq Er Tab) 20 meq PO BID [facility] Sertraline HCl (Zoloft) 50 mg PO DAILY [facility] Last Admin: 12/23/17 09:04 Dose: 50 mg - Labs Labs: 12/23/17 07:30 12/24/17 06:00 PT 10.9 SECONDS (9.4-12.5) 12/17/17 14:45 INR 0.96 (0.93-1.08) 12/17/17 14:45 APTT 29.9 Seconds (25.1-36.5) 12/17/17 14:45 - Constitutional Appears: Non-toxic, No Acute Distress - Head Exam Head Exam: ATRAUMATIC, NORMAL INSPECTION, NORMOCEPHALIC - Eye Exam Eye Exam: EOMI, Normal appearance, PERRL. absent: Conjunctival injection, Scleral icterus Pupil Exam: NORMAL ACCOMODATION - ENT Exam ENT Exam: Mucous Membranes Moist - Neck Exam Neck Exam: Full ROM - Respiratory Exam Respiratory Exam: NORMAL BREATHING PATTERN. absent: Accessory Muscle Use, Respiratory Distress - Cardiovascular Exam Cardiovascular Exam: +S1, +S2 - GI/Abdominal Exam GI & Abdominal Exam: Soft - Rectal Exam Rectal Exam: Deferred - Extremities Exam Extremities Exam: Normal Capillary Refill, Normal Inspection. absent: Pedal Edema, Tenderness - Neurological Exam Neurological Exam: Alert, Awake, CN II-XII Intact, Normal Gait, Oriented x3 Neuro motor strength exam: Left Upper Extremity: 5, Right Upper Extremity: 5, Left Lower Extremity: 5, Right Lower Extremity: 5 - Psychiatric Exam Psychiatric exam: Normal Affect, Normal Mood - Skin Skin Exam: Dry, Intact, Normal Color, Warm Assessment and Plan - Assessment and Plan (Free Text) Assessment: 62yo male PMHx sCHF, DM, HTN, COPD, chronic pain syndrome, and peripheral neuropathy presented this AM from PMD Dr. Dior's office s/p witnessed fall. Patient was originally admitted to [facility] then transferred to [facility]; now currently pending discharge Plan: -Stroke workup completed -MRA brain: approx 50% stenosis of the prox basilar A. Stenoses are identified of the b/l ICA. There is approx 50% stenosis of the clinoid segment of the L ICA. Less than 50% stenoses are identifed on R ICA. Stenosis of M2 branch of the R MCA. Mild stenoses are visualized of the A1 segment of the left anterior cerebral A. Mild decrease in signal intensity in the distal left vertebral A suggestive of decreased flow. -CT head on admission: unremarkable -CTA head/neck: severe tortuosity of the internal carotids 4cm from bifurcation. There is a moderate degree of stenosis on the R with an associated calcified plaque. There is only mild stenosis on the L side. 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 mitral regurg is mild. -lipid profile wnl -f/u hypercoag workup -HHD -Fall risk -ASA and Plavix and Lipitor -Maintain normothermia and normotension -HoB above 30 -recommend physical therapy upon discharge -recommend BP control and glycemic control -Continue management as per primary -Upon discharge patient to f/u with Dr. Quinn or Dr. Melara in clinic within 10 days: [address] [facility] [id number] Kelton Hinson PGY2
[2017-12-24] MEDS: Nystatin 100,000 Units/gm Cream(15 gm) TOP SCH (09:32)
[2017-12-24] MEDS ORDERED: Potassium Chloride 20 mEq ER Tab PO SCH (10:00)
--- NOTE | 2017-12-24 18:25 | PN ---
DATE: 12/24/2017 ENDOCRINOLOGY FOLLOWUP NOTE LOCATION: Room 368. SUBJECTIVE: This is a 62-year-old male with known history of type 2 diabetes, presenting here with a sudden transient ischemic event that resolved spontaneously with no residual neurologic deficit and is now being followed closely for metabolic management. His glycemic levels are fluctuating but much improved at this time and the latest glucose levels have ranged from 114-164 and 231 mg/dL. His latest chemistry showed a BUN of 21, sodium 139, potassium 3.8, chloride 96, CO2 of 32, glucose 119, and creatinine 1.1. His hemoglobin A1c was elevated at 8.4%, indicative of suboptimal metabolic control of his diabetic condition even prior to this admission. So, at this time, we will continue the Amaryl given as 2 mg b.i.d. before meals as ordered. We will also titrate and add metformin on the outpatient as indicated to optimize metabolic control. He is scheduled for possible discharge today as noted. We will follow and advise accordingly. Lara Alves MD
== END 2017-12-24 14:36 | disposition home or self-care (01) | DRG 14 ==
LOC: ED 13:41 → ERH 15:27 → OBSVTOIN 19:50 → ERH 21:49 → CCU 23:09 → 3RNO 12-21 14:05
PROVIDERS: ADMIT Internal Medicine; ATTEND Internal Medicine
DX: I63.9 Cerebral infarction, unspecified (principal); D68.59 Other primary thrombophilia; E11.42 Type 2 diabetes mellitus with diabetic polyneuropathy; E11.51 Type 2 diabetes mellitus with diabetic peripheral angiopathy without gangrene; I11.0 Hypertensive heart disease with heart failure; I50.9 Heart failure, unspecified; J44.9 Chronic obstructive pulmonary disease, unspecified; E66.9 Obesity, unspecified; E78.5 Hyperlipidemia, unspecified; F17.210 Nicotine dependence, cigarettes, uncomplicated; F32.89 Other specified depressive episodes; G89.4 Chronic pain syndrome; I25.10 Atherosclerotic heart disease of native coronary artery without angina pectoris; I25.2 Old myocardial infarction; I65.1 Occlusion and stenosis of basilar artery; I65.21 Occlusion and stenosis of right carotid artery; W18.30XA Fall on same level, unspecified, initial encounter; Z79.84 Long term (current) use of oral hypoglycemic drugs; Z86.79 Personal history of other diseases of the circulatory system; Z95.5 Presence of coronary angioplasty implant and graft; Z96.641 Presence of right artificial hip joint; Z96.659 Presence of unspecified artificial knee joint; Z68.30 Body mass index [BMI] 30.0-30.9, adult

== ENCOUNTER 2018-08-30 20:16 | Inpatient (IN) | payer OTHER ==
[2018-08-30] MEDS ORDERED: Albuterol-Ipratrop 3 mg / 0.5 (3 ml) UD ONE (20:39)
--- NOTE | 2018-08-30 20:39 | ED PDOC ---
Arrival/HPI - General Chief Complaint: Chest Pain Time Seen by Provider: 08/30/18 20:20 Historian: Patient - History of Present Illness Narrative History of Present Illness (Text): 08/30/18 20:35 63 year old male, whose past medical history includes CHF, L frontal CVA, diabetes, hypertension, COPD, chronic pain syndrome, and peripheral neuropathy, presents to the emergency department complaining of constant midsternal chest pa in that began 7-8 hours ago. Patient reports he was lying down when he began have a "pounding" like sensation to his midsternal chest. Patient denies any radiation. He denies taking any medication for relief. On route, EMT gave patient aspirin with no relief. Patient is a pack a day smoker for 40-50 years. Patient also reports a headache that began 1 hour ago, but denies any fever, chills, chest pain, nausea, vomiting, diarrhea, urinary symptoms, back pain, neck pain, dizziness, or any other complaints. PMD: Dr. Rachel Stoll Time/Duration: Other (7-8 hours ) Symptom Onset: Gradual Symptom Course: Unchanged Activities at Onset: Light Context: Home Past Medical History - Provider Review Nursing Documentation Reviewed: Yes - Infectious Disease Hx of Infectious Diseases: None - Cardiac Hx Cardiac Disorders: Yes (NIIDM) Hx Hypertension: Yes - Pulmonary Hx Chronic Obstructive Pulmonary Disease (COPD): Yes - Neurological HX Cerebrovascular Accident: Yes - HEENT Hx HEENT Disorder: No (WEARS RX GLASSES) - Renal Hx Renal Disorder: No - Endocrine/Metabolic Hx Endocrine Disorders: Yes Hx Diabetes Mellitus Type 2: Yes - Hematological/Oncological Hx Blood Disorders: No - Integumentary Hx Dermatological Disorder: Yes (ANASARCA-GROSS EDEMA FROM FEET TO LOWER ABDOMINAL AREA.CELLULITIS BLE) - Musculoskeletal/Rheumatological Hx Musculoskeletal Disorders: Yes Hx Falls: No - Gastrointestinal Hx Gastrointestinal Disorders: Yes Hx Gastroesophageal Reflux: Yes - Genitourinary/Gynecological Hx Genitourinary Disorders: Yes Hx Prostate Problems: Yes - Psychiatric Hx Psychophysiologic Disorder: No Hx Substance Use: No - Surgical History Hx Cardiac Catheterization: Yes Hx Coronary Stent: Yes Other/Comment: L rib and knee fx with sx. - Anesthesia Hx Anesthesia Reactions: No Hx Malignant Hyperthermia: No - Suicidal Assessment Feels Threatened In Home Enviroment: No Family/Social History - Physician Review Nursing Documentation Reviewed: Yes Family/Social History: No Known Family HX Smoking Status: Former Smoker Hx Alcohol Use: No Hx Substance Use: No Hx Substance Use Treatment: No Allergies/Home Meds Allergies/Adverse Reactions: Allergies No Known Allergies Allergy (Verified 01/22/18 21:48) Home Medications: Home Meds Medication Instructions Recorded Confirmed Morphine Sulfate [Morphine Sulfate 30 mg PO Q12 01/23/18 01/26/18 ER] RX: Aspirin [Adult Low Dose 81 mg PO DAILY 01/23/18 01/26/18 Aspirin EC] RX: Atorvastatin Calcium [Lipitor] 10 mg PO 1700 01/23/18 01/26/18 RX: Furosemide [Lasix] 40 mg PO DAILY 01/23/18 01/26/18 RX: Potassium Chloride [K-Dur 20 20 meq PO DAILY 01/23/18 01/26/18 mEq ER Tab] RX: oxyCODONE [oxyCODONE Immediate 30 mg PO BID PRN 01/23/18 01/26/18 Release Tab] RX: metFORMIN [glucOPHAGE] 500 mg PO BID 01/26/18 01/26/18 Review of Systems - Physician Review All systems were reviewed & negative as marked: Yes - Review of Systems Constitutional: absent: Fevers, Other (chill) Respiratory: absent: SOB Cardiovascular: Chest Pain Gastrointestinal: absent: Diarrhea, Nausea, Vomiting Genitourinary Male: absent: Dysuria, Frequency, Hematuria Musculoskeletal: absent: Back Pain, Neck Pain Neurological: Headache. absent: Dizziness Physical Exam Vital Signs Reviewed: Yes Vital Signs Temp Pulse Resp BP Pulse Ox 08/30/18 20:21 98.2 F 99 H 18 130/56 L 100 Temperature: Hypothermic Blood Pressure: Normal Pulse: Tachycardic Respiratory Rate: Normal Appearance: Positive for: Well-Appearing, Non-Toxic, Comfortable Pain Distress: None Mental Status: Positive for: Alert and Oriented X 3 - Systems Exam Head: Present: Atraumatic, Normocephalic Pupils: Present: PERRL Extroacular Muscles: Present: EOMI Conjunctiva: Present: Normal Mouth: Present: Moist Mucous Membranes Neck: Present: Normal Range of Motion Respiratory/Chest: Present: Wheezes (mildly diffuse bilaterally). No: Respiratory Distress, Accessory Muscle Use Cardiovascular: Present: Regular Rate and Rhythm, Normal S1, S2. No: Murmurs Abdomen: No: Tenderness, Distention, Peritoneal Signs Back: Present: Normal Inspection Upper Extremity: Present: Normal Inspection. No: Cyanosis, Edema Lower Extremity: Present: Normal Inspection. No: Edema Neurological: Present: GCS=15, CN II-XII Intact, Speech Normal Skin: Present: Warm, Dry, Normal Color. No: Rashes Psychiatric: Present: Alert, Oriented x 3, Normal Insight, Normal Concentration Medical Decision Making ED Course and Treatment: 08/30/18 20:35 Impression: 64 year old male presents complaining of a constant "pounding" midsternal chest pain that began 7-8 hours ago associated with a headache. Plan: -- Labs -- Duoneb -- EKG -- Chest X-ray -- Reassess and disposition Prior Visits: Notes and results from previous visits were reviewed. Progress Notes: 08/30/18 20:55 EKG shows Sinus rhythm at 93 BPM with first degree AV block, [place] 230, prolonged QTC, RBBB, no ST elevation. Interpreted by me. 08/30/18 23:00 CXR Impression: As read by me, pulmonary vascular congestion. Lasix 40mg ivp ordered as patient also has elevated BNP. 08/30/18 23:[address] Stoll who is aware and requests the forestry adviser to see patient and call him. 08/31/18 00:06 Dr. Gilmore seen and evaluate patient. He contacted Dr. Stoll who agrees upon Telemetry admission. - Lab Interpretations I have reviewed the lab results: Yes - EKG Interpretation Interpreted by ED Physician: Yes Type: 12 lead EKG - Scribe Statement The provider has reviewed the documentation as recorded by the Maru Busby Provider Scribe Attestation: All medical record entries made by the Maru were at my direction and personally dictated by me. I have reviewed the chart and agree that the record accurately reflects my personal performance of the history, physical exam, medical decision making, and the department course for this patient. I have also personally directed, reviewed, and agree with the discharge instructions and disposition. Disposition/Present on Arrival - Present on Arrival Any Indicators Present on Arrival: No History of DVT/PE: No History of Uncontrolled Diabetes: No Urinary Catheter: No History of Decub. Ulcer: No History Surgical Site Infection Following: None - Disposition Have Diagnosis and Disposition been Completed?: Yes Diagnosis: Congestive heart failure, Chest pain Disposition: HOSPITALIZED Disposition Time: 00:06 Condition: STABLE
[2018-08-30] MEDS ORDERED: Albuterol-Ipratrop 3 mg / 0.5 (3 ml) UD IH STA (20:40)
[2018-08-30 20:59] LABS: MEAN CELL VOLUME 89.1 fl (80.0-105.0); MEAN CORPUSCULAR HEMOGLOBIN 30.4 pg (25.0-35.0); MEAN CORPUSCULAR HGB CONC 34.1 g/dl (31.0-37.0); RBC 4.6 10^6/uL (3.5-6.1); RED CELL DISTRIBUTION WIDTH 13.1 % (11.5-14.5); WHITE BLOOD COUNT 4.6 10^3/uL (4.5-11.0)
[2018-08-30 21:00] LABS: BASO # 0.02 K/mm3 (0.0-2.0); BASO % 0.4 % (0.0-3.0); EOS % 0.9 % (1.5-5.0); LYMPH % 21.6 % (22.0-35.0); MEAN PLATELET VOLUME 10.6 fl (7.0-11.0); MONO # 0.4 (0.1-0.6); MONO % 9.1 % (1.0-6.0)
[2018-08-30 21:01] LABS: BLOOD UREA NITROGEN 11 mg/dL (7-21); GFR NON-AFRICAN AMERICAN > 60
[2018-08-30 21:05] LABS: INR 1.08; PARTIAL THROMBOPLASTIN TIME 32.3 Seconds (26.9-38.3)
[2018-08-30 21:13] LABS: B-TYPE NATRIURETIC PEPTIDE 6920 pg/mL (0-450); TROPONIN I 0.05 ng/mL
--- NOTE | 2018-08-30 23:35 | CP.PCM.CON ---
<Jose Coates - Last Filed: 08/31/18 01:23> History of Present Illness - History of Present Illness History of Present Illness: PGY-1 ICU Consult note for Dr. Gilmore CC: Chest pain HPI: Patient is a 63 year old male with past medical history of systolic CHF, left frontal CVA, DM-2, HTN, COPD, chronic pain syndrome, and peripheral neuropathy, presenting with constant mid-sternal chest pain that began 7-8 hours ago. Patient reports he was lying down when he began to have a "pounding" like sensation to his mid-sternal chest with 8/10 in severity. Patient denies any radiation of the pain and denies taking any medications for relief. Patient states he can walk for a few blocks without getting shortness of breath but gets winded when climbing up stairs. Patient last saw a ironing worker when he was admitted to the hospital in December 2017. He denies any recent changes in medications. Patient further denies fevers, chills, diaphoresis, shortness of breath, abdominal pain, nausea, vomiting, diarrhea, or any urinary symptoms. EMS gave patient one dose of Aspirin. 12 system ROS reviewed and negative except mentioned in HPI. PMHx: Systolic CHF (LVEF: 40% in December 2017), left frontal CVA, DM-2 (HbA1c: 7.2 in January 2018), HTN, COPD, chronic pain syndrome, and peripheral neuropathy PSurgHx: Bilateral knee surgery SocHx: current smoker, smokes 1 PPD, 50 pack years history. Denies alcohol and drug use. Family Hx: denies Meds: reviewed in OCT PMD: Dr. Stoll Review of Systems - Review of Systems All systems: reviewed and no additional remarkable complaints except Past Patient History - Infectious Disease Hx of Infectious Diseases: None - Past Social History Smoking Status: Former Smoker - CARDIAC Hx Cardiac Disorders: Yes (NIIDM) Hx Hypertension: Yes - PULMONARY Hx Chronic Obstructive Pulmonary Disease (COPD): Yes - NEUROLOGICAL HX Cerebrovascular Accident: Yes - HEENT Hx HEENT Problems: No (WEARS RX GLASSES) - RENAL Hx Chronic Kidney Disease: No - ENDOCRINE/METABOLIC Hx Endocrine Disorders: Yes Hx Diabetes Mellitus Type 2: Yes - HEMATOLOGICAL/ONCOLOGICAL Hx Blood Disorders: No - INTEGUMENTARY Hx Dermatological Problems: Yes (ANASARCA-GROSS EDEMA FROM FEET TO LOWER ABDOMINAL AREA.CELLULITIS BLE) - MUSCULOSKELETAL/RHEUMATOLOGICAL Hx Musculoskeletal Disorders: Yes Hx Falls: No - GASTROINTESTINAL Hx Gastrointestinal Disorders: Yes Hx Gastroesophageal Reflux: Yes - GENITOURINARY/GYNECOLOGICAL Hx Genitourinary Disorders: Yes Hx Prostate Problems: Yes - PSYCHIATRIC Hx Psychophysiologic Disorder: No Hx Substance Use: No - SURGICAL HISTORY Hx Cardiac Catheterization: Yes Hx Coronary Stent: Yes Other/Comment: L rib and knee fx with sx. - ANESTHESIA Hx Anesthesia Reactions: No Hx Malignant Hyperthermia: No Meds Allergies/Adverse Reactions: Allergies Allergy/AdvReac Type Severity Reaction Status Date / Time No Known Allergies Allergy Verified 01/22/18 21:48 Physical Exam - Constitutional Appears: Well, Non-toxic, No Acute Distress - Head Exam Head Exam: ATRAUMATIC, NORMAL INSPECTION - Eye Exam Eye Exam: EOMI, Normal appearance, PERRL. absent: Scleral icterus - ENT Exam ENT Exam: Mucous Membranes Moist - Neck Exam Neck exam: Positive for: Normal Inspection - Respiratory Exam Respiratory Exam: Wheezes (Mild wheezes bilaterally). absent: Accessory Muscle Use, Rales, Rhonchi, Respiratory Distress, Stridor - Cardiovascular Exam Cardiovascular Exam: RRR, +S1, +S2. absent: Gallop, Rubs, Systolic Murmur - GI/Abdominal Exam GI & Abdominal Exam: Normal Bowel Sounds, Soft. absent: Tenderness - Extremities Exam Extremities exam: Positive for: normal inspection. Negative for: calf tend erness, pedal edema - Back Exam Back exam: NORMAL INSPECTION. absent: CVA tenderness (L), CVA tenderness (R) - Neurological Exam Neurological exam: Alert, CN II-XII Intact, Oriented x3 - Psychiatric Exam Psychiatric exam: Normal Affect, Normal Mood - Skin Skin Exam: Dry, Intact, Normal Color, Warm Additional comments: Dry skin noted on bilateral feet. Skin tag measuring 5cm X 2cm on medial side of left ankle. Results - Vital Signs Recent Vital Signs: Last Vital Signs Temp 98.2 F 08/30/18 20:21 Pulse 99 H 08/30/18 20:21 Resp 18 08/30/18 20:21 BP 130/56 L 08/30/18 20:21 Pulse Ox 100 08/30/18 20:21 - Labs Result Diagrams: 08/30/18 20:46 08/30/18 20:46 Labs: Laboratory Results - last 24 hr 08/30/18 08/30/18 08/30/18 20:46 20:46 20:46 WBC 4.6 RBC 4.60 Hgb 14.0 Hct 41.0 L MCV 89.1 MCH 30.4 MCHC 34.1 RDW 13.1 Plt Count 311 MPV 10.6 Neut % (Auto) 68.0 Lymph % (Auto) 21.6 L [place] % (Auto) 9.1 H Eos % (Auto) 0.9 L Baso % (Auto) 0.4 Lymph # (Auto) 1.0 L [place] # (Auto) 0.4 Eos # (Auto) 0.0 Baso # (Auto) 0.02 Absolute Neuts (auto) 3.15 PT 12.0 INR 1.08 APTT 32.3 Sodium 135 Potassium 4.4 Chloride 98 Carbon Dioxide 30 Anion Gap 12 BUN 11 Creatinine 0.7 L Est GFR ( Amer) > 60 Est GFR (Non-Af Amer) > 60 Random Glucose 218 H Calcium 9.0 Troponin I 0.05 D NT-Pro-B Natriuret Pep 6920 H Assessment & Plan - Assessment and Plan (Free Text) Assessment: Patient is a 63 year old male with past medical history of systolic CHF, left frontal CVA, DM-2, HTN, COPD, chronic pain syndrome, and peripheral neuropathy, presenting with constant mid-sternal chest pain that began 7-8 hours ago. Pat ient has new-onset atrial fibrillation. Plan: Patient's vital signs are stable, no altered mental status, breathing is at ease on 2L O2, does not meet ICU admission criteria. Please re-consult as needed. Chest pain, r/o ACS - EKG: Atrial fibrillation with premature ventricular or aberrantly conducted complexes. Prolonged QTc: 509 ms - Cardiology consulted, Dr. Martinez - Troponin:0.05 - Trend troponins - ASA 81mg PO QD - Plavix 75mg PO QD - Nitroglycerin paste Q6H - Nitroglycerin 0.4 SL Q6 PRN for chest pain - Lipitor 80mg PO QD - Lipid panel: pending - Keep patient NPO except for medications, pending cardiology decision for cardiac cath or stress test New-onset atrial fibrillation - EKG: Atrial fibrillation with premature ventricular or aberrantly conducted complexes. Prolonged QTc: 509 ms - Last Echo (12/18/2017): LVEF: 40%. Mild concentric LVH. Apical hypokinesis. Mild aortic regurgitation. - Cardiology consulted, Dr. Martinez - Start Cardizem 30mg PO Q6 for new-onset A-fib - Start Digoxin 0.25mg IVP PRN for A-fib - Lovenox 85mg SC Q12 - [id number] score: 5 points - HAS-BLED score: 2 points - TSH: pending - Defer for cardiology to order echocardiogram Heart failure with reduced ejection fraction, chronic - Last Echo (12/18/2017): LVEF: 40%. Mild concentric LVH. Apical hypokinesis. Mild aortic regurgitation. - CXR: No acute changes from previous studies, pending official read - ProBNP: 6920 - Lasix held due to patient being normotensive and no acute exacerbation Hypertension - Home antihypertensive medications held due to patient being normotensive - Added Nitroglycerin paste Q6 for chest pain control as stated above DM-2 - ISS, low - Accuchecks Q6H - HbA1c (January 2018): 7.2 COPD - Xopenex IH Q8H - Atrovent 0.5mg IH Q8H Chronic pain syndrome - Oxycodone 15mg PO Q6 PRN, hold if SBP <100 or HR <60 Prophylaxis: - GI: Protonix 40mg PO QD - DVT: Lovenox 85mg SC Q12 Case discussed with attending physician, Dr. Gilmore. Jose Coates <Murtaza Gilmore - Last Filed: 08/31/18 04:21> Meds - Medications Medications: Current Medications Aspirin (Ecotrin) 81 mg PO DAILY [facility] Atorvastatin Calcium (Lipitor) 80 mg PO DAILY [facility] Clopidogrel Bisulfate (Plavix) 75 mg PO DAILY [facility] Digoxin (Lanoxin) 0.25 mg IVP DAILY PRN PRN Reason: PRN HR > 105 Diltiazem HCl (Cardizem) 30 mg PO Q6 [facility] Enoxaparin Sodium (Lovenox) 85 mg SC Q12H [facility]; Protocol Last Admin: 08/31/18 00:35 Dose: 85 mg Insulin Human Regular (Humulin R Low) 0 units SC Q6H [facility]; Protocol Ipratropium [place] (Atrovent) 0.5 mg IH Q8H [facility] Last Admin: 08/31/18 00:40 Dose: 0.5 mg Levalbuterol HCl (Xopenex) 0.63 mg IH Q8H [facility] Last Admin: 08/31/18 00:40 Dose: 0.63 mg Nitroglycerin (Nitrostat Sl Tab) 0.4 mg SL Q6H PRN PRN Reason: chest pain Stop: 08/31/18 12:16 Nitroglycerin (Nitro-Bid 2% Oint) 1 ea TOP Q6H [facility] Last Admin: 08/31/18 00:35 Dose: 1 ea Oxycodone HCl (Oxycodone Immediate Release Tab) 15 mg PO Q6H PRN PRN Reason: Pain, severe (8-10) Last Admin: 08/31/18 02:39 Dose: 15 mg Pantoprazole Sodium (Protonix Ec Tab) 40 mg PO 0600 [facility] Results - Vital Signs Recent Vital Signs: Last Vital Signs Temp 98.5 F 08/31/18 00:40 Pulse 97 H 08/31/18 01:06 Resp 18 08/31/18 01:06 BP 102/70 08/31/18 00:40 Pulse Ox 96 08/31/18 00:40 - Labs Result Diagrams: 08/31/18 03:00 08/31/18 03:00 Labs: Laboratory Results - last 24 hr 08/30/18 08/30/18 08/30/18 20:46 20:46 20:46 WBC 4.6 RBC 4.60 Hgb 14.0 Hct 41.0 L MCV 89.1 MCH 30.4 MCHC 34.1 RDW 13.1 Plt Count 311 MPV 10.6 Neut % (Auto) 68.0 Lymph % (Auto) 21.6 L [place] % (Auto) 9.1 H Eos % (Auto) 0.9 L Baso % (Auto) 0.4 Lymph # (Auto) 1.0 L [place] # (Auto) 0.4 Eos # (Auto) 0.0 Baso # (Auto) 0.02 Absolute Neuts (auto) 3.15 PT 12.0 INR 1.08 APTT 32.3 Sodium 135 Potassium 4.4 Chloride 98 Carbon Dioxide 30 Anion Gap 12 BUN 11 Creatinine 0.7 L Est GFR ( Amer) > 60 Est GFR (Non-Af Amer) > 60 Random Glucose 218 H Calcium 9.0 Magnesium Total Bilirubin AST ALT Alkaline Phosphatase Troponin I 0.05 D NT-Pro-B Natriuret Pep 6920 H Total Protein Albumin Globulin Albumin/Globulin Ratio Triglycerides Cholesterol LDL Cholesterol Direct HDL Cholesterol Free T4 TSH 3rd Generation 08/31/18 08/31/18 08/31/18 03:00 03:00 03:00 WBC 4.6 RBC 4.64 Hgb 14.2 Hct 41.6 L MCV 89.7 MCH 30.6 MCHC 34.1 RDW 13.1 Plt Count 303 MPV 10.2 Neut % (Auto) 55.1 Lymph % (Auto) 32.9 [place] % (Auto) 10.8 H Eos % (Auto) 0.6 L Baso % (Auto) 0.6 Lymph # (Auto) 1.5 [place] # (Auto) 0.5 Eos # (Auto) 0.0 Baso # (Auto) 0.03 Absolute Neuts (auto) 2.54 PT INR APTT Sodium 135 Potassium 3.9 Chloride 96 L Carbon Dioxide 32 Anion Gap 12 BUN 13 Creatinine 0.8 Est GFR ( Amer) > 60 Est GFR (Non-Af Amer) > 60 Random Glucose 212 H Calcium 9.1 Magnesium 1.7 Total Bilirubin 0.5 AST 24 ALT 27 Alkaline Phosphatase 65 Troponin I 0.05 NT-Pro-B Natriuret Pep Total Protein 6.5 Albumin 3.6 Globulin 2.9 Albumin/Globulin Ratio 1.2 Triglycerides Cholesterol LDL Cholesterol Direct HDL Cholesterol Free T4 TSH 3rd Generation 1.73 08/31/18 08/31/18 03:00 03:00 WBC RBC Hgb Hct MCV MCH MCHC RDW Plt Count MPV Neut % (Auto) Lymph % (Auto) [place] % (Auto) Eos % (Auto) Baso % (Auto) Lymph # (Auto) [place] # (Auto) Eos # (Auto) Baso # (Auto) Absolute Neuts (auto) PT INR APTT Sodium Potassium Chloride Carbon Dioxide Anion Gap BUN Creatinine Est GFR ( Amer) Est GFR (Non-Af Amer) Random Glucose Calcium Magnesium Total Bilirubin AST ALT Alkaline Phosphatase Troponin I NT-Pro-B Natriuret Pep Total Protein Albumin Globulin Albumin/Globulin Ratio Triglycerides 105 Cholesterol 158 LDL Cholesterol Direct 95 HDL Cholesterol 46 Free T4 1.27 TSH 3rd Generation Attending/Attestation - Attestation I have personally seen and examined this patient.: Yes I have fully participated in the care of the patient.: Yes I have reviewed all pertinent clinical information: Yes Notes (Text): 08/31/18 04:19 seen and exam,canelo. Discussed with Dr. Stoll and residents.
[2018-08-31] MEDS ORDERED: oxyCODONE 15 mg Immediate Release Tab PO PRN (00:11)
[2018-08-31] MEDS ORDERED: Nitroglycerin 2% Ointment Foilpak UD TOP SCH (00:15)
[2018-08-31] MEDS ORDERED: Digoxin 500 mcg/2ml (0.5 mg/2ml) Inj IVP PRN (00:28)
[2018-08-31] MEDS ORDERED: Insulin Reg-LOW-Coverage SC SCH (00:30)
[2018-08-31] MEDS: Enoxaparin 100 mg Syringe SC SCH ×3 (00:35→23:26)
[2018-08-31] MEDS: Nitroglycerin 2% Ointment Foilpak UD TOP SCH ×5 (00:35→23:29)
[2018-08-31] MEDS: Ipratropium 0.02% Inhal Soln (0.5 mg/2.5 ml) UD IH SCH ×4 (00:40→23:54)
[2018-08-31] MEDS: Levalbuterol 0.63 MG/3 ML Inhal Soln UD IH SCH ×4 (00:40→23:53)
[2018-08-31 02:31] VITALS: BMI 31.4
[2018-08-31] MEDS: oxyCODONE 15 mg Immediate Release Tab PO PRN ×3 (02:39→16:03)
[2018-08-31 03:23] LABS: BASO # 0.03 K/mm3 (0.0-2.0); BASO % 0.6 % (0.0-3.0); EOS % 0.6 % (1.5-5.0); HEMOGLOBIN 14.2 g/dL (14.0-18.0); LYMPH # 1.5 (1.2-3.4); LYMPH % 32.9 % (22.0-35.0); MEAN CELL VOLUME 89.7 fl (80.0-105.0); MEAN CORPUSCULAR HEMOGLOBIN 30.6 pg (25.0-35.0); MEAN CORPUSCULAR HGB CONC 34.1 g/dl (31.0-37.0); MEAN PLATELET VOLUME 10.2 fl (7.0-11.0); MONO # 0.5 (0.1-0.6); MONO % 10.8 % (1.0-6.0); RBC 4.64 10^6/uL (3.5-6.1); RED CELL DISTRIBUTION WIDTH 13.1 % (11.5-14.5); WHITE BLOOD COUNT 4.6 10^3/uL (4.5-11.0)
[2018-08-31 03:24] LABS: HDL CHOLESTEROL 46 mg/dL (29-60)
[2018-08-31 03:26] LABS: ALB/GLOB RATIO 1.2 (1.1-1.8); ALBUMIN 3.6 g/dL (3.0-4.8); ALT/SGPT 27 U/L (7-56); AST/SGOT 24 U/L (17-59); BLOOD UREA NITROGEN 13 mg/dL (7-21); CALCIUM 9.1 mg/dL (8.4-10.5); GFR NON-AFRICAN AMERICAN > 60
[2018-08-31 03:35] LABS: TROPONIN I 0.05 ng/mL
[2018-08-31 03:46] LABS: LDL CHOLESTEROL 95 mg/dL (0-129)
[2018-08-31] MEDS: Pantoprazole 40 mg EC Tab PO SCH (05:20)
[2018-08-31] MEDS: Insulin Reg-LOW-Coverage SC SCH ×3 (06:44→17:50)
--- NOTE | 2018-08-31 09:19 | RAD ---
Date of service: 08/30/2018 HISTORY: chest pain COMPARISON: Comparison is made with 01/22/2018 FINDINGS: LUNGS: No active pulmonary disease. PLEURA: No significant pleural effusion identified, no pneumothorax apparent. CARDIOVASCULAR: No aortic atherosclerotic calcification present. Normal cardiac size. No pulmonary vascular congestion. OSSEOUS STRUCTURES: No significant abnormalities. VISUALIZED UPPER ABDOMEN: Normal. OTHER FINDINGS: None. IMPRESSION: No significant interval change noted since the prior study.
--- NOTE | 2018-08-31 13:05 | CON ---
DATE OF CONSULTATION: 08/31/2018 REQUESTING PHYSICIAN: Sandy Stoll MD REASON FOR CONSULTATION: Chest pain. HISTORY: This is a 63-year-old man, known to us from prior admissions, who presented with retrosternal chest discomfort. He has a history of coronary artery disease status post remote PCI as well as [id number] LV systolic dysfunction. He states he was sitting at rest yesterday when he developed retrosternal chest discomfort. He became concerned and presented to the emergency room. He claims compliance with his medications of late. He continues to smoke less than a pack per day. PAST HISTORY: Notable for the problems mentioned above. He has been seen in the past for syncope. He has a history of diabetes, peripheral vascular disease and peripheral neuropathy. He has undergone prior peripheral interventions. He has had a prior right hip replacement as well. FAMILY HISTORY: Both parents from age-related illness. SOCIAL HISTORY: As mentioned. Denies alcohol use. CURRENT MEDICATIONS: Cardizem 30 mg every 6 hours, Ecotrin, digoxin, Lipitor 80 mg daily, Lovenox, topical nitrate, oxycodone, Plavix, Protonix, and Xopenex. REVIEW OF SYSTEMS: A 10-point review of systems is notable mainly for the problems mentioned above. He has had a CVA in the past and has right-sided weakness. PHYSICAL EXAMINATION: GENERAL: He is a somewhat disheveled-appearing middle-aged man. VITAL SIGNS: His blood pressure is 140/86 with pulse of 88 and sinus. He does exhibit evidence of Mobitz I heart block. Respirations are 16. He is afebrile. HEENT: Normocephalic, atraumatic. NECK: Supple. No JVD noted. CHEST: Bilateral scattered rhonchi heard. HEART: PMI displaced laterally with a soft systolic murmur at the lower left sternal border. ABDOMEN: Soft, nontender with normoactive bowel sounds. EXTREMITIES: No clubbing, cyanosis, edema. SKIN: Warm and dry. PSYCHIATRIC: Normal mood and affect. NEUROLOGIC: Alert and oriented x3. No gross motor or sensory deficits appreciable. VASCULAR: Diminished pulses noted in both lower extremities. DIAGNOSTIC DATA: Two sets of cardiac enzymes are negative. Potassium 3.9. BUN and creatinine 13 and 0.8. White count 4.6, hemoglobin and hematocrit 14.2 and 41.6 with platelet count 303,000. Glucose 144. BNP is 6920. Cholesterol 158 with an HDL of 46, LDL of 95, and triglycerides 105. Electrocardiogram reveals sinus rhythm with frequent supraventricular premature beats and Mobitz I and second-degree AV block. This was misread as atrial fibrillation. Chest x-ray reveals a large cardiac silhouette with increased perihilar markings. IMPRESSION: 1. Chest pain, by description sounds somewhat suspicious for angina. Cardiac enzymes so far are negative. 2. Known coronary artery disease, status post remote PCI. 3. LV dysfunction. 4. Peripheral arterial disease. 5. Mobitz I heart block. 6. Persistent tobacco abuse. RECOMMENDATIONS: Telemetry monitoring should continue. Negative chronotropic agents will be withheld. Digoxin will be discontinued. Repeat cardiac enzymes withheld for the morning. If he has recurrent chest pain, an electrocardiogram will be performed. Decision will need to be made regarding possible repeat catheterization versus stress testing to assess the extent of cardiac ischemia. The need for smoking abstinence and better control of risk factors was discussed with the patient. Thank you for this consultation. We would be happy to follow along through his hospital course. Marcus Cadet MD
[2018-08-31] MEDS ORDERED: Morphine 30 mg SR Tab PO PRN (16:32)
--- NOTE | 2018-08-31 17:16 | HP ---
DATE OF EXAM: 08/31/2018 HISTORY OF PRESENT ILLNESS: A 63-year-old male presented to [facility] emergency room after he reclaims that after having several hours of chest pain and palpitations at home. The patient has a past medical history of coronary artery disease with three stents within the circumflex, one in the right coronary, and one in the LAD. He has an ejection fraction of 40%. He has had right hip fracture surgery. He has had a first-degree AV block. He has had peripheral neuropathy, history of TIA and history of non-insulin dependent diabetes, history of chronic pain syndrome, history of hypertension, history of congestive heart failure, history of COPD. SOCIAL HISTORY: He is a smoker of at least one to two packs a day for more than 30 years, he denies any alcohol use. ALLERGIES: HE HAS NO KNOWN ALLERGIES THAT HE IS AWARE OF. HOME MEDICATIONS: Consist of oxycodone 30 mg twice a day p.r.n. and morphine sulfate extended release 30 mg every 12 hours, Ecotrin 81 mg daily, Lipitor 10 mg daily, Lasix 40 mg daily, K-Dur 20 milliequivalents daily, Cozaar 50 mg daily, Advair Diskus 250/50 twice a day, Plavix 75 mg daily, Protonix 40 mg daily and metformin 500 mg twice a day. REVIEW OF SYSTEMS: A 10 systems are reviewed. Pertinent findings as noted during the physical examination. PHYSICAL EXAMINATION: VITAL SIGNS: At the present time his vital signs show a temperature of 98.6, his pulse is 88, his respiratory rate is 18, oxygen saturation was reported at 100% on 3 liters of nasal oxygen. In the emergency room he received Lasix. GENERAL: He is alert and oriented x3. NECK: Supple. No JVD. LUNGS: Show diminished breath sounds at the bases. HEART: S1, S2. ABDOMEN: Soft with positive bowel sounds. EXTREMITIES: No evidence of edema. NEUROLOGIC: He is alert and oriented x3. LABORATORY DATA: His WBC is 4.6, RBC 4.60, hemoglobin 14, hematocrit 41, platelet count was 311. His PT is 12 with an INR of 1.08, PTT is 32.3. Chemistry showed sodium 135, potassium 3.9, chloride 96, the CO2 of 30. The BUN is 13, creatinine is 0.8 and blood sugar was 212, calcium is 9.1, magnesium 1.7. His LFTs are normal. His troponin is 0.05. His TSH is 1.73. His EKG reported as a sinus with first-degree. His chest x-ray is reported as showing no active pulmonary disease. A request was made for the patient to be seen by the eyeglass lens grinder from the intensive care unit. It was felt by the eyeglass lens grinder that the patient could be admitted to telemetry. Consults was requested with Cardiology with serial cardiac enzymes and followup labs. IMPRESSION: A 63-year-old male with; 1. Chest pain. 2. History of coronary disease with coronary stents and an ejection fraction of 40%. 3. History of transient ischemic attack. 4. History of peripheral neuropathy. 5. History of chronic pain syndrome. 6. History of [id number] diabetes. 7. History of hypertension. 8. History of chronic obstructive pulmonary disease. PLAN: We will get serial cardiac enzymes. Follow up with the patient's labs. Monitor the patient on telemetry and repeat the patient's EKG and pain management. The patient has been encouraged to see pain management and will request pain management evaluation here at the hospital. At the same time, the patient has been advised to see GI for history of abdominal discomfort. We will discuss further with the patient. He has declined interaction and intervention for that. Clinical findings have been discussed with the eyeglass lens grinder in the emergency room with the patient. More than 35 minutes have been spent reviewing current studies. Sandy Stoll MD
--- NOTE | 2018-08-31 18:52 | CARD ---
APPROVED REPORT Date of service: 08/30/2018 EKG Measurement Heart [id number] <Conclusion> Sinus rhythm with 1st degree AV block Right bundle branch block Inferior infarct, age undetermined Abnormal ECG
--- NOTE | 2018-08-31 19:00 | CARD ---
APPROVED REPORT Date of service: 08/30/2018 EKG Measurement Heart [id number] <Conclusion> Sinus rhythm with Mobitz type 1 AV block RBBB Inferior infarct, age undetermined Prolonged QT Abnormal ECG
[2018-08-31] MEDS ORDERED: oxyCODONE 30 mg Immediate Release Tab PO PRN (20:00)
[2018-08-31 20:44] LABS: PH,URINE 5.5 (4.7-8.0); URINE BILIRUBIN NEGATIVE (NEGATIVE); URINE BLOOD NEGATIVE (NEGATIVE); URINE GLUCOSE (UA) 250 mg/dL (NEGATIVE); URINE LEUKOCYTE ESTERASE NEGATIVE Leu/uL (NEGATIVE); URINE PROTEIN NEGATIVE mg/dL (<30 mg/dL); URINE UROBILINOGEN 0.2 E.U./dL (<1 E.U./dL)
[2018-08-31 20:45] LABS: URINE APPEARANCE CLEAR (CLEAR); URINE COLOR YELLOW (YELLOW)
[2018-08-31] MEDS: Morphine 30 mg SR Tab PO SCH (21:48)
[2018-08-31] MEDS: oxyCODONE 30 mg Immediate Release Tab PO SCH (23:11)
[2018-09-01] MEDS: oxyCODONE 30 mg Immediate Release Tab PO SCH ×3 (05:39→18:32)
[2018-09-01] MEDS: Nitroglycerin 2% Ointment Foilpak UD TOP SCH ×3 (05:39→18:32)
[2018-09-01] MEDS: Pantoprazole 40 mg EC Tab PO SCH (05:40)
[2018-09-01 06:20] LABS: BASO # 0.05 K/mm3 (0.0-2.0); BASO % 0.9 % (0.0-3.0); EOS # 0.1 (0.0-0.7); EOS % 1.4 % (1.5-5.0); HEMOGLOBIN 12.9 g/dL (14.0-18.0); LYMPH % 35.5 % (22.0-35.0); MEAN CELL VOLUME 90.4 fl (80.0-105.0); MEAN CORPUSCULAR HEMOGLOBIN 30.4 pg (25.0-35.0); MEAN CORPUSCULAR HGB CONC 33.6 g/dl (31.0-37.0); MEAN PLATELET VOLUME 10.2 fl (7.0-11.0); MONO # 0.7 (0.1-0.6); RBC 4.25 10^6/uL (3.5-6.1); RED CELL DISTRIBUTION WIDTH 13.3 % (11.5-14.5); WHITE BLOOD COUNT 5.5 10^3/uL (4.5-11.0)
[2018-09-01 06:35] LABS: ALB/GLOB RATIO 1.2 (1.1-1.8); ALBUMIN 3.3 g/dL (3.0-4.8); ALT/SGPT 20 U/L (7-56); AST/SGOT 18 U/L (17-59); BLOOD UREA NITROGEN 18 mg/dL (7-21); CALCIUM 8.7 mg/dL (8.4-10.5); GFR NON-AFRICAN AMERICAN > 60
[2018-09-01 06:42] LABS: TROPONIN I 0.06 ng/mL
[2018-09-01] MEDS: Ipratropium 0.02% Inhal Soln (0.5 mg/2.5 ml) UD IH SCH ×2 (08:07)
[2018-09-01] MEDS: Levalbuterol 0.63 MG/3 ML Inhal Soln UD IH SCH ×2 (08:07)
[2018-09-01] MEDS: Insulin Reg-LOW-Coverage SC SCH ×4 (09:23→22:00)
[2018-09-01] MEDS: Morphine 30 mg SR Tab PO SCH ×2 (09:24→22:04)
--- NOTE | 2018-09-01 11:13 | PN ---
DATE: 09/01/2018 SUBJECTIVE: This 63-year-old male on telemetry with history of chest pain. Nursing staff relates this morning that the patient had a comfortable night. PHYSICAL EXAMINATION: VITAL SIGNS: Temperature is 97.5. His pulse was reported at 86. His blood pressure was reported as 144/70, subsequent was 104/52 with a respiratory rate of 20. GENERAL: The patient is alert and oriented x3. NECK: Supple. LUNGS: Diminished breath sounds at the bases. HEART: S1, S2. Midsternal fatty tissue deposit area ABDOMEN: Soft with positive bowel sounds. EXTREMITIES: Show no evidence of edema. LABORATORY DATA: WBC of 5.5, RBC 4.25, hemoglobin 12.9, hematocrit 38.4, platelet count 287. Chemistry shows sodium 134, potassium 4.5, chloride 96, CO2 of 32, BUN is 18, creatinine is 1. His blood sugar was 150. His LFTs are normal. His troponin which we have been trending is 0.06 this morning. His TSH level was 1.73. Urinalysis is clear. IMPRESSION: At this time. 1. Chest pain. The patient has a history of diminished ejection fraction with prior coronary artery stents. We are trending his troponins as per Cardiology with treatment plan. 2. The patient has non-insulin dependent diabetes, currently on diet with fingerstick coverage. 3. He has a history of chronic pain disorder. Pain management evaluation had been requested and currently as per the pain management physician, Dr. Frederick, his medications have been adjusted. 4. He continues on Norvasc for his hypertension. 5. He is on nitrates for his chest pain. He is on Lovenox subcutaneous as well. He is on Lipitor for his hyperlipidemia. He is on a baby aspirin and he is on Plavix. 6. He is on Protonix for gastrointestinal prophylaxis and he is on Xopenex treatments for his underlying chronic obstructive pulmonary disease. 7. At this time, we will continue current level of care. All the clinical findings to this point have been discussed with the patient and the staff. We will await Cardiology input. Follow up the patient's labs. Sandy Stoll MD [facility] # [id number]
[2018-09-01] MEDS: Enoxaparin 100 mg Syringe SC SCH (12:29)
--- NOTE | 2018-09-01 18:42 | PN ---
DATE: 09/01/2018 SUBJECTIVE: The patient is seen sitting in bed on telemetry. He has had no recurrent chest pain. His cardiac enzymes have been negative. CURRENT MEDICATIONS: Include Ecotrin, Atrovent, insulin, Lipitor, Lovenox, topical nitrates, Norvasc, Plavix, Protonix, and Xopenex. OBJECTIVE: GENERAL: He is a chronically ill-appearing middle-aged man. VITAL SIGNS: Blood pressure is 120/66 with pulse of 100 in sinus with PVCs and , respirations are 14. He is afebrile. HEENT: No JVD. CHEST: Bilateral scattered rhonchi. HEART: PMI displaced laterally with a systolic murmur at the left sternal border. ABDOMEN: Soft, obese, nontender with normoactive bowel sounds. EXTREMITIES: No edema. DIAGNOSTIC DATA: Potassium 4.5, BUN and creatinine 18 and 1. White count 5.5, hemoglobin and hematocrit 12.9 and 38.4 with platelet count 287,000. Cardiac enzymes were negative. Hemoglobin A1c was 7%. IMPRESSION: 1. Recent chest pain with known coronary artery disease status post remote PCI, no clear evidence of acute ischemia present. 2. Left ventricular dysfunction. #. Peripheral arterial disease. #. Continued tobacco abuse. #. Mobitz I heart block. RECOMMENDATIONS: Telemetry monitoring should continue for now. Smoking abstinence was strongly encouraged. Negative chronotropic agents will be withheld for now given his recent Mobitz I heart block. A pharmacologic stress test will be planned. If he has evidence of extensive ischemia, repeat catheterization may be necessary. We will continue to follow and make further recommendations as appropriate. Marcus Cadet MD MTDHi
--- NOTE | 2018-09-01 22:55 | CARD ---
APPROVED REPORT Date of service: 09/01/2018 EKG Measurement Heart [id number] <Conclusion> Sinus tachycardia with 1st degree AV block Right bundle branch block Inferio-lateral infarct, age undetermined NDSTT abnormalities CCR Abnormal ECG
[2018-09-02] MEDS: oxyCODONE 30 mg Immediate Release Tab PO SCH ×4 (00:20→18:06)
[2018-09-02] MEDS: Enoxaparin 100 mg Syringe SC SCH (01:09)
[2018-09-02] MEDS: Nitroglycerin 2% Ointment Foilpak UD TOP SCH ×2 (01:09→06:34)
[2018-09-02] MEDS: Levalbuterol 0.63 MG/3 ML Inhal Soln UD IH SCH ×4 (01:29→23:37)
[2018-09-02] MEDS: Ipratropium 0.02% Inhal Soln (0.5 mg/2.5 ml) UD IH SCH ×5 (01:30→23:37)
[2018-09-02 06:27] LABS: BASO # 0.04 K/mm3 (0.0-2.0); BASO % 0.7 % (0.0-3.0); EOS # 0.1 (0.0-0.7); HEMOGLOBIN 13.2 g/dL (14.0-18.0); LYMPH # 1.6 (1.2-3.4); LYMPH % 28.2 % (22.0-35.0); MEAN CELL VOLUME 91.7 fl (80.0-105.0); MEAN CORPUSCULAR HEMOGLOBIN 30.3 pg (25.0-35.0); MEAN PLATELET VOLUME 10.4 fl (7.0-11.0); MONO # 0.6 (0.1-0.6); MONO % 9.6 % (1.0-6.0); RBC 4.36 10^6/uL (3.5-6.1); RED CELL DISTRIBUTION WIDTH 13.5 % (11.5-14.5); WHITE BLOOD COUNT 5.7 10^3/uL (4.5-11.0)
[2018-09-02 06:29] LABS: INR 1.04; PARTIAL THROMBOPLASTIN TIME 43.8 Seconds (26.9-38.3); PROTHROMBIN TIME 11.7 SECONDS (9.4-12.5)
[2018-09-02] MEDS: Pantoprazole 40 mg EC Tab PO SCH (06:34)
[2018-09-02 07:16] LABS: ALB/GLOB RATIO 1.3 (1.1-1.8); ALT/SGPT 23 U/L (7-56); AST/SGOT 22 U/L (17-59); BLOOD UREA NITROGEN 18 mg/dL (7-21); CALCIUM 9.1 mg/dL (8.4-10.5); GFR NON-AFRICAN AMERICAN > 60
[2018-09-02] MEDS: Insulin Reg-LOW-Coverage SC SCH ×3 (08:50→17:54)
[2018-09-02] MEDS ORDERED: Aminophylline 25 mg/ml Inj ONE (10:03)
--- NOTE | 2018-09-02 10:10 | CP.PCM.PN ---
Subjective - Date & Time of Evaluation Date of Evaluation: 09/02/18 Time of Evaluation: 10:00 - Subjective Subjective: Patient was evaluated by my colleague, Dr. Farooq, yesterday. Once his home regimen was restarted, his pain has been controlled and there are no acute events. Objective - Vital Signs/Intake and Output Vital Signs (last 24 hours): Temp Pulse Resp BP Pulse Ox 97.8 F 110 H 20 111/81 92 L 09/02/18 05:54 09/02/18 05:54 09/02/18 05:54 09/02/18 05:54 09/02/18 05:54 Intake and Output: 09/02/18 09/02/18 06:59 18:59 Intake Total 240 Balance 240 - Medications Medications: Current Medications Amlodipine Besylate (Norvasc) 5 mg PO DAILY [facility] Last Admin: 09/01/18 09:23 Dose: 5 mg Aspirin (Ecotrin) 81 mg PO DAILY [facility] Last Admin: 09/01/18 09:23 Dose: 81 mg Atorvastatin Calcium (Lipitor) 80 mg PO DAILY [facility] Last Admin: 09/01/18 09:23 Dose: 80 mg Clopidogrel Bisulfate (Plavix) 75 mg PO DAILY [facility] Last Admin: 09/01/18 09:23 Dose: 75 mg Enoxaparin Sodium (Lovenox) 85 mg SC Q12H [facility]; Protocol Last Admin: 09/02/18 01:09 Dose: 85 mg Insulin Human Regular (Humulin R Low) 0 units SC ACHS [facility]; Protocol Last Admin: 09/02/18 08:50 Dose: Not Given Ipratropium Correll (Atrovent) 0.5 mg IH Q8H [facility] Last Admin: 09/02/18 09:01 Dose: Not Given Levalbuterol HCl (Xopenex) 0.63 mg IH Q8H [facility] Last Admin: 09/02/18 09:01 Dose: Not Given Morphine Sulfate (Morphine Extended Release Tab) 30 mg PO Q12 [facility] Last Admin: 09/01/18 22:04 Dose: 30 mg Nitroglycerin (Nitro-Bid 2% Oint) 1 ea TOP Q6H [facility] Last Admin: 09/02/18 06:34 Dose: 1 ea Oxycodone HCl (Oxycodone Immediate Release Tab) 30 mg PO Q6H [facility] Last Admin: 09/02/18 06:35 Dose: 30 mg Pantoprazole Sodium (Protonix Ec Tab) 40 mg PO 0600 [facility] Last Admin: 09/02/18 06:34 Dose: 40 mg - Labs Labs: 09/02/18 06:00 09/02/18 06:00 PT 11.7 SECONDS (9.4-12.5) 09/02/18 06:00 INR 1.04 09/02/18 06:00 APTT 43.8 Seconds (26.9-38.3) H 09/02/18 06:00 Assessment and Plan (1) Chest pain Assessment & Plan: 63 yo man w/ multiple comorbidities and chronic pain. No acute pain management events. - continue MS Contin 30mg q12h, Roxicodone 30mg q6h PRN - please reconsult Anesthesia PRN Status: Acute
--- NOTE | 2018-09-02 11:08 | PN ---
DATE: 09/02/2017 SUBJECTIVE: This is a 63-year-old male sitting this morning in his telemetry room. Nursing staff relates that there were no problems during the night. The patient states that he is not having any chest pain and relates that his generalized pain is improved. PHYSICAL EXAMINATION: VITAL SIGNS: His temperature is 97.8, his pulse is 110, blood pressure is 111/81, his respiratory rate is 20. His oxygen saturation is 92% on room air. GENERAL: He is alert and oriented x3. NECK: Supple. No JVD. LUNGS: Show diminished breath sounds at the bases. HEART: Is in S1, S2 rhythm. ABDOMEN: Obese, soft. Positive bowel sounds. EXTREMITIES: Show no evidence of edema. LABORATORY DATA: WBC of 5.7, RBC 4.36, hemoglobin 13.2, hematocrit 40, platelet count is 314. His PT is 11.7 with an INR of 1.04. His is 43.8. Chemistry shows a sodium 131, potassium 4.5, chloride 94, CO2 of 30, BUN of 18, creatinine of 1. His random blood sugar is 165. His hemoglobin A1c is 7. LFTs are normal. His troponin is now 0.06. MEDICATIONS: The patient is on aspirin 81 mg daily, Lovenox 85 mg subcu every 12 hours, Plavix 75 mg daily. He is on Atrovent 0.5 mg every 8 hours and Xopenex 0.63 mg every eight hours. He is on Protonix 40 mg daily. He is on Norvasc 5 mg daily. He is on Nitro-Bid ointment every 6 hours. He is on oxycodone immediate release 30 mg every 6 hours and morphine sulfate extended release 30 mg every 12 hours. He is on Lipitor 80 mg daily and he is on a sliding insulin scale. The patient was admitted with: 1. Angina, chest pain. He is scheduled for a stress test today. 2. He has non-insulin dependent diabetes. 3. He has a history of chronic pain syndrome. 4. History of peripheral neuropathy. 5. History of ejection fraction of 48% with three coronary artery stents. He has a history of the transient ischemic attack. We will continue current level of care. Follow up his chemistries and await results of his stress test. All clinical findings to date have been discussed with the patient. He is being followed by pain management and Cardiology. Sandy Stoll MD MTDHi
--- NOTE | 2018-09-02 12:23 | PN ---
DATE: 09/02/2018 SUBJECTIVE: The patient is seen lying in bed. He is comfortable at the present time. He has had no further chest pain. His dyspnea is about the same. CURRENT MEDICATIONS: Include Atrovent, aspirin, insulin coverage, Lipitor, Lovenox, topical nitrates, Norvasc, Plavix, Protonix, and Xopenex. OBJECTIVE: GENERAL: He is a chronically ill-appearing middle-aged man. VITAL SIGNS: Blood pressure 110/80 with a pulse of 90 in sinus with PVCs and SVPCs noted. HEENT: No JVD. CHEST: Bilateral scattered rhonchi. HEART: PMI displaced laterally with a systolic murmur in left sternal border. ABDOMEN: Soft, nontender with normoactive bowel sounds. EXTREMITIES: No edema. DIAGNOSTIC DATA: Potassium is 4.5, BUN and creatinine 18 and 1. White count 5.7, hemoglobin and hematocrit 13.2 and 40 with a platelet count of 314,000. IMPRESSION: 1. Recent chest pain with known coronary artery disease status post remote percutaneous coronary intervention, clinically stable at present. 2. Left ventricular dysfunction. 3. Severe peripheral vascular disease. 4. Tobacco abuse. 5. Recent Mobitz I heart block. RECOMMENDATIONS: His current medications should continue for now. However, topical nitrates and Lovenox can be discontinued at the present time. A nuclear stress test is planned for this morning. If this shows extensive ischemia, repeat catheterization would be advised. If little or no ischemia is noted, continued medical therapy would be recommended. Negative chronotropic agents will continue to be avoided given his recent Mobitz I block. We will continue to follow and make further recommendations as appropriate. Marcus Cadet MD JUSTINA
[2018-09-02] MEDS: Morphine 30 mg SR Tab PO SCH ×2 (12:37→21:40)
--- NOTE | 2018-09-02 15:34 | CARD ---
APPROVED REPORT Date of service: 09/02/2018 Protocol: LEXISCAN Test Type: Lexiscan Sestamibi Stress Test Attending Physician: Dr. Marcus Cadet Referring Physician: Dr. Sandy Stoll Test Indications: CAD, Chest Pain Height:5 ft 4 in Weight:183lbs Medications: norvasc, aspirin, lipitor, plavix lovenox, insulin, atrovent, xopenex oxycodone Medical History: 63 year old male with h/o htn, high cholesterol, CHF, CAD, COPD and stroke Target HR: 159 bpm Resting ECG: right bundle branch block Resting Heart Rate: 93 bpm Resting Blood Pressure: 126/78mmHg Submaximum (85%): 135 bpm PROCEDURE Pharmacologic stress testing was performed using 0.4mg per 5ml of regadenoson given intravenously over 7-10 seconds. POST EXERCISE Reason for Termination: Protocol completed Target HR: No Max HR: 89 bpm 73% of Maximum Predicted HR: 159 bpm Exercise duration: 00:31 min:sec, 0 Stage Exercise capacity: 1.0METs Max Blood Pressure: 126/78mmHg Blood Pressure response to exercise: normal resting BP - appropriate response Heart Rate response to exercise: appropriate Chest Pain: No, none Angina index: 0 Arrhythmia: Yes, ventricular premature beats-isolated ST Change: No, none Deviation: 0 mm INTERPRETATION Stress EKG Conclusion: Normal infusion phase of Lexiscan NST. Signed by Marcus Cadet Electronically Approved: 09/02/2018 11:27:24 EXAM: Myocardial Perfusion REST/STRESS Stress Test Type: Pharmacologic Imaging Protocol The imaging protocol used to acquire images was Rest Tc-99m/stress Tc-99m 1 day Rest Spect myocardial perfusion imaging was performed in supine position 65 minutes following the injection of 10.3 mCi of Tc-99 Myoview. At peak stress, the patient was injected intravenously with 30.2mCi of Tc-99 tetrofosmin after an infusion time of 0 minutes and 10 seconds. Gated Stress Spect was performed 65 minutes after intravenous Tc-99 Myoview injection. The images were gated to evaluate regional wall motion and calculate ventricular ejection fraction.Images were reconstructed using backfilter projection method in short horizontal and verticle long axis. Spect slices were generated. LV Perfusion The quality of the study is good. The left ventricle is moderately enlarged in size. The right ventricle is unremarkable. The lung uptake is normal. The distribution of tracer reveals an area of moderately to severely decreased perfusion involving apical and most of inferior and inferolateral parsons and mildly decreased perfusion involving distal anteroseptal wall on the stress study. The remainder of the LV myocardium is unremarkable. The rest myocardial perfusion study shows no significant improvement of the defects. Wall Motion Gated wall motion study shows diffuse hypokinesis of the left ventricle, worse in inferolateral wall. LVEF = 27%. Conclusion 1. Abnormal SPECT myocardial perfusion study. 2. Fixed, distal anteroseptal/ apical and most of inferior and infeorlateral defects are suggestive of prevous myocardial injury/ infarct. 3. Moderate to severe LV dysfunction with diffuse hypokinesis, wrose in inferolateral wall.
[2018-09-03] MEDS: oxyCODONE 30 mg Immediate Release Tab PO SCH ×4 (00:11→17:37)
[2018-09-03] MEDS: Levalbuterol 0.63 MG/3 ML Inhal Soln UD IH SCH ×4 (00:30→20:30)
[2018-09-03] MEDS: Ipratropium 0.02% Inhal Soln (0.5 mg/2.5 ml) UD IH SCH ×4 (00:30→20:30)
[2018-09-03] MEDS: Pantoprazole 40 mg EC Tab PO SCH (05:09)
[2018-09-03] MEDS: Insulin Reg-LOW-Coverage SC SCH ×5 (05:13→23:17)
[2018-09-03 09:25] LABS: BLOOD UREA NITROGEN 14 mg/dL (7-21); CALCIUM 9.2 mg/dL (8.4-10.5); GFR NON-AFRICAN AMERICAN > 60
[2018-09-03] MEDS: Morphine 30 mg SR Tab PO SCH ×2 (12:07→22:24)
--- NOTE | 2018-09-03 13:55 | PN ---
DATE: 09/03/2018 SUBJECTIVE: A 63-year-old male on telemetry. Nursing staff relates that he had no particular problems during the night. Nurse's notes note that the patient was seen by a resident during the night, reportedly having a Mobitz arrhythmia. No communication was given to any attending. PHYSICAL EXAMINATION VITAL SIGNS: At this time, the patient has a temperature of 97.8, his pulse is 90. He denies any chest pain. His blood pressure is 131/47, his respiratory rate is 20. NECK: Supple. LUNGS: Show diminished breath sounds at the bases. HEART: Is in S1, S2 rhythm. ABDOMEN: Soft with positive bowel sounds. EXTREMITIES: No evidence of edema. LABORATORY DATA: Repeat chemistry shows a sodium of 133, potassium 4.4, chloride 94, BUN is 14, creatinine is 0.9. His blood sugar was 109. His calcium is 9.2. ASSESSMENT AND PLAN: 1. The patient underwent a chemical stress test yesterday, results are pending Await recommendations by Cardiology. This has been discussed with the patient and we will await these results. 2. We will continue his fingerstick coverage his diabetes. He is currently on a diabetic diet. 3. His chronic pain issue seems to be better. He is not offering any complaints at this time. 4. He says he is not having any chest pain at this time either. Current active medications consist of Atrovent, Ecotrin, heparin subcutaneous, sliding insulin scale, Lipitor, morphine extended release, Norvasc, oxycodone immediate release, Plavix, Protonix and Xopenex. He also has a history of COPD, peripheral neuropathy, chronic pain syndrome, known coronary disease. He has been seen by Pain Management, Dr. Frederick. He is being followed by Cardiology, Dr. Lucas. Sandy Stoll MD JUSTINA
--- NOTE | 2018-09-03 23:48 | PN ---
DATE: 09/03/2018 SUBJECTIVE: The patient is seen lying in bed on telemetry and he is currently comfortable. He denies any chest pain. His nuclear stress test from yesterday reveals moderately dilated ventricle with [id number] reduced perfusion of the inferior, anterolateral and apical parsons with no evidence of ischemia. Overall, ejection fraction was 27%. CURRENT MEDICATIONS: Include Atrovent, Ecotrin, subcutaneous heparin, insulin, Lipitor, Norvasc 5 mg daily, Plavix 75 mg daily, Protonix, and Xopenex. OBJECTIVE: GENERAL: He is a chronically ill-appearing middle-aged man. VITAL SIGNS: Blood pressure is 130/50 with a pulse of 90 and sinus, respirations are 16, and he is afebrile. NECK: No JVD. CHEST: Bilateral scattered rhonchi. HEART: PMI displaced laterally with soft tones noted. ABDOMEN: Soft and nontender with normoactive bowel sounds. EXTREMITIES: No edema. DIAGNOSTIC DATA: Potassium 4.4. BUN and creatinine 14 and 0.9. IMPRESSION: 1. Recent chest pain with no evidence of acute ischemia. Nuclear stress test shows fixed inferior defect consistent with prior infarct. 2. Severe left ventricular dysfunction. 3. Severe peripheral vascular disease. 4. Persistent tobacco abuse. 5. Recent Mobitz I heart block. RECOMMENDATIONS: At this time, conservative medical therapy for his coronary artery disease appears most appropriate. Negative chronotropic agents will be avoided given his recent Mobitz I block. Angiotensin-receptor osmani will be added to his regimen given his LV dysfunction. Nitrate therapy can be added as well. Beta-osmani will be withheld in order to avoid potential worsening conduction disease. His overall prognosis is guarded. Reevaluation of his left ventricular function in 3 months' time would be reasonable. Further discussion will be had with him at that time about the potential option of prophylactic ICD implant. We will continue to follow and make further recommendation as appropriate. Marcus Cadet MD MTDD
[2018-09-04] MEDS: oxyCODONE 30 mg Immediate Release Tab PO SCH ×4 (00:43→17:57)
[2018-09-04] MEDS: Pantoprazole 40 mg EC Tab PO SCH (05:23)
[2018-09-04] MEDS: Ipratropium 0.02% Inhal Soln (0.5 mg/2.5 ml) UD IH SCH ×3 (07:02→13:50)
[2018-09-04] MEDS: Levalbuterol 0.63 MG/3 ML Inhal Soln UD IH SCH ×3 (07:02→13:49)
[2018-09-04] MEDS: Morphine 30 mg SR Tab PO SCH ×2 (09:46→21:51)
[2018-09-04] MEDS: Insulin Reg-LOW-Coverage SC SCH ×3 (09:48→23:14)
[2018-09-04 10:31] LABS: BASO # 0.03 K/mm3 (0.0-2.0); BASO % 0.7 % (0.0-3.0); EOS # 0.1 (0.0-0.7); EOS % 1.7 % (1.5-5.0); HEMOGLOBIN 12.9 g/dL (14.0-18.0); LYMPH # 1.3 (1.2-3.4); LYMPH % 30.3 % (22.0-35.0); MEAN CELL VOLUME 91.8 fl (80.0-105.0); MEAN CORPUSCULAR HEMOGLOBIN 30.9 pg (25.0-35.0); MEAN CORPUSCULAR HGB CONC 33.7 g/dl (31.0-37.0); MEAN PLATELET VOLUME 10.4 fl (7.0-11.0); MONO # 0.4 (0.1-0.6); MONO % 8.3 % (1.0-6.0); RBC 4.17 10^6/uL (3.5-6.1); RED CELL DISTRIBUTION WIDTH 13.4 % (11.5-14.5); WHITE BLOOD COUNT 4.2 10^3/uL (4.5-11.0)
[2018-09-04 11:04] LABS: ALB/GLOB RATIO 1.2 (1.1-1.8); ALBUMIN 4.2 g/dL (3.0-4.8); ALT/SGPT 52 U/L (7-56); AST/SGOT 56 U/L (17-59); BLOOD UREA NITROGEN 14 mg/dL (7-21); CALCIUM 9.1 mg/dL (8.4-10.5); GFR NON-AFRICAN AMERICAN > 60
--- NOTE | 2018-09-04 12:13 | PN ---
DATE: 09/04/2018 SUBJECTIVE: The patient is seen sitting in chair on telemetry. He is currently comfortable. He denies any chest pain. CURRENT MEDICATIONS: Include Atrovent, Cozaar 25 mg daily, Ecotrin, subcutaneous heparin, Imdur, insulin, Lipitor, Norvasc, Plavix, Protonix, and Xopenex. OBJECTIVE: GENERAL: He is a middle-aged man who appears chronically ill. VITAL SIGNS: His blood pressure is 130/60 with pulse of 84, respirations are 14. He is in sinus rhythm. HEENT: No JVD. CHEST: Bilateral scattered rhonchi. HEART: PMI displaced laterally with soft tones noted. ABDOMEN: Soft, nontender with normoactive bowel sounds. EXTREMITIES: No edema. DIAGNOSTIC DATA: Morning blood work is pending. IMPRESSION: 1. Recent chest pain with negative cardiac enzymes. Known coronary artery disease, status post remote percutaneous coronary intervention of right coronary artery and prior inferior infarct. Recent stress test that shows evidence of fixed inferior defect with no evidence of ischemia and severe left ventricular dysfunction. 2. Severe peripheral vascular disease. 3. Tobacco abuse. 4. Recent Mobitz I heart block. RECOMMENDATIONS: Continue conservative management will be planned at this time. His Cozaar dose will be increased as tolerated. Avoidance of negative chronotropic agents is advised given his recent Mobitz I heart block. If he has recurrent chest pain, consideration can be given to repeat cardiac catheterization at that time. Reassessment of LV function in several months' time would be appropriate to determine whether discussion should be had regarding potential prophylactic ICD implant. We will continue to follow and make further recommendations as appropriate. He may be transferred to Transitional Care Unit, which should be beneficial for him. Continue smoking abstinence was advised. Marcus Cadet MD
--- NOTE | 2018-09-04 13:27 | PN ---
DATE: 09/04/2018 SUBJECTIVE: The patient is a 63-year-old male with admission for angina, underwent a stress test. At this time medical management has been recommended. This morning the nurses state that the patient had during the night some period of confusion, taking his clothes off and taking his monitor off. He did not sleep in the bed. The patient this morning does not have a clear recollection of these events. PHYSICAL EXAMINATION: GENERAL: At this time he is alert and oriented x3. VITAL SIGNS: His pulse is 94. His temperature is 97.8. His blood pressure is 134/64. His blood sugar was 143, respiratory rate was 20. NECK: Supple. LUNGS: Diminished breath sounds at the bases. HEART: S1, S2 rhythm. ABDOMEN: Soft with positive bowel sounds. EXTREMITIES: No evidence of edema. ASSESSMENT AND PLAN: 1. We will check the patient's labs. 2. Get a Neurology consult. 3. We will have Endocrinology reassess his medication management for his diabetes as now he is not going for cardiac cath and we will see what medications are recommended. 4. At the present time, he is on Atrovent, losartan, Ecotrin, subcu heparin, sliding insulin scale, Imdur, Lipitor, amlodipine, Plavix, Protonix, Xopenex and he is on oxycodone immediate release every six hours 30 mg and morphine sulfate extended release 30 mg every 12 hours. The patient has a history of known coronary disease with stents, diminished ejection fraction. He a history of peripheral vascular disease with a stent in the iliac coronary. He has a history of [id number] diabetes, chronic pain syndrome, peripheral neuropathy, hyperlipidemia and angina. Sandy Stoll MD
--- NOTE | 2018-09-04 18:18 | CON ---
DATE: 09/04/2018 CHIEF COMPLAINT: Confusion. HISTORY OF PRESENT ILLNESS: This is a 63-year-old man with past medical history of coronary artery disease with three stents within the circumflex, one in the right coronary and one in the LAD with an ejection fraction of 40%. Has history of right hip fracture. history of first degree AV block in the past, history of diabetes, diabetic peripheral neuropathy, TIA, history of chronic pain syndrome, history of peripheral vascular disease, CHF, COPD. He was brought into the hospital for chest pain, palpitation. He is being evaluated by Psychiatry. His current cardiac enzymes showed negative and recent stress test showed fixed defect with no evidence of ischemia and severe left ventricular dysfunction. Cardiology recommended continue conservative management at this time. He has some of confusion. Currently he is back to his baseline. He is following commands. Recall after 5 minutes is 1/3. His A1c is 7.2. Moving all extremities. He is on pain medications from chronic opioid dependency for his underlying chronic pain syndrome. PAST MEDICAL HISTORY: As above. SOCIAL HISTORY: No illicit drug use, smoking or ETOH abuse. ALLERGIES: NO KNOWN DRUG ALLERGIES. MEDICATIONS: Reviewed by nurse's reconciliation sheet. FAMILY HISTORY: Noncontributory. LABORATORY DATA: Sodium is 132, potassium 4.2, chloride 94, carbon dioxide 29, BUN of 13, creatinine of 0.9, random glucose 173. PHYSICAL EXAMINATION GENERAL: The patient is sitting up in bed, in no acute distress. VITAL SIGNS: Temperature is 98.5, pulse 83, blood pressure of 111/59, respiratory rate of 18. oxygen saturation of 98% on room air. HEENT: Atraumatic and normocephalic. PERRLA. Extraocular muscles are intact. NECK: Supple. No JVD. No adenopathy noted. LUNGS: Clear to auscultation. No adventitious sounds. HEART: S1 and S2. Normal rate and rhythm. No murmurs, rubs, or gallops. ABDOMEN: Soft, nontender, and nondistended. Bowel sounds are present. EXTREMITIES: No clubbing. No cyanosis. Peripheral pulses are +2 bilaterally. NEUROLOGICAL: The patient is alert, oriented to person, place. He recalls after 5 minutes is 1/3. Poor attention span. Slow thought process. Speech is fluent without any errors. Cranial nerves II through XII are intact. Motor exam: Moves all extremities equally. There is mild atrophy of the muscles of his feet. Sensory exam: Decrease light touch and pinprick up to the calves bilaterally. Decrease vibration at the toes. DTRs are 2+ throughout and 1 on both knees and ankles. Coordination: [id number] intact. No dysmetria noted. Gait is deferred for now. IMPRESSION: This is a 63-year-old man with history of coronary artery disease, status post 3 stents, history of chronic obstructive pulmonary disease, congestive heart failure, recent Mobitz type 1 heart block, severe peripheral vascular disease, diabetes, diabetic peripheral neuropathy, cardiac pain syndrome, came here with chest pain. Cardiology was called up for confusion. This is more with delirium with a confusional state with . RECOMMENDATIONS AND PLAN: 1. At this time I recommend to taper by pain management as now the patient is off his pain meds. Avoid . 2. Delirium precautions. 3. Continue aspirin 81 mg, Plavix at 75 mg, and Lipitor 80 mg for stroke prevention. 4. Keep his blood pressure to 130s-140s systolic and diastolic to 80s to avoid any hypotensive episodes. 5. Keep him in euglycemic and keep blood sugars to 140-180 to avoid hyperglycemia or hypoglycemic events. 6. PT/OT assessments. Thanks for this consult. Naren Hernandez MD
[2018-09-04 23:46] VITALS: RESP 20
[2018-09-05] MEDS: oxyCODONE 30 mg Immediate Release Tab PO SCH (00:13)
--- NOTE | 2018-09-05 00:47 | CON ---
DATE: 09/04/2018 ENDOCRINOLOGY CONSULT This is a 63-year-old male with known history of type 2 diabetes, hypertension, presenting here with sudden onset of midsternal chest pain and currently undergoing closer cardiac and hemodynamic monitoring and is now being referred for diabetic evaluation and management. PAST MEDICAL HISTORY: As mentioned above, history of type 2 diabetes, on metformin given as 500 mg b.i.d., history of hypertension and dyslipidemia, history of diabetic polyneuropathy with painful paresthesias in the lower extremities. Also admits to lower back pain with chronic pain syndrome. Also history of COPD with underlying nicotine dependence. History of coronary artery disease with a cardiac cath pending at this time. History of previous admissions for congestive heart failure. Also history of left frontal CVA is noted. FAMILY HISTORY: Positive for hypertension and heart disease. SOCIAL HISTORY: The patient admits to a 40-year history of smoking one pack a day. Has a supportive family otherwise. REVIEW OF SYSTEMS: Admits to generalized body weakness with episodic bouts of dizziness and lightheadedness, worse on the day of admission. Admits to sudden onset of precordial chest pain localized to the midsternal area with episodic bouts of shortness of breath, especially on exertion. His oral intake has been variable with nausea and dyspepsia and vague upper abdominal pains. PHYSICAL EXAMINATION: GENERAL: He is an average build male in no apparent distress. VITAL SIGNS: Blood pressure of 150/90, pulse of 100 beats per minute and regular, temperature 98, respirations 20, height is 5 feet 4 inches, weight is 178 pounds. HEENT: Head normocephalic. Eyes anicteric with pink conjunctivae. Funduscopy not possible at this time. Ears, nose and throat otherwise normal. NECK: Supple. Thyroid gland is normal in size. No carotid bruits or any cervical adenopathy. CARDIOPULMONARY: Adynamic precordium. S1, S2 is rapid and regular. LUNGS: Clear to auscultation. ABDOMEN: Flat, soft, with positive bowel sounds. EXTREMITIES: No peripheral edema. Pulses are +2 bilaterally. LABORATORY DATA: His chemistries showed a BUN of 14, sodium 132, potassium 4.2, chloride 94, CO2 of 29, glucose 173 and creatinine 0.9. His A1c is 7%. ASSESSMENT: This is a 63-year-old male with uncontrolled and decompensated type 2 diabetes, on oral hypoglycemic therapy, presenting here with sudden onset of midsternal chest pain and is currently undergoing cardiac workup and management. He also has diabetic microvascular complications of retinopathy and polyneuropathy with diabetic macrovascular complications of cerebrovascular disease, coronary artery disease, peripheral arterial disease and vasculopathy. PLAN OF MANAGEMENT: We will add DPP-4 inhibitor such as Januvia at 100 mg once daily to start tomorrow morning as ordered. We will hold off metformin because of the plan for a possible cardiac cath procedure as noted. We will modify the coverage scale to obviate hypoglycemia and detailed orders have been given. We will obtain serial chemistries and supplement accordingly as needed. We will follow. Lara Alves MD
[2018-09-05] MEDS: Ipratropium 0.02% Inhal Soln (0.5 mg/2.5 ml) UD IH SCH ×3 (02:30→13:12)
[2018-09-05] MEDS: Levalbuterol 0.63 MG/3 ML Inhal Soln UD IH SCH ×3 (02:30→13:12)
[2018-09-05] MEDS: Pantoprazole 40 mg EC Tab PO SCH (05:25)
[2018-09-05 06:05] VITALS: TEMP 98.5; O2SAT 97
[2018-09-05] MEDS: Insulin Reg-LOW-Coverage SC SCH ×2 (08:30→12:55)
[2018-09-05 09:28] VITALS: BP 150/73
[2018-09-05] MEDS ORDERED: Influenza Vaccine 60 mcg/0.5 mL SYR (4YR UP) IM ONE (13:15)
[2018-09-05] MEDS ORDERED: Pneumococcal 23-Valent Vaccine IM ONE (13:16)
[2018-09-05 13:26] VITALS: PULSE 102
--- NOTE | 2018-09-05 14:34 | PN ---
DATE: 09/05/2018 SUBJECTIVE: The patient is seen sitting in bed on telemetry. He is currently comfortable. He denies any chest pain or dyspnea. Generally feels improved. He continues to have intermittent evidence of Mobitz I heart block on the monitor. His current medications include Atrovent, Cozaar, Ecotrin, subcutaneous heparin, insulin, Imdur up to 30 mg daily, Januvia, Lipitor, Norvasc 5 mg daily, Plavix, Protonix, and Xopenex. PHYSICAL EXAMINATION: GENERAL: He is a chronically ill-appearing middle-aged man. VITAL SIGNS: Blood pressure is 146/60, but was 90/50 earlier; pulse was 86 and sinus with a Mobitz I AV block; respirations are 16. He is afebrile. HEENT: No JVD. CHEST: Bilateral scattered rhonchi. HEART: PMI displaced laterally with systolic murmur at low left sternal border. ABDOMEN: Soft and nontender with normoactive bowel sounds. EXTREMITIES: 1+ edema. DIAGNOSTIC DATA: No blood work pending from this morning. IMPRESSION: 1. Recent chest pain with no clear evidence of acute cardiac injury. 2. Known coronary artery disease status post remote myocardial fraction, percutaneous coronary intervention of right coronary artery. 3. Severe left ventricular dysfunction. 4. Ischemic cardiomyopathy. 5. Severe peripheral vascular disease. 6. History of tobacco abuse. 7. Mobitz I atrioventricular block. RECOMMENDATIONS: We will continue conservative management, it is most appropriate at this time. His medications will be adjusted as tolerated. At this time, no cardiac catheterization will be planned unless he has recurrent chest pain. Increase activity as advise, reassessment of his LV function in 3 months will be planned. A discussion can be had at that time as to the appropriateness of a prophylactic ICD. We will continue to follow and make further recommendations as appropriate. Marcus Cadet MD
--- NOTE | 2018-09-06 00:39 | PN ---
DATE: 09/05/2018 ENDOCRINOLOGY FOLLOWUP NOTE LOCATION: Room 260. SUBJECTIVE: This is a 63-year-old male, presenting here with congestive heart failure and difficulty with chest pain and now is being followed closely for metabolic management. His glycemic levels are fluctuating, but improved. His glucose values have ranged from 145 to 219 mg/dL, it was 176 at bedtime last night. LABORATORY DATA: His chemistries showed BUN of 14. Sodium 132, potassium 4.2, chloride 94, CO2 29, glucose 173, and creatinine 0.9. His A1c 7%. PLAN: So, at this time, we would recommend metformin given as 500 mg b.i.d. to start today as ordered. We will continue the Januvia given as 100 mg. Lara Alves MD
--- NOTE | 2018-09-06 17:35 | DS ---
HOSPITAL COURSE: This is a 63-year-old male admitted to [facility] for chest pain, found to have negative troponins, he has a known history of multiple coronary stents from prior percutaneous coronary intervention, he has severe left ventricular dysfunction, ischemic cardiomyopathy, severe peripheral vascular disease with stents, history of tobacco use, Mobitz 1 atrioventricular block, non-insulin dependent diabetes, chronic pain syndrome, peripheral neuropathy, and hypertension. The patient was seen by Neurology for confusional state/delirium, was cleared for discharge, he was also cleared by Cardiology for discharge. The patient was also seen by Pain Management in the hospital. DISCHARGE MEDICATIONS: He will be returning home on Cozaar 25 mg daily, Ecotrin 81 mg daily, Imdur 30 mg daily, Januvia 100 mg daily, Lipitor 80 mg daily, Norvasc 5 mg daily, Protonix 40 mg daily, Advair inhalers. He will also be taking morphine sulfate extended release 30 mg every 12 hours and oxycodone immediate release 30 mg every 6 hours, these were prescribed by the pain management team. He would be followed as an outpatient. He was fully aware of what his clinical findings were and his current cardiac status and he was strongly recommended to abstain from smoking and will be followed as an outpatient. Sandy Stoll MD
== END 2018-09-05 16:00 | disposition home or self-care (01) | DRG 543 ==
LOC: ED 20:16 → ERH 08-31 00:02 → 2RNO 08-31 00:59
PROVIDERS: ADMIT Internal Medicine; ATTEND Internal Medicine
PROC: 3E02340 Introduction of Influenza Vaccine into Muscle, Percutaneous Approach (ICD-10-PCS; principal; 2018-09-05)
PROC: 3E0234Z Introduction of Serum, Toxoid and Vaccine into Muscle, Percutaneous Approach (ICD-10-PCS; 2018-09-05)
DX: R07.9 Chest pain, unspecified (principal); I11.0 Hypertensive heart disease with heart failure; I50.22 Chronic systolic (congestive) heart failure; E11.319 Type 2 diabetes mellitus with unspecified diabetic retinopathy without macular edema; E11.42 Type 2 diabetes mellitus with diabetic polyneuropathy; E11.51 Type 2 diabetes mellitus with diabetic peripheral angiopathy without gangrene; F11.20 Opioid dependence, uncomplicated; I25.5 Ischemic cardiomyopathy; J44.9 Chronic obstructive pulmonary disease, unspecified; I44.1 Atrioventricular block, second degree; I25.10 Atherosclerotic heart disease of native coronary artery without angina pectoris; E78.5 Hyperlipidemia, unspecified; G89.4 Chronic pain syndrome; F17.210 Nicotine dependence, cigarettes, uncomplicated; I48.91 Unspecified atrial fibrillation; I44.0 Atrioventricular block, first degree; I67.9 Cerebrovascular disease, unspecified; K21.9 Gastro-esophageal reflux disease without esophagitis; Z79.02 Long term (current) use of antithrombotics/antiplatelets; Z79.82 Long term (current) use of aspirin; Z79.899 Other long term (current) drug therapy; Z86.73 Personal history of transient ischemic attack (TIA), and cerebral infarction without residual deficits; Z95.5 Presence of coronary angioplasty implant and graft; Z96.641 Presence of right artificial hip joint; Z79.84 Long term (current) use of oral hypoglycemic drugs; Z23 Encounter for immunization